=== PATIENT | female | born 1975 | race Two or more races ===

== ENCOUNTER 2020-08-16 17:32 | Emergency (ER) | payer OTHER, SELFPAY ==
[2020-08-16 17:45] VITALS: BP 141/84; PULSE 84; RESP 18; TEMP 38.3; O2SAT 98; BMI 38.7
[2020-08-16 18:00] VITALS: BP 139/80; PULSE 80; RESP 20; TEMP 36.9; O2SAT 99
--- NOTE | 2020-08-16 18:27 | PC.NURSE ---
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
[2020-08-16 18:45] LABS: Appearance Urine CLEAR; Color Urine DARK YELLOW; Glucose Urine UA NEG (NEG); Leukocyte Esterase Urine NEG (NEG); Nitrite Urine NEG (NEG); PH 5.5 (5.0-8.0); Specific Gravity - Urine 1.025 (1.005-1.025); Urine Blood 2+ (NEG); Urine Ketones 5 MG/DL (NEG); Urine Protein 1+ MG/DL (NEG-TRACE)
[2020-08-16 18:47] LABS: UPreg QC Valid YES; Urine Pregnancy NEGATIVE (NEGATIVE)
[2020-08-16 18:51] LABS: Basophils Absolute Auto 0.1 X10*3/uL (0.0-0.2); Basophils Percent Auto 0.3 % (0-2); Eosinophils Percent Auto 0.2 % (0-4); Hematocrit 41.5 % (37-47); Hemoglobin 14.2 g/dl (12.0-16.0); Imm Gran Abs Auto 0.09 X10*3/uL (0.00-0.03); Imm Gran Pct Auto 0.5 % (0.0-0.4); Lymphocytes Absolute Auto 2.1 X10*3/uL (1.2-4.9); Lymphocytes Percent Auto 12.3 % (20-40); MANUAL DIFF FLAG SCAN; Mean Corpuscular HGB Conc 34.2 g/dl (31.0-35.0); Mean Corpuscular Hemoglobin 30.6 pg (27.0-33.0); Mean Corpuscular Volume 89.4 fL (80-98); Mean Platelet Volume 11.5 fL (9.4-12.3); Monocytes Absolute Auto 1.7 X10*3/uL (0.1-1.2); Monocytes Percent Auto 9.8 % (2-11); Neutrophils Absolute Auto 13.2 X10*3/uL (2.0-8.3); Neutrophils Percent Auto 76.9 % (45-73); Platelet Count 216 X10*3/uL (160-400); Red Blood Count 4.64 X10*6/uL (4.20-5.50); Red Cell Distribution Width 12.3 % (11.0-16.0); SCAN SMEAR FLAG 1; White Blood Count 17.2 X10*3/uL (4.8-10.8)
[2020-08-16 18:51] LABS: Bacteria Urine 1+ /LPF; RBC Urine 0-2 /HPF (0); Squamous Epithelial Cell Urine 2+ /LPF; WBC Urine 0 /HPF (0-4)
[2020-08-16 19:05] LABS: SLIDE REVIEW VERIFIED
[2020-08-16] MEDS: Acetaminophen 325 MG TABLET 975 MG PO (19:06)
[2020-08-16 19:16] LABS: Alanine Aminotransferase 21 U/L (0-31); Alkaline Phosphatase 79 U/L (39-117); Anion Gap 13 (12-20); Aspartate Amino Transferase 18 U/L (5-31); Bilirubin Total 0.5 mg/dL (0.0-1.0); Blood Urea Nitrogen 8 mg/dL (9-16); Calcium 8.2 mg/dL (8.4-10.2); Carbon Dioxide 22 mmol/L (22-29); Chloride 105 mmol/L (96-108); Creatinine Clr Calc Pharmacy 113.7; Estimated Glomerular Filt Rate > 60; Glucose Random 104 mg/dL (60-115); Potassium 3.2 mmol/l (3.3-5.1); Sodium 137 mmol/L (135-145); Total Protein 7.2 g/dL (6.5-8.0)
[2020-08-16 19:44] LABS: Influenza A PCR NEGATIVE (Negative); Influenza B PCR NEGATIVE (Negative); Resp Syncy Virus RNA Qual PCR NEGATIVE (Negative); SARS COV2 PCR INHOUSE NEGATIVE (Negative)
[2020-08-16] MEDS: Lidocaine HCl 1 % MPF 5 ML VIAL SUBCUT (20:28)
--- NOTE | 2020-08-16 20:57 | ED.GENADULT ---
HPI - General Adult General Chief complaint: Fever Stated complaint: COVID SYMPTOMS Time Seen by Provider: 08/16/20 18:10 Source: patient Mode of arrival: ambulatory Limitations: no limitations History of Present Illness HPI narrative: 44-year-old presenting with complaints 1. She reports that for the past 3 days she has had some runny nose/congestion with body aches with flu-like symptoms with low-grade temp she also reports 2. That she feels like she has a bump on the right labia and hurts when she moves. States the site has been there for 2 days and seems to be getting bigger. Onset (ago): day(s) Severity: moderate Treatments prior to arrival: none Related Data Previous Rx's Medication Instructions Recorded amlodipine 5 mg tablet 5 mg PO DAILY #30 tab 07/27/20 paroxetine HCl 10 mg tablet 10 mg PO DAILY 90 Days #90 tab 08/10/20 cephalexin [Keflex] 500 mg PO Q8H 7 Days #21 cap 08/16/20 doxycycline monohydrate 100 mg PO BID 10 Days #20 cap 08/16/20 ibuprofen 800 mg PO Q8H PRN #30 tab 08/16/20 Allergies Allergy/AdvReac Type Severity Reaction Status Date / Time shellfish derived Allergy Severe SWELLING Unverified 05/26/20 17:09 [SHELLFISH DERIVED] morphine [MORPHINE] Allergy Mild NERVOUS, Verified 07/22/20 09:52 palpitations shrimp Allergy Unknown UNKNOWN Unverified 05/26/20 17:09 Review of Systems Review of Systems: Constitutional: No Weight loss, No Fever, + Chills, No Night Sweats, No Fatigue, No Malaise ENT/Mouth: No Hearing loss, No Ear Pain, + Nasal Congestion, No Sinus Pain, No Hoarseness, No sore throat, + Rhinorrhea, No Swallowing Difficulty Eyes: No Eye Pain, No Swelling, No Redness, No Foreign Body, No Discharge, No Vision Changes Cardiovascular: No Chest Pain, No SOB, No Dyspnea on Exertion, No Orthopnea, No Edema, No Palpitations Respiratory: No Cough, No Sputum, No Wheezing, No Smoke Exposure, No Dyspnea Gastrointestinal: No Nausea, No Vomiting, No Diarrhea, No Constipation, No abdominal Pain, No Hematochezia, No Melena Genitourinary: no irregular bleeding, No Dysuria, No Urinary Frequency, No Hematuria, No Urinary Incontinence, No Urgency, No Flank Pain, No Urinary Flow Changes, No Hesitancy Musculoskeletal: No joint pain, No Myalgias, No Joint Swelling Skin: No Skin Lesions, No rash Neuro: No Weakness, No Numbness, No Paresthesias, No Loss of Consciousness, No Dizziness, No Headache Psych:No Social Issues Heme/Lymph: No Bruising, No Bleeding,No Lymphadenopathy Endocrine: No Polyuria, No Polydipsia, No Temperature Intolerance Yes all other systems are reviewed and are negative [facility] Past Medical History Medical History (Updated 08/16/20 @ 20:59 by Jaswinder Jessica NP) Asthma Surgical History (Updated 07/22/20 @ 09:53 by AUDELIA Lopez) S/P NIKOS (total abdominal hysterectomy) Family History Family History (Updated 07/22/20 @ 09:54 by AUDELIA Lopez) Father No problems noted. Mother Diabetes Hypertension Social History Social History Alcohol intake: never Smoked in Last 30 Days: No Use of substances other than those prescribed or required for medical reasons: No Advance Directives: No Advance Directives Information Provided: No Physical Exam Vital Signs: Vital Signs: Last Vital Signs Temp 98.5 F 08/16/20 18:00 Pulse 80 08/16/20 18:00 Resp 20 08/16/20 18:00 BP 139/80 08/16/20 18:00 Pulse Ox 99 08/16/20 18:00 Body Mass Index 38.7 Reviewed Const: General: cooperative and healthy appearing; No acute distress or intoxicated appearing Nutritional Appearance: average body habitus Orientation/consciousness: patient oriented x3 HENMT: Head: Yes normal to inspection Ears: hearing grossly normal bilaterally General nose exam: Nasal discharge present clear Eyes: General: appearance normal, both eyes and all related structures Visual Elkins: normal visual elkins by confrontation Neck: Neck: Yes normal visual inspection, No positive Brudzinski's sign, No positive Kernig's sign and No tender Thyroid: Thyroid normal Chest: Chest palpation & inspection: normal inspection of the chest Resp: Effort & Inspection: normal respiratory effort Auscultation: clear to auscultation bilaterally Cardio: Jugular venous distension: no JVD Rhythm: regular rhythm Heart sounds: S1 normal heart sound present and S2 normal heart sound present GI: Inspection: Yes normal to inspection Percussion: Yes normal to percussion Auscultation: normal bowel sounds : Other: 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 General: Yes no CVA tenderness Back/Spine/Pelvis: Back: no CVA tenderness Skin: General skin exam: no rashes or lesions noted Neuro: General: patient oriented x3 Extrem: General: Yes normal to inspection Course Course Course Narrative: abscess drained with needle aspiration removing 15 mL of purulent discharge. Also having upper respiratory symptoms with respiratory panel negative could be false negative this was reviewed with her will go ahead and discharge her for with antibiotics for the labial abscess agreeable no need for x-ray given that were treating her with antibiotics any ways. Patient will be advised to follow-up with her director law enforcement here, clear return follow-up instructions provided. Stable for discharge. Procedures Abscess I/D Site: other ( Right labia majora) Local Anesthetic: lidocaine 1% Amount of anesthesia used (mL): 5 Technique: needle aspiration Amount of fluid expressed (mL): 15 Irrigation: Yes Packing used?: none Complications: other ( tolerated precision very well) Medical Decision Making Lab Data Result diagrams: 08/16/20 18:44 08/16/20 18:44 Labs: Lab Results 08/16/20 08/16/20 08/16/20 Range/Units 18:33 18:33 18:44 WBC 17.2 H (4.8-10.8) X10*3/uL RBC 4.64 (4.20-5.50) X10*6/uL Hgb 14.2 (12.0-16.0) g/dl Hct 41.5 (37-47) % MCV 89.4 (80-98) fL MCH 30.6 (27.0-33.0) pg MCHC 34.2 (31.0-35.0) g/dl RDW 12.3 (11.0-16.0) % Plt Count 216 (160-400) X10*3/uL MPV 11.5 (9.4-12.3) fL Immature Gran % (Auto) 0.5 H (0.0-0.4) % Neut % (Auto) 76.9 H (45-73) % Lymph % (Auto) 12.3 L (20-40) % [place] % (Auto) 9.8 (2-11) % Eos % (Auto) 0.2 (0-4) % Baso % (Auto) 0.3 (0-2) % Lymph # (Auto) 2.1 (1.2-4.9) X10*3/uL [place] # (Auto) 1.7 H (0.1-1.2) X10*3/uL Eos # (Auto) 0.0 (0.0-0.4) X10*3/uL Baso # (Auto) 0.1 (0.0-0.2) X10*3/uL Abs Immat Gran (auto) 0.09 H (0.00-0.03) X10*3/uL Absolute Neuts (auto) 13.2 H (2.0-8.3) X10*3/uL Absolute Nucleated RBC 0.000 (0.0-0.012) X10*3/uL Nucleated RBC % (auto) 0.0 (0.0-0.2) /100WBC Smear Tech's Comments VERIFIED Sodium (135-145) mmol/L Potassium (3.3-5.1) mmol/l Chloride (96-108) mmol/L Carbon Dioxide (22-29) mmol/L Anion Gap (12-20) BUN (9-16) mg/dL Creatinine (0.5-1.4) mg/dL Estim Creat Clear Calc Estimated GFR Random Glucose (60-115) mg/dL Calcium (8.4-10.2) mg/dL Total Bilirubin (0.0-1.0) mg/dL AST (5-31) U/L ALT (0-31) U/L Alkaline Phosphatase (39-117) U/L Total Protein (6.5-8.0) g/dL Albumin (3.5-5.0) g/dL Urine Color DARK YELLOW Urine Appearance CLEAR Urine pH 5.5 (5.0-8.0) Ur Specific [place] 1.025 (1.005-1.025) Urine Protein 1+ H (NEG-TRACE) MG/DL Urine Glucose (UA) NEG (NEG) MG/DL Urine Ketones 5 (NEG) MG/DL Urine Blood 2+ H (NEG) Urine Nitrite NEG (NEG) Ur Leukocyte Esterase NEG (NEG) Urine RBC 0-2 (0) /HPF Urine WBC 0 (0-4) /HPF Ur Squamous Epith Cells 2+ /LPF Urine Bacteria 1+ /LPF Urine Test NEGATIVE (NEGATIVE) Coronavirus (PCR) NEGATIVE (Negative) Influenza Type A (PCR) NEGATIVE (Negative) Influenza Type B (PCR) NEGATIVE (Negative) RSV RNA Qual (PCR) NEGATIVE (Negative) 08/16/20 Range/Units 18:44 WBC (4.8-10.8) X10*3/uL RBC (4.20-5.50) X10*6/uL Hgb (12.0-16.0) g/dl Hct (37-47) % MCV (80-98) fL MCH (27.0-33.0) pg MCHC (31.0-35.0) g/dl RDW (11.0-16.0) % Plt Count (160-400) X10*3/uL MPV (9.4-12.3) fL Immature Gran % (Auto) (0.0-0.4) % Neut % (Auto) (45-73) % Lymph % (Auto) (20-40) % [place] % (Auto) (2-11) % Eos % (Auto) (0-4) % Baso % (Auto) (0-2) % Lymph # (Auto) (1.2-4.9) X10*3/uL [place] # (Auto) (0.1-1.2) X10*3/uL Eos # (Auto) (0.0-0.4) X10*3/uL Baso # (Auto) (0.0-0.2) X10*3/uL Abs Immat Gran (auto) (0.00-0.03) X10*3/uL Absolute Neuts (auto) (2.0-8.3) X10*3/uL Absolute Nucleated RBC (0.0-0.012) X10*3/uL Nucleated RBC % (auto) (0.0-0.2) /100WBC Smear Tech's Comments Sodium 137 (135-145) mmol/L Potassium 3.2 L (3.3-5.1) mmol/l Chloride 105 (96-108) mmol/L Carbon Dioxide 22 (22-29) mmol/L Anion Gap 13 (12-20) BUN 8 L (9-16) mg/dL Creatinine 0.72 (0.5-1.4) mg/dL Estim Creat Clear Calc 113.7 Estimated GFR > 60 Random Glucose 104 (60-115) mg/dL Calcium 8.2 L (8.4-10.2) mg/dL Total Bilirubin 0.5 (0.0-1.0) mg/dL AST 18 (5-31) U/L ALT 21 (0-31) U/L Alkaline Phosphatase 79 (39-117) U/L Total Protein 7.2 (6.5-8.0) g/dL Albumin 4.0 (3.5-5.0) g/dL Urine Color Urine Appearance Urine pH (5.0-8.0) Ur Specific [place] (1.005-1.025) Urine Protein (NEG-TRACE) MG/DL Urine Glucose (UA) (NEG) MG/DL Urine Ketones (NEG) MG/DL Urine Blood (NEG) Urine Nitrite (NEG) Ur Leukocyte Esterase (NEG) Urine RBC (0) /HPF Urine WBC (0-4) /HPF Ur Squamous Epith Cells /LPF Urine Bacteria /LPF Urine Test (NEGATIVE) Coronavirus (PCR) (Negative) Influenza Type A (PCR) (Negative) Influenza Type B (PCR) (Negative) RSV RNA Qual (PCR) (Negative) Discharge Plan Discharge Clinical Impression: Upper respiratory infection, viral, Abscess of labia Patient Disposition: Home, Self-Care Additional Instructions: your COVID test was negative you had right-sided labial abscess that was drained Please follow-up with director law enforcement as discussed Take medication prescribed Return if any concerns or worsening symptoms Thank you Prescriptions: New cephalexin [Keflex] 500 mg capsule 500 mg PO Q8H 7 Days Qty: 21 RF: 0 doxycycline monohydrate 100 mg capsule 100 mg PO BID 10 Days Qty: 20 RF: 0 ibuprofen 800 mg tablet 800 mg PO Q8H PRN (Reason: pain) Qty: 30 RF: 0 No Action amlodipine 5 mg tablet 5 mg PO DAILY Qty: 30 RF: 11 paroxetine HCl 10 mg tablet 10 mg PO DAILY 90 Days Qty: 90 RF: 3 Referrals: Camilo Taylor MD [Physician] - 1 week
[2020-08-16 21:19] VITALS: BP 136/67; PULSE 88; RESP 15; TEMP 37.7; O2SAT 98
== END 2020-08-16 21:20 | disposition home or self-care (01) ==
PROVIDERS: Nurse Practitioner Primary Care; Emergency Provider Internal Medicine
DX: J06.9 Acute upper respiratory infection, unspecified (principal); N76.4 Abscess of vulva; M79.10 Myalgia, unspecified site; R50.9 Fever, unspecified; Z20.828 Contact with and (suspected) exposure to other viral communicable diseases; Z79.899 Other long term (current) drug therapy
CPT/HCPCS: 0241U; 36415; 56405; 80053; 81001; 81025; 85025; 99284

== ENCOUNTER → 2020-08-29 08:55 | Outpatient (BNVA) | payer MEDICAID, SELFPAY | PROVIDERS: Visit Provider Obstetrics & Gynecology | DX: N76.4 Abscess of vulva (principal) | CPT/HCPCS: 99212 ==

== ENCOUNTER → 2020-09-27 16:15 | Outpatient (BNVA) | payer MEDICAID, SELFPAY | PROVIDERS: Visit Provider Obstetrics & Gynecology ==

== ENCOUNTER 2020-11-29 09:49 | Outpatient (REF) | payer MEDICAID, SELFPAY ==
--- NOTE | ~2020-11-29 | XR_ITS ---
EXAMINATION: XR LUMBAR SPINE: 5 VIEWS XR KNEE, LEFT: 4 VIEWS CLINICAL INFORMATION: Low back pain COMPARISON: 02/07/2020 FINDINGS: Lumbar spine: No acute fracture or traumatic malalignment. There is mild loss of disc space height and associated endplate osteophytes at L4-L5 and L5-S1. Small endplate ossified present throughout the remainder of the lumbar spine. Moderate facet arthropathy at L4-L5 and L5-S1. Moderate left sacroiliac arthrosis characterized by subchondral sclerosis. Right sacroiliac joint unremarkable. Left knee: No acute fracture or dislocation. Joint spaces and articular surfaces are maintained. Soft tissues unremarkable. XR/XR lumbar spine 4V min IMPRESSION: Lumbar spine: Similar-appearing spondylosis, worst at L4-L5 and L5-S1. Asymmetric degenerative change of the left sacroiliac joint. Left knee: Unremarkable.
--- NOTE | ~2020-11-29 | XR_ITS ---
EXAMINATION: XR LUMBAR SPINE: 5 VIEWS XR KNEE, LEFT: 4 VIEWS CLINICAL INFORMATION: Low back pain COMPARISON: 02/07/2020 FINDINGS: Lumbar spine: No acute fracture or traumatic malalignment. There is mild loss of disc space height and associated endplate osteophytes at L4-L5 and L5-S1. Small endplate ossified present throughout the remainder of the lumbar spine. Moderate facet arthropathy at L4-L5 and L5-S1. Moderate left sacroiliac arthrosis characterized by subchondral sclerosis. Right sacroiliac joint unremarkable. Left knee: No acute fracture or dislocation. Joint spaces and articular surfaces are maintained. Soft tissues unremarkable. XR/XR knee LT 4V IMPRESSION: Lumbar spine: Similar-appearing spondylosis, worst at L4-L5 and L5-S1. Asymmetric degenerative change of the left sacroiliac joint. Left knee: Unremarkable.
--- NOTE | ~2020-11-29 | XR_ITS ---
EXAMINATION: XR RIBS, RIGHT CLINICAL INFORMATION: Pleural dyspnea COMPARISON: Chest 08/13/2019 and priors TECHNIQUE: Frontal chest and 3 oblique views of the right ribs. FINDINGS: Lungs are clear and symmetrically inflated. No mass or consolidation. No effusion or pneumothorax. Stable heart and mediastinum within normal limits for technique. Increased concave right scoliosis possibly due to splinting. The right shoulder is intact. There is a right seventh cervical rib, an anatomic variant. No right rib fracture. XR/XR ribs RT min 3V w CXR1V IMPRESSION: 1. No right rib fracture. 2. Incidental right seventh cervical rib. 3. Right lung is clear without consolidation effusion or pneumothorax.
== END 2020-11-29 09:50 | disposition home or self-care (01) ==
LOC: HO.XRAY 09:49
PROVIDERS: PCP Registered Nurse; Visit Provider Registered Nurse
DX: M25.562 Pain in left knee (principal); M54.5 Low back pain; R07.81 Pleurodynia; R20.0 Anesthesia of skin
CPT/HCPCS: 71101; 72110; 73564

== ENCOUNTER 2021-04-24 12:38 | Emergency (ER) | payer MEDICAID, SELFPAY ==
[2021-04-24 13:32] VITALS: BP 141/84; PULSE 75; RESP 18; TEMP 36.8; O2SAT 98; BMI 42.2
--- NOTE | 2021-04-24 13:38 | ECG_ITS ---
Test Reason : CHEST PAIN Blood Pressure : / mmHG Vent. Rate : 070 BPM Atrial Rate : 070 BPM P-R Int : 156 ms QRS Dur : 082 ms QT Int : 406 ms P-R-T Axes : 041 027 039 degrees QTc Int : 438 ms Normal sinus rhythm Normal ECG When compared with ECG of 09-MAY-2020 18:33, No significant change was found Referred By: Generic ED Physician Electronically Signed By:JOSIE MOSER
[2021-04-24 14:00] VITALS: PULSE 71; RESP 20; O2SAT 100
[2021-04-24 14:21] VITALS: BP 138/71
--- NOTE | 2021-04-24 14:45 | ED.GENADULT ---
HPI - General Adult General Chief complaint: Chest Pain Stated complaint: chest pain Time Seen by Provider: 04/24/21 14:45 Source: patient Mode of arrival: ambulatory Limitations: no limitations History of Present Illness HPI narrative: History of chronic constipation complaining of pain in the right lower back started yesterday while doing the household work patient also complaining of upper abdominal pain going to the mid chest no nausea vomiting or diarrhea no fever or chills Related Data Previous Rx's Medication Instructions Recorded amlodipine 5 mg tablet 5 mg PO DAILY #30 tab 07/27/20 paroxetine HCl 10 mg tablet 10 mg PO DAILY 90 Days #90 tab 08/10/20 cephalexin 500 mg capsule (Keflex) 500 mg PO Q8H 7 Days #21 cap 08/16/20 doxycycline monohydrate 100 mg 100 mg PO BID 10 Days #20 cap 08/16/20 capsule ibuprofen 800 mg tablet 800 mg PO Q8H PRN #30 tab 08/16/20 sulfamethoxazole 800 1 tab PO BID #14 tab 08/29/20 mg-trimethoprim 160 mg tablet clotrimazole 1 % topical ointment 1 appl TOPICAL BID PRN #56.7 g 09/27/20 fluconazole 150 mg tablet 150 mg PO DAILY #1 tab 09/27/20 polyethylene glycol 3350 17 17 g PO DAILY #510 g 04/24/21 gram/dose oral powder (Miralax) Allergies Allergy/AdvReac Type Severity Reaction Status Date / Time shellfish derived Allergy Severe SWELLING Verified 09/27/20 16:16 [SHELLFISH DERIVED] morphine [MORPHINE] Allergy Mild NERVOUS, Verified 09/27/20 16:16 palpitations shrimp Allergy Unknown UNKNOWN Verified 09/27/20 16:16 Review of Systems Review of Systems: Yes all other systems are reviewed and are negative [facility] Past Medical History Medical History Asthma Surgical History S/P NIKOS (total abdominal hysterectomy) Family History Family History Father No problems noted. Mother Diabetes Hypertension Social History Social History Alcohol intake: never Cigarettes Per Day: 12 Advance Directives: No Advance Directives Information Provided: Yes Sexual orientation: Straight/Heterosexual Gender identity: female Physical Exam Vital Signs: Vital Signs: Last Vital Signs Temp 98.3 F 04/24/21 13:32 Pulse 71 04/24/21 14:00 Resp 20 04/24/21 14:00 BP 138/71 04/24/21 14:21 Pulse Ox 100 04/24/21 14:00 Body Mass Index 42.2 Appearance: Alert. Oriented X3. No acute distress. And anxious Eyes: No pallor or icterus ENT: Pharynx normal. Oral Mucosa moist Neck: Normal inspection. Neck supple. CVS: Normal heart rate and rhythm. Pulses normal. Respiratory: No respiratory distress. Equal air entry bilateral, no wheezing/rales/rhonchi Abdomen: Soft , mild diffuse tenderness Bowel sounds are present, no mass palpable, no CVA tenderness Skin: Skin warm and dry. Normal skin color. Normal skin turgor. Extremities: No lower extremity edema. No calf tenderness SLR negative diffuse back pain Neuro: Oriented X 3. Medical Decision Making MDM Narrative Medical decision making narrative: Patient with multiple complaints more anxious clinical examination was negative for any acute pathology no significant tenderness in the back noticed a patient. Patient advised to continue her medication for anxiety will give MiraLax for constipation Discharge Plan Discharge Clinical Impression: Anxiety Constipation Qualifiers: Constipation type: chronic idiopathic constipation Qualified Code(s): K59.04 - Chronic idiopathic constipation Patient Disposition: Home, Self-Care Instructions: Constipation (ED), Anxiety (ED) Additional Instructions: Taking medication for anxiety. Take medication for constipation as prescribed. Follow with PCP Tomando medicamentos para la ansiedad. Cement los medicamentos para el estre?imiento seg?n lo prescrito. Siga con kendrick PCP Prescriptions: New polyethylene glycol 3350 [Miralax] 17 gram/dose powder 17 g PO DAILY Qty: 510 RF: 0 No Action amlodipine 5 mg tablet 5 mg PO DAILY Qty: 30 RF: 11 paroxetine HCl 10 mg tablet 10 mg PO DAILY 90 Days Qty: 90 RF: 3 cephalexin [Keflex] 500 mg capsule 500 mg PO Q8H 7 Days Qty: 21 RF: 0 doxycycline monohydrate 100 mg capsule 100 mg PO BID 10 Days Qty: 20 RF: 0 ibuprofen 800 mg tablet 800 mg PO Q8H PRN (Reason: pain) Qty: 30 RF: 0 sulfamethoxazole-trimethoprim 800-160 mg tablet 1 tab PO BID Qty: 14 RF: 0 fluconazole 150 mg tablet 150 mg PO DAILY Qty: 1 RF: 0 clotrimazole 1 % ointment 1 appl topical BID PRN (Reason: vaginal itching) Qty: 56.7 RF: 0 Interventions: ED Discharge Assessment Last Done: 04/24/21 15:39 Discharge Date/Time: 04/24/21 15:39 Print Language: Romanian
[2021-04-24] MEDS: Milk of Magnesia 30 ML ORAL.SUSP PO (14:56)
== END 2021-04-24 15:39 | disposition home or self-care (01) ==
PROVIDERS: Emergency Provider Internal Medicine; PCP Registered Nurse
DX: F41.9 Anxiety disorder, unspecified (principal); K59.04 Chronic idiopathic constipation; I10 Essential (primary) hypertension; Z79.899 Other long term (current) drug therapy
CPT/HCPCS: 93005; 99283; 99284

== ENCOUNTER 2021-05-30 13:41 | Outpatient (REF) | payer MEDICAID, SELFPAY ==
--- NOTE | ~2021-05-30 | XR_ITS ---
EXAMINATION: XR CHEST CLINICAL INFORMATION: Screening for TB COMPARISON: Previous chest x-ray most recent August 2019 chest and right rib x-rays November 2020 TECHNIQUE: 2 views of the chest were obtained. FINDINGS: The cardiac and mediastinal contours are normal. The lungs are clear. There is no pleural effusion or pneumothorax. No acute bone abnormality is seen. There may be a right cervical rib. XR/XR chest 2V IMPRESSION: No evidence for acute disease in the chest.
== END 2021-05-30 13:42 | disposition home or self-care (01) ==
LOC: HO.XRAY 13:41
PROVIDERS: PCP Registered Nurse Community Health; Visit Provider Registered Nurse Community Health
DX: Z11.1 Encounter for screening for respiratory tuberculosis (principal)
CPT/HCPCS: 71046

== ENCOUNTER 2021-11-30 13:57 | Outpatient (REF) | payer MEDICAID, SELFPAY ==
--- NOTE | ~2021-11-30 | MM_ITS ---
EXAMINATION: MM SCREENING DIGITAL BREAST TOMOSYNTHESIS, BILATERAL CLINICAL INFORMATION: Screening. Asymptomatic. The lifetime risk of breast cancer based on the Tyrer-Cuzick Model is 9%. COMPARISON: Mammography: December 24, 2018 and studies dating back to October 29, 2013 TECHNIQUE: Digital breast tomosynthesis is performed in both the craniocaudal and mediolateral oblique views along with computer-aided detection (CAD). Synthesized 2D images are generated from the tomosynthesis. FINDINGS: There are scattered areas of fibroglandular density (ACR BI-RADS breast composition Category b). There are no significant masses, abnormal calcifications, or other abnormalities. MM/MM tomosynthesis screening BI IMPRESSION: There are no significant changes from prior study. ASSESSMENT: BI-RADS 1: Negative RECOMMENDATION: Routine annual mammography screening. This patient's information was entered into a reminder system with a target due date for their next mammogram.
== END 2021-11-30 13:58 | disposition home or self-care (01) ==
LOC: HO.MAMMO 13:57
PROVIDERS: Visit Provider Registered Nurse Community Health
DX: Z12.31 Encounter for screening mammogram for malignant neoplasm of breast (principal)
CPT/HCPCS: 77063; 77067

== ENCOUNTER 2022-07-20 09:39 | Outpatient (REF) | payer MEDICAID, SELFPAY ==
--- NOTE | ~2022-07-20 | MR_ITS ---
EXAMINATION: MR LUMBAR SPINE WITHOUT CONTRAST CLINICAL INFORMATION: Lumbago with left-sided sciatica. COMPARISON: Lumbar spine MRI from 10/11/2017. TECHNIQUE: MRI of the lumbar spine was obtained using routine sequences without contrast. FINDINGS: Transitional vertebral anatomy. There is sacralization of L5 with rudimentary L5-S1 intervertebral disc. Mild degenerative retrolisthesis of L4 on L5. Otherwise, normal anatomic alignment. Advanced degenerative disc disease at L4-L5. Moderate degenerative disc disease at T10-T11 and L3-L4. Mild degenerative disc disease at L1-L2 and L2-L3. Associated mixed Modic type discogenic endplate changes including Modic type I discogenic edema at T10-T11, L1-L2, L3-L4, and L4-L5. Moderate marrow edema within the posterior elements of L3-L5 consistent with degenerative stress reaction. No additional suspicious marrow edema. The vertebral body heights are well-maintained. The conus medullaris terminates at the level of T12-L1. The distal spinal cord is normal in appearance. Moderate subcutaneous edema within the soft tissues of the back from L1-L5. No additional significant abnormalities of the paraspinal musculature. Limited evaluation of the intra-abdominal structures without significant abnormalities. The abdominal aorta is of normal contour and caliber. AXIAL SPINAL LEVELS: T11-T12: Normal annular contour. There is mild bilateral facet joint arthropathy. There is no neural foraminal stenosis. There is no spinal canal stenosis. T12-L1: Normal annular contour. There is mild bilateral facet joint arthropathy. There is no neural foraminal stenosis. There is no spinal canal stenosis. L1-L2: Normal annular contour. There is mild bilateral facet joint arthropathy. There is no neural foraminal stenosis. There is no spinal canal stenosis. L2-L3: Normal annular contour. There is moderate bilateral facet joint arthropathy. There is mild left and no right neural foraminal stenosis. There is no spinal canal stenosis. L3-L4: Mild diffuse disc bulge. There is moderate bilateral facet joint arthropathy. There is moderate left and mild right neural foraminal stenosis. There is narrowing of the subarticular zones with no overt spinal canal stenosis centrally. L4-L5: Moderate diffuse disc bulge with posterior osseous ridging. Moderate right lateral osteophyte complex. There is moderate right and mild left facet joint arthropathy. There is moderate right and mild left neural foraminal stenosis. There is no spinal canal stenosis. L5-S1: Normal annular contour. There is mild bilateral facet joint arthropathy. There is no neural foraminal stenosis. There is no spinal canal stenosis. MR/MR lumbar spine wo con IMPRESSION: Transitional vertebral anatomy. There is sacralization of L5. Moderate multilevel degenerative spondyloarthropathy of the lumbar spine as described in detail above. Most notably, there are moderate neural foraminal stenoses at L3-L4 and L4-L5. Narrowings of the subarticular zones at L3-L4. No overt spinal canal stenosis centrally. Overall, degenerative changes appear similar to exam from 2018.
== END 2022-07-20 09:40 | disposition home or self-care (01) ==
LOC: HO.MRI 09:39
PROVIDERS: Visit Provider Internal Medicine
DX: M54.42 Lumbago with sciatica, left side (principal)
CPT/HCPCS: 72148

== ENCOUNTER 2023-02-22 07:31 | Outpatient (REF) | payer MEDICAID, SELFPAY ==
--- NOTE | ~2023-02-22 | XR_ITS ---
EXAMINATION: Knee x-ray bilateral CLINICAL INFORMATION: Pain COMPARISON: None. TECHNIQUE: 3 views of each knee FINDINGS: Left: Bone alignment is normal. There may be old healed fracture of the proximal shaft of the fibula. No acute fracture or dislocation. Mild medial femoral tibial joint space narrowing. Joint spaces are otherwise normal. Small joint effusion. Right: Bone alignment is normal. No fracture or dislocation. Mild medial femoral tibial joint space narrowing. Joint spaces are otherwise normal. No joint effusion. XR/XR knee LT 2V IMPRESSION: Mild bilateral medial femoral tibial joint space narrowing. Question old healed left proximal fibular shaft fracture.
--- NOTE | ~2023-02-22 | XR_ITS ---
EXAMINATION: Knee x-ray bilateral CLINICAL INFORMATION: Pain COMPARISON: None. TECHNIQUE: 3 views of each knee FINDINGS: Left: Bone alignment is normal. There may be old healed fracture of the proximal shaft of the fibula. No acute fracture or dislocation. Mild medial femoral tibial joint space narrowing. Joint spaces are otherwise normal. Small joint effusion. Right: Bone alignment is normal. No fracture or dislocation. Mild medial femoral tibial joint space narrowing. Joint spaces are otherwise normal. No joint effusion. XR/XR knee standing BI IMPRESSION: Mild bilateral medial femoral tibial joint space narrowing. Question old healed left proximal fibular shaft fracture.
--- NOTE | ~2023-02-22 | XR_ITS ---
EXAMINATION: Knee x-ray bilateral CLINICAL INFORMATION: Pain COMPARISON: None. TECHNIQUE: 3 views of each knee FINDINGS: Left: Bone alignment is normal. There may be old healed fracture of the proximal shaft of the fibula. No acute fracture or dislocation. Mild medial femoral tibial joint space narrowing. Joint spaces are otherwise normal. Small joint effusion. Right: Bone alignment is normal. No fracture or dislocation. Mild medial femoral tibial joint space narrowing. Joint spaces are otherwise normal. No joint effusion. XR/XR knee RT 2V IMPRESSION: Mild bilateral medial femoral tibial joint space narrowing. Question old healed left proximal fibular shaft fracture.
== END 2023-02-22 07:32 | disposition home or self-care (01) ==
LOC: HO.HOSX 07:31
PROVIDERS: Visit Provider Physician Assistant
DX: M17.0 Bilateral primary osteoarthritis of knee (principal)
CPT/HCPCS: 73560; 73565; 99202

== ENCOUNTER 2023-06-06 11:19 | Outpatient (AMB) | payer MEDICAID, SELFPAY ==
--- NOTE | 2023-06-06 11:30 | A.OFFVIS_ITS ---
Intake Vital Signs 06/06/23 11:31 Height 5 ft 4 in Weight 283 lb 1.176 oz BMI 48.6 BP 130/76 Blood Pressure Location Lt brachial Position Sitting Pulse 96 Pulse Source Pulse Oximeter Temp 97.1 F Temp Source Skin Pulse Oximetry (%) 96 Oxygen Delivery Method Room Air Intake Visit Reasons: Polyarthralgia Intake Note: New patient presents today for polyarthralgia. 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 Operator Name: Rajendra [id number] Information Interpreted: clinical only Accompanied by: Self / Same As Patient Allergies shellfish derived [SHELLFISH DERIVED] Allergy (Severe, Verified 06/06/23 11:36) SWELLING morphine [MORPHINE] Allergy (Mild, Verified 06/06/23 11:36) NERVOUS, palpitations shrimp Allergy (Unknown, Verified 06/06/23 11:36) UNKNOWN Medication List - Last Reconciled 06/06/23 by Abdulaziz Santana MD albuterol sulfate 90 mcg/actuation (Ventolin HFA) 2 puffs inhalation Q4-6H PRN amlodipine 5 mg PO DAILY buprenorphine-naloxone 4-1 mg (Suboxone) 5 mg sublingual BID PRN cholecalciferol (vitamin D3) 50 mcg PO QAM clonazepam 0.5 mg PO BID PRN clotrimazole 1% 1 appl topical BID PRN furosemide 20 mg PO QAM gabapentin 300 mg PO TID ibuprofen 800 mg PO Q8H PRN loratadine 10 mg PO DAILY PRN losartan 25 mg PO DAILY paroxetine HCl 10 mg PO DAILY 90 days polyethylene glycol 3350 (Miralax) 17 grams PO DAILY zolpidem 5 mg PO BEDTIME PRN HPI HPI Comments History of Present Illness Details The patient presents for evaluation of multiple areas of pain. We used [employer] translating service to facilitate the visit. She gives a history of about 5-10 years of low back pain. This is worse with physical activity and tends to radiate to the buttock areas, currently more on right than the left. She does not recall any specific injury bringing on the back pain. The patient has had treatment with oxycodone, NSAIDs, and corticosteroid injections. These were not all that helpful for her. She does use twice a day Suboxone and the ibuprofen occasionally at present. A trial with Celebrex was not helpful. Other areas of pain include the hands, shoulders, knees, and feet. She thinks the hands may be puffy at times. She was told she has fibromyalgia and also takes gabapentin 300 mg capsules. She takes 1 in the afternoon and 1 at night. 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 [facility] Medical History (Updated 06/06/23 @ 13:24 by Abdulaziz Santana MD) History of prediabetes History of high blood pressure Asthma Surgical History S/P NIKOS (total abdominal hysterectomy) Family History (Updated 06/06/23 @ 11:41 by AUDELIA Cruz) Father No problems noted. 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 Significant weight gain in the last 3 years. Negative for appetite change, fever, chills, malaise Eyes Details: Some itchy eyes at times. Occasional headaches. Negative for vision change and dizziness ENT Details: Negative for hearing change, tinnitus, oral ulcer, nose bleeds and oral dryness. Card Details: Negative chest pain, edema and syncope Resp Details: Some exertional dyspnea. Negative for SOB and wheezing GI Details: Some constipation. Negative indigestion/heartburn, nausea, abdominal pain, bowel changes, diarrhea and bloody stool. Details: Negative for dysuria, hematuria, nocturia, decreased force/flow and genital discharge Skin/Breast Details: Occasional itchy rash in her hands, often related to her hands being in water. Presently negative for itching, rash, hives, Raynaud's symptoms, sun sensitivity, and skin cancer Neuro Details: Negative for epilepsy, palsy, stroke, changes in speech, tingling and weakness Psych Details: Negative for anxiety, depression and stress Endo Details: Negative for polyuria and polydypsia Salvador/Lymph Details: Negative for excessive bruising or bleeding. Physical Exam Vital Signs: Last Vital Signs Temp 97.1 F 06/06/23 11:31 Pulse 96 06/06/23 11:31 BP 130/76 06/06/23 11:31 Pulse Ox 96 06/06/23 11:31 Oxygen Delivery Method Room Air 06/06/23 11:31 BMI result Body Mass Index 48.6 APPEARANCE: Patient in no acute distress EYES no redness, pupils equal and reactive to light, eyelids normal EARS: External ear normal, canal clear and tympanic membrane normal. NOSE/SINUS: Airflow through both nares, no nasal discharge, no bleeding THROAT: Oral mucosa moist, no ulcerations NECK: No thyromegaly or masses, no adenopathy, trachea midline. HEART: Regulrar rhythm, S1-S2 heard, no murmurs, rubs or gallops. LUNG: Clear to percussion and auscultation ABD: Normal bowel sounds, no organomegaly, masses or tenderness. EXTREMITIES: No edema, no calf tenderness, normal peripheral pulses. NEURO: Oriented and alert x3. No focal weakness. Reflexes symmetric. Gait normal. SKIN: No inflammatory or neoplastic lesions. Some dryness over the palms of the hands but no skin lesions evident. Normal color and turgor of the fingertips. JOINT EXAM:.?? Cervical Spine:.? Full range of motion with mild discomfort at the extremes. There is some slight cervical muscle tenderness. Thoracic Spine:.? No scoliosis.? No tenderness on palpation. Lumbar Spine:.? Alignment normal.? Full range of motion with mild pain at 60 degrees of flexion with some paraspinal muscle tenderness. Chest Wall:.? No tenderness, swelling, increased warmth or erythema. Hands:.? Right: Normal pain-free range of motion with slight bony enlargement at the thumb IP and PIP joints but there is no tenderness. There is no flexor tendon triggering, soft tissue swelling, thenar atrophy or sensory loss. Left: Pain-free range of motion. There is some mild tenderness and triggering along the 3rd flexor tendon. There is no MCP swelling or tenderness. There is slight bony enlargement without tenderness at the PIP joints. No thenar atrophy or sensory loss. Wrists:.? Normal pain-free range of motion with mild dorsal tenderness. No swelling, increased warmth or erythema. Elbows:. Left: Normal pain-free range of motion without tenderness. There is a subcutaneous and mobile nodule over the ulnar region. This is not attached to bone. Could be a sebaceous cyst, lipoma, in more distantly possible a tophus or rheumatoid nodule. Right: Normal pain-free range of motion without tenderness, swelling, increased warmth or erythema. Shoulders: ?? Full range of motion with mild discomfort at the extremes of range of motion. There is some slight anterior tenderness without adenopathy, weakness, swelling, increased warmth or erythema. Hips:? Full range of motion with some lumbar pain with extremes of normal internal or external rotation. No groin pain with motion. Hip bursa:.? Trochanteric tenderness. Knees:.??Right: Slight pain with extremes of flexion or extension with some mild medial tenderness. No redness or effusion. Left: Mild to moderate pain with flexion extension at the extremes. There is mild to moderate medial tenderness without redness or effusion. Slight patellofemoral crepitus. Ankles:.? Normal pain-free range of motion without tenderness, swelling, increased warmth or erythema. Feet:.? Normal pain-free range of motion with mild 1st MTP bony enlargement and some slight hallux valgus deformity. There is some slight tenderness across the MTP joints but no soft tissue swelling, increased warmth or erythema. Tender points: Mild tenderness to digital palpation at the occiput, trapezius, second rib, lateral epicondyle, knees, greater trochanter and gluteal area bilaterally. Results Reviewed Results Reviewed: Laboratory Tests 05/09/20 08/16/20 18:39 18:44 Hct 41.5 Creatinine 0.72 TSH 3rd Generation 1.19 [place] [id number] Magnetic Resonance Report Signed Patient: Marge Harrington MR#: [id number] : 1975 Acct:[id number] Age/Sex: 46 / F ADM Date: 07/20/[address]: Nicci Hoff MD Ordering Physician: NICCI HOFF MD Date of Service: 07/20/22 Procedure(s): MR lumbar spine wo con Accession Number(s): [id number] cc: NICCI HFOF MD~ EXAMINATION: MR LUMBAR SPINE WITHOUT CONTRAST CLINICAL INFORMATION: Lumbago with left-sided sciatica. COMPARISON: Lumbar spine MRI from 10/11/2017. TECHNIQUE: MRI of the lumbar spine was obtained using routine sequences without contrast. FINDINGS: Transitional vertebral anatomy. There is sacralization of L5 with rudimentary L5-S1 intervertebral disc. Mild degenerative retrolisthesis of L4 on L5. Otherwise, normal anatomic alignment. Advanced degenerative disc disease at L4-L5. Moderate degenerative disc disease at T10-T11 and L3-L4. Mild degenerative disc disease at L1-L2 and L2-L3. Associated mixed Modic type discogenic endplate changes including Modic type I discogenic edema at T10-T11, L1-L2, L3-L4, and L4-L5. Moderate marrow edema within the posterior elements of L3-L5 consistent with degenerative stress reaction. No additional suspicious marrow edema. The vertebral body heights are well-maintained. The conus medullaris terminates at the level of T12-L1. The distal spinal cord is normal in appearance. Moderate subcutaneous edema within the soft tissues of the back from L1-L5. No additional significant abnormalities of the paraspinal musculature. Limited evaluation of the intra-abdominal structures without significant abnormalities. The abdominal aorta is of normal contour and caliber. AXIAL SPINAL LEVELS: T11-T12: Normal annular contour. There is mild bilateral facet joint arthropathy. There is no neural foraminal stenosis. There is no spinal canal stenosis. T12-L1: Normal annular contour. There is mild bilateral facet joint arthropathy. There is no neural foraminal stenosis. There is no spinal canal stenosis. L1-L2: Normal annular contour. There is mild bilateral facet joint arthropathy. There is no neural foraminal stenosis. There is no spinal canal stenosis. L2-L3: Normal annular contour. There is moderate bilateral facet joint arthropathy. There is mild left and no right neural foraminal stenosis. There is no spinal canal stenosis. L3-L4: Mild diffuse disc bulge. There is moderate bilateral facet joint arthropathy. There is moderate left and mild right neural foraminal stenosis. There is narrowing of the subarticular zones with no overt spinal canal stenosis centrally. L4-L5: Moderate diffuse disc bulge with posterior osseous ridging. Moderate right lateral osteophyte complex. There is moderate right and mild left facet joint arthropathy. There is moderate right and mild left neural foraminal stenosis. There is no spinal canal stenosis. L5-S1: Normal annular contour. There is mild bilateral facet joint arthropathy. There is no neural foraminal stenosis. There is no spinal canal stenosis. MR/MR lumbar spine wo con IMPRESSION: Transitional vertebral anatomy. There is sacralization of L5. Moderate multilevel degenerative spondyloarthropathy of the lumbar spine as described in detail above. Most notably, there are moderate neural foraminal stenoses at L3-L4 and L4-L5. Narrowings of the subarticular zones at L3-L4. No overt spinal canal stenosis centrally. Overall, degenerative changes appear similar to exam from 2018. Dictated By: Vitaly White DO Signed By: <Electronically signed by Vitaly White DO in OV> 07/25/22 0717 [facility] [address] [place] [address] [address] [place] [address] XRay Report Signed Patient: Marge Harrington mR#: [id number] : 1975 Acct:[id number] Age/Sex: 47 / F Date: 02/22/[address]: Telma Mcadams PA-C Ordering Physician: Telma Mcadams PA-C Date of Service: 02/22/23 Procedure(s): XR knee LT 2V Accession Number(s): [id number] cc: Telma Mcadams PA-C~ EXAMINATION: Knee x-ray bilateral CLINICAL INFORMATION: Pain COMPARISON: None. TECHNIQUE: 3 views of each knee FINDINGS: Left: Bone alignment is normal. There may be old healed fracture of the proximal shaft of the fibula. No acute fracture or dislocation. Mild medial femoral tibial joint space narrowing. Joint spaces are otherwise normal. Small joint effusion. Right: Bone alignment is normal. No fracture or dislocation. Mild medial femoral tibial joint space narrowing. Joint spaces are otherwise normal. No joint effusion. XR/XR knee LT 2V IMPRESSION: Mild bilateral medial femoral tibial joint space narrowing. Question old healed left proximal fibular shaft fracture. Dictated By: Nicky Hazel MD Signed By: <Electronically signed by Nicky Hazel MD in OV> Assessment & Plan Assessment & Plan (1) Osteoarthritis of lumbar spine: Code(s): M47.816 - Spondylosis without myelopathy or radiculopathy, lumbar region (2) Osteoarthritis of left knee: Code(s): M17.12 - Unilateral primary osteoarthritis, left knee (3) Osteoarthritis of right knee: Code(s): M17.11 - Unilateral primary osteoarthritis, right knee (4) Obesities, morbid: Code(s): E66.01 - Morbid (severe) obesity due to excess calories (5) Fibromyalgia: Code(s): M79.7 - Fibromyalgia Plan On exam I do not see signs of an active inflammatory arthritis. She has osteoarthritis and degenerative disc disease on lumbar spine imaging. She has some mild OA radiographically in the knees but symptoms seem a bit more severe than that. She also has many tender points consistent with fibromyalgia. She has significant obesity with increasing weight over the last year or 2. I think she needs to have further efforts undertaken to control her weight. This weight gain makes her knee and back problems worse. She is already on antidepressants and gabapentin for the fibromyalgia. I suggested she could take more of the gabapentin at night to improve her sleep. So the dose would be 300 mg in the afternoon and 600 mg at night. She is referred to physical therapy to have some exercises to try to improve core strength to help with back pain and quadriceps strength to help with her knee pain. I will recheck some inflammatory markers and TSH. At this point I do not think she needs to be scheduled for follow-up in Rheumatology but we should be available to see her in the future if need be. Orders: Orders Erythrocyte Sedimentation Rate Today M79.7 - Fibromyalgia C Reactive Protein Today M79.7 - Fibromyalgia Thyroid Stimulating Hormone Today M79.7 - Fibromyalgia PT Evaluation and Treatment Today M17.11 - Unilateral primary osteoarthritis, right knee, M17.12 - Unilateral primary osteoarthritis, left knee, M47.816 - Spondylosis without myelopathy or radiculopathy, lumbar region Coding Level of Care Code New Pt Level 3 (13115) Diagnoses Osteoarthritis of lumbar spine M47.816 Osteoarthritis of left knee M17.12 Osteoarthritis of right knee M17.11 Obesities, morbid E66.01 Fibromyalgia M79.7
[2023-06-06 11:31] VITALS: BP 130/76; PULSE 96; TEMP 36.2; O2SAT 96; BMI 48.6
== END 2023-06-06 12:19 | disposition home or self-care (01) ==
PROVIDERS: PCP Registered Nurse; Visit Provider Internal Medicine Rheumatology
DX: M47.816 Spondylosis without myelopathy or radiculopathy, lumbar region (principal); M17.0 Bilateral primary osteoarthritis of knee; M79.7 Fibromyalgia
CPT/HCPCS: 99203

== ENCOUNTER → 2023-06-06 11:19 | Outpatient (BNVA) | payer MEDICAID, SELFPAY | PROVIDERS: PCP Registered Nurse; Visit Provider Internal Medicine Rheumatology ==

== ENCOUNTER 2023-06-19 08:26 | Outpatient (REF) | payer MEDICAID, SELFPAY | END 2023-06-19 08:27 | disposition home or self-care (01) | LOC: HO.LAB 08:26 | PROVIDERS: Visit Provider Internal Medicine Rheumatology | DX: M79.7 Fibromyalgia (principal) | CPT/HCPCS: 36415; 84443; 85652; 86140 ==

== ENCOUNTER 2023-09-11 | Outpatient (REF) | payer MEDICAID, SELFPAY ==
[2023-09-11 13:23] LABS: Anion Gap 12 (12-20); Blood Urea Nitrogen 7 mg/dL (9-16); Calcium 9.1 mg/dL (8.4-10.2); Carbon Dioxide 25 mmol/L (22-29); Chloride 105 mmol/L (96-108); Estimated Glomerular Filt Rate > 60; Glucose Random 89 mg/dL (60-115); Potassium 3.8 mmol/L (3.3-5.1); Sodium 138 mmol/L (135-145); TSH reflex Free T4 2.82 uIU/mL (0.32-4.0); Vitamin D 25-OH Total 18.4 ng/mL (>30)
[2023-09-12 04:16] LABS: Syphilis Screen Nonreactive (Nonreactive)
[2023-09-12 04:32] LABS: HBS Num1 7.28 mIU/mL (0-7.99); HBc Num1 0.37 S/CO (0.00-0.79); HBsAGNum1 0.29 S/CO (0.00-0.99); HIV AB/AG Nonreactive (Nonreactive); HIV Num 1 0.06 S/CO (0.00-0.99); Hepatitis A Antibody IgM 0.16 Index (0-0.79); Hepatitis B Core Antibody Nonreactive (Nonreactive); Hepatitis B Surface Antigen Negative (Negative); ~HepC Num1 0.15 S/CO (0.00-0.79); ~Hepatitis A Antibody IgM Nonreactive (Nonreactive); ~Hepatitis B Surface Antibody NONREACTIVE (Nonreactive); ~Hepatitis C Antibody Nonreactive (Nonreactive)
== END 2023-09-11 00:01 ==
LOC: HO.HHCL
PROVIDERS: PCP Internal Medicine; Visit Provider Registered Nurse
DX: Z00.00 Encounter for general adult medical examination without abnormal findings (principal); Z11.4 Encounter for screening for human immunodeficiency virus [HIV]; Z11.1 Encounter for screening for respiratory tuberculosis; I10 Essential (primary) hypertension; E03.9 Hypothyroidism, unspecified
CPT/HCPCS: 36415; 80048; 80061; 82306; 83036; 84443; 86481; 86704; 86706; 86709; 86735; 86762; 86765; 86780; 86803; 87340; 87389

== ENCOUNTER 2024-01-28 08:58 | Outpatient (AMB) | payer MEDICAID, SELFPAY ==
--- NOTE | 2024-01-28 09:19 | MHC.OFFVIS ---
Vital Signs 01/28/24 09:20 Height 5 ft 4 in Weight 283 lb BMI 48.6 Intake Visit Reasons: Chronic pain of right knee Intake Note: Marge is a 48 year old female who presents for a follow up of Left knee pain and giving way. The patient states that her symptoms have gotten worse over the last 6 months in spite of continued non operative treatments. She has failed the last 6 weeks of conservative treatment. She states that her left knee will give out several times per day. She has done physical therapy exercises which aggravated her pain. She has also tried Tylenol and ibuprofen which gave her minimal relief. 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 Name: [id number] Allergies shellfish derived [SHELLFISH DERIVED] Allergy (Severe, Verified 01/28/24 09:32) SWELLING morphine [MORPHINE] Allergy (Mild, Verified 01/28/24 09:32) NERVOUS, palpitations shrimp Allergy (Unknown, Verified 01/28/24 09:32) UNKNOWN Medication List - Last Reconciled 01/28/24 by Tom Burger MD albuterol sulfate 90 mcg/actuation (Ventolin HFA) 2 puffs inhalation Q4-6H PRN amlodipine 5 mg PO DAILY buprenorphine-naloxone 4-1 mg (Suboxone) 5 mg sublingual BID PRN cholecalciferol (vitamin D3) 50 mcg PO QAM clonazepam 0.5 mg PO BID PRN clotrimazole 1% 1 appl topical BID PRN furosemide 20 mg PO QAM gabapentin 300 mg PO TID ibuprofen 800 mg PO Q8H PRN loratadine 10 mg PO DAILY PRN losartan 25 mg PO DAILY paroxetine HCl 10 mg PO DAILY 90 days polyethylene glycol 3350 (Miralax) 17 grams PO DAILY zolpidem 5 mg PO BEDTIME PRN PFSH Medical History (Updated 01/27/24 @ 15:27 by Tom Burger MD) History of prediabetes History of high blood pressure Asthma Surgical History S/P NIKOS (total abdominal hysterectomy) Family History (Updated 06/06/23 @ 11:41 by AUDELIA Herrera) Father No problems noted. Mother Diabetes Hypertension Brother Bone disease Other Arthritis Fibromyalgia Social History (Updated 06/06/23 @ 11:39 by Dalymar Linder, RMA) Household Members: Family Alcohol intake: former Patient Tobacco Use Status: Current everyday Tobacco user Cigarettes Per Day: 9 Current occupational status: employed Current occupation: [employer]/ right hand dominant Sexual orientation: Straight/Heterosexual Gender identity: Female Physical Exam Vital Signs: BMI result Body Mass Index 48.6 Const Other: Well-nourished well-developed very friendly female awake alert and oriented x3 in no acute distress Extrem Other: Bilateral lower extremity examination shows good capillary refill, no skin lesions noted, normal sensation light touch Right knee examination shows a mild effusion, minimal crepitus with range of motion, tenderness along her medial joint line, positive Radha's test, no instability Results Reviewed Results Reviewed: Standing full weight-bearing x-rays of the patient's right knee show mild joint space narrowing, no acute bony abnormalities Assessment & Plan Assessment & Plan (1) Right knee pain: Code(s): M25.561 - Pain in right knee Category: Medical Plan Ms. Harrington presents with progressively worsening right knee pain and mechanical symptoms most likely due to a tear of her medial meniscus. Thus, I will send her for an MRI of her right knee for further evaluation. I will see her back once the MRI is completed to discuss the findings and treatment options. Feel free to call me at any time should questions regarding her orthopedic management arise. Thank you very much for asking me to see this very friendly patient. I spent 21 minutes in reviewing the patient's records and imaging studies, seeing the patient and documenting in the medical record. Orders: Orders XR knee RT 3V 01/28/24 M25.561 - Pain in right knee MR knee RT wo con 01/28/24 M25.561 - Pain in right knee Coding Level of Care Code New Pt Level 3 (75682) Diagnoses Right knee pain M25.561
[2024-01-28 09:20] VITALS: BMI 48.6
== END 2024-01-28 09:48 | disposition home or self-care (01) ==
PROVIDERS: PCP Internal Medicine; Visit Provider Orthopaedic Surgery
DX: M25.561 Pain in right knee (principal)
CPT/HCPCS: 99203

== ENCOUNTER 2024-01-28 15:42 | Outpatient (REF) | payer MEDICAID, SELFPAY ==
--- NOTE | ~2024-01-28 | XR_ITS ---
EXAMINATION: XR KNEE, RIGHT CLINICAL INFORMATION: Pain in right knee. COMPARISON: 02/22/2023 TECHNIQUE: 3 views of the right knee. FINDINGS: Small joint effusion. Mild narrowing of the medial compartment. Small medial marginal osteophytes. XR/XR knee RT 3V IMPRESSION: Mild degenerative changes.
== END 2024-01-28 15:43 | disposition home or self-care (01) ==
LOC: HO.HOSX 15:42
PROVIDERS: Visit Provider Orthopaedic Surgery
DX: M25.561 Pain in right knee (principal)
CPT/HCPCS: 73562; 99202

== ENCOUNTER 2024-02-25 10:31 | Outpatient (AMB) | payer MEDICAID, SELFPAY ==
--- NOTE | 2024-02-25 10:34 | A.OFFVIS_ITS ---
Intake Visit Reasons: [employer]/ C Zahra Dotson/ leg edema Intake Note: New patient presents for leg swelling. Patient states she is having bilateral leg swelling and pain. Patient has arthritis in her left knee so she has been shifting her weight to her right leg. She was started on a new blood pressure medication and felt her legs only began to swell afterwards. She uses compression socks. Patient is a smoker , smokes about 8-10 cigarettes a day. She states she is pre diabetic. Accompanied by: Self / Same As Patient Allergies shellfish derived [SHELLFISH DERIVED] Allergy (Severe, Verified 02/25/24 10:41) SWELLING morphine [MORPHINE] Allergy (Mild, Verified 02/25/24 10:41) NERVOUS, palpitations shrimp Allergy (Unknown, Verified 02/25/24 10:41) UNKNOWN HPI HPI [employer]/ C Zahra Dotson/ leg edema: Details: Morbidly obese 48-year-old female patient presents for painful varicose veins. Complaints include pain over varicosities, swelling of lower extremities, cramping, fatigue, and heaviness of the lower extremities. It has been affecting there daily activities including walking. It is noted more so in right leg. Patient denies any previous venous surgery or injections. Patient denies any history of DVT/ PE. Patient denies any history of phlebitis. Trial of compression includes - [id number] They now present for vascular evaluation regarding their varicose veins. [facility] Medical History History of prediabetes History of high blood pressure Asthma Surgical History S/P NIKOS (total abdominal hysterectomy) Family History Father No problems noted. 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 Sexual orientation: Straight/Heterosexual Gender identity: Female Review of Systems Const Reports as per HPI ENT Reports no additional complaints Card Denies chest pain, Denies chest pain at rest and Denies chest pain with activity Resp Denies chest congestion and Denies cough GI Reports no additional complaints Musc Details: pain over varicosities, aching of lower extremities, swelling, cramping, heaviness and tiredness, itching Denies abnormal gait Skin/Breast Reports pruritus and Denies wounds Neuro Reports no additional complaints and Denies abnormal gait Psych Denies no additional complaints Physical Exam Const General: cooperative, healthy appearing and comfortable Orientation/consciousness: oriented to person, oriented to place and oriented to time Neck Carotids: no bruits Chest Chest palpation & inspection: normal inspection of the chest and normal palpation of entire chest wall Resp Effort & Inspection: normal respiratory effort and able to speak in complete sentences Cardio Rate: regular rate Heart sounds: S1 normal heart sound present and S2 normal heart sound present Peripheral pulses: Peripheral pulses 2+ throughout GI Inspection: Yes normal to inspection Skin Other: +2 edema, spider telangiectasias in particular right lateral thigh CEAP Classification C4 - skin color changes Ep - Etiology Primary As - superficial veins P - reflux General skin exam: dry skin Neuro General: oriented to person, oriented to place and oriented to time Extrem Right lower extremity: full ROM, normal capillary refill and edema Left lower extremity: full ROM, normal capillary refill and edema Psych Mental Status: mental status grossly normal Assessment & Plan Assessment & Plan (1) Varicose veins of right lower extremity with inflammation: Code(s): I83.11 - Varicose veins of right lower extremity with inflammation Category: Medical Plan: In short, the patient has evidence of venous insufficiency. I have discussed the pathophysiology with the patient. In addition I have provided informational material regarding venous disease to the patient. We have discussed conservative measures including compression, elevation, and exercise. I have also provided a handout regarding appropriate use of compression stockings and where to purchase good compression stockings as well. I have taken the liberty of ordering venous insufficiency testing with the patient. They will follow up with me after testing. The patient had an opportunity to ask questions regarding the treatment plan. All questions were answered. Imaging studies, laboratory studies and physical exam results were discussed and reviewed in detail. No major barriers to understanding were identified. The patient expressed understanding and agreement with the above treatment plan. The patient is aware they should contact our office by phone for worsening of the current condition or the ronadlo earance of new symptoms. Thank you for allowing me to participate in the vascular care of this patient. If you have any questions or concerns regarding the treatment for the above condition please do not hesitate to contact me. The office telephone contact is [phone]. This note is constructed using voice recognition software. While every effort has been made to ensure accuracy, campus coordinator errors may have been included. Thank you for allowing me to participate in the care of your patient. Yours sincerely, Allan Prince MD, FACS, R.P.V.I. Orders: Orders US venous duplex LE BI 1 Week I83.11 - Varicose veins of right lower extremity with inflammation Coding Level of Care Code Est Pt Level 4 (58573) Diagnoses Varicose veins of right lower extremity with inflammation I83.11
== END 2024-02-25 11:12 | disposition home or self-care (01) ==
PROVIDERS: PCP Internal Medicine; Visit Provider Surgery Vascular Surgery
DX: I83.11 Varicose veins of right lower extremity with inflammation (principal)
CPT/HCPCS: 99213

== ENCOUNTER → 2024-02-25 10:31 | Outpatient (BNVA) | payer MEDICAID, SELFPAY | PROVIDERS: PCP Internal Medicine; Visit Provider Surgery Vascular Surgery | DX: I83.11 Varicose veins of right lower extremity with inflammation (principal) | CPT/HCPCS: 99212 ==

== ENCOUNTER 2024-03-04 08:27 | Outpatient (REF) | payer MEDICAID, SELFPAY ==
--- NOTE | ~2024-03-04 | US_ITS ---
EXAMINATION: US LOWER EXTREMITY VENOUS (REFLUX EXAM), BILATERAL CLINICAL INDICATION: Chronic venous insufficiency with lower extremity of varicose veins with inflammation COMPARISON: None. TECHNIQUE: Color flow triplex imaging and compression Doppler was performed to evaluate both the deep and the superficial systems bilaterally. To evaluate the superficial system, the examination was performed in the upright position. Color-flow Doppler ultrasound and compression ultrasound were utilized. In addition, maneuvers were utilized to demonstrate reflux. FINDINGS: 1. DEEP VENOUS ULTRASOUND OF THE RIGHT LOWER EXTREMITY: Common Femoral Vein: Compressible, normal respiratory variation and augmented flow. Femoral Vein: Compressible, normal color flow and augmentation. Popliteal Vein: Compressible, normal augmentation. Deep Reflux: There is no evidence of reflux in the deep system in either the common femoral vein, superficial femoral or the popliteal vein. There is no evidence of a Cat's cyst. 2. SUPERFICIAL ULTRASOUND WITH DOPPLER OF RIGHT LOWER EXTREMITY: GREAT SAPHENOUS VEIN: Saphenofemoral Junction: 1.0 cm; Reflux: 0 ms Proximal Thigh: 0.6 cm; Reflux: 0 ms Mid Thigh: 0.6 cm; Reflux: 0 ms Above Knee: 0.4 cm; Reflux: 0 ms At Knee: 0.4 cm; Reflux: 0 ms Below Knee: 0.2 cm; Reflux: 0 ms Mid Calf: 0.2 cm; Reflux: 0 ms Ankle: 0.3 cm; Reflux: 0 ms DUPLICATED MEDIAL GREAT SAPHENOUS VEIN: Diameter: None imaged Reflux: NA DUPLICATED LATERAL GREAT SAPHENOUS VEIN: Diameter: None imaged Reflux: NA SMALL SAPHENOUS VEIN: Saphenopopliteal Junction: 0.3 cm; Reflux: 0 ms Mid: 0.3 cm; Reflux: 2352 ms Distal: 0.5 cm; Reflux: 2424 ms VEIN OF GIACOMINI: Size: NA Reflux: NA PERFORATORS: Location: None imaged Size: NA Reflux: NA VARICOSITIES: Location: Proximal thigh off the great saphenous vein Size: 0.4 cm Reflux: None VARICOSITIES: Location: Mid calf off the small saphenous vein Size: 0.3 cm Reflux: 2108 3. DEEP VENOUS ULTRASOUND OF THE LEFT LOWER EXTREMITY: Common Femoral Vein: Compressible, normal respiratory variation and augmented flow. Femoral Vein: Compressible, normal color flow and augmentation. Popliteal Vein: Compressible, normal augmentation. Deep Reflux: There is no evidence of reflux in the deep system in either the common femoral vein, superficial femoral or the popliteal vein. There is no evidence of a Cat's cyst. 4. SUPERFICIAL ULTRASOUND WITH DOPPLER OF LEFT LOWER EXTREMITY: GREAT SAPHENOUS VEIN: Saphenofemoral Junction: 1.0 cm; Reflux: 0 ms Proximal Thigh: 0.6 cm; Reflux: 0 ms Mid Thigh: 0.5 cm; Reflux: 0 ms Above Knee: 0.3 cm; Reflux: 0 ms At Knee: 0.3 cm; Reflux: 0 ms Below Knee: 0.3 cm; Reflux: 0 ms Mid Calf: 0.4 cm; Reflux: 0 ms Ankle: 0.3 cm; Reflux: 0 ms DUPLICATED MEDIAL GREAT SAPHENOUS VEIN: Diameter: None imaged Reflux: NA DUPLICATED LATERAL GREAT SAPHENOUS VEIN: Diameter: None imaged Reflux: NA SMALL SAPHENOUS VEIN: Saphenopopliteal Junction: 0.3 cm; Reflux: 0 ms Proximal: 0.3 cm; Reflux: 0 ms Distal: 0.2 cm; Reflux: 0 ms VEIN OF GIACOMINI: Size: NA Reflux: NA PERFORATORS: Location: None imaged Size: NA Reflux: NA VARICOSITIES: Location: Proximal and mid thigh off the great saphenous vein Size: 0.3 to 0.5 cm Reflux: None US/US venous duplex LE BI IMPRESSION: Right: Segmental areas of severe reflux in the mid to distal small saphenous vein. Branching varicosities off the small saphenous vein with reflux as described above. No significant reflux in the great saphenous vein. Branching varicosities in the thigh off the great saphenous vein without significant reflux Left: No significant reflux in the great saphenous vein or small saphenous vein. Branching varicosities off the great saphenous vein without significant reflux
== END 2024-03-04 08:28 | disposition home or self-care (01) ==
LOC: HO.US 08:27
PROVIDERS: PCP Internal Medicine; Visit Provider Surgery Vascular Surgery
DX: I83.11 Varicose veins of right lower extremity with inflammation (principal)
CPT/HCPCS: 93970

== ENCOUNTER 2024-04-14 10:52 | Outpatient (AMB) | payer MEDICAID, SELFPAY ==
--- NOTE | 2024-04-14 10:56 | A.OFFVIS_ITS ---
Intake Visit Reasons: follow up s/p 03/16/24 Intake Note: Patient presents for follow up 03/16/24 . Patient states she has bilateral leg pain. Her right leg hurts more than her right. She gets cramps occasionally. Has pain when stepping out of cars or bed. 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 Accompanied by: Self / Same As Patient Allergies shellfish derived [SHELLFISH DERIVED] Allergy (Severe, Verified 04/14/24 11:00) SWELLING morphine [MORPHINE] Allergy (Mild, Verified 04/14/24 11:00) NERVOUS, palpitations shrimp Allergy (Unknown, Verified 04/14/24 11:00) UNKNOWN HPI HPI follow up s/p [facility] 03/16/24: Details: Very pleasant 48-year-old female presents for follow-up regarding lower extremity swelling. She is a morbidly obese patient with a BMI nearly 48.6. She has swollen calfs. She has been using compression with minimal relief. She now presents for routine follow-up. She appears to have no other interval issues. She is concerned about her leg status and testing results. [facility] Medical History History of prediabetes History of high blood pressure Asthma Surgical History S/P NIKOS (total abdominal hysterectomy) Family History Father No problems noted. 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 Sexual orientation: Straight/Heterosexual Gender identity: Female Review of Systems Const Reports as per HPI ENT Reports no additional complaints Card Denies chest pain, Denies chest pain at rest and Denies chest pain with activity Resp Denies chest congestion and Denies cough GI Reports no additional complaints Musc Details: pain over varicosities, aching of lower extremities, swelling, cramping, heaviness and tiredness, itching Denies abnormal gait Skin/Breast Reports pruritus and Denies wounds Neuro Reports no additional complaints and Denies abnormal gait Psych Denies no additional complaints Physical Exam Const General: cooperative, healthy appearing and comfortable Orientation/consciousness: oriented to person, oriented to place and oriented to time Neck Carotids: no bruits Chest Chest palpation & inspection: normal inspection of the chest and normal palpation of entire chest wall Resp Effort & Inspection: normal respiratory effort and able to speak in complete sentences Cardio Rate: regular rate Heart sounds: S1 normal heart sound present and S2 normal heart sound present Peripheral pulses: Peripheral pulses 2+ throughout GI Inspection: Yes normal to inspection Skin Other: +2 edema, CEAP Classification C4 - skin color changes Ep - Etiology Primary As - superficial veins P - reflux General skin exam: dry skin Neuro General: oriented to person, oriented to place and oriented to time Extrem Right lower extremity: full ROM, normal capillary refill and edema Left lower extremity: full ROM, normal capillary refill and edema Psych Mental Status: mental status grossly normal Results Reviewed Results Reviewed: Brief summary of venous insufficiency testing is as follows: right great saphenous vein: negative right small saphenous vein: Positive right accessory vein: none present left great saphenous vein: negative left small saphenous vein: negative left accessory vein: none present Please note there is no evidence of any venous aneurysms or significant tortuosity Assessment & Plan Assessment & Plan (1) Varicose veins of right lower extremity with inflammation: Code(s): I83.11 - Varicose veins of right lower extremity with inflammation Category: Medical Plan: This patient has varicose veins with inflammation. They continue to be a source of discomfort for the patient. The patient has tried conservative treatment with compression, leg elevation and exercise program for over 3 months time. They have been compliant with all treatment. This has provided minimal relief for the patient. I do not anticipate this course of treatment will alter the underlying etiology. The patient has been scheduled for lower extremity venous treatment inclusive of --- right small saphenous vein radiofrequency ablation. Risks, benefits, and complications of this procedure has been discussed in detail with the patient including but not limited to bleeding, infection, and the development of a DVT. The patient has demonstrated a clear understanding and has consented. We will schedule the patient as soon as possible. Thank you for allowing us to participate in this patient's care. If there are any questions or concerns please do not hesitate to contact us. Coding Level of Care Code Est Pt Level 4 (80292) Diagnoses Varicose veins of right lower extremity with inflammation I83.11
== END 2024-04-14 11:23 | disposition home or self-care (01) ==
PROVIDERS: PCP Internal Medicine; Referring Provider Internal Medicine; Visit Provider Surgery Vascular Surgery
DX: I83.11 Varicose veins of right lower extremity with inflammation (principal)
CPT/HCPCS: 99214

== ENCOUNTER → 2024-04-14 10:52 | Outpatient (BNVA) | payer MEDICAID, SELFPAY | PROVIDERS: PCP Internal Medicine; Visit Provider Surgery Vascular Surgery | DX: I83.11 Varicose veins of right lower extremity with inflammation (principal) | CPT/HCPCS: 99212 ==

== ENCOUNTER 2024-04-17 10:01 | Outpatient (AMB) | payer MEDICAID, SELFPAY ==
[2024-04-17 11:28] VITALS: BMI 48.6
--- NOTE | 2024-04-17 11:28 | A.OFFVIS_ITS ---
Vital Signs 04/17/24 11:28 Height 5 ft 4 in Weight 283 lb BMI 48.6 Intake Visit Reasons: Right SSV RFA Allergies shellfish derived [SHELLFISH DERIVED] Allergy (Severe, Verified 04/17/24 11:29) SWELLING morphine [MORPHINE] Allergy (Mild, Verified 04/17/24 11:29) NERVOUS, palpitations shrimp Allergy (Unknown, Verified 04/17/24 11:29) UNKNOWN PFSH Medical History History of prediabetes History of high blood pressure Asthma Surgical History (Reviewed 04/17/24 @ 11: by AUDELIA Russo) S/P NIKOS (total abdominal hysterectomy) Family History Father No problems noted. 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 Estimated Blood Loss: Minimal The patient was transferred to the procedure suite and the insufficient small saphenous vein was mapped by ultrasound and diagrammed on the overlying skin. The depth and diameter of the vein(s) to be treated was documented. The varicose tributary veins and suitable access sites were identified and mapped as well. The patient was then positioned prone on the procedure table. The affected limb was prepped and draped in the usual sterile fashion. The RF catheter was placed on the sterile field, flushed and wiped down, prepared, and connected by a sterile cable. The patient was placed in a prone position and local anesthesia was instilled in the skin overlying the access site. A skin incision was made overlying the identified and mapped small saphenous vein entry site. The vein was accessed using ultrasound guidance and the Seldinger technique, a guide wire was introduced through the needle unfortunately we were not able to pass the wire. Multiple attempts were made to access the small saphenous vein. We were unsuccessful in advancing the wire. The vessel appeared to go into spasm and at that point the procedure was terminated. Discharge instructions were given to the patient inclusive of follow-up ultrasound and recommended follow-up with us All charges added?: Additional procedure code (CPT) needed Assessment & Plan Assessment & Plan (1) Varicose veins of right lower extremity with inflammation: Code(s): I83.11 - Varicose veins of right lower extremity with inflammation Category: Medical Plan: See op note Coding Level of Care Code Procedure Only Diagnoses Varicose veins of right lower extremity with inflammation I83.11
== END 2024-04-17 11:06 | disposition home or self-care (01) ==
PROVIDERS: PCP Internal Medicine; Referring Provider Internal Medicine; Visit Provider Surgery Vascular Surgery
DX: I83.11 Varicose veins of right lower extremity with inflammation (principal)
CPT/HCPCS: 36475

== ENCOUNTER → 2024-04-17 10:01 | Outpatient (BNVA) | payer MEDICAID, SELFPAY | PROVIDERS: PCP Internal Medicine; Visit Provider Surgery Vascular Surgery | DX: I83.11 Varicose veins of right lower extremity with inflammation (principal); Z53.8 Procedure and treatment not carried out for other reasons | CPT/HCPCS: 36475 ==

== ENCOUNTER 2024-05-05 10:32 | Outpatient (AMB) | payer MEDICAID, SELFPAY ==
--- NOTE | 2024-05-05 10:42 | MHC.OFFVIS ---
Intake Visit Reasons: follow up Right SSV RFA 04/17/24 Intake Note: Patient presents for follow up. Patient came in for 04/17 SSV RFA but was unsuccessful. She is here to see what other options she has. Accompanied by: Self / Same As Patient Allergies shellfish derived [SHELLFISH DERIVED] Allergy (Severe, Verified 05/05/24 10:46) SWELLING morphine [MORPHINE] Allergy (Mild, Verified 05/05/24 10:46) NERVOUS, palpitations shrimp Allergy (Unknown, Verified 05/05/24 10:46) UNKNOWN HPI HPI follow up Right SSV RFA 04/17/24: Details: Obese 48-year-old female presents for venous insufficiency follow-up. We had actually attempted a right small saphenous vein ablation which was unsuccessful. The current time she returns she does have some swollen lower extremities but complains more so of pain in the hip and knees right greater than left. She now presents for routine follow-up. [facility] Medical History History of prediabetes History of high blood pressure Asthma Surgical History S/P NIKOS (total abdominal hysterectomy) Family History Father No problems noted. 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 Sexual orientation: Straight/Heterosexual Gender identity: Female Review of Systems Const All systems reviewed & are unremarkable except as noted in HPI and below Reports no additional complaints ENT Reports Normal hearing present Card Denies chest pain, Denies chest pain at rest, Denies chest pain with activity and Denies pedal edema Resp Denies cough GI Denies abdominal pain Musc Denies abnormal gait, Denies muscle cramps and Denies radiating pain into limb Skin/Breast Denies skin ulcer and Denies wounds Neuro Reports Normal hearing present and Denies abnormal gait Psych Reports no additional complaints Physical Exam Const General: cooperative, healthy appearing and comfortable Orientation/consciousness: oriented to person, oriented to place and oriented to time HEENT Head: Yes normal to inspection Neck Neck: Yes normal visual inspection Carotids: no bruits Chest Chest palpation & inspection: normal inspection of the chest Resp Effort & Inspection: normal respiratory effort and able to speak in complete sentences Auscultation: clear to auscultation bilaterally, no crackles, no rales, no rhonchi and no wheezes Cardio Rate: regular rate Rhythm: regular rhythm Heart sounds: S1 normal heart sound present and S2 normal heart sound present Bruits: no carotid bruits Peripheral pulses: Peripheral pulses 2+ throughout GI Inspection: Yes normal to inspection Skin Wounds: no wounds Hair: normal Neuro General: oriented to person, oriented to place and oriented to time Cranial nerves: Yes CN's II-XII intact bilaterally and Yes Normal hearing present Cognition (Neuro): normal cognition Motor exam (neuro): 5/5 motor strength present throughout Extrem Other: venous exam: No significant superficial varicosities or spider telangiectasias, minimal edema General: No clubbing, No cyanosis and No edema Psych Appearance: grossly normal Mental Status: mental status grossly normal Speech and movement: Normal speech and movement present Assessment & Plan Assessment & Plan (1) Varicose veins of right lower extremity with inflammation: Code(s): I83.11 - Varicose veins of right lower extremity with inflammation Category: Medical Plan: In short patient has had an attempted small saphenous vein ablation which was unsuccessful due to the small caliber. That being said I do not believe that her venous disease is the majority of her issues. I do think orthopedic evaluation may be beneficial to her. We did discuss routine conservative measures including compression, elevation, exercise. She will follow up with us on an as-needed basis. Thank you for allowing us to assist in her care. Coding Level of Care Code Est Pt Level 4 (71454) Diagnoses Varicose veins of right lower extremity with inflammation I83.11
== END 2024-05-05 11:24 | disposition home or self-care (01) ==
PROVIDERS: PCP Internal Medicine; Visit Provider Surgery Vascular Surgery
DX: I83.11 Varicose veins of right lower extremity with inflammation (principal)
CPT/HCPCS: 99214

== ENCOUNTER → 2024-05-05 10:32 | Outpatient (BNVA) | payer MEDICAID, SELFPAY | PROVIDERS: PCP Internal Medicine; Visit Provider Surgery Vascular Surgery | DX: I83.11 Varicose veins of right lower extremity with inflammation (principal) | CPT/HCPCS: 99212 ==

== ENCOUNTER 2024-05-07 12:31 | Outpatient (REF) | payer MEDICAID, SELFPAY ==
--- NOTE | ~2024-05-07 | XR_ITS ---
EXAMINATION: XR CHEST CLINICAL INFORMATION: Chronic cough for one month. COMPARISON: 05/30/2021. TECHNIQUE: 2 views of the chest were obtained. FINDINGS: Dextroscoliosis of the thoracolumbar spine with multilevel degenerative changes. Heart size is normal. There is no gross pneumothorax. Mild diffuse prominence of the interstitial lung markings redemonstrated. No pleural effusion. Mild degenerative changes in the thoracic spine. XR/XR chest 2V IMPRESSION: Mild diffuse prominence of the interstitial lung markings redemonstrated. Electronically signed by: Anamika Alexandra MD 05/27/2024 10:45 AM EDT
== END 2024-05-07 12:32 | disposition home or self-care (01) ==
LOC: HO.HHCX 12:31
PROVIDERS: Visit Provider Registered Nurse
DX: R05.3 Chronic cough (principal)
CPT/HCPCS: 71046

== ENCOUNTER 2024-08-26 11:12 | Outpatient (REF) | payer MEDICAID, SELFPAY ==
[2024-08-26 13:57] LABS: MANUAL DIFF FLAG NO
[2024-08-26 14:00] LABS: Basophils Percent Auto 0.5 % (0-2); Eosinophils Absolute Auto 0.3 X10*3/uL (0.0-0.4); Hematocrit 41.3 % (37.0-47.0); Hemoglobin 14.3 g/dl (12.0-16.0); Imm Gran Abs Auto 0.03 X10*3/uL (0.00-0.03); Imm Gran Pct Auto 0.4 % (0.0-0.4); Lymphocytes Absolute Auto 3.1 X10*3/uL (1.2-4.9); Lymphocytes Percent Auto 40.8 % (20-40); Mean Corpuscular HGB Conc 34.6 g/dl (31.0-35.0); Mean Corpuscular Hemoglobin 31.1 pg (27.0-33.0); Mean Corpuscular Volume 89.8 fL (80.0-98.0); Mean Platelet Volume 12.4 fL (9.4-12.3); Monocytes Absolute Auto 0.6 X10*3/uL (0.1-1.2); Monocytes Percent Auto 8.6 % (2-11); Neutrophils Absolute Auto 3.4 x10*3/uL (2.0-8.3); Neutrophils Percent Auto 45.7 % (45-73); Platelet Count 199 X10*3/uL (160-400); Red Cell Distribution Width 12.7 % (11.0-16.0); White Blood Count 7.5 X10*3/uL (4.8-10.8)
[2024-08-26 14:24] LABS: Alanine Aminotransferase 51 U/L (0-31); Albumin Level 3.6 g/dL (3.5-5.0); Alkaline Phosphatase 84 U/L (39-117); Anion Gap 8 (12-20); Aspartate Amino Transferase 57 U/L (5-31); Bilirubin Direct 0.2 mg/dL (0.0-0.5); Bilirubin Total 0.3 mg/dL (0.0-1.0); Blood Urea Nitrogen 11 mg/dL (9-16); Calcium 8.5 mg/dL (8.4-10.2); Carbon Dioxide 31 mmol/L (22-29); Chloride 101 mmol/L (96-108); Estimated Glomerular Filt Rate > 60; Glucose Random 132 mg/dL (60-115); Potassium 2.8 mmol/L (3.3-5.1); Sodium 137 mmol/L (135-145); Total Protein 7.6 g/dL (6.5-8.0)
[2024-08-26 14:39] LABS: Vitamin D 25-OH Total 7.6 ng/mL (>30)
== END 2024-08-26 11:13 | disposition home or self-care (01) ==
LOC: HO.HHCL 11:12
PROVIDERS: Visit Provider Registered Nurse
DX: E55.9 Vitamin D deficiency, unspecified (principal); I10 Essential (primary) hypertension
CPT/HCPCS: 36415; 80048; 80076; 82306; 85025

== ENCOUNTER 2024-08-31 08:09 | Outpatient (REF) | payer OTHER, SELFPAY ==
[2024-08-31 11:57] LABS: Anion Gap 11 (12-20); Blood Urea Nitrogen 10 mg/dL (9-16); Calcium 8.9 mg/dL (8.4-10.2); Carbon Dioxide 32 mmol/L (22-29); Chloride 98 mmol/L (96-108); Estimated Glomerular Filt Rate > 60; Glucose Random 136 mg/dL (60-115); Potassium 3.4 mmol/L (3.3-5.1); Sodium 138 mmol/L (135-145)
== END 2024-08-31 08:10 | disposition home or self-care (01) ==
LOC: HO.HHCL 08:09
PROVIDERS: Visit Provider Registered Nurse
DX: I10 Essential (primary) hypertension (principal)
CPT/HCPCS: 36415; 80048

== ENCOUNTER 2024-09-25 08:06 | Outpatient (REF) | payer OTHER, SELFPAY ==
[2024-09-25 11:44] LABS: Alanine Aminotransferase 43 U/L (0-31); Albumin Level 3.6 g/dL (3.5-5.0); Alkaline Phosphatase 86 U/L (39-117); Anion Gap 8 (12-20); Aspartate Amino Transferase 50 U/L (5-31); Bilirubin Direct 0.2 mg/dL (0.0-0.5); Bilirubin Total 0.4 mg/dL (0.0-1.0); Blood Urea Nitrogen 9 mg/dL (9-16); Calcium 8.7 mg/dL (8.4-10.2); Carbon Dioxide 31 mmol/L (22-29); Chloride 103 mmol/L (96-108); Estimated Glomerular Filt Rate > 60; Glucose Random 139 mg/dL (60-115); Potassium 3.1 mmol/L (3.3-5.1); Sodium 139 mmol/L (135-145); Total Protein 7.8 g/dL (6.5-8.0)
[2024-09-25 12:07] LABS: HBS Num1 10.64 mIU/mL (0-7.99); HBc Num1 0.46 S/CO (0.00-0.79); HBsAGNum1 0.39 S/CO (0.00-0.99); Hepatitis A Antibody IgG REACTIVE (Nonreactive); Hepatitis B Core Antibody Nonreactive (Nonreactive); Hepatitis B Surface Antigen Negative (Negative); ~HepC Num1 0.14 S/CO (0.00-0.79); ~Hepatitis A Antibody IgG 8.85 S/CO (0.00-0.99); ~Hepatitis C Antibody Nonreactive (Nonreactive)
[2024-09-25 12:59] LABS: HBS Num2 9.18 mIU/mL (0-7.99); HBS Num3 10.35 mIU/mL (0-7.99)
[2024-09-25 13:00] LABS: ~Hepatitis B Surface Antibody GRAYZONE (Nonreactive)
== END 2024-09-25 08:07 | disposition home or self-care (01) ==
LOC: HO.HHCL 08:06
PROVIDERS: Visit Provider Registered Nurse
DX: E87.6 Hypokalemia (principal); R79.89 Other specified abnormal findings of blood chemistry
CPT/HCPCS: 36415; 80048; 80076; 86704; 86706; 86708; 86803; 87340

== ENCOUNTER 2024-10-07 08:44 | Outpatient (REF) | payer OTHER, SELFPAY ==
[2024-10-07 11:55] LABS: Anion Gap 10 (12-20); Blood Urea Nitrogen 11 mg/dL (9-16); Carbon Dioxide 30 mmol/L (22-29); Chloride 98 mmol/L (96-108); Estimated Glomerular Filt Rate > 60; Glucose Random 185 mg/dL (60-115); Potassium 3.1 mmol/L (3.3-5.1); Sodium 135 mmol/L (135-145)
== END 2024-10-07 08:45 | disposition home or self-care (01) ==
LOC: HO.HHCL 08:44
PROVIDERS: Visit Provider Registered Nurse
DX: E87.6 Hypokalemia (principal)
CPT/HCPCS: 36415; 80048

== ENCOUNTER 2024-10-16 08:07 | Outpatient (REF) | payer OTHER, SELFPAY ==
--- OUTSIDE RECORDS SUMMARY | 2024-10-16 08:13 | XMS_ITS | Encounter Summary ---
Author Organization [facility] Address [address], [place] [address] Care Team Providers Care Foster Winder Name Role Phone Zahra Dotson Primary Care Provider [phone] Encounter Details Date Type Department Care Team (Late st Contact Info) Description 09/11/2022 Orders Only [facility] [address] [place] [address] Mary Ann Cruz LPN Social History Tobacco Use Types Packs/Day Years Used Date Smoking Tobacco: Never Assessed Comments Unknown Sex and Gender Information Value Date Recorded Sex Assigned at Female 07/09/2022 10:17 AM EDT Legal Sex Female 10:17 AM EDT Gender Identity Female 07/09/2022 10:17 AM EDT Sexual Orientation Straight 07/09/2022 10 :17 AM EDT documented as of this encounter Plan of Treatment Upcoming Encounters Date Type Department Care Team (Late st Contact Info) Description 10/20/2024 9:45 AM EST Office Visit [facility] [address] [place] [id number] 10/21/2024 9:45 AM EST Office Visit [facility] [address] [place] [address] Zahra Dotson FNP [address] [place] [address] documented as of this encounter Visit Diagnoses Not on filedocumented in this encounter Care Teams Foster Winder Relationship Specialty Start Date End Date Zahra Dotson FNP [address] [place] [address] PCP - General Family Medicine 05/09/22 documented as of this encounter
--- OUTSIDE RECORDS SUMMARY | 2024-10-16 08:13 | XMS_ITS | Encounter Summary ---
Author Organization [employer] Address [address] [facility] 7t [place] [address] Care Team Providers Care Magician Helper Name Role Phone Zahra Dotson Primary Care Provider [phone] Reason for Visit * Reason Comments Med Refill Encounter Details Date Type Department Care Team (Late st Contact Info) Description 09/16/2024 Refill [facility] [address] [place] [address] Zahra Dotson FNP [address] [place] [address] Mild intermittent asthma without complication Social History Tobacco Use Types Packs/Day Years Used Date Smoking Tobacco: Every Day Cigarettes Passive Smoke Exposure: Current Smokeless Tobacco: Never Alcohol Use Standard Drinks/Week Comments Never 0 (1 standard drink = 0.6 oz pur e alcohol) Depression Answer Date Recorded Patient Health Questionnaire-9 Score 14 08/26/2024 Patient Health Questionnaire-9 Score 14 08/26/2024 Last PHQ-9: Questionnaire Data Not on file 1 10/27/2023 Housing Stability Answer Date Recorded What is your housing situation today? I have housing today, but I am worried about losing housing in the future 01/08/[address] you li ve. Do you have problems with any of the following? None of the above 01/08/2024 Food Insecurity Answer Date Recorded Within the past 12 months, y ou worried that your food would run out before you got money to buy more: Sometimes True 2023 Within the past 12 months,th e food you bought just didn't last and you didn't have enough money to get more: Sometimes True 01/08/2024 Transportation Answer Date Recorded In the past 12 months, has l ack of transportation kept you from medical appts, meetings, work or from getting things needed for daily living? No 01/08/2024 Utilities Answer Date Recorded In the past 12 months, has t he electric, gas, oil or water company threatened to shut off services in your home? Yes 01/08/2024 Depression Answer Date Recorded Patient Health Questionnaire-2 Score 5 08/26/2024 Comments No Sex and Gender Information Value Date Recorded Sex Assigned at Female 07/09/2022 10:17 AM EDT Legal Sex Female 10:17 AM EDT Gender Identity Female 07/09/2022 10:17 AM EDT Sexual Orientation Straight 07/09/2022 10 :17 AM EDT documented as of this encounter Plan of Treatment Upcoming Encounters Date Type Department Care Team (Late st Contact Info) Description 10/20/2024 9:45 AM EST Office Visit [facility] [address] [place] [address] 10/21/2024 9:45 AM EST Office Visit [facility] [address] [place] [address] Zahra Dotson FNP [address] [place] [address] documented as of this encounter Goals Goal Patient Goal Type Associated Problems Recent Progress Patient-Stated? Author Record your blood pressure once per day Blood Pressure No Chandler Leong PharmD Reduce the number of cigarettes by 1 in the next two weeks with a goal of 6-8 cigarettes smoked per day General No Chandler Leong, PharmD Take your medication every day Lifestyle No Chandler Leong PharmD documented as of this encounter Visit Diagnoses Diagnosis Mild intermittent asthma without complication documented in this encounter Additional Health Concerns Assessment Noted Time PHQ-9 Depression Total Score: 14 024 11:59 AM EST documented as of this encounter Care Teams Magician Helper Relationship Specialty Start Date End Date Zahra Dotson FNP [address] [place] [phone] PCP - General Family Medicine 05/09/22 documented as of this encounter
--- OUTSIDE RECORDS SUMMARY | 2024-10-16 08:13 | XMS_ITS | Encounter Summary ---
Author Organization [employer] Address [address] [facility] 7t [place] [address] Care Team Providers Care Commissioning Agent Name Role Phone Zahra Dotson Primary Care Provider [phone] Encounter Details Date Type Department Care Team ([facility] Contact Info) Description 10/11/[address] [address] Zahra Dotson FNP [address] [place] [address] Social History Tobacco Use Types Packs/Day Years Used Date Smoking Tobacco: Every Day Cigarettes Smokeless Tobacco: Never Alcohol Use Standard Drinks/Week Comments Never 0 (1 standard drink = 0.6 oz pur e alcohol) Comments No Sex and Gender Information Value Date Recorded Sex Assigned at Female 07/09/2022 10:17 AM EDT Legal Sex Female 10:17 AM EDT Gender Identity Female 07/09/2022 10:17 AM EDT Sexual Orientation Straight 07/09/2022 10 :17 AM EDT COVID-19 Exposure Response Date Recorded In the last 10 days, have yo u been in contact with someone who was confirmed or suspected to have Coronavirus/COVID-19? No / Unsure 10/02/2022 2:32 PM EST documented as of this encounter Plan of Treatment Upcoming Encounters Date Type Department Care Team ([facility] Contact Info) Description 10/20/2024 9:45 AM EST Office Visit [address] [id number] 10/21/2024 9:45 AM EST Office Visit [address] [place] [address] Zahra Dotson FNP [address] [place] [address] documented as of this encounter Visit Diagnoses Not on filedocumented in this encounter Care Teams Commissioning Agent Relationship Specialty Start Date End Date Zahra Dotson FNP [address] [place] [address] PCP - General Family Medicine 05/09/22 documented as of this encounter
--- OUTSIDE RECORDS SUMMARY | 2024-10-16 08:14 | XMS_ITS | Encounter Summary ---
Author Organization [employer] Address [address] [facility] 7t [place] [address] Care Team Providers Care Manager E Learning Name Role Phone Zahra Dotson Primary Care Provider [phone] Reason for Visit * Reason Comments Med Refill Encounter Details Date Type Department Care Team ([facility] st Contact Info) Description 12/19/2023 Refill [facility] [address] [place], [place] [phone] Zahra Dotson FNP [address] [place] [address] Spondyloarthropathy of lumbar spine Social History Tobacco Use Types Packs/Day Years Used Date Smoking Tobacco: Every Day Cigarettes Passive Smoke Exposure: Current Smokeless Tobacco: Never Alcohol Use Standard Drinks/Week Comments Never 0 (1 standard drink = 0.6 oz pur e alcohol) Depression Answer Date Recorded Patient Health Questionnaire-9 Score 3 12/11/2022 Housing Stability Answer Date Recorded What is your housing situation today? I have magdaleno bender 07/03/[address] you li ve. Do you have problems with any of the following? None of the above 07/03/2023 Food Insecurity Answer Date Recorded Within the past 12 months, y ou worried that your food would run out before you got money to buy more: Never True 07/03/2023 Within the past 12 months,th e food you bought just didn't last and you didn't have enough money to get more: Never True Transportation Answer Date Recorded In the past 12 months, has l ack of transportation kept you from medical appts, meetings, work or from getting things needed for daily living? No 07/03/2023 Utilities Answer Date Recorded In the past 12 months, has t he electric, gas, oil or water company threatened to shut off services in your home? No 07/03/2023 Depression Answer Date Recorded Patient Health Questionnaire-2 Score 0 12/11/2022 Comments No Sex and Gender Information Value [...] Description 10/20/2024 9:45 AM EST Office Visit [address] [address] 10/21/2024 9:45 AM EST Office Visit [address] [address] Zahra Dotson FNP [address] [place] [address] documented as of this encounter Goals Goal Patient Goal Type Associated Problems Recent Progress Patient-Stated? Author Record your blood pressure once per day Blood Pressure No Chandler Leong PharmD Reduce the number of cigarettes by 1 in the next two weeks with a goal of 6-8 cigarettes smoked per day General No Chandler Leong PharmD Take your medication every day Lifestyle No Chandler Leong PharmD documented as of this encounter Visit Diagnoses Diagnosis Spondyloarthropathy of lumbar spine documented in this encounter Additional Health Concerns Assessment Noted Time PHQ-9 Depression Total Score: 3 12/12/19 23 4:02 PM EDT documented as of this encounter Care Teams Manager E Learning Relationship Specialty Start Date End Date Zahra Dotson FNP [address] [place] [phone] PCP - General Family Medicine 05/09/22 documented as of this encounter
--- OUTSIDE RECORDS SUMMARY | 2024-10-16 08:14 | XMS_ITS | Encounter Summary ---
Author Organization [employer] Address [address] [facility] 7t [place] [address] Care Team Providers Care Busboy Name Role Phone AlfonsoZahra webb TIANNA Primary Care Provider [phone] Encounter Details Date Type Department Care Team ([facility] Contact Info) Description 09/24/2024 Telephone [facility] [address] [place] [address] Cristela Finch, MARTIN [address] [place] [address] Social History Tobacco Use Types Packs/Day Years [...] AM EDT documented as of this encounter Miscellaneous Notes * Telephone Encounter - Cristela Finch RN - 09/24/2024 10:45 AM EST TC back to pt. 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 Pt verbalized understanding. documented in this encounter Plan of Treatment Upcoming Encounters Date Type Department Care Team (Late st Contact Info) Description 10/20/2024 9:45 AM EST Office Visit [facility] [address] [place] [phone] 10/21/2024 9:45 AM EST Office Visit [facility] [address] [place] [address] Zahra Dotson FNP [address] [place] [address] documented as of this encounter Goals Goal [...] Diagnoses Not on filedocumented in this encounter Additional Health Concerns Assessment Noted Time PHQ-9 Depression Total Score: 14 024 11:59 AM EST documented as of this encounter Care Teams Busboy Relationship Specialty Start Date End Date Zahra Dotson FNP [address] [place] [address] PCP - General Family Medicine 05/09/22 documented as of this encounter
--- OUTSIDE RECORDS SUMMARY | 2024-10-16 08:14 | XMS_ITS | Encounter Summary ---
Author Organization [employer] Address [address] [facility] 7 [place] [address] Care Team Providers Care Virology Teacher Name Role Phone Zahra Dotson Primary Care Provider [phone] Reason for Visit * Reason Onset Date Comments Results 10/15/2024 Encounter Details Date Type Department Care Team ([facility] st Contact Info) Description 10/15/2024 Telephone [facility] [address] [place], [place] [phone] Zahra Dotson FNP [address] [place] [address] Results Social History Tobacco Use Types Packs/Day Years [...] encounter Miscellaneous Notes * Telephone Encounter - Jazz Fierro RN - 10/15/2024 9:48 AM EST Please see encounter from today labeled nurse triage in which the pt has potassium levels discussedand plan of care addressed. * Telephone Encounter - Gricel Grimaldo - 10/15/2024 8:37 AM EST TC from pt requesting call back regarding Results. Type of results: Lab Date when done: 10/07/24 Facility: [facility] Contact pt at [phone] (romanian) documented in this encounter Plan of Treatment Upcoming Encounters Date Type Department Care Team (Late st Contact Info) Description 10/20/2024 9:45 AM EST Office Visit [facility] [address] [place] [address] 10/21/2024 9:45 AM EST Office Visit [facility] [address] [place] [address] Zahra Dotson FNP [address] [place] [address] documented as of this encounter Goals Goal [...] documented as of this encounter Care Teams Virology Teacher Relationship Specialty Start Date End Date Zahra Dotson FNP [address] [place] [address] PCP - General Family Medicine 05/09/22 documented as of this encounter
--- OUTSIDE RECORDS SUMMARY | 2024-10-16 08:14 | XMS_ITS | Encounter Summary ---
Author Organization [employer] Address [address] [facility] 7t [place] [address] Care Team Providers Care Newspaper Illustrator Name Role Phone Zahra Dotson Primary Care Provider [phone] Reason for Visit * Reason Comments Med Refill Encounter Details Date Type Department Care Team ([facility] st Contact Info) Description 09/23/2024 Refill [facility] [address] [place] [address] Zahra Dotson FNP [address] [place] [address] Tobacco dependence syndrome Social History Tobacco Use Types Packs/Day Years [...] Description 10/20/2024 9:45 AM EST Office Visit [address] [address] 10/21/2024 9:45 AM EST Office Visit [address] [address] Zahra Dotson FNP [address] [place] [address] documented as of this encounter Goals Goal [...] as of this encounter Visit Diagnoses Diagnosis Tobacco dependence syndrome Tobacco use disorder documented in this encounter Additional Health Concerns Assessment Noted Time PHQ-9 Depression Total Score: 14 024 11:59 AM EST documented as of this encounter Care Teams Newspaper Illustrator Relationship Specialty Start Date End Date Zahra Dotson FNP [address] [place] [address] PCP - General Family Medicine 05/09/22 documented as of this encounter
--- OUTSIDE RECORDS SUMMARY | 2024-10-16 08:14 | XMS_ITS | Encounter Summary ---
Author Organization [employer] Address [address] [facility] 7 [place] [address] Care Team Providers Care Browning Processor Name Role Phone Zahra Dotson Primary Care Provider Reason for Visit * Reason Onset Date Comments Appointment Request 09/24/2024 Encounter Details Date Type Department Care Team ([facility] st Contact Info) Description 09/24/2024 Telephone [facility] [address] [place] [address] Zahra Dotson FNP [address] [place] [address] Appointment Request Social History Tobacco Use Types Packs/Day Years [...] encounter Miscellaneous Notes * Telephone Encounter - Sedrick Hatch - 09/24/2024 8:46 AM EST Tc from pt requesting new appointment as she canceled today's visit. [phone] documented in this encounter Plan of Treatment Upcoming Encounters Date Type Department Care Team (Late st Contact Info) Description 10/20/2024 9:45 AM EST Office Visit [facility] [address] [place] [address] 10/21/2024 9:45 AM EST Office Visit [facility] [address] [place] [address] Zahra Dotson, TIANNA [address] [place] [address] documented as of this encounter Goals Goal Patient Goal Type Associated Problems Recent Progress Patient-Stated? Author Record your blood pressure once per day Blood Pressure No Chandler Leong PharmD Reduce the number of cigarettes by 1 in the next two weeks with a goal of 6-8 cigarettes smoked per day General No hCandler Leong PharmD Take your medication every day Lifestyle No Chandler Leong PharmD documented as of this encounter Visit Diagnoses Not on filedocumented in this encounter Additional Health Concerns Assessment Noted Time PHQ-9 Depression Total Score: 14 12/18/2 024 11:59 AM EST documented as of this encounter Care Teams Browning Processor Relationship Specialty Start Date End Date Zahra Dotson FNP [address] [place] [address] PCP - General Family Medicine 05/09/22 documented as of this encounter
--- OUTSIDE RECORDS SUMMARY | 2024-10-16 08:14 | XMS_ITS | Clinical Summary ---
Author Organization [employer] Address [address] [facility] [address] [place] [address] Care Team Providers Care Systems Designer Name Role Phone AlfonsoZahra webb TIANNA Primary Care Provider [phone] Allergies Active Allergy Reactions Criticality Noted Date Comments Losartan Headache 09/19/2022 Blurry vision Morphine 08/13/2017 Shellfish Allergy 06/04/2023 Medications clonazePAM (KlonoPIN) 0.5 MG tablet Take 0.5 mg by mouth if needed in the morning and at bedtime. 022 Active PARoxetine (Paxil) 10 MG tablet Take 10 mg by mouth in the morning. 022 Active zolpidem (Ambien) 5 MG tablet Take 5 mg by mouth if needed at bedtime. 022 Active Blood Pressure Monitoring (Omron 3 Series BP Monitor) device USE TO CHECK BLOOD PRESSURE DIRECTED 023 Active Diclofenac Sodium 1 % gelIndications: Pain APPLY 2 GRAMS TO AFFECTED AREA(S) UP TO FOUR TIMES DAILY NEEDED FOR PAIN 100 g 1 023 Active Acetaminophen Extra Strength 500 MG tabletIndicatio ns:Pain TAKE 1 TO 2 TABLETS BY MOUTH EVERY 8 HOURS NEEDED FOR PAIN 60 tablet 2 023 Active hydrocortisone 1 % creamIndication s:Rash and nonspecific skin eruption Apply topically if needed in the morning and at bedtime for rash or irritation. 15 g 1 023 Active lidocaine (Lidoderm) 5 % patch APPLY 1 PATCH TOPICALLY TO SKIN, LEAVE ON FOR 12 HOURS AND OFF FOR 12 HOURS DIRECTED 30 patch 5 024 Active ibuprofen 600 MG tabletIndicatio ns:Pain TAKE 1 TABLET BY MOUTH THREE TIMES DAILY WITH FOOD NEEDED FOR PAIN OR FEVER 100 tablet 3 024 Active chlorthalidone (Hygroton) 25 MG tabletIndicatio ns:Primary hypertension TAKE 1 TABLET BY MOUTH EVERY DAY IN THE MORNING 90 tablet 1 024 Active gabapentin (Neurontin) 300 MG capsuleIndicati ons:Chronic bilateral low back pain, unspecified whether sciatica present TAKE 1 CAPSULE BY MOUTH THREE TIMES DAILY 90 capsule 3 024 Active senna-docusate sodium (Senokot-S) 8.6-50 MG tablet Take 1 tablet by mouth if needed each day for constipation. 90 tablet 1 024 2024 Active Ventolin HFA 108 (90 Base) MCG/ACT inhalerIndicati ons:Mild intermittent asthma without complication INHALE 2 PUFFS BY MOUTH EVERY 6 HOURS NEEDED FOR WHEEZING OR SHORTNESS OF BREATH 18 g 3 024 Active ergocalciferol (Vitamin D2) 1.25 MG (25440 UT) capsuleIndicati ons:Vitamin D Deficiency Take 1 capsule (1.25 mg) by mouth 1 (one) time per week. Take for 8 weeks. 8 capsule 024 2024 Active loratadine (Claritin) 10 MG tablet TAKE 1 TABLET BY MOUTH EVERY DAY NEEDED FOR ALLERGIES 90 tablet 3 025 Active albuterol (2.5 MG/3ML) 0.083% nebulizer solutionIndicat ions:Mild intermittent asthma without complication INHALE 1 AMPULE USING A NEBULIZER EVERY 4 TO 6 HOURS NEEDED FOR WHEEZING OR SHORTNESS OF BREATH 90 mL 3 025 Active nicotine polacrilex (Nicorette) 2 MG gumIndications: Tobacco dependence syndrome CHEW 1 PIECE OF GUM EVERY 1-2 HOURS NEEDED DURING WEEKS 1-6, THEN CHEW 1 PIECE OF GUM EVERY 2-4 HOURS DURING WEEKS 7-9, THEN CHEW 1 PIECE OF GUM EVERY 4-8 HOURS DURING WEEKS 10-12 DIRECTED. DO NOT EXCEED 24 PER DAY 220 each 3 025 Active buprenorphine-n aloxone (Suboxone) 4-1 MG per sublingual filmIndications :Spondyloarthro ale of lumbar spine,Long-term current use of opiate analgesic Place 1 Film under the tongue 3 times daily. 84 Film 1 025 Active cholecalciferol (Vitamin D-3) 25 MCG (1000 UT) capsuleIndicati ons:Vitamin D deficiency Take 1 capsule (25 mcg) by mouth Once daily. 90 capsule 3 024 2024 albuterol (2.5 MG/3ML) 0.083% nebulizer solutionIndicat ions:Mild intermittent asthma without complication Take 3 mL (2.5 mg) by nebulization Every 4-6 hours as needed for wheezing or shortness of breath. 3 mL 3 024 2024 Discontinued nicotine polacrilex (Nicorette) 2 MG gumIndications: Tobacco dependence syndrome Chew 1 each (2 mg) if needed for smoking cessation. Recommended guidelines: Weeks 1-6: Chew 1 piece of gum every 1-2 hrs (max 24 pieces/day) Weeks 7-9: Chew 1 piece of gum every 2-4 hrs Weeks 10-12: Chew 1 piece of gum every 4-8 hrs 2 each 3 024 2024 Discontinued buprenorphine-n aloxone (Suboxone) 4-1 MG per sublingual filmIndications :Spondyloarthro ale of lumbar spine,Long-term current use of opiate analgesic Place 1 Film under the tongue 3 times daily. 84 Film 1 024 2024 Discontinued(R eorder (will not trigger notification to Pharmacy)) potassium chloride CR (Klor-Con M20) 20 MEQ ER tabletIndicatio ns:Hypokalemia Take 1 tablet (20 mEq) by mouth Once per day for 5 days. Do not crush or chew. 5 tablet 025 2024 Active Problems Problem Noted Date Diagnosed Date LFT elevation 09/07/2024 Loud snoring 08/27/2024 Assessment & Plan (08/27/2024 10:27 AM EST): Referral for sleep study placed 08/27/24 Polyarthralgia 05/07/2024 Overview (05/07/2024): Lab Results Component Value Date RHEUMATOIDFA 14 (H) 12/10/2022 ANASCRIFA NEGATIVE 12/10/2022 CREACPROTEIN 8.9 (H) 12/10/2022 SEDRATE 14 12/10/2022 TSH 2.82 09/11/2023: Eval at [facility] Rheum - Dr. Santana. Encouraged physical therapy and weight loss. Cont gabapentin. Follow up PRN with Rheum. Assessment & Plan (05/07/2024 7:12 PM EDT): -Following with Ortho for chronic right knee pain - MRI of knee ordered by Ortho for further eval. Pt encouraged to call to reschedule appt. Varicose veins of both lower extremities 024 Overview (08/27/2024): Evaluated by [facility] - Dr. Prince in February 2024 Venous insufficiency testing demonstrated varicose veins with inflammation. Attempted right small saphenous vein radiofrequency ablation on 04/17/24, unsuccessful. Encouraged to cont compression socks, elevation, symptomatic management. Referral to re-establish d/t worsening of symptoms 08/26/24 Long-term current use of opiate analgesic 2023 Overview (06/19/2024): Medication: Suboxone 4-1mg TID Indication: spondyloarthropathy of lumbar spine Last PET SITTER Agreement: 11/01/23 Tier II (PET SITTER visits every 3 months) Assessment & Plan (06/19/2024 1:23 PM EDT): Timeline: -03/19/24: PET SITTER visit [facility] Healthcare maintenance 04/30/2023 Overview (10/06/2023): Routine Health Maintenance -C-scope: no prior, referred to GI 11/09/22 as well as 06/04/23. Pending. -Mammo: 12/01/2021 BIRADS-1. Pending. -PAP: 10/13/2013 NIL/-HPV on record. She is s/p THH 8 years ago d/t malignancy. Following with COAGULATION OPERATOR. -Last PE: 9/26/23 -Lab titers: Sep 2023: Immune to MMR. Not immune to Hep B. -TB screening: borderline Sep 2023. Asymptomatic. CXR pending. Hypothyroidism 09/16/2022 Assessment & Plan (06/04/2023 10:43 AM EDT): Off levothyroxine Order TSH and FU with PCP Hypertension 09/16/2022 Overview (05/07/2024): -Chlorthalidone 25mg daily -Previous med trials: Losartan (DC SE - RAMOS & blurry vision) Amlodipine (DC SE - BLE edema) -Encouraged lifestyle interventions including smoking cessation, low salt diet and 150mins of physical activity weekly -ED precautions Assessment & Plan (08/27/2024 10:26 AM EST): -Well controlled -Check BMP today Assessment & Plan (05/07/2024 7:19 PM EDT): -Increase to chlorthalidone 25mg daily -Check BMP in 2 weeks Assessment & Plan (09/12/2023 9:42 AM EST): -DC amlodipine and start chlorthalidone. Reviewed med safety and SE. Plan to complete labs in 2 weeks. Assessment & Plan (06/04/2023 10:39 AM EDT): Repeated BP is 140/90, borderline controlled Continue amlodipine 5 mg FU PCP with labs Counseled re low salt diet/increase moderate physical activity. Check home BP BIW and prn CP/RAMOS/PANTOJA Non smoking patient. Assessment & Plan (09/19/2022 10:16 PM EST): -Intolerance to losartan, medication discontinued -Re-start amlodipine 5mg daily. Reviewed med safety and SE. -Encouraged lifestyle interventions including smoking cessation, low salt diet and 150mins of physical activity weekly -Referral to [facility] for routine vision eval Follow up in 3 weeks via televisit to review BP readings at home (& further discuss family history). Sooner as needed. 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 Most notably, there are moderate neural foraminal stenoses at L3-L4 and L4-L5. Narrowings of the subarticular zones at L3-L4. No overt spinal canal stenosis centrally. 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 [facility] Rheum eval May 2023. Follow up PRN Previous discussion of lack of indication of opioids for chronic pain. However, safer profile with buprenorphine. Previous tx options for pain have included: Pharm: APAP, NSAIDs, gabapentin, percocet and tramadol Non-pharm: PT, physiatry, acupuncture -Continues gabapentin 300mg TID -Cont Suboxone to 4-1mg TID. Reviewed med safety and SE -Established in PET SITTER program w/ RN -Referral to PS&S Apr 2024 - no longer following -Referral to [facility] Pain Management 08/27/24 Assessment & Plan (05/07/2024 7:20 PM EDT): -Referral to PS&S sent 05/06/24 Assessment & Plan (09/12/2023 9:44 AM EST): Previous discussion of lack of indication of opioids for chronic pain. However, safer profile with buprenorphine. Previous tx options for pain have included: ?? Pharm: APAP, NSAIDs, gabapentin, percocet and tramadol ?? Non-pharm: PT, physiatry, acupuncture -Continues gabapentin 300mg TID -Cont Suboxone to 4-1mg TID. Reviewed med safety and SE -Need to establish in PET SITTER program w/ director music & Plan (07/14/2023 11:51 AM EST): Previous discussion of lack of indication of opioids for chronic pain. However, safer profile with buprenorphine. Previous tx options for pain have included: ?? Pharm: APAP, NSAIDs, gabapentin, percocet and tramadol ?? Non-pharm: PT, physiatry, acupuncture -Continues gabapentin 300mg TID -Pt has had good effect w/ Suboxone, but wearing off in the evening -Increase Suboxone to 4-1mg TID. Reviewed med safety and SE -Message sent to PET SITTER RN to establish in PET SITTER program -Follow up in 4 weeks to review tolerating med dose increase, sooner as needed. Assessment & Plan (12/11/2022 6:34 PM EDT): Previous discussion of lack of indication of opioids for chronic pain. However, safer profile with buprenorphine. Previous tx options for pain have included: ?? Pharm: APAP, NSAIDs, gabapentin, percocet and tramadol ?? Non-pharm: PT, physiatry, acupuncture -Continues gabapentin 300mg TID -Pt has had good effect w/ Suboxone, but wearing off during the afternoon -Increase Suboxone to 4-1mg BID. Reviewed med safety and SE -Follow up in 4 weeks to review tolerating med dose increase, sooner as needed. Assessment & Plan (11/22/2022 9:01 AM EDT): -Previous discussion of lack of indication of opioids for chronic pain. However, safer profile with buprenorphine. Previous tx options for pain have included: ?? Pharm: APAP, NSAIDs, gabapentin, percocet and tramadol ?? Non-pharm: PT, physiatry, acupuncture -Continues gabapentin 300mg TID -Increase Suboxone to 2-0.5mg BID. Reviewed med safety and SE -Follow up in 2 weeks to review tolerating med dose increase Assessment & Plan (11/09/2022 2:44 PM EST): -Discussed concerns of lack of indication of opioids for chronic pain. However, safer profile with buprenorphine. Pt in agreement to proceed with Suboxone 2mg SL for chronic pain. ([place] requires PA per pharmacy, switch if suboxone not effective). Reviewed safety and SE. Follow up in 2 weeks via televisit for pain control, sooner as needed. Pt in agreement with plan. Assessment & Plan (11/04/2022 10:29 PM EST): Follow up in 1 week, sooner as needed. Pt in agreement with plan. Vitamin D insufficiency 12/13/2021 Assessment & Plan (10/06/2023 8:06 PM EST): -Last Vit D 18.4 in Sep 2023 -Cont Vit D 1000 units daily Prediabetes 12/13/2021 Overview (10/02/2022): Lab Results Component Value Date HGBA1C 5.7 10/02/2022 -Encouraged to continue with lifestyle interventions Constipation 03/25/2017 Tobacco dependence syndrome 03/08/2014 Assessment & Plan (05/07/2024 7:24 PM EDT): -Smoking approx 8-10 cigg/day -Encouraged smoking cessation resources such as pharmacomtherapy, [facility] smoking cessation group, and [facility] pharmacy smoking cessation clinic -Agrees to try NRT gum as monotherapy Assessment & Plan (07/14/2023 11:56 AM EST): -Smoking approx 8-10 cigg/day -Encouraged smoking cessation resources such as pharmacomtherapy, [facility] smoking cessation group, and [facility] pharmacy smoking cessation clinic Assessment & Plan (09/19/2022 10:15 PM EST): -Smoking approx 8-10 cigg/day -Interested in referral to smoking cessation clinic, flyer provided and will place referral as well Mild asthma 03/08/2014 Overview (05/07/2024): Cont albuterol PRN DME request for nebulizer: 05/07/24 Panic disorder 02/13/2013 Anxiety 02/13/2013 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 Counseled re moderate exercise as tolerated, up to 20min/d Patient feels safe at home. PAP smear No need for additional tests due to hysterectomy/malignancy Mammogram To be ordered Eye exam Refer, to be ordered. Up to date, next one due 01/2025 CRC screen Overdue, will refer. Lipids/FBS To be ordered Vaccinations Received PNA IZ today. Counseled to receive Covid IZ at earliest convenience at local pharmacy or FU with PCP next month. Will order IZ antonio, FU with PCP. Dental visit Overdue, counseled to make ronaldo in our dental clinic. Screening mammogram for breast cancer 06/04/2023 09/11/2023 Dietary counseling 06/04/2023 Exercise counseling 06/04/2023 09/12/19 24 Squamous cell carcinoma, microinvasive 09/16/2022 06/04/2023 Overview (09/16/2022): NIKOS 07/29/09 Chronic low back pain 09/30/20172023 Rectal hemorrhage 11/22/2016 04/30/2023 Encounters Date Type Department Care Team Description 10/15/2024 Telephone [facility] [address] [place], [place] [phone] Zahra Dotson FNP Nurse Triage 10/15/2024 Telephone [facility] [address] [place], [place] [phone] Zahra Dotson FNP Results 10/14/2024 Refill [facility] [address] [place] [address] Zahra Dotson FNP Spondyloarthropathy of lumbar spine; Long-term current use of opiate analgesic 10/08/2024 Refill [facility] [address] [place], [place] [phone] Mauri, Zahra, CRYPTOGRAPHIC VULNERABILITY ANALYST Vitamin D deficiency; Spondyloarthropathy of lumbar spine; Long-term current use of opiate analgesic 09/29/2024 Telephone [facility] [address] [place] [address] Maida Robles, MARTIN 09/25/2024 Orders Only [facility] [address] [place] [address] Phaljon Zahra, CRYPTOGRAPHIC VULNERABILITY ANALYST Hypokalemia (Primary Dx) 09/24/2024 Travel 09/24/2024 Telephone [facility] [address] [place] [address] Cristela Finch, MARTIN 09/24/2024 Telephone [facility] [address] [place] [address] Phaljon Zahra, CRYPTOGRAPHIC VULNERABILITY ANALYST Appointment Request 09/23/2024 Refill [facility] [address] [place] [address] Mauri Zahra, CRYPTOGRAPHIC VULNERABILITY ANALYST Tobacco dependence syndrome 09/16/2024 Refill [facility] [address] [place] [address] Phalen Zahra, CRYPTOGRAPHIC VULNERABILITY ANALYST Mild intermittent asthma without complication 09/09/2024 Refill [facility] [address] [place] [address] Phalen Zahra, CRYPTOGRAPHIC VULNERABILITY ANALYST 09/03/[address] [address] Phaljon Zahra, CRYPTOGRAPHIC VULNERABILITY ANALYST Results 09/01/2024 Refill [facility] [address] [place] [phone] Phalen Zahra, CRYPTOGRAPHIC VULNERABILITY ANALYST Mild intermittent asthma without complication 08/28/2024 Telephone [facility] [address] [place] [phone] Phaljon Zahra, CRYPTOGRAPHIC VULNERABILITY ANALYST 08/26/2024 9:45 AM EST Office Visit [facility] [address] [place] [phone] Phalen Zahra, CRYPTOGRAPHIC VULNERABILITY ANALYST Primary hypertension (Primary Dx); Encounter for immunization; Vitamin D insufficiency; Varicose veins of both lower extremities, unspecified whether complicated; Has daytime drowsiness; Loud snoring; Spondyloarthropathy of lumbar spine; Polyarthralgia 08/26/2024 Telephone [facility] [address] [place] [address] Zahra Dotson FNP 08/26/2024 Travel 08/20/2024 Telephone [facility] [address] [place] [address] Maral Ravi MA Chart Prep 08/11/2024 Refill [facility] [address] [place] [address] Zahra Dotson FNP Spondyloarthropathy of lumbar spine 08/09/2024 Refill [facility] [address] [place] [address] Zahra Dotson FNP Long-term current use of opiate analgesic (Primary Dx); Chronic bilateral low back pain, unspecified whether sciatica present; Spondyloarthropathy of lumbar spine from Last 3 Months Immunizations Name Administration Dates Next Due Hep A, Adult 09/11/2012,04/24/2011 Hep B, Adolescent or Pediatric 06/27/2011,2010 Hep B, adult 09/11/2012 Influenza injectable quadriv alent preservative free 06/04/2023,07/31/2022,07/16/2018,06/18,11/22/2016 Influenza, IIV3, injectable 07/29/2014 Influenza, Split (incl. mansi fied surface antigen) 09/11/2012 Influenza, seasonal, injecta ble, preservative free 08/26/2024 Moderna Covid-19 Vaccine 12+ 01/04/2021 Pneumococcal Conjugate PCV 20 02/26/2023 Pneumococcal Polysaccharide PPSV23 09/11/2012 TD (adult), 2 Lf tetanus tox oid, preservative free, adsorbed 10/12/2008 Tdap 08/26/2024,09/21/2013 Family History Medical History Relation Name Comments Heart disease Father Heart disease Mother Relation Name Status Comments Father Mother Social History Tobacco Use Types Packs/Day Years Used Date Smoking Tobacco: Every Day Cigarettes Passive Smoke Exposure: Current Smokeless Tobacco: Never Tobacco Cessation:Ready to Q uit: Not Asked; Counseling Given: Not Answered Alcohol Use Standard Drinks/Week Comments Never 0 [...] Orientation Straight 07/09/2022 10 :17 AM EDT Last Filed Vital Signs Vital Sign Reading Time Taken Comments Blood Pressure 124/75 08/26/2024 10:07 AM EST Pulse 79 08/26/2024 10:07 AM EST Temperature 36.4 ??C (97.6 ??F) 08/26/2024 10:[address] Respiratory Rate 20 08/26/2024 10:07 AM EST Oxygen Saturation 98% 08/26/2024 10:07 AM EST Inhaled Oxygen Concentration - - Weight 126 kg (278 lb) 08/26/2024 10:07 AM EST Height 162.6 cm (5' 4 ) 08/26/2024 10:07 AM EST Body Mass Index 47.72 08/26/2024 10:07 AM EST Plan of Treatment Upcoming Encounters Date Type Department Care Team (Late st Contact Info) Description 10/20/2024 9:45 AM EST Office Visit [facility] [address] [place] [address] 10/21/2024 9:45 AM EST Office Visit [facility] [address] [place] [address] Zahra Dotson, CRYPTOGRAPHIC VULNERABILITY ANALYST [address] [place] [address] Health Maintenance Due Date Last Done Comments CT Colonography 1973 Colonoscopy 1973 Colorectal Cancer Screening 1973 FIT DNA/Cologuard 1973 FIT 1973 FOBT 1973 Sigmoidoscopy 1973 Alcohol/Substance Use Screening 1985 Family Planning (PISQ) 1988 Hepatitis B Vaccines (2 of 3 - 19+ 3-dose series) 10/09/2012 09/11/2012, 06/27/2011, 04/24/2011 Zoster Vaccines (1 of 2) 2023 Mammogram 12/01/2023 11/30/2021 Diabetes: Hemoglobin A1C 09/11/2024 024, 10/02/2022, 12/12/2021, Additional history exists SDOH Screening 01/07/2025 01/08/2024 Depression Monitoring (PHQ-9) 02/24/2025 08/26/2024, 08/26/2024 Depression Screening 08/26/2025 08/26/2024, 08/26/20 24 Tobacco Screening 08/26/2025 08/26/2024 COVID-19 Vaccine ( season) 2025 09/20/2021, 02/01/2021, 01/04/2021 Postponed from 05/10/2024 (Patient Refused) Lipid Panel 09/11/2028 09/11/2023, 04/0 01/2022, 11/24/2020 DTaP/Tdap/Td Vaccines (3 - Td or Tdap) 08/26/2034 08/26/2024, 09/21/2013, 10/12/2008 RSV Patients and Patients Aged 60 years or older (1 - 1-dose 75+ series) 2048 Hepatitis A Vaccines Completed 09/11/2012, 04/24/20 11 Pneumococcal Vaccine: 50+ Years Completed 02/26/2023, 09/11/2012 HIV Screening Completed 09/11/2023 Influenza Vaccine Completed 08/26/2024, , 07/31/2022, Additional history exists Hepatitis C Screening Completed 09/25/2024, 024 HIB Vaccines Aged Out No longer eligi ble based on patient's age to complete this topic HPV Vaccines Aged Out No longer eligi ble based on patient's age to complete this topic IPV Vaccines Aged Out No longer eligi ble based on patient's age to complete this topic Meningococcal Vaccine Aged Out No dipak demond eligible based on patient's age to complete this topic RSV under 20 months Aged Out No longe r eligible based on patient's age to complete this topic Rotavirus Vaccines Aged Out No longer eligible based on patient's age to complete this topic Goals Goal Patient Goal Type Associated Problems Recent Progress Patient-Stated? Author Record your blood pressure once per day Blood Pressure No Chandler Leong PharmD Reduce the number of cigarettes by 1 in the next two weeks with a goal of 6-8 cigarettes smoked per day General No Chandler Leong PharmD Take your medication every day Lifestyle No Chandler Leong PharmD Procedures Procedure Name Priority Date/Time Associated Diagnosis Comments BASIC METABOLIC PANEL Routine 10/07/2024 8:48 AM EST Hypokalemia HEPATITIS A ANTIBODY, TOTAL Routine 09/25/2024 8:08 AM EST Elevated LFTs HEPATITIS C AB W/REFL TO HCV RNA, QN, PCR Routine 09/25/2024 8:08 AM EST Elevated LFTs HEPATITIS B SURFACE ANTIGEN, EIA Routine 09/25/2024 8:08 AM EST Elevated LFTs HEPATITIS B SURFACE ANTIBODY, QUALITATIVE Routine 09/25/2024 8:08 AM EST Elevated LFTs HEPATITIS B CORE AB TOTAL Routine 09/25/2024 8:08 AM EST Elevated LFTs HEPATIC FUNCTION PANEL Routine 09/25/2024 8:08 AM EST Elevated LFTs BASIC METABOLIC PANEL Routine 09/25/2024 8:08 AM EST Hypokalemia BASIC METABOLIC PANEL Routine 08/31/2024 8:12 AM EST Primary hypertension CBC WITH AUTO DIFFERENTIAL Routine 08/26/2024 11:14 AM EST Vitamin D insufficiency VITAMIN D,25-OH,TOTAL,IA Routine 08/26/2024 11:14 AM EST Vitamin D insufficiency BASIC METABOLIC PANEL Routine 08/26/2024 11:14 AM EST Primary hypertension HEPATIC FUNCTION PANEL Routine 08/26/2024 11:14 AM EST Primary hypertension HIV 1/2 ANTIGEN/ANTIBODY, FOURTH GENERATION W/RFL Routine 09/11/2023 10:27 AM EST Encounter for preventive health examination HEMOGLOBIN A1C Routine 09/11/2023 10:27 AM EST Primary hypertension LIPID PANEL WITH REFLEX TO DIRECT LDL Routine 09/11/2023 10:27 AM EST Primary hypertension Acquired hypothyroidism MAMMOGRAM GENERIC Routine 11/30/2021 2:1 5 PM EDT from Last 3 Months or Most Recently Relevant to Health Maintenance Results * (ABNORMAL) Basic Metabolic Panel (10/07/2024 8:48 AM EST) Only the most recent of4 resultswithin the time period is included. Sodium 135 135 - 145 mmol/L [facility] Potassium 3.1(L) 3.3 - 5.1 mmol/L [facility] Chloride 98 96 - 108 mmol/L [facility] Carbon Dioxide 30(H) 22 - 29 mmol/L [facility] Anion Gap 10(L) 12 - 20 [facility] [facility] Urea Nitrogen (BUN) 11 9 - 16 mg/dL [facility] Creatinine, Serum 0.70 0.5 - 1.4 mg/dL [facility] Estimated Glomerular Filt Rate >60 [facility] Comment:Chronic Kidney Disea se: Estimated GFR < 60 mL/min/1.32c4Pebdps Kidney Disease: Estimated GFR < 15 mL/min/1.73m2 Glucose 185(H) 60 - 115 mg/dL [facility] Calcium 9.0 8.4 - 10.2 mg/dL [facility] Blood Venous blood specimen / Unknown 10/07/2024 8:48 AM EST 10/07/2024 11:25 AM EST [facility] ORDERABLES Final Res ult Performing Organization Address City/[facility] Co de Phone Number [facility] [address] [place] [phone] * Hepatitis C Antibody with Reflex to HCV, RNA, Quantitative, Real-Time PCR (09/25/2024 8:08 AM EST) Hepatitis C Antibody Nonreactive Nonreactive [facility] Comment:Antibodies to HCV no t detected; does not exclude early acuteHCV infection. Blood Venous blood specimen / Unknown 09/25/2024 8:08 AM EST 09/25/2024 11:[address] [facility] LAB BLOOD ORDERABLES Final Res ult Performing Organization Address [facility] de Phone Number [facility] [address] [place] [phone] * Hepatitis A Antibody, Total (09/25/2024 8:08 AM EST) Hepatitis A Antibody IgG REACTIVE Nonreactive [facility] Comment:The presence of IgG anti-HAV implies past HAV infection(recent or distant) or vaccination against HAV. Blood Venous blood specimen / Unknown 09/25/2024 8:08 AM EST 09/25/2024 11:20 AM EST Z[address]ra Dotson [facility] LAB BLOOD ORDERABLES Final Res ult Performing Organization Address [facility]/ZIP Co de Phone Number [facility] [address] [place] [phone] * Hepatitis B surface antigen, EIA (09/25/2024 8:08 AM EST) Pathologist [facility] Hepatitis B Surface Ag Negative Negative [facility] Blood Venous blood specimen / Unknown 09/25/2024 8:08 AM EST 09/25/2024 11:20 AM EST Zahra Dotson [facility] LAB BLOOD ORDERABLES Final Res ult Performing Organization Address [facility] Co de Phone Number [facility] [address] [place] [address] [phone] * Hepatitis B Core Antibody, Total (09/25/2024 8:08 AM EST) Pathologist [facility] Hepatitis B Core Antibody Nonreactive Nonreactive [facility] Blood Venous blood specimen / Unknown 09/25/2024 8:08 AM EST 09/25/2024 11:20 AM EST Zahra Dotson [facility] LAB BLOOD ORDERABLES Final Res ult Performing Organization Address [facility] Co de Phone Number [facility] [address] [place] [address] [phone] * Hepatitis B Surface Antibody, Qualitative (09/25/2024 8:08 AM EST) ~Hepatitis B Surface Antibody GRAYZONE Nonreactive [facility] Comment:GRAYZONE: 8.00 mIU/m L TO 11.99 mIU/mLTHE IMMUNE STATUS OF THE INDIVIDUAL SHOULD BE FURTHERASSESSED BY CONSIDERING OTHER FACTORS, SUCH CLINICALSTATUS, FOLLOW-UP TESTING, ASSOCIATED RISK FACTORS, AND THEUSE OF ADDITIONAL DIAGNOSTIC INFORMATION. Blood Venous blood specimen / Unknown 09/25/2024 8:08 AM EST 09/25/2024 11:20 AM EST Zahra Dotson CRYPTOGRAPHIC VULNERABILITY ANALYST LAB BLOOD ORDERABLES Final Res ult Performing Organization Address City/[facility]/ZIP Co de Phone Number [facility] [address] [place] [address] [phone] * (ABNORMAL) Hepatic Function Panel (09/25/2024 8:08 AM EST) Only the most recent of2 resultswithin the time period is included. Bilirubin, Total 0.4 0.0 - 1.0 mg/dL [facility] Bilirubin, Direct 0.2 0.0 - 0.5 mg/dL [facility] Aspartate Amino Transferase 50(H) 5 - 31 U/L [facility] Alanine Aminotransferase 43(H) 0 - 31 U/L [facility] Total Protein 7.8 6.5 - 8.0 g/dL [facility] Albumin Level 3.6 3.5 - 5.0 g/dL [facility] Alkaline Phosphatase 86 39 - 117 U/L [facility] Blood Venous blood specimen / Unknown 09/25/2024 8:08 AM EST 09/25/2024 11:20 AM EST Zahra Dotson [facility] LAB BLOOD ORDERABLES Final Res ult Performing Organization Address [facility]/ZIP Co de Phone Number [facility] [address] [place] [address] [phone] * (ABNORMAL) Vitamin D, 25-Hydroxy, Total, Immunoassay (08/26/2024 11:14 AM EST) Vitamin D 25-OH Total 7.6(L) >30 ng/mL [facility] Comment:Health Based Referen ce Values*< 20 ng/mL Cqarqeuwq71-24 ng/mL Insufficient> 30 ng/mL Sufficient*Kayy ROSALES. N Engl J Med. 2007;357:266-280Care must be taken in interpreting Vitamin D results fromdifferent laboratories and methodologies. Published datademonstrated that results from patients undergoinghemodialysis may show a negative bias when tested withvarious automated 25-OH vitamin D assays when compared toLC-MS/MS.When testing samples from patients whose predominant form ofVitamin D is Vitamin D2, such as patients receiving VitaminD2 supplementation, results that are subtherapeutic shouldbe confirmed with another method such as LC-MS/MS. Blood Venous blood specimen / Unknown 08/26/2024 11:14 AM EST 08/26/2024 1:52 PM EST us Zahra Dotson CRYPTOGRAPHIC VULNERABILITY ANALYST LAB BLOOD ORDERABLES Final Res ult [facility] [address] [place] [address] [phone] * (ABNORMAL) CBC auto differential (08/26/2024 11:14 AM EST) White Blood Count 7.5 4.8 - 10.8 X10*3/uL [facility] Red Blood Count 4.60 4.20 - 5.50 X10*6/uL [facility] Hemoglobin 14.3 12.0 - 16.0 g/dl [facility] Hematocrit 41.3 37.0 - 47.0 % [facility] Mean Corpuscular Volume 89.8 80.0 - 98.0 fL [facility] Mean Corpuscular Hemoglobin 31.1 27.0 - 33.0 pg [facility] Mean Corpuscular HGB Conc 34.6 31.0 - 35.0 g/dl [facility] Red Cell Distribution Width 12.7 11.0 - 16.0 % [facility] Platelet Count 199 160 - 400 X10*3/uL [facility] Mean Platelet Volume 12.4(H) 9.4 - 12.3 fL [facility] Neutrophils Percent Auto 45.7 45 - 73 % [facility] Imm Gran Pct Auto 0.4 0.0 - 0.4 % [facility] Lymphocytes Percent Auto 40.8(H) 20 - 40 % [facility] Monocytes Percent Auto 8.6 2 - 11 % [facility] Eosinophils Percent Auto 4.0 0 - 4 % [facility] Basophils Percent Auto 0.5 0 - 2 % [facility] NRBC Pct Auto 0.0 0.0 - 0.2 /100WBC [facility] Neutrophils Absolute Auto 3.4 2.0 - 8.3 x10*3/uL [facility] Imm Gran Abs Auto 0.03 0.00 - 0.03 X10*3/uL [facility] Lymphocytes Absolute Auto 3.1 1.2 - 4.9 X10*3/uL [facility] Monocytes Absolute Auto 0.6 0.1 - 1.2 X10*3/uL [facility] Eosinophils Absolute Auto 0.3 0.0 - 0.4 X10*3/uL [facility] Basophils Absolute Auto 0.0 0.0 - 0.2 X10*3/uL [facility] NRBC Abs Auto 0.000 0.0 - 0.012 X10*3/uL [facility] Blood Venous blood specimen / Unknown 08/26/2024 11:14 AM EST 08/26/2024 1:52 PM EST us Zahra Dotson CRYPTOGRAPHIC VULNERABILITY ANALYST LAB BLOOD ORDERABLES Final Res ult [facility] [address] [place] [phone] * (ABNORMAL) Lipid Panel with Reflex to Direct LDL (09/11/2023 10:27 AM EST) Triglycerides 68 <150 mg/dL [facility] Comment:Desirable Triglyceri de: less than 150 mg/dLBorderline High Triglyceride 150-199 mg/dLHigh Triglyceride: 200-499 mg/dLVery High Triglyceride: greater than or equal to 5OO mg/dL Cholesterol 133 <200 mg/dL [facility] Comment:Desirable Cholestero l: less than 200 mg/dLBorderline High Cholesterol: 200-239 mg/dLHigh Cholesterol: greater than 239 mg/dL LDL Cholesterol Calculated 86 <100 mg/dL [facility] Comment:Desirable LDL: less than 100 mg/dLNear Optimal/Above Optimal LDL: 110- 129 mg/dLBorderline High LDL: 130-159 mg/dLHigh LDL: 160-189 mg/dLVery High LDL: greater than or equal to 190 mg/dL HDL Cholesterol 34(L) >40 mg/dL [facility] Comment:Desirable HDL: great er than 40 mg/dL Note: This HDL assay may give artificially low results in patients with liver disease. Blood 09/11/2023 10:2 7 AM EST 09/11/2023 11:50 AM EST us Linda Martinez MD LAB BLOOD ORDERABLES Fin al Result [facility] [address] [place] [address] [phone] * HIV-1/2 Antigen and Antibodies, Fourth Generation, with Reflexes (09/11/2023 10:27 AM EST) Pathologist [facility] HIV AB/AG Nonreactive Nonreactive [facility] Comment:HIV-1 p24 Ag and/or HIV-1/HIV-2 Ab not detected.A test result that is nonreactive does not exclude thepossibility of exposure to or infection with HIV-1 and/orHIV-2. Nonreactive results in this assay for individualswith prior exposure to HIV-1 and/or HIV-2 may be due toantigen and antibody levels that are below the limit ofdetection of this assay.The [employer] HIV Ag/Ab Combo assay result andsupplemental assay results should be interpreted inconjunction with the patient's clinical presentation,history and other laboratory results. If the results areinconsistent with clinical evidence, additional testing issuggested to confirm the result. Blood Venous blood specimen / Unknown 09/11/2023 10:27 AM EST 09/11/2023 11:50 AM EST Linda Martinez MD LAB BLOOD ORDERABLES Fin al Result Performing Organization Address [facility] Co de Phone Number [facility] [address] [place] [address] [phone] * Hemoglobin A1c (09/11/2023 10:27 AM EST) Hemoglobin A1c 6.0 <6.0 % [facility] Comment:Hemoglobin A1C Refer ence Range Adults: 4.8 - 6.0 % Non diabetic: < 6.0 % Goal: < 7.0 %Additional Action Suggested: > 8.0 %Note: Hemoglobin A1c results are invalid for patients with abnormal amounts of HbF. Blood transfusions may impact the HbA1c concentration in the patient sample. Estimated Average Glucose 126 mg/dL [facility] Comment:eAG = Estimated ave rage glucose which is %A1C expressed asaverage glucose, using the formula of the G3P-SbsdmbvEaycahh Glucose study (ADAG), Diabetes Care, Vol.31,#8,Apr. 2007 Blood Venous blood specimen / Unknown 09/11/2023 10:27 AM EST 09/11/2023 11:50 AM EST Linda Martinez MD LAB BLOOD ORDERABLES Fin al Result Performing Organization Address [facility] Co de Phone Number [facility] [address] [place] [address] [phone] * Mammography Report 1 (11/30/2021 2:15 PM EDT) Anatomical Region Laterality Modality Breast Bilateral Mammography 11/30/2021 2:15 PM EDT Narrative 12/01/2021 5:57 PM EDT Refer to the Notes tab for result details [facility] Procedure: Mammography Report 1 Procedure Note ProviderGaudencio MD - 12/02/2022 Refer to the Notes tab for result details [facility] Procedure: Mammography Report 1 Shellie Ahmadi SIGNALS INTELLIGENCE ANALYST IMG BI PROCEDURES Final Result from Last 3 Months or Most Recently Relevant to Health Maintenance Insurance [facility] Care Teams Systems Designer Relationship Specialty Start Date End Date Zahra Dotson FNP [address] [place] [address] PCP - General Family Medicine 05/09/22
--- OUTSIDE RECORDS SUMMARY | 2024-10-16 08:14 | XMS_ITS | Encounter Summary ---
Author Organization [employer] Address [address] [place] [address] Care Team Providers Care Liability Claims Examiner Name Role Phone Zahra Dotson Primary Care Provider [phone] Encounter Details Date Type Department Care Team ([facility] st Contact Info) Description 08/26/2024 Telephone [facility] [address] [place] [address] Zahra Dotson FNP [address] [place] [address] Social History Tobacco Use Types Packs/Day Years [...] encounter Miscellaneous Notes * Telephone Encounter - Majo Beckman RN - 10/14/2024 10:34 AM EST TC to inform patient of results and recommendations. All questions and concerns were addressed. Patient verbally agreed with the plan. Pt to FU PRN. * Telephone Encounter - Jazz Fierro RN - 08/26/2024 2:54 PM EST TC placed to pt with [facility] director workers compensation Frida #[id number] in regards to instructions below from Zahra Dotson about pt recent low potassium results. Pt instructed to picking tech K supplement at the [facility] pharmacytoday and to take twice a day for the next four days. Pt also instructed to have repeat labs drawn to check on K levels. Pt agreeable to this information and will call back as needed. PCP Message Please call to let her know that potassium level was low, and is likely contributing to her generalized fatigue. I sent a potassium supplement to the [facility] pharmacy that I recommend she picking tech and start today. Dosing BID x 4 days, then repeat labs to check potassium. She can go to [facility] over the weekend to repeat. Please review ED precautions. Thank you! * Telephone Encounter - TIANNA Mello - 08/26/2024 2:37 PM EST Please call to let her know that potassium level was low, and is likely contributing to her generalized fatigue. I sent a potassium supplement to the [facility] pharmacy that I recommend she picking tech and start today. Dosing BID x 4 days, then repeat labs to check potassium. She can go to [facility] over the weekend to repeat. Please review ED precautions. Thank you! * Telephone Encounter - Avani Joel LPN - 08/26/2024 2:26 PM EST Incoming call to the Critical Result line 08/26/24 at 2:27 PM Name of Caller/Facility:[facility] Jane Callback number: [phone] Reason for Call: K+ resulted at 2.8 as drawn today at [facility] PCP listed on schedule today on [facility] Green Team Message to be forwarded to TIANNA Mello and team nurses for follow up. documented in this encounter Plan of Treatment Upcoming Encounters Date Type Department Care Team (Late st Contact Info) Description 10/20/2024 9:45 AM EST Office Visit [facility] [address] [place] [phone] 10/21/2024 9:45 AM EST Office Visit [facility] [address] [place] [phone] Zahra Dotson FNP [address] [place] [address] documented as of this encounter Goals Goal [...] Leong PharmD documented as of this encounter Procedures Procedure Name Priority Date/Time Associated Diagnosis Comments BASIC METABOLIC PANEL Routine 10/07/2024 8:48 AM EST Hypokalemia documented in this encounter Results * (ABNORMAL) Basic Metabolic Panel (10/07/2024 8:48 AM EST) Sodium 135 135 - 145 mmol/L [facility] Potassium 3.1(L) 3.3 - 5.1 mmol/L [facility] Chloride 98 96 - 108 mmol/L [facility] Carbon Dioxide 30(H) 22 - 29 mmol/L [facility] Anion Gap 10(L) 12 - 20 [facility] Urea Nitrogen (BUN) 11 9 - 16 mg/dL [facility] Creatinine, Serum 0.70 0.5 - 1.4 mg/dL [facility] Estimated Glomerular Filt Rate >60 [facility] Comment:Chronic Kidney Disea se: Estimated GFR < 60 mL/min/1.43s7Iscdfb Kidney Disease: Estimated GFR < 15 mL/min/1.73m2 Glucose 185(H) 60 - 115 mg/dL [facility] Calcium 9.0 8.4 - 10.2 mg/dL [facility] Blood Venous blood specimen / Unknown 10/07/2024 8:48 AM EST 10/07/2024 11:25 AM EST us Zahra WYNN LAB BLOOD ORDERABLES Final Res ult [facility] [address] [place] [phone] documented in this encounter Visit Diagnoses Diagnosis Hypokalemia- Primary Hypopotassemia documented in this encounter Additional Health Concerns Assessment Noted Time PHQ-9 Depression Total Score: 14 08/26/ 024 11:59 AM EST documented as of this encounter Care Teams Liability Claims Examiner Relationship Specialty Start Date End Date Zahra Dotson FNP [address] [place] [address] PCP - General Family Medicine 05/09/22 documented as of this encounter
--- OUTSIDE RECORDS SUMMARY | 2024-10-16 08:14 | XMS_ITS | Encounter Summary ---
Author Organization [employer] Address [address] [facility] [address] [place] [address] Care Team Providers Care Quill Machine Tender Name Role Phone Zahra Dotson Primary Care Provider [phone] Reason for Visit * Reason Onset Date Comments Med Refill 09/05/2023 Encounter Details Date Type Department Care Team ([facility] st Contact Info) Description 09/05/2023 Telephone [facility] [address] [place] [address] Zahra Dotson FNP [address] [place] [address] Med Refill Social History Tobacco Use Types Packs/Day Years [...] encounter Miscellaneous Notes * Telephone Encounter - Marci Mccollum - 09/05/2023 11:54 AM EST TC from pt requesting medication refill. Medications needing refill : buprenorphine-naloxone (Suboxone) 4-1 MG per sublingual film To be sent to: [facility] - [place], [place] - [address] [place] [address] documented in this encounter Plan of Treatment Upcoming Encounters Date Type Department Care Team ([facility] st Contact Info) Description 10/20/2024 9:45 AM EST Office Visit [facility] [address] [place] [phone] 10/21/2024 9:45 AM EST Office Visit [address] [address] Zahra Dotson FNP [address] [place] [address] documented as of this encounter Goals Goal [...] documented as of this encounter Care Teams Quill Machine Tender Relationship Specialty Start Date End Date Zahra Dotson FNP [address] [place] [address] PCP - General Family Medicine 05/09/22 documented as of this encounter
--- OUTSIDE RECORDS SUMMARY | 2024-10-16 08:14 | XMS_ITS | Encounter Summary ---
Author Organization [employer] Address [address] [facility] [address] [place] [address] Care Team Providers Care Global Compensation Manager Name Role Phone Zahra Dotson Primary Care Provider [phone] Reason for Visit * Reason Comments Med Refill Encounter Details Date Type Department Care Team (Late st Contact Info) Description 02/14/2024 Refill [facility] [address] [place] [address] Zahra Dotson FNP [address] [place] [address] Spondyloarthropathy of lumbar spine Social History Tobacco Use Types Packs/Day Years Used Date Smoking Tobacco: Every Day Cigarettes Passive Smoke Exposure: Current Smokeless Tobacco: Never Alcohol Use Standard Drinks/Week Comments Never 0 (1 standard drink = 0.6 oz pur e alcohol) Depression Answer Date Recorded Patient Health Questionnaire-9 Score 9 01/08/2024 Patient Health Questionnaire-9 Score 9 01/08/2024 Last PHQ-9: Questionnaire Data Not on file 0 01/08/2024 Housing Stability Answer Date Recorded What is [...] Answer Date Recorded Patient Health Questionnaire-2 Score 3 01/08/2024 Comments No Sex and Gender Information Value [...] Description 10/20/2024 9:45 AM EST Office Visit [facility] [address] [place] [phone] 10/21/2024 9:45 AM EST Office Visit [facility] [address] [place] [phone] Zahra Dotson FNP [address] [place] [phone] documented as of this encounter Goals Goal [...] Assessment Noted Time PHQ-9 Depression Total Score: 9 01/08/20 24 11:32 AM EDT documented as of this encounter Care Teams Global Compensation Manager Relationship Specialty Start Date End Date Zahra Dotson FNP [address] [place] [phone] PCP - General Family Medicine 05/09/22 documented as of this encounter
--- OUTSIDE RECORDS SUMMARY | 2024-10-16 08:14 | XMS_ITS | Encounter Summary ---
Author Organization [employer] Address [address] [facility] 7t [place] [address] Care Team Providers Care Technical Translator Name Role Phone Zahra Dotson Primary Care Provider [phone] Reason for Visit * Reason Onset Date Comments Appointment Request 12/12/2023 Encounter Details Date Type Department Care Team ([facility] st Contact Info) Description 12/12/[address] [facility] [address] [place] [address] Zahra Dotson FNP [address] [place] [address] Appointment Request Social History Tobacco Use Types [...] encounter Miscellaneous Notes * Telephone Encounter - Erick Boyd - 12/12/2023 3:18 PM EDT Tc from patient calling to reschedule appt for 12/18 documented in this encounter Plan of Treatment Upcoming Encounters Date Type Department Care Team (Late st Contact Info) Description 10/20/2024 9:45 AM EST Office [address] [facility] [address] [place] [phone] 10/21/2024 9:45 AM EST Office [address] [facility] [address] [place] [address] Zahra Dotson FNP [address] [place] [address] documented as of this encounter Goals Goal [...] documented as of this encounter Care Teams Technical Translator Relationship Specialty Start Date End Date Zahra Dotson FNP [address] [place] [address] PCP - General Family Medicine 05/09/22 documented as of this encounter
--- OUTSIDE RECORDS SUMMARY | 2024-10-16 08:14 | XMS_ITS | Encounter Summary ---
Author Organization [employer] Address [address] [facility] [address] [place] [address] Care Team Providers Care Electronics Technician Name Role Phone Zahra Dotson TIANNA Primary Care Provider [phone] Encounter Details Date Type Department Care Team (Latest Contact Info) Description 09/24/2024 Travel Social History Tobacco Use Types Packs/Day Years [...] the past 12 months, has t he [employer], gas, oil or water [employer] threatened to shut off services in your [...] Description 10/20/2024 9:45 AM EST Office Visit [address] [address] 10/21/2024 9:45 AM EST Office Visit [address] [address] Zahra Dotson FNP [address] [place] [address] documented as of this encounter Goals Goal [...] documented as of this encounter Care Teams Electronics Technician Relationship Specialty Start Date End Date Zahra Dotson FNP [address] [place] [phone] PCP - General Family Medicine 05/09/22 documented as of this encounter
--- OUTSIDE RECORDS SUMMARY | 2024-10-16 08:14 | XMS_ITS | Encounter Summary ---
Author Organization [employer] Address [address] [facility] 7t [place] [address] Care Team Providers Care Digital Data Analyst Name Role Phone Zahra Dotson Primary Care Provider [phone] Reason for Visit * Reason Onset Date Comments Referral 04/04/2023 Rheumatology fro m 12/29/22 Encounter Details Date Type Department Care Team ([facility] st Contact Info) Description 04/04/[address] [facility] [address] [place] [address] Zahra Dotson FNP [address] [place], [place] [phone] Referral (Rheumatology from 12/29/22) Social History Tobacco Use Types Packs/Day Years Used Date Smoking Tobacco: Every Day Cigarettes Passive Smoke Exposure: Current Smokeless Tobacco: Never Alcohol Use Standard Drinks/Week Comments Never 0 (1 standard drink = 0.6 oz pur e alcohol) Depression Answer Date Recorded Patient Health Questionnaire-9 Score 3 12/11/2022 Depression Answer Date Recorded Patient Health Questionnaire-2 Score 0 12/11/2022 Comments No Sex and Gender Information Value Date Recorded Sex Assigned at Female 07/09/2022 10:17 AM EDT Legal Sex Female 10:17 AM EDT Gender Identity Female 07/09/2022 10:17 AM EDT Sexual Orientation Straight 07/09/2022 10 :17 AM EDT documented as of this encounter Miscellaneous Notes * Telephone Encounter - Jeane Parker - 04/04/2023 2:17 PM EDT Asha spoke with Sharyn regarding this pt. Pt is in the system but for some reason not booked. Referral is being re-faxed to office for [facility] review. Sharyn stated she is going to try to get pt in sooner and will call her directly after reviewing notes. Technician'S Helper called and spoke with pt. She was made aware. She was advised to call tomorrow if she has yet to receive a call from [place]. If she has any problems she will give us a call back. * Telephone Encounter - Rosalba Galan - 04/04/2023 10:06 AM EDT Tc from patient calling in regards to Rheumatology referral. Patient states the office told her sheis not in the system. Patient is confused because she received our letter with the following appt details. Date of Service: 12/11/2022 Referrals: Rheumatology.Evaluate and treat Dr Meehan Patient Appointment Information Date: 04/05/2023 Time: 1:00 PM Location: [address] [place] [address] FAX [phone] Patient states she confirmed appt twice with that office and also received a letter with appt details from the office. Patient is now told she is not in the system and that she also needs a referral to be sent again to be able to get another appt. Patient is upset due to waiting 2 months for this much needed appt and now appt is not in the system. Technician'S Helper let patient now message will be sent to bilingual customer service specialist and they will follow up with her in regards to next appt detail or next steps. Please call [phone]. documented in this encounter Plan of Treatment Upcoming Encounters Date Type Department Care Team (Late st Contact Info) Description 10/20/2024 9:45 AM EST Office Visit [address] [address] 10/21/2024 9:45 AM EST Office Visit [address] [address] Zahra Dotson FNP [address] [place] [address] documented as of this encounter Goals Goal [...] documented as of this encounter Care Teams Digital Data Analyst Relationship Specialty Start Date End Date Zahra Dotson FNP [address] [place] [address] PCP - General Family Medicine 05/09/22 documented as of this encounter
--- OUTSIDE RECORDS SUMMARY | 2024-10-16 08:14 | XMS_ITS | Encounter Summary ---
Author Organization [employer] Address [address] [facility] 7t [place] [address] Care Team Providers Care Pinion Polisher Name Role Phone Zahra Dotson Primary Care Provider Reason for Visit * Reason Onset Date Comments Med Refill 10/14/2024 Encounter Details Date Type Department Care Team (Late st Contact Info) Description 10/14/2024 Refill [facility] [address] [place] [address] Zahra Dotson FNP [address] [place] [address] Spondyloarthropathy of lumbar spine; Long-term current use of opiate analgesic Social History Tobacco Use Types Packs/Day Years [...] encounter Miscellaneous Notes * Telephone Encounter - Bacilio Neely - 10/14/2024 9:14 AM EST TC from pt requesting medication refill. Medications needing refill : buprenorphine-naloxone (Suboxone) 4-1 MG per sublingual film To be sent to: [facility] - [place], [place] - [address] [place] [address] documented in this encounter Plan of Treatment Upcoming Encounters Date Type Department Care Team ([facility] st Contact Info) Description 10/20/2024 9:45 AM EST Office Visit [facility] [address] [place] [address] 10/21/2024 9:45 AM EST Office Visit [address] [address] Zahra Dotson FNP 505 [place] [address] documented as of this encounter Goals Goal Patient Goal Type Associated Problems Recent Progress Patient-Stated? Author Record your blood pressure once per day Blood Pressure No Chandler Leong, PharmD Reduce the number of cigarettes by 1 in the next two weeks with a goal of 6-8 cigarettes smoked per day General No Salo, Chandler, PharmD Take your medication every day Lifestyle No Chandler Leong PharmD documented as of this encounter Visit Diagnoses Diagnosis Spondyloarthropathy of lumbar spine Long-term current use of opiate analgesic Encounter for long-term (current) use of other medications documented in this encounter Additional Health Concerns Assessment Noted Time PHQ-9 Depression Total Score: 14 024 11:59 AM EST documented as of this encounter Care Teams Pinion Polisher Relationship Specialty Start Date End Date Zahra Dotson FNP [address] [place] [address] PCP - General Family Medicine 05/09/22 documented as of this encounter
--- OUTSIDE RECORDS SUMMARY | 2024-10-16 08:14 | XMS_ITS | Encounter Summary ---
Author Organization [employer] Address 75 [facility] 7t [place] [address] Care Team Providers Care Lead Android Developer Name Role Phone Zahra Dotson Primary Care Provider [phone] Reason for Visit * Reason Comments Med Refill Encounter Details Date Type Department Care Team (Late st Contact Info) Description 10/08/2024 Refill [facility] [address] [place] [address] Zahra Dotson FNP [address] [place] [address] Vitamin D deficiency; Spondyloarthropathy of lumbar spine; [...] Description 10/20/2024 9:45 AM EST Office Visit [address] [address] 10/21/2024 9:45 AM EST Office Visit [address] [address] Zahra Dotson FNP 505 [place] [address] documented as of this encounter Goals Goal [...] as of this encounter Visit Diagnoses Diagnosis Vitamin D deficiency Spondyloarthropathy of lumbar spine Long-term current use of opiate analgesic Encounter for long-term (current) use of other medications documented in this encounter Additional Health Concerns Assessment Noted Time PHQ-9 Depression Total Score: 14 024 11:59 AM EST documented as of this encounter Care Teams Lead Android Developer Relationship Specialty Start Date End Date Zahra Dotson FNP [address] [place] [address] PCP - General Family Medicine 05/09/22 documented as of this encounter
--- OUTSIDE RECORDS SUMMARY | 2024-10-16 08:15 | XMS_ITS | Encounter Summary ---
Author Organization [employer] [facility] Address [address] [facility] 7 [place] [address] Care Team Providers Care Licensed Sales Assistant Name Role Phone Zahra Dotson Primary Care Provider [phone] Reason for Visit * Reason Comments Med Refill Encounter Details Date Type Department Care Team ([facility] Contact Info) Description 10/11/2022 Refill [facility] [address] [place] [address] Zahra Dotson FNP [address] [place] [address] Social History Tobacco Use Types Packs/Day Years [...] Upcoming Encounters Date Type Department Care Team ([facility] Contact Info) Description 10/20/2024 9:45 AM EST Office Visit [facility] [address] [place] [address] 10/21/2024 9:45 AM EST Office Visit [facility] [address] [place] [address] Zahra Dotson FNP 505 [place] [address] documented as of this encounter Visit Diagnoses Not on filedocumented in this encounter Care Teams Licensed Sales Assistant Relationship Specialty Start Date End Date Zahra Dotson FNP [address] [place] [address] PCP - General Family Medicine 05/09/22 documented as of this encounter
--- OUTSIDE RECORDS SUMMARY | 2024-10-16 08:15 | XMS_ITS | Encounter Summary ---
Author Organization [employer] Address [address] [facility] 7 [place] [address] Care Team Providers Care Pattern Wheel Maker Name Role Phone Zahra Dotson Primary Care Provider [phone] Reason for Visit * Reason Onset Date Comments Nurse Triage 10/15/2024 Encounter Details Date Type Department Care Team ([facility] st Contact Info) Description 10/15/2024 Telephone [facility] [address] [place] [address] Zahra Dotson FNP [address] [place] [address] Nurse Triage Social History Tobacco Use Types Packs/Day Years [...] Encounter - Jazz Fierro RN - 10/15/2024 9:44 AM EST TC placed to pt with [employer] tiltrotor crew chief [employer] #[id number] to advise of Zahra Dotson's message below. Ptinformed of current potassium level remaining at 3.1 but to continue on a potassium rich diet and have labs rechecked tomorrow. Pt states that the palpitations and dizziness she experienced last weekhave much improved but was given caution on when to return to the ED. Pt agreeable to these instructions. PCP Message Please call to let her know that potassium level was steady at 3.1 when checked last week, with normal range 3.5-5. Please recommend potassium in diet through foods like banana and spinach. I placed repeat labs for her to check today or tomorrow. Agree with ED precautions. Thank you. * Telephone Encounter - TIANNA Mello - 10/15/2024 9:23 AM EST Please call to let her know that potassium level was steady at 3.1 when checked last week, with normal range 3.5-5. Please recommend potassium in diet through foods like banana and spinach. I placed repeat labs for her to check today or tomorrow. Agree with ED precautions. Thank you. * Telephone Encounter - Erma Dunaway RN - 10/15/2024 8:52 AM EST Call returned to isac Maurergo to triage below. No tiltrotor crew chief needed as this production underwriter speaks [place] [employer]. Pt reports having headache x 3 days. Per pt having intermittent dizziness. Pt also endorses some fatigue. Pt reports having palpitations last week. Pt did not take BP meds today per instructions of team nurse yesterday from PCP. Per pt just wants to know if it is safe to wait until scheduled appt next week to know results of lab work and discuss plan of care. Pt advised that per sx symptoms reports advised ER.PCP not in office today only team providers. Pt states not actively having any of the symptoms but agrees to seek ER if sx recur. Pt advised will [facility] this updated [facility] to review and follow up with pt regarding if need for sooner follow up. Advised pt again that if sx of RAMOS, dizziness and palpitations recur to seek ER immediately. Pt agrees. Protocol Used: Information Only Call - No Triage (Adult) Protocol-Based Disposition: Discuss with PCP and Callback by Nurse Today Video visit offer not recorded Positive Triage Question: * Requesting lab results and adult stable (no new symptoms, not getting worse) * All higher-acuity triage questions were negative Care Advice Discussed: * Reasons To Call Back - New symptoms develop - You have more questions - You become worse * Telephone Encounter - Gricel Grimaldo - 10/15/2024 8:39 AM EST Symptom: Headache Outcome: Schedule an urgent appointment (within 4 hours) or talk to a nurse or provider soon Reason: Started within the past 3 days The caller accepted this outcome. Tc from pt requesting lab results. Pt expressed concerns due to having a headache for the past 3 days. Manager Surgical sent a request for results and advise pt will send a message to triage nurse. Contact pt at [phone] (beninese) documented in this encounter Plan of Treatment Upcoming Encounters Date Type Department Care Team (Late st Contact Info) Description 10/20/2024 9:45 AM EST Office Visit [facility] [address] [place] [address] 10/21/2024 9:45 AM EST Office Visit [facility] [address] [place] [address] Zahra Dotson FNP [address] [place] [address] Scheduled Orders Name Type Priority Associated Diagnoses Orde r Schedule Basic Metabolic Panel Lab Routine Hypokalemia Expected: 10/15/2024 (Approximate), Expires: 10/15/2025 documented as of this encounter Goals Goal [...] as of this encounter Visit Diagnoses Diagnosis Hypokalemia- Primary Hypopotassemia documented in this encounter Additional Health Concerns Assessment Noted Time PHQ-9 Depression Total Score: 14 024 11:59 AM EST documented as of this encounter Care Teams Pattern Wheel Maker Relationship Specialty Start Date End Date Zahra Dotson FNP [address] [place] [address] PCP - General Family Medicine 05/09/22 documented as of this encounter
--- OUTSIDE RECORDS SUMMARY | 2024-10-16 08:16 | XMS_ITS | Encounter Summary ---
Author Organization [employer] Address 75 [facility] 7t [place] [address] Care Team Providers Care Intermediate Accountant Name Role Phone Zahra Dotson Primary Care Provider [phone] Reason for Visit * Reason Onset Date Comments Med Refill 06/18/2024 Encounter Details Date Type Department Care Team ([facility] st Contact Info) Description 06/18/2024 Telephone [facility] [address] [place] [address] Zahra Dotson FNP [address] [place] [address] Med Refill Social History Tobacco Use Types [...] encounter Miscellaneous Notes * Telephone Encounter - Sid Reza - 06/18/2024 12:47 PM EDT TC from pt requesting medication refill. Medications needing refill : Suboxone 4-1 MG per sublingual film To be sent to: [facility] documented in this encounter Plan of Treatment Upcoming Encounters Date Type Department Care Team (Late st Contact Info) Description 10/20/2024 9:45 AM EST Office Visit [facility] [address] [place] [address] 10/21/2024 9:45 AM EST Office Visit [facility] [address] [place] [address] Zahra Dotson FNP [address] [place] [address] documented as of this encounter Goals Goal [...] documented as of this encounter Care Teams Intermediate Accountant Relationship Specialty Start Date End Date Zahra Dotson FNP [address] [place] [address] PCP - General Family Medicine 05/09/22 documented as of this encounter
--- OUTSIDE RECORDS SUMMARY | 2024-10-16 08:16 | XMS_ITS | Encounter Summary ---
Author Organization [employer] Address [address] [facility] 7t [place] [address] Care Team Providers Care Emergency Planner Name Role Phone Zahra Dotson Primary Care Provider [phone] Reason for Visit * Reason Comments Med Refill Encounter Details Date Type Department Care Team (Late st Contact Info) Description 06/15/2024 Refill [facility] [address] [place] [address] Zahra Dotson FNP [address] [place] [address] Spondyloarthropathy of lumbar spine Social History Tobacco [...] Description 10/20/2024 9:45 AM EST Office Visit [facility] [address] [place] [address] 10/21/2024 9:45 AM EST Office Visit [facility] [address] [place] [address] Zahra Dotson FNP [address] [place] [address] documented as of this encounter Goals Goal [...] documented as of this encounter Care Teams Emergency Planner Relationship Specialty Start Date End Date Zahra Dotson FNP [address] [place] [address] PCP - General Family Medicine 05/09/22 documented as of this encounter
--- OUTSIDE RECORDS SUMMARY | 2024-10-16 08:16 | XMS_ITS | Encounter Summary ---
Author Organization [employer] Address 75 [facility] 7t [place] [address] Care Team Providers Care Banbury Machine Operator Name Role Phone Zahra Dotson Primary Care Provider [phone] Encounter Details Date Type Department Care Team ([facility] st Contact Info) Description 09/25/2024 Orders Only [facility] [address] [place], [place] [phone] Zahra Dotson FNP [address] [place] [address] Hypokalemia (Primary Dx) Social History Tobacco Use Types Packs/Day Years [...] Description 10/20/2024 9:45 AM EST Office Visit [address] [address] 10/21/2024 9:45 AM EST Office Visit [address] [address] Zahra Dotson FNP [address] [place] [address] documented as of this encounter Goals Goal [...] documented as of this encounter Care Teams Banbury Machine Operator Relationship Specialty Start Date End Date Zahra Dotson FNP [address] [place] [address] PCP - General Family Medicine 05/09/22 documented as of this encounter
--- OUTSIDE RECORDS SUMMARY | 2024-10-16 08:16 | XMS_ITS | Encounter Summary ---
Author Organization [employer] Address [address] [facility] [address] [place] [address] Care Team Providers Care Fuel Cell Systems Engineer Name Role Phone AlfonsoZahra webb TIANNA Primary Care Provider [phone] Encounter Details Date Type Department Care Team ([facility] st Contact Info) Description 09/29/2024 Telephone [facility] [address] [place], [place] [phone] Maida Robles RN Social History Tobacco Use Types Packs/Day Years [...] encounter Miscellaneous Notes * Telephone Encounter - Maida Robles RN - 09/29/2024 9:13 AM EST Tc to pt via [employer] american sign language interpreter id: [id number] to let them know per PCP Please call to let her knowthat I recommend potassium supplement daily x 5 days and recheck labs next week. Please schedule appt with me so that we can discuss changing her BP med that I think is causing the hypokalemia. Thanks! Pt verbalized understanding, reports they will peanut picker their supplement today and start taking. Pt advised to go to lab on Saturday to recheck their labs and scheduled for follow up with PCP on 10/21/24. Pt denies any further questions or concerns at this time. * Telephone Encounter - Maida Robles RN - 09/29/2024 9:13 AM EST ----- Message from Zahra Dotson sent at 09/25/2024 4:44 PM EST ----- Please call to let her know that I recommend potassium supplement daily x 5 days and recheck labs next week. Please schedule appt with me so that we can discuss changing her BP med that I think is causing the hypokalemia. Thanks ! documented in this encounter Plan of Treatment Upcoming Encounters Date Type Department Care Team (Late st Contact Info) Description 10/20/2024 9:45 AM EST Office Visit [facility] [address] [place] [address] 10/21/2024 9:45 AM EST Office Visit [facility] [address] [place] [address] Zahra Dotson FNP [address] [place] [address] documented as of this encounter Goals Goal [...] documented as of this encounter Care Teams Fuel Cell Systems Engineer Relationship Specialty Start Date End Date Zahra Dotson FNP [address] [place] [address] PCP - General Family Medicine 05/09/22 documented as of this encounter
[2024-10-16 12:04] LABS: Anion Gap 10 (12-20); Blood Urea Nitrogen 11 mg/dL (9-16); Calcium 8.7 mg/dL (8.4-10.2); Carbon Dioxide 30 mmol/L (22-29); Chloride 101 mmol/L (96-108); Estimated Glomerular Filt Rate > 60; Glucose Random 158 mg/dL (60-115); Potassium 3.2 mmol/L (3.3-5.1); Sodium 138 mmol/L (135-145)
== END 2024-10-16 08:08 | disposition home or self-care (01) ==
LOC: HO.HHCL 08:07
PROVIDERS: Visit Provider Registered Nurse
DX: E87.6 Hypokalemia (principal)
CPT/HCPCS: 36415; 80048

== ENCOUNTER 2024-10-22 08:44 | Outpatient (AMB) | payer OTHER, SELFPAY ==
--- OUTSIDE RECORDS SUMMARY | 2024-10-22 08:52 | XMS_ITS | Encounter Summary ---
Author Organization [facility] Address [address] [facility] [address] [place] [address] Care Team Providers Care Mushroom Cultivator Name Role Phone Zahra Dotson Primary Care Provider [phone] Reason for Referral * Consultation (Routine) - Authorized Specialty Diagnoses / Procedures Referred By Sujit banerjee Referred To Contact Nutrition Diagnoses Class 3 severe obesity with body mass index (BMI) of 45.0 to 49.9 in adult, unspecified obesity type, unspecified whether serious comorbidity present (CMS/HCC) Zahra Dotson FNP [address] [place] [address] Phone: tel: fax: Referral ID Status Reason Start Date Expiration Date Visits Requested Visits Authorized [id number] Authorized Consult and Treat 10/21/2024 10/21/2025 1 1 Encounter Details Date Type Department Care Team (Late st Contact Info) Description 10/21/2024 9:45 AM EST Office Visit [facility] [address] [place] [address] Zahra Dotson FNP [address] [place] [address] Primary hypertension (Primary Dx); Class 3 severe obesity with body mass index (BMI) of 45.0 to 49.9 in adult, unspecified obesity type, unspecified whether serious comorbidity present (CMS/HCC); Vitamin D deficiency; Spondyloarthropathy of lumbar spine; Polyarthralgia; Long-term current use of opiate analgesic; Prediabetes; Hypokalemia Social History Tobacco Use Types Packs/Day Years [...] AM EDT documented as of this encounter Last Filed Vital Signs Vital Sign Reading Time Taken Comments Blood Pressure 132/78 10/21/2024 9:52 AM EST Pulse 83 10/21/2024 9:52 AM EST Temperature 36.1 ??C (96.9 ??F) 10/21/2024 9:52 AM ES T Respiratory Rate 18 10/21/2024 9:52 AM EST Oxygen Saturation 98% 10/21/2024 9:52 AM EST Inhaled Oxygen Concentration - - Weight 126 kg (278 lb 8 oz) 10/21/2024 9:[address] Height 162.6 cm (5' 4 ) 10/21/2024 9:52 AM EST Body Mass Index 47.8 10/21/2024 9:52 AM EST documented in this encounter Progress Notes * Zahra Dotson, PLANT UTILITIES ENGINEER - 10/21/2024 9:45 AM EST Subjective: Marge Harrington is a 49 y.o. 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 HPI: - Last PCP Visit: 08/26/24 Hypokalemia: S/p treatment with potassium supplement. Plan to recheck BMP on Saturday. Reports that she is feeling much better. Suspect due to chlorthalidone. Plan to switch antihypertensive medication. Reports that home BP readings off chlorthalidone tend to be in the 140s to 150s systolic. Vitamin D deficiency: Tolerating once weekly dose well. Will recheck on Saturday as well. Consider continuation of daily supplement pending results. Chronic pain w/ hx of polyarthralgia s/p Rheum eval and low back pain w/ hx of lumbar spondyloarthropathy. Continues on Suboxone for chronic pain. Reports Suboxone previously provided moderate pain relief, but no longer experiencing much of a benefit. Has also noticed worsening dentition after starting the Suboxone. Would like to discuss other options for pain control. 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 Negative for chills and fever. HENT: Negative for congestion. Respiratory: Negative for wheezing. Cardiovascular: Negative for chest pain and palpitations. Gastrointestinal: Negative for constipation, diarrhea, nausea and vomiting. Musculoskeletal: Positive for arthralgias and back pain. Visit Vitals BP 132/78 (BP Location: Right arm, Patient Position: Sitting, BP Cuff Size: Large adult) Pulse 83 Temp 96.9 ??F (36.1 ??C) (Temporal) Resp 18 Ht 5' 4 (1.626 m) Wt 278 lb 8 oz (126 kg) SpO2 98% BMI 47.80 kg/m?? OB Status Hysterectomy Smoking Status Every Day BSA 2.39 m?? Physical Exam Constitutional: Appearance: Normal appearance. She is obese. HENT: Head: Atraumatic. Right Ear: External ear normal. Left Ear: External ear normal. Cardiovascular: Rate and Rhythm: Normal rate and regular rhythm. Pulmonary: Effort: Pulmonary effort is normal. Musculoskeletal: Comments: TTP over bilat lumbar paraspinal muscles Neurological: Mental Status: She is alert and oriented to person, place, and time. Psychiatric: Mood and Affect: Mood normal. Behavior: Behavior normal. Problem List Items Addressed This Visit Circulatory Hypertension - Primary Overview BP goal < 140/90 mmHg Start olmesartan 5mg daily -Previous med trials: Losartan (DC SE - RAMOS & blurry vision) Amlodipine (DC SE - BLE edema) Chlorthalidone (DC hypokalemia) -Encouraged lifestyle interventions including smoking cessation, low salt diet and 150mins of physical activity weekly -ED precautions Current Assessment & Plan Plan: - STOP chlorthalidone - START olmesartan. Reviewed med safety and SE - 2 weeks RN BP visit. Plan to increase to olmesartan 20mg daily if above goal more than 25% of thetime. 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 [facility] Rheum eval May 2023. Follow up PRN Previous tx options for pain have included: Pharm: APAP, NSAIDs, gabapentin, percocet and tramadol. Suboxone (November 2022 - Oct 2024, dc d/t concerns with dentition) Non-pharm: PT, physiatry, acupuncture -Continues gabapentin 300mg TID -Oxycodone 5mg BID PRN. Reviewed med safety and SE -Established in [employer] program w/ RN -Referral to PS&S Apr 2024 - no longer following -Referral to [facility] Pain Management 08/27/24 Current Assessment & Plan - Discontinue Suboxone -Start oxycodone 5 mg twice daily as needed. Reviewed the significant limitations and potential side effects of chronic opioid therapy. Given that she has exhausted the combination of pharmacologic and nonpharmacologic treatment options listed above, shared decision making to proceed with oxycodone. Message sent to [employer] RN. KashmirMarge will plan to follow-up in 1 month with the chronic pain group Relevant Medications oxyCODONE (Roxicodone) 5 MG immediate release tablet Polyarthralgia Overview Lab Results Component Value Date RHEUMATOIDFA 14 (H) 12/10/2022 ANASCRIFA NEGATIVE 12/10/2022 CREACPROTEIN 8.9 (H) 12/10/2022 SEDRATE 14 12/10/2022 TSH 2.82 09/11/2023: Eval at [facility] Rheum - Dr. Santana. Encouraged physical therapy and weight loss. Cont gabapentin. Follow up PRN with Rheum. Relevant Medications oxyCODONE (Roxicodone) 5 MG immediate release tablet Endocrine/Metabolic Prediabetes Overview Lab Results Component Value Date HGBA1C 5.7 10/02/2022 -Encouraged to continue with lifestyle interventions Relevant Orders Hemoglobin A1c Other Long-term current use of opiate analgesic Overview Medication: Oxycodone 5mg BID PRN. (Switched from Suboxone 4-1mg TID Oct 2024) Indication: spondyloarthropathy of lumbar spine Last [employer] Agreement: 10/20/24 Tier II ([employer] visits every 3 months) Current Assessment & Plan Timeline: -03/19/24: [employer] visit WNL -10/20/24: Group, utox/count wnl. Renewal signed. -10/21/24: OV - changed from Suboxone to Oxycodone Relevant Medications oxyCODONE (Roxicodone) 5 MG immediate release tablet Other Visit Diagnoses Class 3 severe obesity with body mass index (BMI) of 45.0 to 49.9 in adult, unspecified obesity type, unspecified whether serious comorbidity present (CMS/[facility]) Relevant Orders Referral to Nutrition Therapy Vitamin D deficiency Relevant Orders Vitamin D, 25-Hydroxy, Total, Immunoassay Hypokalemia s/p potassium supplementation, symptoms have resolved Plan to recheck BMP on 10/23/24 Follow up: 3 months for chronic conditions (extended), sooner as needed Immunization History Administered Date(s) Administered Hep A, Adult 04/24/2011, 09/11/2012 Hep B, Adolescent or Pediatric 04/24/2011, 06/27/2011 Hep B, adult 09/11/2012 Influenza injectable quadrivalent preservative free 11/22/2016, 06/18/2017, 07/16/2018, 07/31/2022,06/04/2023 Influenza, IIV3, injectable 07/29/2014 Influenza, Split (incl. purified surface antigen) 09/11/2012 Influenza, seasonal, injectable, preservative free 08/26/2024 Moderna Covid-19 Vaccine 12+ 01/04/2021, 02/01/2021, 09/20/2021 Pneumococcal Conjugate PCV 20 02/26/2023 Pneumococcal Polysaccharide PPSV23 09/11/2012 TD (adult), 2 Lf tetanus toxoid, preservative free, adsorbed 10/12/2008 Tdap 09/21/2013, 08/26/2024 documented in this encounter Miscellaneous Notes * Assessment & Plan Note - TIANNA Mello - 10/21/2024 4:50 PM ESTAssociated Problem(s): Spondyloarthropathy of lumbar spine - Discontinue Suboxone -Start oxycodone 5 mg twice daily as needed. Reviewed the significant limitations and potential side effects of chronic opioid therapy. Given that she has exhausted the combination of pharmacologic and nonpharmacologic treatment options listed above, shared decision making to proceed with oxycodone. Message sent to [employer]NS[employer] RN. Giles will plan to follow-up in 1 month with the chronic pain group * Assessment & Plan Note - TIANNA Mello - 10/21/2024 4:45 PM ESTAssociated Problem(s): Hypertension Plan: - STOP chlorthalidone - START olmesartan. Reviewed med safety and SE - 2 weeks RN BP visit. Plan to increase to olmesartan 20mg daily if above goal more than 25% of thetime. * Assessment & Plan Note - TIANNA Mello - 10/21/2024 4:42 PM ESTAssociated Problem(s): Long-term current use of opiate analgesic Timeline: -03/19/24: [employer] visit WNL -10/20/24: Group, utox/count wnl. Renewal signed. -10/21/24: OV - changed from Suboxone to Oxycodone documented in this encounter Plan of Treatment Upcoming Encounters Date Type Department Care Team (Late st Contact Info) Description 11/03/2024 10:30 AM EST Clinical Support [address] [address] 11/17/2024 9:45 AM EDT Office Visit [address] [address] Scheduled Orders Name Type Priority Associated Diagnoses Orde r Schedule Basic Metabolic Panel Lab Routine Primary hypertension Expected: 10/21/2024 (Approximate), Expires: 10/21/2025 Hemoglobin A1c Lab Routine Prediabetes Expected: 10/21/2024 (Approximate), Expires: 10/21/2025 Vitamin D, 25-Hydroxy, Total, Immunoassay Lab Routine Vitamin D deficiency Expected: 10/21/2024 (Approximate), Expires: 10/21/2025 Scheduled Referrals Name Type Priority Associated Diagnoses Orde r Schedule Referral to Nutrition Therapy Outpatient Referral Routine Class 3 severe obesity with body mass index (BMI) of 45.0 to 49.9 in adult, unspecified obesity type, unspecified whether serious comorbidity present (CMS/[facility]) Expected: 10/21/2024 (Approximate), Expires: 10/21/2025 documented as of this encounter Goals Goal [...] as of this encounter Visit Diagnoses Diagnosis Primary hypertension- Primary Unspecified essential hypertension Class 3 severe obesity with body mass index (BMI) of 45.0 to 49.9 in adult, unspecified obesity type, unspecified whether serious comorbidity present (CMS/[facility]) Vitamin D deficiency Spondyloarthropathy of lumbar spine Polyarthralgia Pain in joint, multiple sites Long-term current use of opiate analgesic Encounter for long-term (current) use of other medications Prediabetes Other abnormal glucose Hypokalemia Hypopotassemia documented in this encounter Additional Health Concerns Assessment Noted Time PHQ-9 Depression Total Score: 14 024 11:59 AM EST documented as of this encounter Care Teams Mushroom Cultivator Relationship Specialty Start Date End Date Zahra Dotson FNP [address] [place] [address] PCP - General Family Medicine 05/09/22 documented as of this encounter
--- OUTSIDE RECORDS SUMMARY | 2024-10-22 08:52 | XMS_ITS | Encounter Summary ---
Author Organization [employer] Address [address] [facility] 7t [place] [address] Care Team Providers Care Remote Sensing Specialist Name Role Phone Zahra Dotson TIANNA Primary Care Provider [phone] Encounter Details Date Type Department Care Team (Latest Contact Info) Description 10/20/2024 Travel Social History Tobacco Use Types Packs/Day [...] the past 12 months, has t he [employer], gas, oil or water company threatened to [...] Description 11/03/2024 10:30 AM EST Clinical Support [address] [address] 11/17/2024 9:45 AM EDT Office Visit [address] [address] documented as of this encounter Goals Goal [...] documented as of this encounter Care Teams Remote Sensing Specialist Relationship Specialty Start Date End Date Zahra Dotson FNP [address] [place] [address] PCP - General Family Medicine 05/09/22 documented as of this encounter
--- OUTSIDE RECORDS SUMMARY | 2024-10-22 08:52 | XMS_ITS | Encounter Summary ---
Author Organization [employer] Address [address] [facility] 7t [place] [address] Care Team Providers Care Saxophone Teacher Name Role Phone Zahra Dotson Primary Care Provider [phone] Encounter Details Date Type Department Care Team (Latest Contact Info) Description 10/20/2024 9:45 AM EST Office Visit [facility] [address] [place] [address] Zahra Dotson FNP [address] [place] [address] Spondyloarthropathy of lumbar spine (Primary Dx); Polyarthralgia; Long-term current use of opiate analgesic Social [...] AM EDT documented as of this encounter Progress Notes * Zahra Dotson, BENCHROOM SHOP OPTICIAN - 10/20/2024 9:45 AM EST Subjective: Marge Harrington is a 49 y.o. female w/ PMH HTN, prediabetes, degenerative spondyloarthropathy of the lumbar spine with neural foraminal stenoses, who presents to the office for - [facility]. Initial Group visit: 10/19/24 Group Visit Number: 1 Last PCP visit: 08/26/24 Group Confidentiality last signed: 10/19/24 Group Topic: Salvaris Chronic Pain History: Associated Diagnosis: spondyloarthropathy of lumbar spine Relevant Imaging: MRI Jul 2022: Moderate multilevel degenerative spondyloarthropathy of the lumbar spine as described in detail above. Most notably, there are moderate neural foraminal stenoses at L3-L4 and L4-L5. Narrowings of thesubarticular zones at L3-L4. No overt spinal canal stenosis centrally Current pharm tx: Suboxone 4-1mg TID. Also rx gabapentin 300mg TID. Medication: States taking medication as prescribed. Past ineffective med trials: APAP, NSAIDs, gabapentin monotherapy. 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 Respiratory: Negative for wheezing. Cardiovascular: Negative for chest pain and palpitations. Gastrointestinal: Negative for diarrhea and vomiting. Musculoskeletal: Positive for arthralgias. Physical Exam Constitutional: Appearance: Normal appearance. Pulmonary: Effort: Pulmonary effort is normal. Neurological: Mental Status: She is alert and oriented to person, place, and time. Psychiatric: Mood and Affect: Mood normal. Behavior: Behavior normal. Problem List Items Addressed This Visit Musculoskeletal Spondyloarthropathy of lumbar spine - Primary Current Assessment & Plan -Good engagement and participation with Group Medical Visit model, today was first visit. -Encouraged multifactorial approach to pain control including pharm and non- pharm modalities -UTOX and film count as expected Polyarthralgia Overview Lab Results Component Value Date RHEUMATOIDFA 14 (H) 12/10/2022 ANASCRIFA NEGATIVE 12/10/2022 CREACPROTEIN 8.9 (H) 12/10/2022 SEDRATE 14 12/10/2022 TSH 2.82 09/11/2023: Eval at [facility] Rheum - Dr. Santana. Encouraged physical therapy and weight loss. Cont gabapentin. Follow up PRN with Rheum. Other Long-term current use of opiate analgesic Overview Medication: Suboxone 4-1mg TID Indication: spondyloarthropathy of lumbar spine Last SPORTS MARKETING SPECIALIST Agreement: 11/01/23 Tier II (SPORTS MARKETING SPECIALIST visits every 3 months) Current Assessment & Plan Timeline: -03/19/24: SPORTS MARKETING SPECIALIST visit WNL -10/20/24: Group, utox/count wnl. Renewal signed. Relevant Orders POCT IGOR-14 Urine Drug Screen (Completed) Follow up: 1-3 months for Group Chronic Pain Clinic. Follow up as scheduled with PCP, sooner as needed. * Cristela Finch RN - 10/20/2024 9:45 AM EST .SPORTS MARKETING SPECIALIST business strategy manager: PDMP reviewed today. Last fill date: 10/16/24 (Suboxone 4-1mg tid) count was (71), anticipated (71) to be remaining. .UTOX completed. Positive for (BUP), Negative for AMP, BAR, BZO, JUAN, FTY, MDMA, MET, MOP, MTD, OXY, PCP, TCA, THC. UTOX as expected. SPORTS MARKETING SPECIALIST Agreement renewed today. .BPI updated today. Pain severity score of (9), activity interference score of (6). Previous BPI completed (11/01/23) with pain severity score of (8), activity interference score of (5.5). Will update PCP with BPI scoring. documented in this encounter Miscellaneous Notes * Assessment & Plan Note - TIANNA Mello - 10/20/2024 4:54 PM ESTAssociated Problem(s): Long-term current use of opiate analgesic Timeline: -03/19/24: SPORTS MARKETING SPECIALIST visit WNL -10/20/24: Group, utox/count wnl. Renewal signed. * Assessment & Plan Note - TIANNA Mello - 10/20/2024 4:54 PM ESTAssociated Problem(s): Spondyloarthropathy of lumbar spine -Good engagement and participation with Group Medical Visit model, today was first visit. -Encouraged multifactorial approach to pain control including pharm and non- pharm modalities -UTOX and film count as expected documented in this encounter Plan of Treatment Upcoming Encounters Date Type Department Care Team (Late st Contact Info) Description 11/03/2024 10:30 AM EST Clinical Support [facility] [address] [place] [address] 11/17/2024 9:45 AM EDT Office Visit [address] [address] documented as of this encounter Goals Goal Patient Goal Type Associated Problems Recent Progress Patient-Stated? Author Record your blood pressure once per day Blood Pressure No Chandler Leong PharmD Reduce the number of cigarettes by 1 in the next two weeks with a goal of 6-8 cigarettes smoked per day General No Chandler Leong PharmD Take your medication every day Lifestyle No Salo, Chandler, PharmD documented as of this encounter Procedures Procedure Name Priority Date/Time Associated Diagnosis Comments POCT IGOR-14 URINE DRUG SCREEN Routine 10/20/2024 1:37 PM EST Long-term current use of opiate analgesic documented in this encounter Results * POCT IGOR-14 Urine Drug Screen (10/20/2024 1:37 PM EST) Buprenophine Screen, Urine Positive Urine Urine specimen obtained by clean catch procedure / Unknown 10/20/2024 1:37 PM EST Zahra WYNN POINT OF CARE TEST ENTER/EDIT ORDERABLES Final Result documented in this encounter Visit Diagnoses Diagnosis Spondyloarthropathy of lumbar spine- Primary Polyarthralgia Pain in joint, multiple sites Long-term current use of opiate analgesic Encounter for long-term (current) use of other medications documented in this encounter Additional Health Concerns Assessment Noted Time PHQ-9 Depression Total Score: 14 024 11:59 AM EST documented as of this encounter Care Teams Saxophone Teacher Relationship Specialty Start Date End Date Zahra Dotson FNP [address] [place] [id number] PCP - General Family Medicine 05/09/22 documented as of this encounter
--- OUTSIDE RECORDS SUMMARY | 2024-10-22 08:52 | XMS_ITS | Encounter Summary ---
Author Organization [employer] Address [address] [facility] 7t [place] [address] Care Team Providers Care Agricultural Produce Commission Agent Name Role Phone Zahra Dotson Primary Care Provider [phone] Reason for Visit * Reason Comments Med Refill Encounter Details Date Type Department Care Team ([facility] st Contact Info) Description 09/23/[address] [facility] MEDICINE [address] [place] [address] Zahra Dotson FNP [address] [place] [address] Tobacco dependence syndrome Social History Tobacco Use [...] Description 11/03/2024 10:30 AM EST Clinical Support [address] [address] 11/17/2024 9:45 AM EDT Office Visit [address] [address] documented as of this encounter Goals Goal [...] documented as of this encounter Care Teams Agricultural Produce Commission Agent Relationship Specialty Start Date End Date Zahra Dotson FNP [address] [place] [phone] PCP - General Family Medicine 05/09/22 documented as of this encounter
--- OUTSIDE RECORDS SUMMARY | 2024-10-22 08:52 | XMS_ITS | Encounter Summary ---
Author Organization [employer] Address [address] [facility] 7t [place] [address] Care Team Providers Care Transmission Maintenance Supervisor Name Role Phone Zahra Dotson Primary Care Provider [phone] Reason for Visit * Reason Onset Date Comments Referral 04/04/2023 Rheumatology fro m 12/29/22 Encounter Details Date Type Department Care Team ([facility] st Contact Info) Description 04/04/2023 Telephone [facility] MEDICINE [address] [place] [address] Zahra Dotson FNP [address] [place], [place] [phone] Referral (Rheumatology from 12/29/22) Social History Tobacco [...] Referral is being re-faxed to office for [facility] review. Sharyn stated she is going to try to get pt in sooner and will call her directly after reviewing notes. Nuclear Logging Engineer called and spoke with pt. She was made aware. She was advised to call tomorrow if she has yet to receive a call from [place]. If she has any problems she will give us a call back. * Telephone Encounter - Rosalba aGlan - 04/04/2023 10:06 AM EDT Tc from patient calling in regards to Rheumatology referral. Patient states the office told her sheis not in the system. Patient is confused because she received our letter with the following appt details. Date of Service: 12/11/2022 Referrals: Rheumatology.Evaluate and treat Dr Meehan Patient Appointment Information Date: 04/05/2023 Time: 1:00 PM Location: [address] [place] [phone] FAX [phone] Patient states she confirmed appt twice with [...] now appt is not in the system. Nuclear Logging Engineer let patient now message will be sent to electronic health records specialist and they will follow up with her in regards to next appt detail or next steps. Please call [phone]. documented in this encounter Plan of Treatment Upcoming Encounters Date Type Department Care Team (Late st Contact Info) Description 11/03/2024 10:30 AM EST Clinical Support [address] [address] 11/17/2024 9:45 AM EDT Office Visit [address] [address] documented as of this encounter Goals Goal [...] documented as of this encounter Care Teams Transmission Maintenance Supervisor Relationship Specialty Start Date End Date Zahra Dotson FNP [address] [place] [address] PCP - General Family Medicine 05/09/22 documented as of this encounter
--- OUTSIDE RECORDS SUMMARY | 2024-10-22 08:52 | XMS_ITS | Encounter Summary ---
Author Organization [employer] [facility] Address [address] [facility] [address] [place] [address] Care Team Providers Care Network Development Coordinator Name Role Phone Zahra Dotson Primary Care Provider [phone] Encounter Details Date Type Department Care Team (Late st Contact Info) Description 09/11/2022 Orders Only [facility] MED & PEDS [address] [place] [address] Mary Ann Cruz LPN Social History Tobacco [...] Description 11/03/2024 10:30 AM EST Clinical Support [facility] [address] [place], [place] [phone] 11/17/2024 9:45 AM EDT Office Visit [address] [phone] documented as of this encounter Visit Diagnoses Not on filedocumented in this encounter Care Teams Network Development Coordinator Relationship Specialty Start Date End Date Zahra Dotson FNP [address] [place] [address] PCP - General Family Medicine 05/09/22 documented as of this encounter
--- OUTSIDE RECORDS SUMMARY | 2024-10-22 08:52 | XMS_ITS | Encounter Summary ---
Author Organization [employer] Address [address] [facility] 7t [place] [address] Care Team Providers Care Mask Former Name Role Phone Zahra Dotson TIANNA Primary Care Provider [phone] Reason for Visit * Reason Onset Date Comments Results 10/19/2024 Encounter Details Date Type Department Care Team ([facility] st Contact Info) Description 10/19/2024 Telephone [facility] [address] [place] [address] Demetrice Posadas, MARTIN Results Social History Tobacco Use Types Packs/Day [...] encounter Miscellaneous Notes * Telephone Encounter - Demetrice Posadas RN - 10/19/2024 10:51 AM EST Telephone call returned to patient in regards to below message. Patient verbalized understanding and denied having any further questions or concerns at this time. Patient to follow up as needed. * Telephone Encounter - Demetrice Posadas RN - 10/19/2024 10:51 AM EST ----- Message from Zahra Dotson sent at 10/16/2024 1:22 PM EST ----- Please call to let her know that potassium level has improved slightly to 3.2. I will send her in potassium supplement as well x 5 days. Thank you. documented in this encounter Plan of Treatment Upcoming Encounters Date Type Department Care Team (Late st Contact Info) Description 11/03/2024 10:30 AM EST Clinical Support [facility] [address] [place] [address] 11/17/2024 9:45 AM EDT Office Visit [facility] [address] [place] [address] documented as of this encounter Goals Goal Patient Goal Type Associated Problems Recent Progress Patient-Stated? Author Record your blood pressure once per day Blood Pressure No Salo, Chandler, PharmD Reduce the number of cigarettes by [...] documented as of this encounter Care Teams Mask Former Relationship Specialty Start Date End Date Zahra Dotson FNP [address] [place] [address] PCP - General Family Medicine 05/09/22 documented as of this encounter
--- OUTSIDE RECORDS SUMMARY | 2024-10-22 08:52 | XMS_ITS | Encounter Summary ---
Author Organization [employer] Address [address] [facility] 7t [place] [address] Care Team Providers Care Wrap Yarn Sorter Name Role Phone Zahar Dotson Primary Care Provider [phone] Encounter Details Date Type Department Care Team ([facility] Contact Info) Description 10/11/2022 Telephone [facility] [address] [place] [address] Zahra Dotson FNP [address] [place] [address] Social History Tobacco Use Types Packs/Day Years [...] Upcoming Encounters Date Type Department Care Team ([facility] Contact Info) Description 11/03/2024 10:30 AM EST Clinical Support [address] [phone] 11/17/2024 9:45 AM EDT Office Visit [facility] [address] [place] [address] documented as of this encounter Visit Diagnoses Not on filedocumented in this encounter Care Teams Wrap Yarn Sorter Relationship Specialty Start Date End Date Zahra Dotson FNP [address] [place] [address] PCP - General Family Medicine 05/09/22 documented as of this encounter
--- OUTSIDE RECORDS SUMMARY | 2024-10-22 08:52 | XMS_ITS | Encounter Summary ---
Author Organization [employer] Address [address] [facility] 7t [place] [address] Care Team Providers Care Forestry Aid Technician Name Role Phone Zahra Dotson Primary Care Provider [phone] Encounter Details Date Type Department Care Team ([facility] Contact Info) Description 10/16/2024 Orders Only [facility] CHC MED & PEDS [address] [place], [place] [phone] Zahra Dotson FNP [address] [place] [address] Social History Tobacco Use Types Packs/Day Years [...] 11/03/2024 10:30 AM EST Clinical Support [address] [address] 11/17/2024 9:45 AM EDT Office Visit [address] [address] documented as of this encounter Goals Goal [...] documented as of this encounter Care Teams Forestry Aid Technician Relationship Specialty Start Date End Date Zahra Dotson FNP [address] [place] [address] PCP - General Family Medicine 05/09/22 documented as of this encounter
--- OUTSIDE RECORDS SUMMARY | 2024-10-22 08:52 | XMS_ITS | Encounter Summary ---
Author Organization [employer] Address [address] [facility] 7t [place] [address] Care Team Providers Care Puttier Name Role Phone Zahra Dotson TIANNA Primary Care Provider [phone] Encounter Details Date Type Department Care Team (Latest Contact Info) Description 10/21/2024 Travel Social History Tobacco Use Types Packs/Day [...] the past 12 months, has t he [employer] gas, oil or water company threatened to [...] Description 11/03/2024 10:30 AM EST Clinical Support [address] [address] 11/17/2024 9:45 AM EDT Office Visit [address] [address] documented as of this encounter Goals Goal [...] documented as of this encounter Care Teams Puttier Relationship Specialty Start Date End Date Zahra Dotson FNP [address] [place] [address] PCP - General Family Medicine 05/09/22 documented as of this encounter
--- OUTSIDE RECORDS SUMMARY | 2024-10-22 08:52 | XMS_ITS | Encounter Summary ---
Author Organization [employer] Address [address] [facility] [address] 7[address] [place] [address] Care Team Providers Care Customer Experience Leader Name Role Phone AlfonsoZahra webb TIANNA Primary Care Provider [phone] Encounter Details Date Type Department Care Team ([facility] Contact Info) Description 09/24/2024 Telephone [facility] CHC MED & PEDS 505 [place] [address] Cristela Finch, MARTIN [address] [place], [place] Social History Tobacco Use Types Packs/Day Years [...] back to pt. Chronic pain group visit/ information systems security specialist scheduled for 10/20/24 @ 9:30am. Pt verbalized understanding. documented in this encounter Plan of Treatment Upcoming Encounters Date Type Department Care Team (Late st Contact Info) Description 11/03/2024 10:30 AM EST Clinical Support [address] [address] 11/17/2024 9:45 AM EDT Office Visit [address] [address] documented as of this encounter Goals Goal [...] documented as of this encounter Care Teams Customer Experience Leader Relationship Specialty Start Date End Date Zahra Dotson FNP [address] [place] [address] [place] [address] PCP - General Family Medicine 05/09/22 documented as of this encounter
--- OUTSIDE RECORDS SUMMARY | 2024-10-22 08:52 | XMS_ITS | Encounter Summary ---
Author Organization [employer] Address [address] [facility] 7t [place] [address] Care Team Providers Care Project Internship Name Role Phone Zahra Dotson TIANNA Primary Care Provider [phone] Encounter Details Date Type Department Care Team [...] the past 12 months, has t he [employer], gas, oil or water company threatened to [...] Description 11/03/2024 10:30 AM EST Clinical Support [address] [address] 11/17/2024 9:45 AM EDT Office Visit [address] [address] documented as of this encounter Goals Goal [...] documented as of this encounter Care Teams Project Internship Relationship Specialty Start Date End Date Zahra Dotson FNP [address] [place] [address] PCP - General Family Medicine 05/09/22 documented as of this encounter
--- OUTSIDE RECORDS SUMMARY | 2024-10-22 08:53 | XMS_ITS | Encounter Summary ---
Author Organization [employer] Address [address] [facility] 7t [place] [address] Care Team Providers Care Quality Assurance Qa Lab Analyst Name Role Phone Zahra Dotson Primary Care Provider [phone] Reason for Visit * Reason Onset Date Comments Appointment Request 12/12/2023 Encounter Details Date Type Department Care Team ([facility] st Contact Info) Description 12/12/2023 Telephone [facility] [address] [place] [address] Zahra Dotson FNP [address] [place] [address] Appointment Request Social History Tobacco Use Types [...] 11/03/2024 10:30 AM EST Clinical Support [address] [address] 11/17/2024 9:45 AM EDT Office Visit [address] [address] documented as of this encounter Goals Goal Patient Goal Type Associated Problems Recent Progress Patient-Stated? Author Record your blood pressure once per day Blood Pressure No Chandler Leong PharmD Reduce the number of cigarettes by 1 in the next two weeks with a goal of 6-8 cigarettes smoked per day General No Chandler Leong, PharmD Take your medication every day Lifestyle No Chandler Leong, PharmD documented as of this encounter Visit Diagnoses Not on filedocumented in this encounter Additional Health Concerns Assessment Noted Time PHQ-9 Depression Total Score: 3 12/12/19 23 4:02 PM EDT documented as of this encounter Care Teams Quality Assurance Qa Lab Analyst Relationship Specialty Start Date End Date Zahra Dotson FNP [address] [place] [address] PCP - General Family Medicine 05/09/22 documented as of this encounter
--- OUTSIDE RECORDS SUMMARY | 2024-10-22 08:53 | XMS_ITS | Encounter Summary ---
Author Organization [employer] Address [address] [facility] 7 [place] [address] Care Team Providers Care Bush Hog Operator Name Role Phone Zahra Dotson Primary Care Provider [phone] Reason for Visit * Reason Onset Date Comments Results 10/15/2024 Encounter Details Date Type Department Care Team ([facility] st Contact Info) Description 10/15/2024 Telephone [facility] CH[facility] MED & PEDS 505 [place], [place] [phone] Zahra Dotson FNP 505 [place] [address] Results Social History Tobacco Use Types Packs/Day [...] results: Lab Date when done: 10/07/24 Facility: [facility] Contact pt at [phone] (english) documented in this encounter Plan of Treatment Upcoming Encounters Date Type Department Care Team (Late st Contact Info) Description 11/03/2024 10:30 AM EST Clinical Support [facility] [address] [place] [address] 11/17/2024 9:45 AM EDT Office Visit [facility] [address] [place] [address] documented as of this encounter Goals Goal [...] documented as of this encounter Care Teams Bush Hog Operator Relationship Specialty Start Date End Date Zahra Dotson FNP [address] [place] [address] PCP - General Family Medicine 05/09/22 documented as of this encounter
--- OUTSIDE RECORDS SUMMARY | 2024-10-22 08:53 | XMS_ITS | Encounter Summary ---
Author Organization [employer] Address [address] [facility] 7t [place] [address] Care Team Providers Care Java Technical Architect Name Role Phone Zahra Dotson Primary Care Provider [phone] Reason for Visit * Reason Comments Med Refill Encounter Details Date Type Department Care Team (Late st Contact Info) Description 02/14/2024 Refill [facility] [address] [place] [address] Zahra Dotson FNP [address] [place] [address] Spondyloarthropathy of lumbar spine Social History Tobacco [...] AM EST Clinical Support [address] [address] 11/17/2024 9:45 AM EDT Office Visit [address] [address] documented as of this encounter Goals Goal [...] documented as of this encounter Care Teams Java Technical Architect Relationship Specialty Start Date End Date Zahra Dotson FNP [address] [place] [address] PCP - General Family Medicine 05/09/22 documented as of this encounter
--- OUTSIDE RECORDS SUMMARY | 2024-10-22 08:53 | XMS_ITS | Encounter Summary ---
Author Organization [employer] Address [address] [facility] 7t [place] [address] Care Team Providers Care Dampener Name Role Phone Zahra Dotson Primary Care Provider Reason for Visit * Reason Comments Med Refill Encounter Details Date Type Department Care Team ([facility] st Contact Info) Description 12/19/2023 Refill [facility] CH[facility] MED & PEDS [address] [place], [place] [phone] Zahra Dotson FNP [address] [place] [address] Spondyloarthropathy of lumbar spine Social History Tobacco [...] Description 11/03/2024 10:30 AM EST Clinical Support [address] [address] 11/17/2024 9:45 AM EDT Office Visit [address] [address] documented as of this encounter Goals Goal [...] documented as of this encounter Care Teams Dampener Relationship Specialty Start Date End Date Zahra Dotson FNP [address] [place] [address] PCP - General Family Medicine 05/09/22 documented as of this encounter
--- OUTSIDE RECORDS SUMMARY | 2024-10-22 08:53 | XMS_ITS | Encounter Summary ---
Author Organization [employer] Address [address] [facility] [address] 7[address] [place] [address] Care Team Providers Care Film Archivist Name Role Phone Zahra Dotson Primary Care Provider [phone] Encounter Details Date Type Department Care Team ([facility] st Contact Info) Description 08/26/2024 Telephone [facility] [address] [place] [address] Zahra Dotson FNP [address] [place] [address] Social History Tobacco Use Types Packs/Day Years [...] PM EST TC placed to pt with [facility] sales representative metals Frida #[id number] in regards to instructions below from Zahra Dotson about pt recent low potassium results. Pt instructed to picker and sorter load and unload K supplement at the [facility] pharmacytoday and to take twice a day [...] I sent a potassium supplement to the [facility] pharmacy that I recommend she picker and sorter load and unload and start today. Dosing BID x 4 days, then repeat labs to check potassium. She can go to [facility] labs over the weekend to repeat. Please review ED precautions. Thank you! * Telephone Encounter - TIANNA Mello - 08/26/2024 2:37 PM EST Please call to let her know that potassium level was low, and is likely contributing to her generalized fatigue. I sent a potassium supplement to the [facility] pharmacy that I recommend she picker and sorter load and unload and start today. Dosing BID x 4 days, then repeat labs to check potassium. She can go to [facility] labs over the weekend to repeat. Please review ED precautions. Thank you! * Telephone Encounter - Avani Joel LPN - 08/26/2024 2:26 PM EST Incoming call to the Critical Result line 08/26/24 at 2:27 PM Name of Caller/Facility:[facility] Jane Callback number: [phone] Reason for Call: K+ resulted at 2.8 as drawn today at [facility] PCP listed on schedule today on [facility] Green Team Message to be forwarded to TIANNA Mello and team nurses for follow up. documented in this encounter Plan of Treatment Upcoming Encounters Date Type Department Care Team (Late st Contact Info) Description 11/03/2024 10:30 AM EST Clinical Support [address] [address] 11/17/2024 9:45 AM EDT Office Visit [address] [address] documented as of this encounter Goals Goal [...] EST) Sodium 135 135 - 145 mmol/L [facility] Potassium 3.1(L) 3.3 - 5.1 mmol/L [facility] Chloride 98 96 - 108 mmol/L [facility] Carbon Dioxide 30(H) 22 - 29 mmol/L [facility] Anion Gap 10(L) 12 - 20 [facility] Urea Nitrogen (BUN) 11 9 - 16 mg/dL [facility] Creatinine, Serum 0.70 0.5 - 1.4 mg/dL [facility] Estimated Glomerular Filt Rate >60 [facility] Comment:Chronic Kidney Disea se: Estimated GFR < 60 mL/min/1.01o3Pcusrt Kidney Disease: Estimated GFR < 15 mL/min/1.73m2 Glucose 185(H) 60 - 115 mg/dL [facility] Calcium 9.0 8.4 - 10.2 mg/dL [facility] Blood Venous blood specimen / Unknown 10/07/2024 8:48 AM EST 10/07/2024 11:25 AM EST us Zahra [facility] LAB BLOOD ORDERABLES Final Res ult [facility] [address] [place] [phone] documented in this encounter Visit Diagnoses Diagnosis Hypokalemia- Primary Hypopotassemia documented in this encounter Additional Health Concerns Assessment Noted Time PHQ-9 Depression Total Score: 14 024 11:59 AM EST documented as of this encounter Care Teams Film Archivist Relationship Specialty Start Date End Date Zahra Dotson FNP [address] [place] [address] PCP - General Family Medicine 05/09/22 documented as of this encounter
--- OUTSIDE RECORDS SUMMARY | 2024-10-22 08:53 | XMS_ITS | Encounter Summary ---
Author Organization [employer] Address [address] [facility] 7t [place] [address] Care Team Providers Care Tripe Washer Name Role Phone Zahra Dotson Primary Care Provider [phone] Reason for Visit * Reason Onset Date Comments Appointment Request 09/24/2024 Encounter Details Date Type Department Care Team ([facility] st Contact Info) Description 09/24/2024 Telephone [facility] [address] [place] [address] Zahra Dotson FNP [address] [place] [address] Appointment Request Social History Tobacco Use Types [...] new appointment as she canceled today's visit. [phone] documented in this encounter Plan of Treatment Upcoming Encounters Date Type Department Care Team (Late st Contact Info) Description 11/03/2024 10:30 AM EST Clinical Support [facility] [address] [place] [address] 11/17/2024 9:45 AM EDT Office Visit [address] [address] documented as of this encounter Goals Goal Patient Goal Type Associated Problems Recent Progress Patient-Stated? Author Record your blood pressure once per day Blood Pressure No Chandler Leong PharmMadyson Reduce the number of cigarettes by 1 in the next two weeks with a goal of 6-8 cigarettes smoked per day General No Chandler Leong PharmMadyson Take your medication every day Lifestyle No Chandler Leong PharmD documented as of this encounter Visit Diagnoses Not on filedocumented in this encounter Additional Health Concerns Assessment Noted Time PHQ-9 Depression Total Score: 14 024 11:59 AM EST documented as of this encounter Care Teams Tripe Washer Relationship Specialty Start Date End Date Zahra Dotson FNP [address] [place] [address] PCP - General Family Medicine 05/09/22 documented as of this encounter
--- OUTSIDE RECORDS SUMMARY | 2024-10-22 08:53 | XMS_ITS | Encounter Summary ---
Author Organization [employer] Address [address] [facility] 7t [place] [address] Care Team Providers Care Goat Driver Name Role Phone Zahra Dotson TIANNA Primary Care Provider [phone] Reason for Visit * Reason Onset Date Comments Chart Prep 10/20/2024 Encounter Details Date Type Department Care Team ([facility] st Contact Info) Description 10/20/2024 Telephone [facility] MED & PEDS [address] [place], [place] [phone] Maral Ravi MA Chart Prep Social History Tobacco Use Types Packs/Day Years [...] encounter Miscellaneous Notes * Telephone Encounter - Maral Marie MA - 10/20/2024 4:21 PM EST Chart Prep Labs: done Images: not done Vaccines due: yes Referrals: complete Screenings: colonoscopy Overdue care gaps: A1C, Sbirt, SDOH, PHQ-9, PISQ documented in this encounter Plan of Treatment Upcoming Encounters Date Type Department Care Team (Late st Contact Info) Description 11/03/2024 10:30 AM EST Clinical Support [facility] MEDICINE [address] [place] [address] 11/17/2024 9:45 AM EDT Office Visit [address] [address] documented as of this encounter Goals Goal [...] documented as of this encounter Care Teams Goat Driver Relationship Specialty Start Date End Date Zahra Dotson FNP [address] [place] [address] PCP - General Family Medicine 05/09/22 documented as of this encounter
--- OUTSIDE RECORDS SUMMARY | 2024-10-22 08:53 | XMS_ITS | Encounter Summary ---
Author Organization [employer] Address [address] [facility] 7t [place] [address] Care Team Providers Care Candle Maker Name Role Phone Zahra Dotson Primary Care Provider Reason for Visit * Reason Onset Date Comments Med Refill 09/05/2023 Encounter Details Date Type Department Care Team ([facility] st Contact Info) Description 09/05/2023 Telephone [facility] [address] [place] [address] Zahra Dotson FNP [address] [place] [address] Med Refill Social History Tobacco Use Types [...] per sublingual film To be sent to: [facility] - [place], [place] - [address] [place] [address] documented in this encounter Plan of Treatment Upcoming Encounters Date Type Department Care Team ([facility] st Contact Info) Description 11/03/2024 10:30 AM EST Clinical Support [address] [address] 11/17/2024 9:45 AM EDT Office Visit [address] [address] documented as of this encounter Goals Goal [...] documented as of this encounter Care Teams Candle Maker Relationship Specialty Start Date End Date Zahra Dotson FNP [address] [place] [address], [place] [address] PCP - General Family Medicine 05/09/22 documented as of this encounter
--- OUTSIDE RECORDS SUMMARY | 2024-10-22 08:54 | XMS_ITS | Encounter Summary ---
Author Organization [employer] Address [address] [facility] 7t [place] [address] Care Team Providers Care Fisher Trap Name Role Phone Zahra Dotson Primary Care Provider [phone] Reason for Visit * Reason Onset Date Comments Med Refill 10/14/2024 Encounter Details Date Type Department Care Team (Late st Contact Info) Description 10/14/2024 Refill [facility] [address] [place] [address] Zahra Dotson FNP [address] [place] [address] Spondyloarthropathy of lumbar spine; Long-term current use [...] per sublingual film To be sent to: [facility] - [place], [place] - [address] [place] [address] documented in this encounter Plan of Treatment Upcoming Encounters Date Type Department Care Team ([facility] st Contact Info) Description 11/03/2024 10:30 AM EST Clinical Support [address] [address] 11/17/2024 9:45 AM EDT Office Visit [address] [address] documented as of this encounter Goals Goal [...] documented as of this encounter Care Teams Fisher Trap Relationship Specialty Start Date End Date Zahra Dotson FNP [address] [place] [address] PCP - General Family Medicine 05/09/22 documented as of this encounter
--- OUTSIDE RECORDS SUMMARY | 2024-10-22 08:54 | XMS_ITS | Encounter Summary ---
Author Organization [facility] Address [address] [facility] [address] [place] [address] Care Team Providers Care Blasting Machine Operator Name Role Phone Zahra Dotson Primary Care Provider [phone] Reason for Visit * Reason Comments Med Refill Encounter Details Date Type Department Care Team ([facility] Contact Info) Description 10/11/2022 Refill [facility] [address] [place] [id number] Zahra Dotson FNP [address] [place] [address] Social History Tobacco Use Types Packs/Day Years [...] Upcoming Encounters Date Type Department Care Team ([facility] Contact Info) Description 11/03/2024 10:30 AM EST Clinical Support [facility] [address] [place] [address] 11/17/2024 9:45 AM EDT Office Visit [facility] [address] [place] [address] documented as of this encounter Visit Diagnoses Not on filedocumented in this encounter Care Teams Blasting Machine Operator Relationship Specialty Start Date End Date Zahra Dotson FNP [address] [place] [address] PCP - General Family Medicine 05/09/22 documented as of this encounter
--- OUTSIDE RECORDS SUMMARY | 2024-10-22 08:54 | XMS_ITS | Encounter Summary ---
Author Organization [facility] Address [address] [facility] [address] [place] [address] Care Team Providers Care Life Scientists Name Role Phone Zahra Dotson Primary Care Provider [phone] Reason for Visit * Reason Onset Date Comments Nurse Triage 10/15/2024 Encounter Details Date Type Department Care Team ([facility] st Contact Info) Description 10/15/2024 Telephone [facility] [address] [place] [address] Zahra Dotson FNP [address] [place] [address] Nurse Triage Social History Tobacco Use Types [...] AM EST TC placed to pt with [employer] starchmaker [employer] #[id number] to advise of Zahra Dotson's message below. [...] to isac Maurergo to triage below. No starchmaker needed as this development writer speaks [place]. Pt reports having headache x 3 days. [...] [facility] and follow [...] a headache for the past 3 days. Chenille Machine Operator sent a request for results and advise pt will send a message to triage nurse. Contact pt at [phone] (citizen of [place]) documented in this encounter Plan of Treatment Upcoming Encounters Date Type Department Care Team (Late st Contact Info) Description 11/03/2024 10:30 AM EST Clinical Support [facility] [address] [place] [address] 11/17/2024 9:45 AM EDT Office Visit [address] [address] documented as of this encounter Goals Goal Patient Goal Type Associated Problems Recent Progress Patient-Stated? Author Record your blood pressure once per day Blood Pressure No Chandler Leong PharmD Reduce the number of cigarettes by 1 in the next two weeks with a goal of 6-8 cigarettes smoked per day General No Chandler Leong PharmD Take your medication every day Lifestyle No Chanlder Leong PharmD documented as of this encounter Procedures Procedure Name Priority Date/Time Associated Diagnosis Comments BASIC METABOLIC PANEL Routine 10/16/2024 8:09 AM EST Hypokalemia documented in this encounter Results * (ABNORMAL) Basic Metabolic Panel (10/16/2024 8:09 AM EST) Sodium 138 135 - 145 mmol/L [facility] Potassium 3.2(L) 3.3 - 5.1 mmol/L [facility] Chloride 101 96 - 108 mmol/L [facility] Carbon Dioxide 30(H) 22 - 29 mmol/L [facility] Anion Gap 10(L) 12 - 20 [facility] Urea Nitrogen (BUN) 11 9 - 16 mg/dL [facility] Creatinine, Serum 0.69 0.5 - 1.4 mg/dL [facility] Estimated Glomerular Filt Rate >60 [facility] Comment:Chronic Kidney Disea se: Estimated GFR < 60 mL/min/1.53t6Redgiw Kidney Disease: Estimated GFR < 15 mL/min/1.73m2 Glucose 158(H) 60 - 115 mg/dL [facility] Calcium 8.7 8.4 - 10.2 mg/dL [facility] Blood Venous blood specimen / Unknown 10/16/2024 8:09 AM EST 10/16/2024 11:30 AM EST us Zahra [facility] BLOOD ORDERABLES Final Res ult [facility] [address] [place] [address] [phone] documented in this encounter Visit Diagnoses Diagnosis Hypokalemia- Primary Hypopotassemia documented in this encounter Additional Health Concerns Assessment Noted Time PHQ-9 Depression Total Score: 14 024 11:59 AM EST documented as of this encounter Care Teams Life Scientists Relationship Specialty Start Date End Date Zahra Dotson FNP [address] [place] [address] PCP - General Family Medicine 05/09/22 documented as of this encounter
--- OUTSIDE RECORDS SUMMARY | 2024-10-22 08:54 | XMS_ITS | Encounter Summary ---
Author Organization [employer] Address [address] [facility] [address] [place] [address] Care Team Providers Care Farmworker Cranberry Name Role Phone Zahra Dotson Primary Care Provider [phone] Reason for Visit * Reason Comments Med Refill Encounter Details Date Type Department Care Team (Late st Contact Info) Description 10/08/2024 Refill [facility] [address] [place] [address] Zahra Dotson FNP [address] [place] [address] Vitamin D deficiency; Spondyloarthropathy of lumbar spine; [...] Description 11/03/2024 10:30 AM EST Clinical Support [address] [address] 11/17/2024 9:45 AM EDT Office Visit [address] [address] documented as of this encounter Goals Goal [...] documented as of this encounter Care Teams Farmworker Cranberry Relationship Specialty Start Date End Date Zahra Doston FNP [address] [place] [id number] PCP - General Family Medicine 05/09/22 documented as of this encounter
--- OUTSIDE RECORDS SUMMARY | 2024-10-22 08:54 | XMS_ITS | Clinical Summary ---
Author Organization [employer] Address [address] [place] [address] Care Team Providers Care Education Specialist Name Role Phone AlfonsoZahra webb TIANNA Primary Care Provider [phone] Allergies Active Allergy Reactions Criticality Noted Date Comments Losartan Headache 09/19/2022 Blurry vision Morphine 08/13/2017 Shellfish Allergy 06/04/2023 Medications clonazePAM (KlonoPIN) 0.5 MG tablet Take 0.5 mg by mouth if needed in the morning and at bedtime. 08/13/20 22 Active PARoxetine (Paxil) 10 MG tablet Take 10 mg by mouth in the morning. 08/13/20 22 Active zolpidem (Ambien) 5 MG tablet Take 5 mg by mouth if needed at bedtime. 08/13/20 22 Active Blood Pressure Monitoring (Omron 3 Series BP Monitor) device USE TO CHECK BLOOD PRESSURE DIRECTED 09/19/19 23 Active Diclofenac Sodium 1 % gelIndications: Pain APPLY 2 GRAMS TO AFFECTED AREA(S) UP TO FOUR TIMES DAILY NEEDED FOR PAIN 100 g 1 12/14/19 23 Active Acetaminophen Extra Strength 500 MG tabletIndicatio ns:Pain TAKE 1 TO 2 TABLETS BY MOUTH EVERY 8 HOURS NEEDED FOR PAIN 60 tablet 2 05/02/20 23 Active hydrocortisone 1 % creamIndication s:Rash and nonspecific skin eruption Apply topically if needed in the morning and at bedtime for rash or irritation. 15 g 1 07/12/20 23 Active lidocaine (Lidoderm) 5 % patch APPLY 1 PATCH TOPICALLY TO SKIN, LEAVE ON FOR 12 HOURS AND OFF FOR 12 HOURS DIRECTED 30 patch 5 05/12/20 24 Active ibuprofen 600 MG tabletIndicatio ns:Pain TAKE 1 TABLET BY MOUTH THREE TIMES DAILY WITH FOOD NEEDED FOR PAIN OR FEVER 100 tablet 3 06/19/20 24 Active chlorthalidone (Hygroton) 25 MG tabletIndicatio ns:Primary hypertension TAKE 1 TABLET BY MOUTH EVERY DAY IN THE MORNING 90 tablet 1 07/08/20 24 Active gabapentin (Neurontin) 300 MG capsuleIndicati ons:Chronic bilateral low back pain, unspecified whether sciatica present TAKE 1 CAPSULE BY MOUTH THREE TIMES DAILY 90 capsule 3 08/11/20 24 Active senna-docusate sodium (Senokot-S) 8.6-50 MG tablet Take 1 tablet by mouth if needed each day for constipation. 90 tablet 1 08/26/20 24 2024 Active Ventolin HFA 108 (90 Base) MCG/ACT inhalerIndicati ons:Mild intermittent asthma without complication INHALE 2 PUFFS BY MOUTH EVERY 6 HOURS NEEDED FOR WHEEZING OR SHORTNESS OF BREATH 18 g 3 09/01/20 24 Active ergocalciferol (Vitamin D2) 1.25 MG (66616 UT) capsuleIndicati ons:Vitamin D Deficiency Take 1 capsule (1.25 mg) by mouth 1 (one) time per week. Take for 8 weeks. 8 capsule 09/07/20 24 2024 Active loratadine (Claritin) 10 MG tablet TAKE 1 TABLET BY MOUTH EVERY DAY NEEDED FOR ALLERGIES 90 tablet 3 09/10/19 25 Active albuterol (2.5 MG/3ML) 0.083% nebulizer solutionIndicat ions:Mild intermittent asthma without complication INHALE 1 AMPULE USING A NEBULIZER EVERY 4 TO 6 HOURS NEEDED FOR WHEEZING OR SHORTNESS OF BREATH 90 mL 3 09/17/19 25 Active nicotine polacrilex (Nicorette) 2 MG gumIndications: Tobacco dependence syndrome CHEW 1 PIECE OF GUM EVERY 1-2 HOURS NEEDED DURING WEEKS 1-6, THEN CHEW 1 PIECE OF GUM EVERY 2-4 HOURS DURING WEEKS 7-9, THEN CHEW 1 PIECE OF GUM EVERY 4-8 HOURS DURING WEEKS 10-12 DIRECTED. DO NOT EXCEED 24 PER DAY 220 each 3 09/23/19 25 Active D3-1000 25 MCG (1000 UT) capsuleIndicati ons:Vitamin D deficiency TAKE 1 CAPSULE BY MOUTH EVERY DAY 90 capsule 3 10/16/19 Active potassium chloride CR (Klor-Con M20) 20 MEQ ER tablet Take 1 tablet (20 mEq) by mouth Once per day. Do not crush or chew. 5 tablet 10/16/19 25 2025 Active olmesartan (Benicar) 5 MG tabletIndicatio ns:Primary hypertension Take 1 tablet (5 mg) by mouth Once per day. 90 tablet 10/21/19 25 2025 Active oxyCODONE (Roxicodone) 5 MG immediate release tabletIndicatio ns:Spondyloarth ropathy of lumbar spine,Polyarthr algia,Long-term current use of opiate analgesic Take 1 tablet (5 mg) by mouth if needed in the morning and at bedtime for severe pain for up to 28 days. 56 tablet 10/21/19 25 2024 Active cholecalciferol (Vitamin D-3) 25 MCG (1000 UT) capsuleIndicati ons:Vitamin D deficiency Take 1 capsule (25 mcg) by mouth Once daily. 90 capsule 3 10/06/19 24 2024 Discontinued nicotine polacrilex (Nicorette) 2 MG gumIndications: Tobacco dependence syndrome Chew 1 each (2 mg) if needed for smoking cessation. Recommended guidelines: Weeks 1-6: Chew 1 piece of gum every 1-2 hrs (max 24 pieces/day) Weeks 7-9: Chew 1 piece of gum every 2-4 hrs Weeks 10-12: Chew 1 piece of gum every 4-8 hrs 2 each 3 05/06/20 24 2024 Discontinued buprenorphine-n aloxone (Suboxone) 4-1 MG per sublingual filmIndications :Spondyloarthro ale of lumbar spine,Long-term current use of opiate analgesic Place 1 Film under the tongue 3 times daily. 84 Film 1 08/11/20 24 2024 Discontinued(R eorder (will not trigger notification to Pharmacy)) potassium chloride CR (Klor-Con M20) 20 MEQ ER tabletIndicatio ns:Hypokalemia Take 1 tablet (20 mEq) by mouth Once per day for 5 days. Do not crush or chew. 5 tablet 09/25/19 25 2024 buprenorphine-n aloxone (Suboxone) 4-1 MG per sublingual filmIndications :Spondyloarthro ale of lumbar spine,Long-term current use of opiate analgesic Place 1 Film under the tongue 3 times daily. 84 Film 1 10/14/19 25 2024 Discontinued(T herapy completed) Active Problems Problem Noted Date Diagnosed Date LFT elevation 09/07/2024 Loud snoring 08/27/2024 Assessment & Plan (08/27/2024 10:27 AM EST): Referral for sleep study placed 08/27/24 Polyarthralgia 05/07/2024 Overview (05/07/2024): Lab Results Component Value Date RHEUMATOIDFA 14 (H) 12/10/2022 ANASCRIFA NEGATIVE 12/10/2022 CREACPROTEIN 8.9 (H) 12/10/2022 SEDRATE 14 12/10/2022 TSH 2.82 09/11/2023 Sept 2022: Eval at [facility] Rheum - Dr. Santana. Encouraged physical therapy and weight loss. Cont gabapentin. Follow up PRN with Rheum. Assessment & Plan (05/07/2024 7:12 PM EDT): -Following with Ortho for chronic right knee pain - MRI of knee ordered by Ortho for further eval. Pt encouraged to call to reschedule appt. Varicose veins of both lower extremities 024 Overview (08/27/2024): Evaluated by [facility] Vascular - Dr. Prince in February 2024 Venous insufficiency testing demonstrated varicose veins with inflammation. Attempted right small saphenous vein radiofrequency ablation on 04/17/24, unsuccessful. Encouraged to cont compression socks, elevation, symptomatic management. Referral to re-establish d/t worsening of symptoms 08/26/24 Long-term current use of opiate analgesic 2023 Overview (10/21/2024): Medication: Oxycodone 5mg BID PRN. (Switched from Suboxone 4-1mg TID Oct 2024) Indication: spondyloarthropathy of lumbar spine Last GAS ENGINE OPERATOR Agreement: 2/11/25 Tier II (GAS ENGINE OPERATOR visits every 3 months) Assessment & Plan (10/21/2024 4:43 PM EST): Timeline: -03/19/24: GAS ENGINE OPERATOR visit [facility] -10/20/24: Group, utox/count wnl. Renewal signed. -10/21/24: OV - changed from Suboxone to Oxycodone Assessment & Plan (10/20/2024 4:54 PM EST): Timeline: -03/19/24: GAS ENGINE OPERATOR visit [facility] -10/20/24: Group, utox/count wnl. Renewal signed. Assessment & Plan (06/19/2024 1:23 PM EDT): Timeline: -03/19/24: GAS ENGINE OPERATOR visit [facility] Healthcare maintenance 04/30/2023 Overview (10/06/2023): Routine Health Maintenance -C-scope: no prior, referred to GI 11/09/22 as well as 06/04/23. Pending. -Mammo: 12/01/2021 BIRADS-1. Pending. -PAP: 10/13/2013 NIL/-HPV on record. She is s/p THH 8 years ago d/t malignancy. Following with PROCESS ENGINEERING TECHNICIAN. -Last PE: 06/04/23 -Lab titers: Sep 2023: Immune to MMR. Not immune to Hep B. -TB screening: borderline Sep 2023. Asymptomatic. CXR pending. Hypothyroidism 09/16/2022 Assessment & Plan (06/04/2023 10:43 AM EDT): Off levothyroxine Order TSH and FU with PCP Hypertension 09/16/2022 Overview (10/21/2024): BP goal < 140/90 mmHg Start olmesartan 5mg daily -Previous med trials: Losartan (DC SE - RAMOS & blurry vision) Amlodipine (DC SE - BLE edema) Chlorthalidone (DC hypokalemia) -Encouraged lifestyle interventions including smoking cessation, low salt diet and 150mins of physical activity weekly -ED precautions Assessment & Plan (10/21/2024 4:45 PM EST): Plan: - STOP chlorthalidone - START olmesartan. Reviewed med safety and SE - 2 weeks RN BP visit. Plan to increase to olmesartan 20mg daily if above goal more than 25% of the time. Assessment & Plan (08/27/2024 10:26 AM EST): [...] 150mins of physical activity weekly -Referral to [facility] for routine vision eval Follow up in 3 weeks via televisit to review BP readings at home (& further discuss family history). Sooner as needed. 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 [facility] Rheum eval May 2023. Follow up PRN Previous tx options for pain have included: Pharm: APAP, NSAIDs, gabapentin, percocet and tramadol. Suboxone (November 2022 - Oct 2024, dc d/t concerns with dentition) Non-pharm: PT, physiatry, acupuncture -Continues gabapentin 300mg TID -Oxycodone 5mg BID PRN. Reviewed med safety and SE -Established in GAS ENGINE OPERATOR program w/ RN -Referral to PS&S Apr 2024 - no longer following -Referral to [facility] Pain Management 08/27/24 Assessment & Plan (10/21/2024 4:50 PM EST): - Discontinue Suboxone -Start oxycodone 5 mg twice daily as needed. Reviewed the significant limitations and potential side effects of chronic opioid therapy. Given that she has exhausted the combination of pharmacologic and nonpharmacologic treatment options listed above, shared decision making to proceed with oxycodone. Message sent to GAS ENGINE OPERATOR RN. -Marge will plan to follow-up in 1 month with the chronic pain group Assessment & Plan (10/20/2024 4:54 PM EST): -Good engagement and participation with Group Medical Visit model, today was first visit. -Encouraged multifactorial approach to pain control including pharm and non- pharm modalities -UTOX and film count as expected Assessment & Plan (05/07/2024 7:20 PM EDT): [...] safety and SE -Need to establish in GAS ENGINE OPERATOR program w/ service cleaner & Plan (07/14/2023 11:51 AM EST): Previous [...] med safety and SE -Message sent to GAS ENGINE OPERATOR RN to establish in GAS ENGINE OPERATOR program -Follow up in 4 weeks to [...] as pharmacomtherapy, [facility] smoking cessation group, and [facility] pharmacy smoking cessation clinic -Agrees to try NRT gum as monotherapy Assessment & Plan (07/14/2023 11:56 AM EST): -Smoking approx 8-10 cigg/day -Encouraged smoking cessation resources such as pharmacomtherapy, [facility] smoking cessation group, and [facility] pharmacy smoking cessation clinic Assessment & Plan [...] smear due to hysterectomy/ malignancy FU with PROCESS ENGINEERING TECHNICIAN Encounter for preventive health examination 06/04/2023 09/12/2023 [...] FU with PCP next month. Will order BRENDA alvarez, FU with PCP. Dental visit Overdue, counseled to make ronaldo in our dental clinic. Screening mammogram for breast cancer 06/04/2023 09/11/2023 Dietary counseling 06/04/2023 Exercise counseling 06/04/2023 09/12/19 24 Squamous cell carcinoma, microinvasive 09/16/2022 06/04/2023 Overview (09/16/2022): NIKOS 07/29/09 Chronic low back pain 09/30/20172023 Rectal hemorrhage 11/22/2016 04/30/2023 Encounters Date Type Department Care Team Description 10/21/2024 9:45 AM EST Office Visit [facility] [address] [place] [phone] Zahra Dotson FNP Primary hypertension (Primary Dx); Class 3 severe obesity with body mass index (BMI) of 45.0 to 49.9 in adult, unspecified obesity type, unspecified whether serious comorbidity present ([facility]); Vitamin D deficiency; Spondyloarthropathy of lumbar spine; Polyarthralgia; Long-term current use of opiate analgesic; Prediabetes; Hypokalemia 10/21/2024 Travel 10/20/2024 9:45 AM EST Office Visit [address] [address] PhalZahra webb, RUBBER TESTER Spondyloarthropathy of lumbar spine (Primary Dx); Polyarthralgia; Long-term current use of opiate analgesic 10/20/2024 Telephone [facility] [address] [place] [address] Maral Ravi MA Chart Prep 10/20/2024 Travel 10/19/[address] [address] Demetrice Posadas, MARTIN Results 10/16/2024 Orders Only [facility] [address] [place] [address] Zahra Dotson, RUBBER TESTER 10/15/[address] [address] Mauri Zahra, RUBBER TESTER Nurse Triage 10/15/2024 Telephone [facility] [address] [place] [address] Phaljon Zahar, RUBBER TESTER Results 10/14/[address] [address] Mauri Zahra, RUBBER TESTER Spondyloarthropathy of lumbar spine; Long-term current use of opiate analgesic 10/08/2024 Refill [facility] [address] [place] [address] Phalen Zahra, RUBBER TESTER Vitamin D deficiency; Spondyloarthropathy of lumbar spine; Long-term current use of opiate analgesic 09/29/2024 Telephone [facility] [address] [place] [address] Maida Robles, MARTIN 09/25/2024 Orders Only [facility] [address] [place] [address] Phaljon Zahra, RUBBER TESTER Hypokalemia (Primary Dx) 09/24/2024 Travel 09/24/2024 Telephone [facility] [address] [place] [address] Cristela Finch RN 09/24/2024 Telephone [facility] [address] [place] [phone] Phaljon Zahra, RUBBER TESTER Appointment Request 09/23/2024 Refill [facility] [address] [place] [address] Phaljon Zahra, RUBBER TESTER Tobacco dependence syndrome 09/16/2024 Refill [facility] [address] [place] [phone] Phaljon Zahra, RUBBER TESTER Mild intermittent asthma without complication 09/09/2024 Refill [facility] [address] [place] [address] Phaljon Zahra, RUBBER TESTER 09/03/[address] [address] Phaljon Zahra, RUBBER TESTER Results 09/01/2024 Refill [facility] [address] [place] [address] Phalen Zahra, RUBBER TESTER Mild intermittent asthma without complication 08/28/2024 Telephone [facility] [address] [place] [phone] Phaljon Zahra, RUBBER TESTER 08/26/2024 9:45 AM EST Office Visit [facility] [address] [place] [phone] Phalen Zahra, RUBBER TESTER Primary hypertension (Primary Dx); Encounter for immunization; Vitamin D insufficiency; Varicose veins of both lower extremities, unspecified whether complicated; Has daytime drowsiness; Loud snoring; Spondyloarthropathy of lumbar spine; Polyarthralgia 08/26/2024 Telephone [facility] [address] [place] [phone] PhalZahra webb, RUBBER TESTER 08/26/2024 Travel 08/20/2024 Telephone [facility] [address], [place] [phone] Maral Ravi MA Chart Prep 08/11/2024 Refill [facility] [address] [place] [address] Zahra Dotson FNP Spondyloarthropathy of lumbar spine 08/09/2024 Refill [facility] [address] [place] [address] Zahra Dotson FNP Long-term current use of [...] Mass Index 47.8 10/21/2024 9:52 AM EST Plan of Treatment Upcoming Encounters Date Type Department Care Team (Late st Contact Info) Description 11/03/2024 10:30 AM EST Clinical Support [address] [address] 11/17/2024 9:45 AM EDT Office Visit [facility] [address] [place] [address] Health Maintenance Due Date Last Done Comments [...] 08/26/2024, 08/26/2024 Depression Screening 08/26/2025 08/26/2024, 08/26/20 Tobacco Screening 08/26/2025 08/26/2024 COVID-19 Vaccine ( [...] EST Long-term current use of opiate analgesic BASIC METABOLIC PANEL Routine 10/16/2024 8:09 AM EST Hypokalemia BASIC METABOLIC PANEL Routine 10/07/2024 8:48 AM [...] Recently Relevant to Health Maintenance Results * POCT IGOR-14 Urine Drug Screen (10/20/2024 1:37 PM EST) Buprenophine Screen, Urine Positive Urine Urine specimen obtained by clean catch procedure / Unknown 10/20/2024 1:37 PM EST Zahra Dotson RUBBER TESTER POINT OF CARE TEST ENTER/EDIT ORDERABLES Final Result * (ABNORMAL) Basic Metabolic Panel (10/16/2024 8:09 AM EST) Only the most recent of5 resultswithin the time period is included. Sodium 138 135 - 145 mmol/L [facility] Potassium 3.2(L) 3.3 - 5.1 mmol/L [facility] Chloride 101 96 - 108 mmol/L [facility] Carbon Dioxide 30(H) 22 - 29 mmol/L [facility] Anion Gap 10(L) 12 - 20 [facility] Urea Nitrogen (BUN) 11 9 - 16 mg/dL [facility] Creatinine, Serum 0.69 0.5 - 1.4 mg/dL [facility] Estimated Glomerular Filt Rate >60 [facility] Comment:Chronic Kidney Disea se: Estimated GFR < 60 mL/min/[id number] Kidney Disease: Estimated GFR < 15 mL/min/1.73m2 Glucose 158(H) 60 - 115 mg/dL [facility] Calcium 8.7 8.4 - 10.2 mg/dL [facility] Blood Venous blood specimen / Unknown 10/16/2024 8:09 AM EST 10/16/2024 11:30 AM EST Zahra Dotson [facility] BLOOD ORDERABLES Final Res ult Performing Organization Address [facility] Co de Phone Number [facility] [address] [place] [phone] * Hepatitis C Antibody with Reflex to HCV, RNA, Quantitative, Real-Time PCR (09/25/2024 8:08 AM EST) Hepatitis C Antibody Nonreactive Nonreactive [facility] Comment:Antibodies to HCV no t detected; does not exclude early acuteHCV infection. Blood Venous blood specimen / Unknown 09/25/2024 8:08 AM EST 09/25/2024 11:20 AM EST Zahra Dotson RUBBER TESTER LAB BLOOD ORDERABLES Final Res ult Performing Organization Address [facility] Co de Phone Number [facility] [address] [place] [phone] * Hepatitis A Antibody, Total (09/25/2024 8:08 AM EST) Hepatitis A Antibody IgG REACTIVE Nonreactive [facility] Comment:The presence of IgG anti-HAV implies past HAV infection(recent or distant) or vaccination against HAV. Blood Venous blood specimen / Unknown 09/25/2024 8:08 AM EST 09/25/2024 11:20 AM EST Zahra Dotson RUBBER TESTER LAB BLOOD ORDERABLES Final Res ult Performing Organization Address [facility]/ZIP Co de Phone Number [facility] [address] [place] [phone] * Hepatitis B surface antigen, EIA (09/25/2024 8:08 AM EST) Hepatitis B Surface Ag Negative Negative [facility] Blood Venous blood specimen / Unknown 09/25/2024 8:08 AM EST 09/25/2024 11:20 AM EST Zahra Dotson RUBBER TESTER LAB BLOOD ORDERABLES Final Res ult Performing Organization Address [facility] Co de Phone Number [facility] [address] [place] [phone] * Hepatitis B Core Antibody, Total (09/25/2024 8:08 AM EST) Hepatitis B Core Antibody Nonreactive Nonreactive [facility] Blood Venous blood specimen / Unknown 09/25/2024 8:08 AM EST 09/25/2024 11:20 AM EST Zahra Dotson RUBBER TESTER LAB BLOOD ORDERABLES Final Res ult Performing Organization Address [facility] Co de Phone Number [facility] [address] [place] [phone] * Hepatitis B Surface Antibody, Qualitative (09/25/2024 8:08 AM EST) ~Hepatitis B Surface Antibody GRAYZONE Nonreactive [facility] Comment:GRAYZONE: 8.00 mIU/m L TO 11.99 mIU/mLTHE IMMUNE STATUS OF THE INDIVIDUAL SHOULD BE FURTHERASSESSED BY CONSIDERING OTHER FACTORS, SUCH CLINICALSTATUS, FOLLOW-UP TESTING, ASSOCIATED RISK FACTORS, AND THEUSE OF ADDITIONAL DIAGNOSTIC INFORMATION. Blood Venous blood specimen / Unknown 09/25/2024 8:08 AM EST 09/25/2024 11:20 AM EST Zahra Dotson [facility] BLOOD ORDERABLES Final Res ult Performing Organization Address [facility] de Phone Number [facility] [address] [place] [phone] * (ABNORMAL) Hepatic Function Panel (09/25/2024 8:08 AM EST) Only the most recent of2 resultswithin the time period is included. Pathologist [facility] Bilirubin, Total 0.4 0.0 - 1.0 mg/dL [facility] Bilirubin, Direct 0.2 0.0 - 0.5 mg/dL [facility] Aspartate Amino Transferase 50(H) 5 - 31 U/L [facility] Alanine Aminotransferase 43(H) 0 - 31 U/L [facility] Total Protein 7.8 6.5 - 8.0 g/dL [facility] Albumin Level 3.6 3.5 - 5.0 g/dL [facility] Alkaline Phosphatase 86 39 - 117 U/L [facility] Blood Venous blood specimen / Unknown 09/25/2024 8:08 AM EST 09/25/2024 11:20 AM EST Zahra Dotson [facility] BLOOD ORDERABLES Final Res ult Performing Organization Address [facility] Co de Phone Number [facility] [address] [place] [phone] * (ABNORMAL) Vitamin D, 25-Hydroxy, Total, Immunoassay (08/26/2024 11:14 AM EST) Vitamin D 25-OH Total 7.6(L) >30 ng/mL [facility] Comment:Health Based Referen ce Values*< 20 ng/mL [id number] ng/mL Insufficient> 30 ng/mL Sufficient*Kayy ROSALES. N [...] 08/26/2024 1:52 PM EST us Zahra Dotson RUBBER TESTER LAB BLOOD ORDERABLES Final Res ult [facility] [address] [place] [phone] * (ABNORMAL) CBC auto differential (08/26/2024 11:14 AM EST) White Blood Count 7.5 4.8 - 10.8 X10*3/uL [facility] Red Blood Count 4.60 4.20 - 5.50 X10*6/uL [facility] Hemoglobin 14.3 12.0 - 16.0 g/dl [facility] Hematocrit 41.3 37.0 - 47.0 % [facility] Mean Corpuscular Volume 89.8 80.0 - 98.0 fL [facility] Mean Corpuscular Hemoglobin 31.1 27.0 - 33.0 pg [facility] Mean Corpuscular HGB Conc 34.6 31.0 - 35.0 g/dl [facility] Red Cell Distribution Width 12.7 11.0 - 16.0 % [facility] Platelet Count 199 160 - 400 X10*3/uL [facility] Mean Platelet Volume 12.4(H) 9.4 - 12.3 fL [facility] Neutrophils Percent Auto 45.7 45 - 73 % [facility] Imm Gran Pct Auto 0.4 0.0 - 0.4 % [facility] Lymphocytes Percent Auto 40.8(H) 20 - 40 % [facility] Monocytes Percent Auto 8.6 2 - 11 % [facility] Eosinophils Percent Auto 4.0 0 - 4 % [facility] Basophils Percent Auto 0.5 0 - 2 % [facility] NRBC Pct Auto 0.0 0.0 - 0.2 /100WBC [facility] Neutrophils Absolute Auto 3.4 2.0 - 8.3 x10*3/uL [facility] Imm Gran Abs Auto 0.03 0.00 - 0.03 X10*3/uL [facility] Lymphocytes Absolute Auto 3.1 1.2 - 4.9 X10*3/uL [facility] Monocytes Absolute Auto 0.6 0.1 - 1.2 X10*3/uL [facility] Eosinophils Absolute Auto 0.3 0.0 - 0.4 X10*3/uL [facility] Basophils Absolute Auto 0.0 0.0 - 0.2 X10*3/uL [facility] NRBC Abs Auto 0.000 0.0 - 0.012 X10*3/uL [facility] Blood Venous blood specimen / Unknown 08/26/2024 11:14 AM EST 08/26/2024 1:52 PM EST us Zahra Dotson RUBBER TESTER LAB BLOOD ORDERABLES Final Res ult [facility] [address] [place] [address] [phone] * (ABNORMAL) Lipid Panel with Reflex to Direct LDL (09/11/2023 10:27 AM EST) Triglycerides 68 <150 mg/dL [facility] Comment:Desirable Triglyceri de: less than 150 mg/dLBorderline High Triglyceride 150-199 mg/dLHigh Triglyceride: 200-499 mg/dLVery High Triglyceride: greater than or equal to 5OO mg/dL Cholesterol 133 <200 mg/dL [facility] Comment:Desirable Cholestero l: less than 200 mg/dLBorderline High Cholesterol: 200-239 mg/dLHigh Cholesterol: greater than 239 mg/dL LDL Cholesterol Calculated 86 <100 mg/dL [facility] Comment:Desirable LDL: less than 100 mg/dLNear Optimal/Above Optimal LDL: 110- 129 mg/dLBorderline High LDL: 130-159 mg/dLHigh LDL: 160-189 mg/dLVery High LDL: greater than or equal to 190 mg/dL HDL Cholesterol 34(L) >40 mg/dL [facility] Comment:Desirable HDL: great er than 40 mg/dL Note: This HDL assay may give artificially low results in patients with liver disease. Blood 09/11/2023 10:2 7 AM EST 09/11/2023 11:50 AM EST us Linda Martinez MD LAB BLOOD ORDERABLES Fin al Result [facility] [address] [place] [phone] * HIV-1/2 Antigen and Antibodies, Fourth Generation, with Reflexes (09/11/2023 10:27 AM EST) HIV AB/AG Nonreactive Nonreactive [facility] Comment:HIV-1 p24 Ag and/or HIV-1/HIV-2 Ab not detected.A test result that is nonreactive does not exclude thepossibility of exposure to or infection with HIV-1 and/orHIV-2. Nonreactive results in this assay for individualswith prior exposure to HIV-1 and/or HIV-2 may be due toantigen and antibody levels that are below the limit ofdetection of this assay.The [email or web address] HIV Ag/Ab Combo assay result andsupplemental assay results should be interpreted inconjunction with the patient's clinical presentation,history and other laboratory results. If the results areinconsistent with clinical evidence, additional testing issuggested to confirm the result. Blood Venous blood specimen / Unknown 09/11/2023 10:27 AM EST 09/11/2023 11:50 AM EST Linda Martinez MD LAB BLOOD ORDERABLES Fin al Result Performing Organization Address City/[facility] Co de Phone Number [facility] [address] [place] [phone] * Hemoglobin A1c (09/11/2023 10:27 AM EST) Hemoglobin A1c 6.0 <6.0 % [facility] Comment:Hemoglobin A1C Refer ence Range Adults: 4.8 - 6.0 % Non diabetic: < 6.0 % Goal: < 7.0 %Additional Action Suggested: > 8.0 %Note: Hemoglobin A1c results are invalid for patients with abnormal amounts of HbF. Blood transfusions may impact the HbA1c concentration in the patient sample. Estimated Average Glucose 126 mg/dL [facility] Comment:eAG = Estimated ave rage glucose which is %A1C expressed asaverage glucose, using the formula of the P1K-NgulpdfEyodgya Glucose study (ADAG), Diabetes Care, Vol.31,#8,Apr. 2007 Blood Venous blood specimen / Unknown 09/11/2023 10:27 AM EST 09/11/2023 11:50 AM EST us Linda Martinez MD LAB BLOOD ORDERABLES Fin al Result Performing Organization Address [facility] Co de Phone Number [facility] [address] [place] [phone] * Mammography Report 1 (11/30/2021 2:15 PM EDT) Anatomical Region Laterality Modality Breast Bilateral Mammography 11/30/2021 2:15 PM EDT Narrative 12/01/2021 5:57 PM EDT Refer to the Notes tab for result details [facility] Procedure: Mammography Report 1 Procedure Note Provider, MD Gaudencio - 12/02/2022 Refer to the Notes tab for result details [facility] Procedure: Mammography Report 1 Shellie Ahmadi BAKERY SUPERVISOR IMG BI PROCEDURES Final Result from Last 3 Months or Most Recently Relevant to Health Maintenance Insurance [facility] Care Teams Education Specialist Relationship Specialty Start Date End Date Zahra Dotson FNP [address] [place] [address] PCP - General Family Medicine 05/09/22
--- OUTSIDE RECORDS SUMMARY | 2024-10-22 08:55 | XMS_ITS | Encounter Summary ---
Author Organization [employer] Address [address] [place] [address] Care Team Providers Care Production Statistical Clerk Name Role Phone AlfonsoZahra webb TIANNA Primary Care Provider [phone] Encounter Details Date Type Department Care Team ([facility] st Contact Info) Description 09/29/2024 Telephone [facility] [address] [place], [place] [phone] Maida Robles RN Social History Tobacco Use [...] 9:13 AM EST Tc to pt via eBuddys diplomatic interpreter/translator id: [id number] to let them know per PCP Please call to let her knowthat I recommend potassium supplement daily x 5 days and recheck labs next week. Please schedule appt with me so that we can discuss changing her BP med that I think is causing the hypokalemia. Thanks! Pt verbalized understanding, reports they will hand picker their supplement today and start taking. [...] 11/03/2024 10:30 AM EST Clinical Support [address] [address] 11/17/2024 9:45 AM EDT Office Visit [address] [address] documented as of this encounter Goals Goal [...] documented as of this encounter Care Teams Production Statistical Clerk Relationship Specialty Start Date End Date Zahra Dotson FNP [address] [place] [address] PCP - General Family Medicine 05/09/22 documented as of this encounter
--- OUTSIDE RECORDS SUMMARY | 2024-10-22 08:55 | XMS_ITS | Encounter Summary ---
Author Organization [employer] Address [address] [facility] 7t [place] [address] Care Team Providers Care Blind Hooker Name Role Phone Zahra Dotson Primary Care Provider [phone] Reason for Visit * Reason Comments Med Refill Encounter Details Date Type Department Care Team (Late st Contact Info) Description 06/15/2024 Refill [facility] [address] [place] [address] Zahra Dotson FNP [address] [place] [address] Spondyloarthropathy of lumbar spine Social History Tobacco [...] Description 11/03/2024 10:30 AM EST Clinical Support [address] [address] 11/17/2024 9:45 AM EDT Office Visit [address] [address] documented as of this encounter Goals Goal [...] documented as of this encounter Care Teams Blind Hooker Relationship Specialty Start Date End Date Zahra Dotson FNP [address] [place] [address] PCP - General Family Medicine 05/09/22 documented as of this encounter
--- OUTSIDE RECORDS SUMMARY | 2024-10-22 08:55 | XMS_ITS | Encounter Summary ---
Author Organization [employer] Address [address] [facility] 7[address] [place] [address] Care Team Providers Care Pattern Stamper Name Role Phone Zahra Dotson Primary Care Provider [phone] Reason for Visit * Reason Onset Date Comments Med Refill 06/18/2024 Encounter Details Date Type Department Care Team ([facility] st Contact Info) Description 06/18/2024 Telephone [facility] [address] [place] [address] Zahra Dotson FNP [address] [place] [address] Med Refill Social History Tobacco Use Types [...] per sublingual film To be sent to: [facility] documented in this encounter Plan of Treatment Upcoming Encounters Date Type Department Care Team (Late st Contact Info) Description 11/03/2024 10:30 AM EST Clinical Support [facility] [address] [place] [phone] 11/17/2024 9:45 AM EDT Office Visit [facility] [address] [place] [address] documented as of this encounter Goals Goal [...] as of this encounter Care Teams Pattern Stamper Relationship Specialty Start Date End Date Zahra Dotson FNP [address] [place] [address] PCP - General Family Medicine 05/09/22 documented as of this encounter
--- OUTSIDE RECORDS SUMMARY | 2024-10-22 08:55 | XMS_ITS | Encounter Summary ---
Author Organization [employer] Address [address] [facility] 7t [place] [address] Care Team Providers Care Dialysis Social Worker Name Role Phone Zahra Dotson Primary Care Provider [phone] Encounter Details Date Type Department Care Team ([facility] st Contact Info) Description 09/25/2024 Orders Only [facility] [address] [place], [place] [phone] Zahra Dotson FNP [address] [place] [address] Hypokalemia (Primary Dx) Social History Tobacco Use [...] 11/03/2024 10:30 AM EST Clinical Support [address] [address] 11/17/2024 9:45 AM EDT Office Visit [address] [address] documented as of this encounter Goals Goal [...] documented as of this encounter Care Teams Dialysis Social Worker Relationship Specialty Start Date End Date Zahra Dotson FNP [address] [place] [address] PCP - General Family Medicine 05/09/22 documented as of this encounter
--- NOTE | 2024-10-22 09:03 | A.OFFVIS_ITS ---
Vital Signs 10/22/24 09:04 Height 5 ft 4 in Weight 279 lb 4 oz BMI 47.9 BP 169/79 H Blood Pressure Location Lt brachial Position Sitting Pulse 79 Pulse Source Pulse Oximeter Pulse Oximetry (%) 97 Oxygen Delivery Method Room Air Intake Visit Reasons: Spondyloarthropathy lumbar spine Allergies shellfish derived [SHELLFISH DERIVED] Allergy (Severe, Verified 10/22/24 09:06) SWELLING morphine [MORPHINE] Allergy (Mild, Verified 10/22/24 09:06) NERVOUS, palpitations shrimp Allergy (Unknown, Verified 10/22/24 09:06) UNKNOWN HPI Comments Details: 49-year-old female presented to the office today for evaluation and management of her chronic lower back pain Visit completed with instrument assembly supervisor Amy, #[id number] Past medical history significant for hypertension, constipation, anxiety, osteoarthritis, fibromyalgia, obesity, varicose veins, chronic pain She has been suffering with this pain for approximately 11 years. Denies inciting injury, fall, trauma Endorses midline lower back pain with radiation across the lower back and down into the legs bilaterally Pain today is rated as a 10/10, constant Pain is worse with sitting, standing, moving, twisting, bending Pain most improves with lying flat She is taking gabapentin, ibuprofen and Suboxone without improvement. Reports today her doctor is discontinuing her Suboxone restarting her on Percocet that she had been taking for many years in the past Denies numbness, tingling, burning of either lower extremity. Denies electrical shooting pains down either leg. Denies recent attempts at physical therapy, chiropractor, acupuncture, massage or injections. Denies any recent imaging. Most recent MRI was in 2021, results as per below Denies red flag symptoms including new loss of bowel, bladder or saddle anesthesia In terms of muscle damage condition is described as dull, aching, cramping, squeezing, spasming, throbbing, sharp, stabbing Pain is negatively impacting patient's enjoyment of life, general activity, mood, ability to care for self, recreational activities, relationships with people, sleep, walking Denies implantable devices, pacemaker or defibrillator Denies current use of anticoagulants [facility] Medical History History of prediabetes History of high blood pressure Asthma Surgical History S/P NIKOS (total abdominal hysterectomy) Family History Father No problems noted. 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 Answers questions appropriately. Fully engaged in examination. Skin: warm, dry, intact HEENT: Normocephalic. Hearing intact. Cardiac: External chest normal in appearance. Respiratory: No cough, audible wheezing or stridor. Abdomen: without gross distension. MS: No obvious swelling or deformities. Able to stand on bilateral tiptoes and bilateral heels.? Able to transition from sit to stand unassisted. Ambulates with bilaterally normal heel strike and toe off Tender to palpation midline lumbar vertebrae and lumbar paraspinal muscles Facet loading positive bilaterally Nontender over bilateral PSIS SLR negative bilaterally Decreased lumbar range of motion Valsalva negative Neurological: Oriented to person, place, time and situation. Thought process intact. No gait abnormalities appreciated. Psychiatric: Appropriate mood and affect. Good judgment and insight. Results Reviewed Results Reviewed: 07/2022 MR/MR lumbar spine wo con FINDINGS: Transitional vertebral anatomy. There is sacralization of L5 with rudimentary L5-S1 intervertebral disc. Mild degenerative retrolisthesis of L4 on L5. Otherwise, normal anatomic alignment. Advanced degenerative disc disease at L4-L5. Moderate degenerative disc disease at T10-T11 and L3-L4. Mild degenerative disc disease at L1-L2 and L2-L3. Associated mixed Modic type discogenic endplate changes including Modic type I discogenic edema at T10-T11, L1-L2, L3-L4, and L4-L5. Moderate marrow edema within the posterior elements of L3-L5 consistent with degenerative stress reaction. No additional suspicious marrow edema. The vertebral body heights are well-maintained. The conus medullaris terminates at the level of T12-L1. The distal spinal cord is normal in appearance. Moderate subcutaneous edema within the soft tissues of the back from L1-L5. No additional significant abnormalities of the paraspinal musculature. Limited evaluation of the intra-abdominal structures without significant abnormalities. The abdominal aorta is of normal contour and caliber. AXIAL SPINAL LEVELS: T11-T12: Normal annular contour. There is mild bilateral facet joint arthropathy. There is no neural foraminal stenosis. There is no spinal canal stenosis. T12-L1: Normal annular contour. There is mild bilateral facet joint arthropathy. There is no neural foraminal stenosis. There is no spinal canal stenosis. L1-L2: Normal annular contour. There is mild bilateral facet joint arthropathy. There is no neural foraminal stenosis. There is no spinal canal stenosis. L2-L3: Normal annular contour. There is moderate bilateral facet joint arthropathy. There is mild left and no right neural foraminal stenosis. There is no spinal canal stenosis. L3-L4: Mild diffuse disc bulge. There is moderate bilateral facet joint arthropathy. There is moderate left and mild right neural foraminal stenosis. There is narrowing of the subarticular zones with no overt spinal canal stenosis centrally. L4-L5: Moderate diffuse disc bulge with posterior osseous ridging. Moderate right lateral osteophyte complex. There is moderate right and mild left facet joint arthropathy. There is moderate right and mild left neural foraminal stenosis. There is no spinal canal stenosis. L5-S1: Normal annular contour. There is mild bilateral facet joint arthropathy. There is no neural foraminal stenosis. There is no spinal canal stenosis. IMPRESSION: Transitional vertebral anatomy. There is sacralization of L5. Moderate multilevel degenerative spondyloarthropathy of the lumbar spine as described in detail above. Most notably, there are moderate neural foraminal stenoses at L3-L4 and L4-L5. Narrowings of the subarticular zones at L3-L4. No overt spinal canal stenosis centrally. Overall, degenerative changes appear similar to exam from 2018. Assessment & Plan Assessment & Plan (1) Lumbar spondylosis: Code(s): M47.816 - Spondylosis without myelopathy or radiculopathy, lumbar region Category: Medical (2) Fibromyalgia: Code(s): M79.7 - Fibromyalgia Category: Medical Plan Patient presented to the office today for evaluation and management of her chronic lower back pain History, physical exam and provocative testing consistent with lumbar spondylosis Order placed for PT eval and treat X-ray lumbar spine Continue with ibuprofen, gabapentin, topical patches and Percocet as prescribed by PCP If no improvement with physical therapy consider diagnostic bilateral MBBs, patient would also like to consider repeat MRI. All questions and concerns were answered, patient agrees with the plan. Follow up after PT, sooner if needed Orders: Orders PT Evaluation and Treatment Today M54.50 - Low back pain, unspecified XR lumbar spine 4V min Today M47.816 - Spondylosis without myelopathy or radiculopathy, lumbar region Coding Level of Care Code New Pt Level 4 (26287) Complex EM visit Add On G2211 Diagnoses Lumbar spondylosis M47.816 Fibromyalgia M79.7
[2024-10-22 09:04] VITALS: BP 169/79; PULSE 79; O2SAT 97; BMI 47.9
== END 2024-10-22 09:46 | disposition home or self-care (01) ==
PROVIDERS: PCP Registered Nurse; Referring Provider Registered Nurse; Visit Provider Registered Nurse Emergency
DX: M47.816 Spondylosis without myelopathy or radiculopathy, lumbar region (principal); M79.7 Fibromyalgia
CPT/HCPCS: 99204; G2211

== ENCOUNTER → 2024-10-22 08:44 | Outpatient (BNVA) | payer OTHER, SELFPAY | PROVIDERS: PCP Registered Nurse; Referring Provider Registered Nurse; Visit Provider Registered Nurse Emergency | DX: M47.816 Spondylosis without myelopathy or radiculopathy, lumbar region (principal); M79.7 Fibromyalgia | CPT/HCPCS: 99202 ==

== ENCOUNTER 2024-10-27 08:00 | Outpatient (REF) | payer OTHER, SELFPAY ==
[2024-10-27 11:50] LABS: Estimated Average Glucose 143 mg/dL; Hemoglobin A1C 175.3615 umol/L; Hemoglobin A1c % 6.6 % (<6.0); Total Hemoglobin (HGBA1C) 3583.4557 umol/L
[2024-10-27 12:02] LABS: Anion Gap 13 (12-20); Blood Urea Nitrogen 10 mg/dL (9-16); Calcium 8.8 mg/dL (8.4-10.2); Carbon Dioxide 23 mmol/L (22-29); Chloride 106 mmol/L (96-108); Estimated Glomerular Filt Rate > 60; Glucose Random 136 mg/dL (60-115); Potassium 3.8 mmol/L (3.3-5.1); Sodium 138 mmol/L (135-145)
[2024-10-27 12:18] LABS: Vitamin D 25-OH Total 22.1 ng/mL (>30)
== END 2024-10-27 08:01 | disposition home or self-care (01) ==
LOC: HO.HHCL 08:00
PROVIDERS: Visit Provider Registered Nurse
DX: I10 Essential (primary) hypertension (principal); E55.9 Vitamin D deficiency, unspecified
CPT/HCPCS: 36415; 80048; 82306; 83036

== ENCOUNTER 2024-11-17 10:47 | Outpatient (REF) | payer OTHER, SELFPAY ==
[2024-11-17 11:55] LABS: Estimated Average Glucose 137 mg/dL; Hemoglobin A1c % 6.4 % (<6.0)
[2024-11-17 12:22] LABS: Anion Gap 9 (12-20); Blood Urea Nitrogen 6 mg/dL (9-16); Calcium 8.9 mg/dL (8.4-10.2); Carbon Dioxide 26 mmol/L (22-29); Chloride 107 mmol/L (96-108); Estimated Glomerular Filt Rate > 60; Glucose Random 114 mg/dL (60-115); Potassium 3.8 mmol/L (3.3-5.1); Sodium 138 mmol/L (135-145)
--- OUTSIDE RECORDS SUMMARY | 2024-11-17 13:02 | XMS_ITS | Encounter Summary ---
Author Organization [employer] Address [address] [facility] 7t [place] [address] Care Team Providers Care Permaculture Contractor Name Role Phone Zahra Dotson Primary Care Provider [phone] Reason for Visit * Reason Onset Date Comments Appointment Request 09/24/2024 Encounter Details Date Type Department Care Team ([facility] st Contact Info) Description 09/24/[address] [facility] [address] [place] [address] Zahra Dotson FNP [address] [place] [address] Appointment Request Social History Tobacco Use Types [...] new appointment as she canceled today's visit. [phone] documented in this encounter Plan of Treatment Upcoming Encounters Date Type Department Care Team (Late st Contact Info) Description 11/25/2024 10:15 AM EDT Office Visit [facility] [address] [place] [address] Zahra Dotson FNP [address] [place] [address] 01/20/2025 10:00 AM EDT Office Visit [facility] [address] [place] [address] Zahra Dotson FNP [address] [place] [address] documented as of this encounter Goals Goal [...] documented as of this encounter Care Teams Permaculture Contractor Relationship Specialty Start Date End Date Zahra Dotson FNP [address] [place] [address] PCP - General Family Medicine 05/09/22 documented as of this encounter
--- OUTSIDE RECORDS SUMMARY | 2024-11-17 13:02 | XMS_ITS | Encounter Summary ---
Author Organization [employer] Address [address] [facility] 7t [place] [address] Care Team Providers Care Locomotive Firer/Fireman Name Role Phone Zahra Dotson Primary Care Provider [phone] Reason for Visit * Reason Onset Date Comments Referral 04/04/2023 Rheumatology fro m 12/29/22 Encounter Details Date Type Department Care Team ([facility] st Contact Info) Description 04/04/2023 Telephone [facility] [address] [place] [address] Zahra Dotson FNP [address] [place], [place] [phone] Referral (Rheumatology from 12/29/22) Social History Tobacco [...] Miscellaneous Notes * Telephone Encounter - Jeane Praker - 04/04/2023 2:17 PM EDT Asha spoke with Sharyn regarding this pt. Pt is in the system but for some reason not booked. Referral is being re-faxed to office for [facility] review. Sharyn stated she is going to try to get pt in sooner and will call her directly after reviewing notes. Department Editor called and spoke with pt. She was made aware. She was advised to call tomorrow if she has yet to receive a call from Sharyn. If she has any problems she will [...] Information Date: 04/05/2023 Time: 1:00 PM Location: [address] [place] [phone] FAX [phone] Patient states she confirmed appt twice with [...] now appt is not in the system. Department Editor let patient now message will be sent to mechanical specialist and they will follow up with her in regards to next appt detail or next steps. Please call [phone]. documented in this encounter Plan of Treatment Upcoming Encounters Date Type Department Care Team (Late st Contact Info) Description 11/25/2024 10:15 AM EDT Office Visit [facility] [address] [place] [address] Zahra Dotson, TIANNA [address] [place] [address] 01/20/2025 10:00 AM EDT Office Visit [facility] [address] [place] [address] Zahra Dotson FNP [address] [place] [address] documented as of this encounter Goals Goal [...] documented as of this encounter Care Teams Locomotive Firer/Fireman Relationship Specialty Start Date End Date Zahra Dotson FNP [address] [place] [address] PCP - General Family Medicine 05/09/22 documented as of this encounter
--- OUTSIDE RECORDS SUMMARY | 2024-11-17 13:02 | XMS_ITS | Encounter Summary ---
Author Organization [employer] [facility] Address [address] [facility] [place] [address] Care Team Providers Care Freight Clerk Name Role Phone Zahra Dotson Primary Care Provider [phone] Reason for Referral * Consultation (Routine) - Closed Specialty Diagnoses / Procedures Referred By Sujit banerjee Referred To Contact Nutrition Diagnoses Class 3 severe obesity with body mass index (BMI) of 45.0 to 49.9 in adult, unspecified obesity type, unspecified whether serious comorbidity present (CMS/HCC) Zahra Dotson FNP [address] [place] [address] Phone: tel: fax: Referral ID Status Reason Start Date Expiration Date V isits Requested Visits Authorized [id number] Closed Consult and Treat 10/21/2024 10/21/2025 1 1 Encounter Details Date Type Department Care Team (Late st Contact Info) Description 10/21/2024 9:45 AM EST Office Visit [facility] [address] [place] [address] Zahra Dotson FNP [address] [place] [address] Primary hypertension (Primary Dx); Class 3 severe [...] this encounter Progress Notes * Zahra Dotson, WORK MANAGER - 10/21/2024 9:45 AM EST Subjective: Marge [...] History Narrative Social history - 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 Reviewed the significant limitations and potential side effects of chronic opioid therapy. Given that she has exhausted the combination of pharmacologic and nonpharmacologic treatment options listed above, shared decision making to proceed with oxycodone. Message sent to H[employer] RESOURCES ASSOCIATE RN. KashmirMarge will plan to follow-up in 1 month with the chronic pain group Relevant Medications oxyCODONE (Roxicodone) 5 MG immediate release tablet Polyarthralgia Overview Lab Results Component Value Date RHEUMATOIDFA 14 (H) 12/10/2022 ANASCRIFA NEGATIVE 12/10/2022 CREACPROTEIN 8.9 (H) 12/10/2022 SEDRATE 14 12/10/2022 TSH 2.82 09/11/2023: Eval at [facility] Rheum - Dr. Santana. Encouraged physical therapy [...] 2024) Indication: spondyloarthropathy of lumbar spine Last [employer] ASSOCIATE Agreement: 10/20/24 Tier II (HUMAN RESOURCES ASSOCIATE visits every 3 months) Current Assessment & Plan Timeline: -03/19/24: HUMAN RESOURCES ASSOCIATE visit [facility] -10/20/24: Group, utox/count wnl. Renewal signed. -10/21/24: OV - changed from Suboxone to Oxycodone Relevant Medications oxyCODONE (Roxicodone) 5 MG immediate release tablet Other Visit Diagnoses Class 3 severe obesity with body mass index (BMI) of 45.0 to 49.9 in adult, unspecified obesity type, unspecified whether serious comorbidity present ([facility]) Relevant Orders Referral to Nutrition Therapy [...] to proceed with oxycodone. Message sent to HUMAN RESOURCES ASSOCIATE RN. Giles will plan to follow-up in [...] current use of opiate analgesic Timeline: -03/19/24: HUMAN RESOURCES ASSOCIATE visit [facility] -10/20/24: Group, utox/count wnl. Renewal signed. -10/21/24: OV - changed from Suboxone to Oxycodone documented in this encounter Plan of Treatment Upcoming Encounters Date Type Department Care Team (Late st Contact Info) Description 11/25/2024 10:15 AM EDT Office Visit [facility] [address] [place] [address] Zahra Dotson FNP [address] [place] [address] 01/20/2025 10:00 AM EDT Office Visit [facility] [address] [place] [address] Zahra Dotson FNP [address] [place] [address] Scheduled Referrals Name Type Priority Associated Diagnoses Orde r Schedule Referral to Nutrition Therapy Outpatient Referral Routine Class 3 severe obesity with body mass index (BMI) of 45.0 to 49.9 in adult, unspecified obesity type, unspecified whether serious comorbidity present (CMS/HCC) Expected: 10/21/2024 (Approximate), Expires: 10/21/2025 documented as [...] Procedure Name Priority Date/Time Associated Diagnosis Comments VITAMIN D,25-OH,TOTAL,IA Routine 10/27/2024 8:02 AM EST Vitamin D deficiency HEMOGLOBIN A1C Routine 10/27/2024 8:02 AM EST Prediabetes BASIC METABOLIC PANEL Routine 10/27/2024 8:02 AM EST Primary hypertension documented in this encounter Results * (ABNORMAL) Vitamin D, 25-Hydroxy, Total, Immunoassay (10/27/2024 8:02 AM EST) Vitamin D 25-OH Total 22.1(L) >30 ng/mL [facility] Comment:Health Based Referen ce Values*< 20 ng/mL Xcyadvbvd50-72 ng/mL Insufficient> 30 ng/mL Sufficient*Kayy ROSALES. N [...] LC-MS/MS. Blood Venous blood specimen / Unknown 10/27/2024 8:02 AM EST 10/27/2024 11:01 AM EST us Zahra Dotson [facility] BLOOD ORDERABLES Final Res ult [facility] [address] [place] [address] [phone] * (ABNORMAL) Hemoglobin A1c (10/27/2024 8:02 AM EST) Hemoglobin A1c 6.6(H) <6.0 % [facility] Comment:Hemoglobin A1C Refer ence Range Adults: 4.8 - 6.0 % Non diabetic: < 6.0 % Goal: < 7.0 %Additional Action Suggested: > 8.0 %Note: Hemoglobin A1c results are invalid for patients with abnormal amounts of HbF. Blood transfusions may impact the HbA1c concentration in the patient sample. Estimated Average Glucose 143 mg/dL [facility] Comment:eAG = Estimated ave rage glucose which is %A1C expressed asaverage glucose, using the formula of the K1P-TvmxuheFxomvim Glucose study (ADAG), Diabetes Care, Vol.31,#8,Apr. 2007 Blood Venous blood specimen / Unknown 10/27/2024 8:02 AM EST 10/27/2024 11:01 AM EST us Zahra Dotson WORK MANAGER LAB BLOOD ORDERABLES Final Res ult Performing Organization Address [facility] de Phone Number [facility] [address] [place] [phone] * (ABNORMAL) Basic Metabolic Panel (10/27/2024 8:02 AM EST) Sodium 138 135 - 145 mmol/L [facility] Potassium 3.8 3.3 - 5.1 mmol/L [facility] Chloride 106 96 - 108 mmol/L [facility] Carbon Dioxide 23 22 - 29 mmol/L [facility] Anion Gap 13 12 - 20 [facility] Urea Nitrogen (BUN) 10 9 - 16 mg/dL [facility] Creatinine, Serum 0.67 0.5 - 1.4 mg/dL [facility] Estimated Glomerular Filt Rate >60 [facility] Comment:Chronic Kidney Disea se: Estimated GFR < 60 mL/min/[id number] Kidney Disease: Estimated GFR < 15 mL/min/1.73m2 Glucose 136(H) 60 - 115 mg/dL [facility] Calcium 8.8 8.4 - 10.2 mg/dL [facility] Blood Venous blood specimen / Unknown 10/27/2024 8:02 AM EST 10/27/2024 11:01 AM EST us Zahra WYNN LAB BLOOD ORDERABLES Final Res ult [facility] [address] [place] [phone] documented in this encounter Visit Diagnoses Diagnosis Primary hypertension- Primary Unspecified essential hypertension Class 3 severe obesity with body mass index (BMI) of 45.0 to 49.9 in adult, unspecified obesity type, unspecified whether serious comorbidity present ([facility]) Vitamin D deficiency Spondyloarthropathy of lumbar spine Polyarthralgia Pain in joint, multiple sites Long-term current use of opiate analgesic Encounter for long-term (current) use of other medications Prediabetes Other abnormal glucose Hypokalemia Hypopotassemia documented in this encounter Additional Health Concerns Assessment Noted Time PHQ-9 Depression Total Score: 14 024 11:59 AM EST documented as of this encounter Care Teams Freight Clerk Relationship Specialty Start Date End Date Zahra Dotson FNP [address] [place] [address] PCP - General Family Medicine 05/09/22 documented as of this encounter
--- OUTSIDE RECORDS SUMMARY | 2024-11-17 13:02 | XMS_ITS | Encounter Summary ---
Author Organization [employer] Address [address] [facility] [address] [place] [address] Care Team Providers Care Field Service Analyst Name Role Phone Zahra Dotson TIANNA Primary Care Provider [phone] Encounter Details Date Type Department Care Team [...] the past 12 months, has t he [employer], gas, oil or water [employer] threatened to shut off services in your [...] Description 11/25/2024 10:15 AM EDT Office Visit [address] [address] Zahra Dotson FNP [address] [place] [address] 01/20/2025 10:00 AM EDT Office Visit [address] [address] Zahra Dotson FNP [address] [place] [address] documented as of this encounter Goals Goal [...] documented as of this encounter Care Teams Field Service Analyst Relationship Specialty Start Date End Date Zahra Dotson FNP [address] [place] [phone] PCP - General Family Medicine 05/09/22 documented as of this encounter
--- OUTSIDE RECORDS SUMMARY | 2024-11-17 13:02 | XMS_ITS | Encounter Summary ---
Author Organization [employer] [facility] Address [address] [facility] [place], [place] [address] Care Team Providers Care Floor Worker Well Service Name Role Phone Zahra Dotson Primary Care Provider [phone] Encounter Details Date Type Department Care Team (Late st Contact Info) Description 09/11/[address] [facility] [address] [place] [address] Mary Ann Cruz LPN Social History Tobacco [...] EDT Office Visit [facility] [address] [place] [phone] Zahra Dotson FNP [address] [place] [address] 01/20/2025 10:00 AM EDT Office Visit [facility] [address] [place] [address] Zahra Dotson FNP [address] [place] [address] documented as of this encounter Visit Diagnoses Not on filedocumented in this encounter Care Teams Floor Worker Well Service Relationship Specialty Start Date End Date Zahra Dotson FNP [address] [place] [address] PCP - General Family Medicine 05/09/22 documented as of this encounter
--- OUTSIDE RECORDS SUMMARY | 2024-11-17 13:02 | XMS_ITS | Encounter Summary ---
Author Organization [employer] Address [address] [facility] 7t [place] [address] Care Team Providers Care Master Fire Control Technician Name Role Phone Zahra Dotson TIANNA Primary Care Provider [phone] Encounter Details Date Type Department Care Team [...] the past 12 months, has t he [employer], gas, oil or water [employer] threatened to shut off services in your [...] Description 11/25/2024 10:15 AM EDT Office Visit [address] [address] Zahra Dotson FNP [address] [place] [address] 01/20/2025 10:00 AM EDT Office Visit [address] [address] Zahra Dotson FNP [address] [place] [address] documented as of this encounter Goals Goal [...] documented as of this encounter Care Teams Master Fire Control Technician Relationship Specialty Start Date End Date Zahra Dotson FNP [address] [place] [phone] PCP - General Family Medicine 05/09/22 documented as of this encounter
--- OUTSIDE RECORDS SUMMARY | 2024-11-17 13:02 | XMS_ITS | Clinical Summary ---
Author Organization [employer] Address [address] [facility] [address] [place] [address] Care Team Providers Care Vp Design Name Role Phone AlfonsoZahra webb TIANNA Primary Care Provider [phone] Allergies Active Allergy Reactions Criticality Noted Date [...] 09/19/19 23 Active Diclofenac Sodium 1 % gelIndications:P ain APPLY 2 GRAMS TO AFFECTED AREA(S) UP TO FOUR TIMES DAILY NEEDED FOR PAIN 100 g 1 12/14/19 23 Active Acetaminophen Extra Strength 500 MG tabletIndication s:Pain TAKE 1 TO 2 TABLETS BY MOUTH EVERY 8 HOURS NEEDED FOR PAIN 60 tablet 2 05/02/20 23 Active hydrocortisone 1 % creamIndications :Rash and nonspecific skin eruption Apply topically if needed in the morning and at bedtime for rash or irritation. 15 g 1 07/12/20 23 Active ibuprofen 600 MG tabletIndication s:Pain TAKE 1 TABLET BY MOUTH THREE TIMES DAILY WITH FOOD NEEDED FOR PAIN OR FEVER 100 tablet 3 06/19/20 24 Active chlorthalidone (Hygroton) 25 MG tabletIndication s:Primary hypertension TAKE 1 TABLET BY MOUTH EVERY DAY IN THE MORNING 90 tablet 1 07/08/20 24 Active gabapentin (Neurontin) 300 MG capsuleIndicatio ns:Chronic bilateral low back pain, unspecified whether sciatica present TAKE 1 CAPSULE BY MOUTH THREE TIMES DAILY 90 capsule 3 08/11/20 24 Active senna-docusate sodium (Senokot-S) 8.6-50 MG tablet Take 1 tablet by mouth if needed each day for constipation . 90 tablet 1 08/26/20 24 025 Active Ventolin HFA 108 (90 Base) MCG/ACT inhalerIndicatio ns:Mild intermittent asthma without complication INHALE 2 PUFFS BY MOUTH EVERY 6 HOURS NEEDED FOR WHEEZING OR SHORTNESS OF BREATH 18 g 3 09/01/20 24 Active loratadine (Claritin) 10 MG tablet TAKE 1 TABLET BY MOUTH EVERY DAY NEEDED FOR ALLERGIES 90 tablet 3 09/10/19 25 Active albuterol (2.5 MG/3ML) 0.083% nebulizer solutionIndicati ons:Mild intermittent asthma without complication INHALE 1 AMPULE USING A NEBULIZER EVERY 4 TO 6 HOURS NEEDED FOR WHEEZING OR SHORTNESS OF BREATH 90 mL 3 09/17/19 25 Active nicotine polacrilex (Nicorette) 2 MG gumIndications:T obacco dependence syndrome CHEW 1 PIECE OF GUM EVERY 1-2 HOURS NEEDED DURING WEEKS 1-6, THEN CHEW 1 PIECE OF GUM EVERY 2-4 HOURS DURING WEEKS 7-9, THEN CHEW 1 PIECE OF GUM EVERY 4-8 HOURS DURING WEEKS 10-12 DIRECTED. DO NOT EXCEED 24 PER DAY 220 each 3 09/23/19 25 Active D3-1000 25 MCG (1000 UT) capsuleIndicatio ns:Vitamin D deficiency TAKE 1 CAPSULE BY MOUTH EVERY DAY 90 capsule 3 10/16/19 25 Active potassium chloride CR (Klor-Con M20) 20 MEQ ER tablet Take 1 tablet (20 mEq) by mouth Once per day. Do not crush or chew. 5 tablet 10/16/19 25 026 Active olmesartan (Benicar) 5 MG tabletIndication s:Primary hypertension Take 1 tablet (5 mg) by mouth Once per day. 90 tablet 10/21/19 25 026 Active Cholecalciferol (Vitamin D3) 25 MCG (1000 UT) chewable tabletIndication s:Vitamin D insufficiency Chew 1 tablet Once per day. 90 tablet 3 10/27/19 25 Active Blood Pressure kit Use to check blood pressure as directed by provider, and if symptomatic. 1 kit 11/05/19 25 Active lidocaine (Lidoderm) 5 % patch APPLY 1 PATCH TOPICALLY TO SKIN, LEAVE ON FOR 12 HOURS AND OFF FOR 12 HOURS DIRECTED 30 patch 5 11/10/19 25 Active oxyCODONE (Roxicodone) 5 MG immediate release tabletIndication s:Spondyloarthro ale of lumbar spine,Polyarthra lgia,Long-term current use of opiate analgesic Take 1 tablet (5 mg) by mouth if needed in the morning and at bedtime for severe pain for up to 28 days. Do not start before November 18, 2024. 56 tablet 11/19/19 25 025 Active lidocaine (Lidoderm) 5 % patch APPLY 1 PATCH TOPICALLY TO SKIN, LEAVE ON FOR 12 HOURS AND OFF FOR 12 HOURS DIRECTED 30 patch 5 05/12/20 24 025 Discontinued ergocalciferol (Vitamin D2) 1.25 MG (98776 UT) capsuleIndicatio ns:Vitamin D Deficiency Take 1 capsule (1.25 mg) by mouth 1 (one) time per week. Take for 8 weeks. 8 capsule 09/07/20 24 025 Discontinued(T herapy completed) buprenorphine-na loxone (Suboxone) 4-1 MG per sublingual filmIndications: Spondyloarthropa thy of lumbar spine,Long-term current use of opiate analgesic Place 1 Film under the tongue 3 times daily. 84 Film 1 10/14/19 25 025 Discontinued(T herapy completed) oxyCODONE (Roxicodone) 5 MG immediate release tabletIndication s:Spondyloarthro ale of lumbar spine,Polyarthra lgia,Long-term current use of opiate analgesic Take 1 tablet (5 mg) by mouth if needed in the morning and at bedtime for severe pain for up to 28 days. 56 tablet 10/21/19 25 025 Discontinued(R eorder (will not trigger notification to Pharmacy)) Active Problems Problem Noted Date Diagnosed Date LFT elevation 09/07/2024 Loud snoring 08/27/2024 Assessment & Plan (08/27/2024 10:27 AM EST): Referral for sleep study placed 08/27/24 Polyarthralgia 05/07/2024 Overview (05/07/2024): Lab Results Component Value Date RHEUMATOIDFA 14 (H) 12/10/2022 ANASCRIFA NEGATIVE 12/10/2022 CREACPROTEIN 8.9 (H) 12/10/2022 SEDRATE 14 12/10/2022 TSH 2.82 09/11/2023: Eval at [facility] Rheum - Dr. Santana. Encouraged physical therapy and weight loss. Cont gabapentin. Follow up PRN with Rheum. Assessment & Plan (05/07/2024 7:12 PM EDT): -Following with Ortho for chronic right knee pain - MRI of knee ordered by Ortho for further eval. Pt encouraged to call to reschedule appt. Varicose veins of both lower extremities 024 Overview (08/27/2024): Evaluated by [facility] Vascular - Dr. Prince in February 2024 [...] 2024) Indication: spondyloarthropathy of lumbar spine Last INTERNATIONAL FLIGHT ATTENDANT Agreement: 10/20/24 Tier II (INTERNATIONAL FLIGHT ATTENDANT visits every 3 months) Assessment & Plan (10/21/2024 4:43 PM EST): Timeline: -03/19/24: INTERNATIONAL FLIGHT ATTENDANT visit [facility] -10/20/24: Group, utox/count wnl. Renewal signed. -2/12/25: OV - changed from Suboxone to Oxycodone Assessment & Plan (10/20/2024 4:54 PM EST): Timeline: -03/19/24: INTERNATIONAL FLIGHT ATTENDANT visit [facility] -10/20/24: Group, utox/count wnl. Renewal signed. Assessment & Plan (06/19/2024 1:23 PM EDT): Timeline: -03/19/24: INTERNATIONAL FLIGHT ATTENDANT visit [facility] Healthcare maintenance 04/30/2023 Overview (10/06/2023): Routine Health Maintenance -C-scope: no prior, referred to GI 11/09/22 as well as 06/04/23. Pending. -Mammo: 12/01/2021 BIRADS-1. Pending. -PAP: 10/13/2013 NIL/-HPV on record. She is s/p THH 8 years ago d/t malignancy. Following with [employer]. -Last PE: 06/04/23 -Lab titers: Sep 2023: [...] 150mins of physical activity weekly -Referral to [facility] for routine vision eval Follow up in 3 weeks via televisit to review BP readings at home (& further discuss family history). Sooner as needed. 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 [facility] Rheum eval May 2023. Follow up PRN Previous tx options for pain have included: Pharm: APAP, NSAIDs, gabapentin, percocet and tramadol. Suboxone (November 2022 - Oct 2024, dc d/t concerns with dentition) Non-pharm: PT, physiatry, acupuncture -Continues gabapentin 300mg TID -Oxycodone 5mg BID PRN. Reviewed med safety and SE -Established in INTERNATIONAL FLIGHT ATTENDANT program w/ RN -Referral to PS&S Apr 2024 - no longer following -Referral to [facility] Pain Management 08/27/24 Assessment & Plan (10/21/2024 4:50 PM EST): - Discontinue Suboxone -Start oxycodone 5 mg twice daily as needed. Reviewed the significant limitations and potential side effects of chronic opioid therapy. Given that she has exhausted the combination of pharmacologic and nonpharmacologic treatment options listed above, shared decision making to proceed with oxycodone. Message sent to INTERNATIONAL FLIGHT ATTENDANT RN. -Marge will plan to follow-up in [...] safety and SE -Need to establish in [employer]NATIONAL FLIGHT ATTENDANT program w/ grocery shopper & Plan (07/14/2023 11:51 AM EST): Previous [...] med safety and SE -Message sent to INTERNATIONAL FLIGHT ATTENDANT RN to establish in INTERNATIONAL FLIGHT ATTENDANT program -Follow up in 4 weeks to [...] as pharmacomtherapy, [facility] smoking cessation group, and [facility] pharmacy smoking cessation clinic -Agrees to try NRT gum as monotherapy Assessment & Plan (07/14/2023 11:56 AM EST): -Smoking approx 8-10 cigg/day -Encouraged smoking cessation resources such as pharmacomtherapy, [facility] smoking cessation group, and [facility] pharmacy smoking cessation clinic Assessment & Plan [...] smear due to hysterectomy/ malignancy FU with [employer] Encounter for preventive health examination 06/04/2023 09/12/2023 [...] Dietary counseling 06/04/2023 Exercise counseling 06/04/2023 09/12/19 Squamous cell carcinoma, microinvasive 09/16/2022 06/04/2023 Overview (09/16/2022): NIKOS 07/29/09 Chronic low back pain 09/30/20172023 Rectal hemorrhage 11/22/2016 04/30/2023 Encounters Date Type Department Care Team Description 11/17/2024 9:45 AM EDT Office Visit [facility] [address] [place] [address] Zahra Dotson FNP Spondyloarthropathy of lumbar spine (Primary Dx); Long-term current use of opiate analgesic 11/17/2024 Telephone [facility] [address] [place] [address] NUTRITION APPT REQUEST 11/17/2024 Orders Only [facility] [address] [place], [place] [phone] Phalen, Zahra, GAMER Primary hypertension (Primary Dx) 11/17/2024 Travel 11/16/2024 Refill [facility] [address] [place] [address] Cristela Finch RN Spondyloarthropathy of lumbar spine; Polyarthralgia; Long-term current use of opiate analgesic 11/16/2024 Telephone [facility] [address] [place] [phone] Zahra Dotson FNP Med Refill 11/08/[address] [address] Zahra Dotson FNP 11/06/[address] [address] Zahra Dotson FNP Durable Medical Equipment 11/03/2024 10:30 AM EST Clinical Support [address] [address] Valarie Rhoades RN Primary hypertension 11/03/2024 Travel 10/27/2024 Telephone [facility] [address] [place] [phone] Zahra Dotson FNP Results 10/27/2024 Orders Only [facility] [address] [place] [address] Zahra Dotson, GAMER Prediabetes (Primary Dx); Vitamin D insufficiency 10/21/2024 9:45 AM EST Office Visit [address] [address] Zahra Dotson FNP Primary hypertension (Primary Dx); Class 3 severe obesity with body mass index (BMI) of 45.0 to 49.9 in adult, unspecified obesity type, unspecified whether serious comorbidity present ([facility]); Vitamin D deficiency; Spondyloarthropathy of lumbar spine; Polyarthralgia; Long-term current use of opiate analgesic; Prediabetes; Hypokalemia 10/21/2024 Travel 10/20/2024 9:45 AM EST Office Visit [address] [address] Zahra Dotson FNP Spondyloarthropathy of lumbar spine (Primary Dx); Polyarthralgia; Long-term current use of opiate analgesic 10/20/2024 Telephone [facility] [address] [place] [address] Maral Ravi, [place] Chart Prep 10/20/2024 Travel 10/19/[address] [address] Demetrice Posadas, RN Results 10/16/2024 Orders Only [facility] [address] [place] [address] Zahra Dotson, GAMER 10/15/2024 Telephone [facility] [address] [place] [phone] Zahra Dotson, GAMER Nurse Triage 10/15/2024 Telephone [facility] [address] [place] [address] Zahra Dotson, GAMER Results 10/14/2024 Refill [facility] [address] [place] [address] Zahra Dotson, GAMER Spondyloarthropathy of lumbar spine; Long-term current use of opiate analgesic 10/08/2024 Refill [facility] [address] [place] [address] Zahra Dotson, GAMER Vitamin D deficiency; Spondyloarthropathy of lumbar spine; Long-term current use of opiate analgesic 09/29/2024 Telephone [facility] [address] [place] [address] Maida Robles, RN 09/25/2024 Orders Only [facility] [address] [place] [address] Zahra Dotson, GAMER Hypokalemia (Primary Dx) 09/24/2024 Travel 09/24/2024 Telephone [facility] [address] [place] [address] Cristela Finch, MARTIN 09/24/[address] [address] Zahra Dotson, GAMER Appointment Request 09/23/2024 Refill [facility] [address] [place] [address] PhalSammy webble, GAMER Tobacco dependence syndrome 09/16/2024 Refill [facility] [address] [place] [address] Phaljon Zahra, GAMER Mild intermittent asthma without complication 09/09/2024 Refill [facility] [address] [place] [address] Phaljon Zahra, GAMER 09/03/2024 Telephone [facility] [address] [place] [phone] Phaljon Zahra, GAMER Results 09/01/2024 Refill [facility] [address] [place] [phone] Phalen Zahra, GAMER Mild intermittent asthma without complication 08/28/2024 Telephone [facility] [address] [place] [address] Mauri Zahra, GAMER 08/26/2024 9:45 AM EST Office Visit [facility] [address] [place] [phone] Phaljon Zahra, GAMER Primary hypertension (Primary Dx); Encounter for immunization; Vitamin D insufficiency; Varicose veins of both lower extremities, unspecified whether complicated; Has daytime drowsiness; Loud snoring; Spondyloarthropathy of lumbar spine; Polyarthralgia 08/26/2024 Telephone [facility] [address] [place] [phone] Zahra Dotson, GAMER 08/26/2024 Travel 08/20/2024 Telephone [facility] [address] [place], [place] [phone] Maral Ravi [place] Chart Prep from Last 3 Months Immunizations Name Administration [...] Sign Reading Time Taken Comments Blood Pressure 132/74 11/03/2024 10:40 AM EST Pulse 90 11/03/2024 10:40 AM EST Temperature 36.1 ??C (96.9 ??F) 10/21/2024 9:52 AM ES T Respiratory Rate 18 10/21/2024 9:52 AM EST Oxygen Saturation 99% 11/03/2024 10:40 AM EST Inhaled Oxygen Concentration - - Weight 126 kg (278 lb 8 oz) 10/21/2024 9:[address] Height 162.6 cm (5' 4 ) 10/21/2024 9:52 AM EST Body Mass Index 47.8 10/21/2024 9:52 AM EST Plan of Treatment Upcoming Encounters Date Type Department Care Team (Late st Contact Info) Description 11/25/2024 10:15 AM EDT Office Visit [facility] [address] [place] [phone] Zahra Dotson FNP [address] [place] [address] 01/20/2025 10:00 AM EDT Office Visit [facility] [address] [place] [address] Zahra Dotson FNP [address] [place] [address] Health Maintenance Due Date Last Done Comments CT Colonography 1973 Colonoscopy 1973 Colorectal Cancer Screening 1973 FIT DNA/Cologuard 1973 FIT 1973 FOBT 1973 Sigmoidoscopy 1973 Alcohol/Substance Use Screening 1985 Family Planning (PISQ) 1988 Hepatitis B Vaccines (2 of 3 - 19+ 3-dose series) 10/09/2012 09/11/2012, 06/27/2011, 04/24/2011 Zoster Vaccines (1 of 2) 2023 Mammogram 12/01/2023 11/30/2021 SDOH Screening 01/07/2025 01/08/2024 Depression Monitoring (PHQ-9) 02/24/2025 08/26/2024, 08/26/2024 Depression Screening 08/26/2025 08/26/2024, 08/26/20 24 Tobacco Screening 08/26/2025 08/26/2024 COVID-19 Vaccine ( season) 2025 09/20/2021, 02/01/2021, 01/04/2021 Postponed from 05/10/2024 (Patient Refused) Diabetes: Hemoglobin A1C 11/17/2025 025, 10/27/2024, 09/11/2023, Additional history exists Lipid Panel 09/11/2028 09/11/2023, 04/0 01/2022, 11/24/2020 DTaP/Tdap/Td Vaccines (3 - Td or Tdap) 08/26/2034 08/26/2024, 09/21/2013, 10/12/2008 RSV Patients and Patients Aged 60 years or older (1 - 1-dose 75+ series) 2048 Hepatitis A Vaccines Aged Out 09/11/2012, 04/24/20 11 No longer eligible based on patient's age to complete this topic Pneumococcal Vaccine: 50+ Years Completed 02/26/2023, 09/11/2012 [...] Comments POCT IGOR-14 URINE DRUG SCREEN Routine 11/17/2024 11:52 AM EDT Long-term current use of opiate analgesic BASIC METABOLIC PANEL Routine 11/17/2024 10:50 AM EDT Primary hypertension HEMOGLOBIN A1C Routine 11/17/2024 10:50 AM EDT Prediabetes VITAMIN D,25-OH,TOTAL,IA Routine 10/27/2024 8:02 AM EST Vitamin D deficiency HEMOGLOBIN A1C Routine 10/27/2024 8:02 AM EST Prediabetes BASIC METABOLIC PANEL Routine 10/27/2024 8:02 AM EST Primary hypertension POCT IGOR-14 URINE DRUG SCREEN Routine 10/20/2024 [...] AM EST Encounter for preventive health examination LIPID PANEL WITH REFLEX TO DIRECT LDL Routine 09/11/2023 10:27 AM EST Primary hypertension Acquired hypothyroidism MAMMOGRAM GENERIC Routine 11/30/2021 2:1 5 PM EDT from Last 3 Months or Most Recently Relevant to Health Maintenance Results * POCT IGOR-14 Urine Drug Screen (11/17/2024 11:52 AM EDT) Only the most recent of2 resultswithin the time period is included. Benzodiazepines Screen, Urine Positive Buprenophine Screen, Urine Positive Oxycodone Screen, Urine Positive Urine Urine specimen obtained by clean catch procedure / Unknown 11/17/2024 11:52 AM EDT Zahra Hamiltonjon [facility] POINT OF CARE TEST ENTER/EDIT ORDERABLES Final Result * (ABNORMAL) Hemoglobin A1c (11/17/2024 10:50 AM EDT) Only the most recent of2 resultswithin the time period is included. Hemoglobin A1c 6.4(H) <6.0 % [facility] Comment:Hemoglobin A1C Refer ence Range Adults: 4.8 - 6.0 % Non diabetic: < 6.0 % Goal: < 7.0 %Additional Action Suggested: > 8.0 %Note: Hemoglobin A1c results are invalid for patients with abnormal amounts of HbF. Blood transfusions may impact the HbA1c concentration in the patient sample. Estimated Average Glucose 137 mg/dL [facility] Comment:eAG = Estimated ave rage glucose which is %A1C expressed asaverage glucose, using the formula of the L3B-XmntblnZcraeyl Glucose study (ADAG), Diabetes Care, Vol.31,#8,Apr. 2007 Blood Venous blood specimen / Unknown 11/17/2024 10:50 AM EDT 11/17/2024 11:29 AM EDT Zahra Dotson [facility] BLOOD ORDERABLES Final Res ult [facility] [address] [place] [phone] * (ABNORMAL) Basic Metabolic Panel (11/17/2024 10:50 AM EDT) Only the most recent of7 resultswithin the time period is included. Sodium 138 135 - 145 mmol/L [facility] Potassium 3.8 3.3 - 5.1 mmol/L [facility] Chloride 107 96 - 108 mmol/L [facility] Carbon Dioxide 26 22 - 29 mmol/L [facility] Anion Gap 9(L) 12 - 20 [facility] Urea Nitrogen (BUN) 6(L) 9 - 16 mg/dL [facility] Creatinine, Serum 0.73 0.5 - 1.4 mg/dL [facility] Estimated Glomerular Filt Rate >60 [facility] Comment:Chronic Kidney Disea se: Estimated GFR < 60 mL/min/1.89w3Juunue Kidney Disease: Estimated GFR < 15 mL/min/1.73m2 Glucose 114 60 - 115 mg/dL [facility] Calcium 8.9 8.4 - 10.2 mg/dL [facility] Blood Venous blood specimen / Unknown 11/17/2024 10:50 AM EDT 11/17/2024 11:29 AM EDT Zahra Dotson [facility] BLOOD ORDERABLES Final Res ult Performing Organization Address [facility] Co de Phone Number [facility] [address] [place] [phone] * (ABNORMAL) Vitamin D, 25-Hydroxy, Total, Immunoassay (10/27/2024 8:02 AM EST) Only the most recent of2 resultswithin the time period is included. Vitamin D 25-OH Total 22.1(L) >30 ng/mL [facility] Comment:Health Based Referen ce Values*< 20 ng/mL [id number] ng/mL Insufficient> 30 ng/mL Sufficient*Kayy ROSALES. N [...] 10/27/2024 11:01 AM EST us Zahra Dotson [facility] BLOOD ORDERABLES Final Res ult Performing Organization Address City/[facility]/ZIP Co de Phone Number [facility] [address] [place] [phone] * Hepatitis C Antibody with Reflex to HCV, RNA, Quantitative, Real-Time PCR (09/25/2024 8:08 AM EST) Hepatitis C Antibody Nonreactive Nonreactive [facility] Comment:Antibodies to HCV no t detected; does not exclude early acuteHCV infection. Blood Venous blood specimen / Unknown 09/25/2024 8:08 AM EST 09/25/2024 11:20 AM EST Zahra Dotson [facility] BLOOD ORDERABLES Final Res ult Performing Organization Address [facility] Co de Phone Number [facility] [address] [place] [place] [phone] * Hepatitis A Antibody, Total (09/25/2024 8:08 AM EST) Hepatitis A Antibody IgG REACTIVE Nonreactive [facility] Comment:The presence of IgG anti-HAV implies past HAV infection(recent or distant) or vaccination against HAV. Blood Venous blood specimen / Unknown 09/25/2024 8:08 AM EST 09/25/2024 11:20 AM EST Zahra Dotson [facility] BLOOD ORDERABLES Final Res ult Performing Organization Address [facility] Co de Phone Number [facility] [address] [place] [phone] * Hepatitis B surface antigen, EIA (09/25/2024 8:08 AM EST) Hepatitis B Surface Ag Negative Negative [facility] Blood Venous blood specimen / Unknown 09/25/2024 8:08 AM EST 09/25/2024 11:20 AM EST Zahra Dotson [facility] BLOOD ORDERABLES Final Res ult Performing Organization Address [facility] Co de Phone Number [facility] [address] [place] [phone] * Hepatitis B Core Antibody, Total (09/25/2024 8:08 AM EST) Pathologist [facility] Hepatitis B Core Antibody Nonreactive Nonreactive [facility] Blood Venous blood specimen / Unknown 09/25/2024 8:08 AM EST 09/25/2024 11:20 AM EST Zahra Dotson [facility] BLOOD ORDERABLES Final Res ult Performing Organization Address [facility] Co de Phone Number [facility] [address] [place] [phone] * Hepatitis B Surface Antibody, Qualitative (09/25/2024 8:08 AM EST) Pathologist [facility] ~Hepatitis B Surface Antibody GRAYZONE Nonreactive [facility] Comment:GRAYZONE: 8.00 mIU/m L TO 11.99 mIU/mLTHE IMMUNE STATUS OF THE INDIVIDUAL SHOULD BE FURTHERASSESSED BY CONSIDERING OTHER FACTORS, SUCH CLINICALSTATUS, FOLLOW-UP TESTING, ASSOCIATED RISK FACTORS, AND THEUSE OF ADDITIONAL DIAGNOSTIC INFORMATION. Blood Venous blood specimen / Unknown 09/25/2024 8:08 AM EST 09/25/2024 11:20 AM EST Zahra Dotson [facility] BLOOD ORDERABLES Final Res ult Performing Organization Address City/[facility]/ZIP Co de Phone Number [facility] [address] [place] [phone] * (ABNORMAL) Hepatic Function Panel (09/25/2024 8:08 AM EST) Only the most recent of2 resultswithin the time period is included. [facility] Bilirubin, Total 0.4 0.0 - 1.0 mg/dL [facility] Bilirubin, Direct 0.2 0.0 - 0.5 mg/dL [facility] Aspartate Amino Transferase 50(H) 5 - 31 U/L [facility] Alanine Aminotransferase 43(H) 0 - 31 U/L [facility] Total Protein 7.8 6.5 - 8.0 g/dL [facility] Albumin Level 3.6 3.5 - 5.0 g/dL [facility] Alkaline Phosphatase 86 39 - 117 U/L [facility] Blood Venous blood specimen / Unknown 09/25/2024 8:08 AM EST 09/25/2024 11:20 AM EST us Zahra Alfonsojon GAMER LAB BLOOD ORDERABLES Final Res ult [facility] [address] [place] [address] [phone] * (ABNORMAL) CBC auto differential (08/26/2024 11:14 AM EST) White Blood Count 7.5 4.8 - 10.8 X10*3/uL [facility] Red Blood Count 4.60 4.20 - 5.50 X10*6/uL [facility] Hemoglobin 14.3 12.0 - 16.0 g/dl [facility] Hematocrit 41.3 37.0 - 47.0 % [facility] Mean Corpuscular Volume 89.8 80.0 - 98.0 fL [facility] Mean Corpuscular Hemoglobin 31.1 27.0 - 33.0 pg [facility] Mean Corpuscular HGB Conc 34.6 31.0 - 35.0 g/dl [facility] Red Cell Distribution Width 12.7 11.0 - 16.0 % [facility] Platelet Count 199 160 - 400 X10*3/uL [facility] Mean Platelet Volume 12.4(H) 9.4 - 12.3 fL [facility] Neutrophils Percent Auto 45.7 45 - 73 % [facility] Imm Gran Pct Auto 0.4 0.0 - 0.4 % [facility] Lymphocytes Percent Auto 40.8(H) 20 - 40 % [facility] Monocytes Percent Auto 8.6 2 - 11 % [facility] Eosinophils Percent Auto 4.0 0 - 4 % [facility] Basophils Percent Auto 0.5 0 - 2 % [facility] NRBC Pct Auto 0.0 0.0 - 0.2 /100WBC [facility] Neutrophils Absolute Auto 3.4 2.0 - 8.3 x10*3/uL [facility] Imm Gran Abs Auto 0.03 0.00 - 0.03 X10*3/uL [facility] Lymphocytes Absolute Auto 3.1 1.2 - 4.9 X10*3/uL [facility] Monocytes Absolute Auto 0.6 0.1 - 1.2 X10*3/uL [facility] Eosinophils Absolute Auto 0.3 0.0 - 0.4 X10*3/uL [facility] Basophils Absolute Auto 0.0 0.0 - 0.2 X10*3/uL [facility] NRBC Abs Auto 0.000 0.0 - 0.012 X10*3/uL [facility] Blood Venous blood specimen / Unknown 08/26/2024 11:14 AM EST 08/26/2024 1:52 PM EST us Zahra Dotson GAMER LAB BLOOD ORDERABLES Final Res ult [facility] [address] [place] [address] [phone] * (ABNORMAL) Lipid Panel with Reflex to Direct LDL (09/11/2023 10:27 AM EST) Triglycerides 68 <150 mg/dL [facility] Comment:Desirable Triglyceri de: less than 150 mg/dLBorderline High Triglyceride 150-199 mg/dLHigh Triglyceride: 200-499 mg/dLVery High Triglyceride: greater than or equal to 5OO mg/dL Cholesterol 133 <200 mg/dL [facility] Comment:Desirable Cholestero l: less than 200 mg/dLBorderline High Cholesterol: 200-239 mg/dLHigh Cholesterol: greater than 239 mg/dL LDL Cholesterol Calculated 86 <100 mg/dL [facility] Comment:Desirable LDL: less than 100 mg/dLNear Optimal/Above Optimal LDL: 110- 129 mg/dLBorderline High LDL: 130-159 mg/dLHigh LDL: 160-189 mg/dLVery High LDL: greater than or equal to 190 mg/dL HDL Cholesterol 34(L) >40 mg/dL [facility] Comment:Desirable HDL: great er than 40 mg/dL Note: This HDL assay may give artificially low results in patients with liver disease. Blood 09/11/2023 10:2 7 AM EST 09/11/2023 11:50 AM EST us Linda Martinez MD LAB BLOOD ORDERABLES Fin al Result Performing Organization Address [facility] Co de Phone Number [facility] [address] [place] [place] [phone] * HIV-1/2 Antigen and Antibodies, Fourth Generation, with Reflexes (09/11/2023 10:27 AM EST) [facility] HIV AB/AG Nonreactive Nonreactive [facility] Comment:HIV-1 p24 Ag and/or HIV-1/HIV-2 Ab not detected.A test result that is nonreactive does not exclude thepossibility of exposure to or infection with HIV-1 and/orHIV-2. Nonreactive results in this assay for individualswith prior exposure to HIV-1 and/or HIV-2 may be due toantigen and antibody levels that are below the limit ofdetection of this assay.The [employer]-ZONE HIV Ag/Ab Combo assay result andsupplemental assay results should be interpreted inconjunction with the patient's clinical presentation,history and other laboratory results. If the results areinconsistent with clinical evidence, additional testing issuggested to confirm the result. Blood Venous blood specimen / Unknown 09/11/2023 10:27 AM EST 09/11/2023 11:50 AM EST us Linda Martinez MD LAB BLOOD ORDERABLES Fin al Result [facility] [address] [place] [address] [phone] * Mammography Report 1 (11/30/2021 2:15 PM EDT) Anatomical Region Laterality Modality Breast Bilateral Mammography 11/30/2021 2:15 PM EDT Narrative 12/01/2021 5:57 PM EDT Refer to the Notes tab for result details [facility] Procedure: Mammography Report 1 Procedure Note Provider, MD Gaudencio - 12/02/2022 Refer to the Notes tab for result details [facility] Procedure: Mammography Report 1 Shellie Ahmadi NP IMG BI PROCEDURES Final Result from Last 3 Months or Most Recently Relevant to Health Maintenance Insurance [facility] Care Teams Vp Design Relationship Specialty Start Date End Date Zahra Dotson FNP [address] [place] [phone] PCP - General Family Medicine 05/09/22
--- OUTSIDE RECORDS SUMMARY | 2024-11-17 13:02 | XMS_ITS | Encounter Summary ---
Author Organization [facility] Address [address] [facility] 7t [place] [address] Care Team Providers Care White Shoe Ragger Name Role Phone Zahra Dotson Primary Care Provider [phone] Reason for Visit * Reason Comments Med Refill Encounter Details Date Type Department Care Team ([facility] Contact Info) Description 10/11/2022 Refill [facility] [address] [place] [address] Zahra Dotson FNP [address] [place] [address] Social History Tobacco Use Types Packs/Day Years [...] Upcoming Encounters Date Type Department Care Team ([facility] Contact Info) Description 11/25/2024 10:15 AM EDT Office Visit [facility] [address] [place] [address] Zahra Dotson FNP [address] [place] [address] 01/20/2025 10:00 AM EDT Office Visit [facility] [address] [place] [address] Zahra Dotson FNP [address] [place] [address] documented as of this encounter Visit Diagnoses Not on filedocumented in this encounter Care Teams White Shoe Ragger Relationship Specialty Start Date End Date Zahra Dotson FNP [address] [place] [address] PCP - General Family Medicine 05/09/22 documented as of this encounter
--- OUTSIDE RECORDS SUMMARY | 2024-11-17 13:02 | XMS_ITS | Encounter Summary ---
Author Organization [employer] Address [address] [facility] 7t [place] [address] Care Team Providers Care Buckle Wire Inserter Name Role Phone Zahra Dotson TIANNA Primary Care Provider [phone] Reason for Visit * Reason Onset Date Comments Results 10/19/2024 Encounter Details Date Type Department Care Team ([facility] st Contact Info) Description 10/19/[address] [facility] [address] [place] [address] Demetrice Posadas, MARTIN Results Social History Tobacco [...] 11/25/2024 10:15 AM EDT Office Visit [facility] [address] [place] [address] Zahra Dotson FNP [address] [place] [address] 01/20/2025 10:00 AM EDT Office Visit [facility] [address] [place] [address] Zahra Dotson FNP [address] [place] [address] documented as of this encounter Goals Goal [...] documented as of this encounter Care Teams Buckle Wire Inserter Relationship Specialty Start Date End Date Zahra Dotson FNP [address] [place] [address] PCP - General Family Medicine 05/09/22 documented as of this encounter
--- OUTSIDE RECORDS SUMMARY | 2024-11-17 13:02 | XMS_ITS | Encounter Summary ---
Author Organization [employer] Address [address] [facility] [address] [place] [address] Care Team Providers Care Fashion Buyer Name Role Phone Zahra Dotson Primary Care Provider [phone] Encounter Details Date Type Department Care Team ([facility] Contact Info) Description 10/11/2022 Telephone [facility] [address] [place], [place] [phone] Zahra Dotson FNP [address] [place] [address] Social History Tobacco Use Types Packs/Day Years [...] Upcoming Encounters Date Type Department Care Team ([facility] Contact Info) Description 11/25/2024 10:15 AM EDT Office Visit [facility] [address] [place] [phone] Zahra Dotson FNP [address] [place] [address] 01/20/2025 10:00 AM EDT Office Visit [facility] [address] [place] [address] Zahra Dotson FNP [address] [place] [address] documented as of this encounter Visit Diagnoses Not on filedocumented in this encounter Care Teams Fashion Buyer Relationship Specialty Start Date End Date Zahra Dotson FNP [address] [place] [address] PCP - General Family Medicine 05/09/22 documented as of this encounter
--- OUTSIDE RECORDS SUMMARY | 2024-11-17 13:02 | XMS_ITS | Encounter Summary ---
Author Organization [employer] Address [address] [facility] 7t [place] [address] Care Team Providers Care Welder Fitter Gas Name Role Phone Zahra Dotson Primary Care Provider [phone] Encounter Details Date Type Department Care Team (Latest Contact Info) Description 10/20/2024 9:45 AM EST Office Visit [facility] [address] [place] [address] Zahra Dotson FNP [address] [place] [address] Spondyloarthropathy of lumbar spine (Primary Dx); Polyarthralgia; [...] this encounter Progress Notes * Zahra Dotson, PERSONAL CARE ATTENDANT - 10/20/2024 9:45 AM EST Subjective: Marge [...] Management sent 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 Santana. Encouraged physical therapy and weight loss. Cont gabapentin. Follow up PRN with Rheum. Other Long-term current use of opiate analgesic Overview Medication: Suboxone 4-1mg TID Indication: spondyloarthropathy of lumbar spine Last SENIOR SOUS CHEF Agreement: 11/01/23 Tier II (SENIOR SOUS CHEF visits every 3 months) Current Assessment & Plan Timeline: -03/19/24: SENIOR SOUS CHEF visit WNL -10/20/24: Group, utox/count wnl. Renewal signed. Relevant Orders POCT IGOR-14 Urine Drug Screen (Completed) Follow up: 1-3 months for [facility]. Follow up as scheduled with PCP, sooner as needed. * Cristela Finch RN - 10/20/2024 9:45 AM EST .SENIOR SOUS CHEF construction producer: PDMP reviewed today. Last fill date: 10/16/24 (Suboxone 4-1mg tid) count was (71), anticipated (71) to be remaining. .UTOX completed. Positive for (BUP), Negative for AMP, BAR, BZO, JUAN, FTY, MDMA, MET, MOP, MTD, OXY, PCP, TCA, THC. UTOX as expected. SENIOR SOUS CHEF Agreement renewed today. .BPI updated today. Pain [...] current use of opiate analgesic Timeline: -03/19/24: SENIOR SOUS CHEF visit WNL -10/20/24: Group, utox/count wnl. Renewal [...] Description 11/25/2024 10:15 AM EDT Office Visit [facility] MED[facility]INE [address] [place] [address] Zahra Dotson FNP [address] [place] [address] 01/20/2025 10:00 AM EDT Office Visit [facility] [address] [place] [address] Zahra Dotson FNP [address] [place] [address] documented as of this encounter Goals Goal [...] documented as of this encounter Care Teams Welder Fitter Gas Relationship Specialty Start Date End Date Zahra Dotson FNP [address] [place] [address] PCP - General Family Medicine 05/09/22 documented as of this encounter
--- OUTSIDE RECORDS SUMMARY | 2024-11-17 13:03 | XMS_ITS | Encounter Summary ---
Author Organization [employer] Address [address] [facility] 7t [place] [address] Care Team Providers Care Assembler 1St Shift Name Role Phone Zahra Dotson Primary Care Provider [phone] Encounter Details Date Type Department Care Team ([facility] st Contact Info) Description 10/27/2024 Orders Only [facility] [address] [place], [place] [phone] Zahra Dotson FNP [address] [place] [address] Prediabetes (Primary Dx); Vitamin D insufficiency Social History Tobacco Use Types Packs/Day Years [...] Description 11/25/2024 10:15 AM EDT Office Visit [facility] [address] [place] [address] Zahra Dotson BIOLOGIST [address] [place] [address] 01/20/2025 10:00 AM EDT Office Visit [facility] [address] [place] [address] Zahra Dotson BIOLOGIST [address] [place] [address] documented as of this encounter Goals Goal [...] Procedure Name Priority Date/Time Associated Diagnosis Comments HEMOGLOBIN A1C Routine 11/17/2024 10:50 AM EDT Prediabetes documented in this encounter Results * (ABNORMAL) Hemoglobin A1c (11/17/2024 10:50 AM EDT) Hemoglobin A1c 6.4(H) <6.0 % [facility] Comment:Hemoglobin A1C Refer ence Range Adults: 4.8 - 6.0 % Non diabetic: < 6.0 % Goal: < 7.0 %Additional Action Suggested: > 8.0 %Note: Hemoglobin A1c results are invalid for patients with abnormal amounts of HbF. Blood transfusions may impact the HbA1c concentration in the patient sample. Estimated Average Glucose 137 mg/dL [facility] Comment:eAG = Estimated ave rage glucose which is %A1C expressed asaverage glucose, using the formula of the W0Z-MbdtqimFlnomsu Glucose study (ADAG), Diabetes Care, Vol.31,#8,2007 Blood Venous blood specimen / Unknown 11/17/2024 10:50 AM EDT 11/17/2024 11:29 AM EDT us Zahra WYNN LAB BLOOD ORDERABLES Final Res ult [facility] [address] [place] [phone] documented in this encounter Visit Diagnoses Diagnosis Prediabetes- Primary Other abnormal glucose Vitamin D insufficiency documented in this encounter Additional Health Concerns Assessment Noted Time PHQ-9 Depression Total Score: 14 08/26/ 024 11:59 AM EST documented as of this encounter Care Teams Assembler 1St Shift Relationship Specialty Start Date End Date Zahra oDtson FNP [address] [place] [address] PCP - General Family Medicine 05/09/22 documented as of this encounter
--- OUTSIDE RECORDS SUMMARY | 2024-11-17 13:03 | XMS_ITS | Encounter Summary ---
Author Organization [employer] Address [address] [facility] 7t [place] [address] Care Team Providers Care Management Information Systems Director Name Role Phone Zahra Dotson Primary Care Provider [phone] Reason for Visit * Reason Onset Date Comments Results 10/27/2024 Encounter Details Date Type Department Care Team ([facility] st Contact Info) Description 10/27/2024 Telephone [facility] [address] [place] [address] Zahra Dotson FNP [address] [place] [address] Results Social History Tobacco Use Types Packs/Day [...] Telephone Encounter - Majo Beckman RN - 10/29/2024 10:07 AM EST TC to patient with [employer] ship manager. Information and recommendations discussed with patient including recommendation for repeat labs in 2 weeks. Patient verbalized understanding of message and verbally agreed to plan. * Telephone Encounter - Bacilio Neely - 10/29/2024 8:42 AM EST TC from pt returning call regarding prior message. Contact pt at [phone] * Telephone Encounter - Daniella Lewis RN - 10/27/2024 3:13 PM EST Call placed to patient regarding message below. Voicemail left with [facility] contact information. Will re-task for [place] [id number] ----- Message from Zahra Dotson sent at 10/27/2024 2:26 PM EST ----- Please call Ms. Harrington to review labs: 1. Potassium level has improved to normal range, which is great news. 2. Vitamin D level has improved from 7.6 to 22.1. Goal is 30-100. I would recommend a daily vitaminD supplement (1000 units daily). I sent a new rx to the pharmacy in case she does not still have athome. 3. Appears as though she may be crossing from the prediabetes to diabetes range for her blood sugar. Please strongly recommend lifestyle interventions and ask her to repeat lab work in 2 weeks. Thanks! documented in this encounter Plan of Treatment Upcoming Encounters Date Type Department Care Team (Late st Contact Info) Description 11/25/2024 10:15 AM EDT Office Visit [address] [address] Zahra Dotson FNP [address] [place] [address] 01/20/2025 10:00 AM EDT Office Visit [address] [address] Zahra Dotson FNP [address] [place] [address] documented as of this encounter Goals Goal [...] documented as of this encounter Care Teams Management Information Systems Director Relationship Specialty Start Date End Date Zahra Dotson FNP [address] [place] [address] PCP - General Family Medicine 05/09/22 documented as of this encounter
--- OUTSIDE RECORDS SUMMARY | 2024-11-17 13:03 | XMS_ITS | Encounter Summary ---
Author Organization [employer] Address [address] [facility] 7t [place] [address] Care Team Providers Care Pattern Maker Programer Name Role Phone Zahra Dotson Primary Care Provider [phone] Encounter Details Date Type Department Care Team (Latest Contact Info) Description 11/17/2024 9:45 AM EDT Office Visit [facility] [address] [place] [address] Zahra Dotson FNP [address] [place] [address] Spondyloarthropathy of lumbar spine (Primary Dx); Long-term current use of opiate analgesic Social [...] Description 11/25/2024 10:15 AM EDT Office Visit [facility] [address] [place] [address] Zahra Dotson, HEATING TECHNICIAN [address] [place] [address] 01/20/2025 10:00 AM EDT Office Visit [facility] [address] [place] [address] Zahra Dotson HEATING TECHNICIAN [address] [place] [address] Scheduled Orders Name Type Priority Associated Diagnoses Orde r Schedule Drug Toxicology Monitoring Buprenorphine, with Confirmation, Urine Lab Routine Spondyloarthropathy of lumbar spine Ordered: 11/17/2024 documented as of this encounter Goals Goal [...] EDT Long-term current use of opiate analgesic documented in this encounter Results * POCT IGOR-14 Urine Drug Screen (11/17/2024 11:52 AM EDT) Benzodiazepines Screen, Urine Positive Buprenophine Screen, Urine Positive Oxycodone Screen, Urine Positive Urine Urine specimen obtained by clean catch procedure / Unknown 11/17/2024 11:52 AM EDT Zahra WYNN POINT OF CARE TEST ENTER/EDIT ORDERABLES Final Result documented in this encounter Visit Diagnoses Diagnosis Spondyloarthropathy of lumbar spine- Primary Long-term current use of opiate analgesic Encounter for long-term (current) use of other medications documented in this encounter Additional Health Concerns Assessment Noted Time PHQ-9 Depression Total Score: 14 08/26/ 024 11:59 AM EST documented as of this encounter Care Teams Pattern Maker Programer Relationship Specialty Start Date End Date Zahra Dotson FNP [address] [place] [address] PCP - General Family Medicine 05/09/22 documented as of this encounter
--- OUTSIDE RECORDS SUMMARY | 2024-11-17 13:03 | XMS_ITS | Encounter Summary ---
Author Organization [employer] Address [address] [facility] 7t [place] [address] Care Team Providers Care Automatic Dry Starch Operator Name Role Phone Zahra Dotson Primary Care Provider [phone] Reason for Visit * Reason Comments Med Refill Encounter Details Date Type Department Care Team (Late st Contact Info) Description 11/08/2024 Refill [facility] [address] [place] [address] Zahra Dotson FNP [address] [place] [address] Social History Tobacco Use Types Packs/Day Years [...] Description 11/25/2024 10:15 AM EDT Office Visit [facility] [address] [place] [address] Zahra Dotson FNP [address] [place] [address] 01/20/2025 10:00 AM EDT Office Visit [facility] [address] [place] [address] Zahra Dotson FNP [address] [place] [address] documented as of this encounter Goals Goal [...] documented as of this encounter Care Teams Automatic Dry Starch Operator Relationship Specialty Start Date End Date Zahra Dotson FNP [address] [place] [address] PCP - General Family Medicine 05/09/22 documented as of this encounter
--- OUTSIDE RECORDS SUMMARY | 2024-11-17 13:03 | XMS_ITS | Encounter Summary ---
Author Organization [employer] Address 75 [facility] 7t [place] [address] Care Team Providers Care Galvanizer Zinc Name Role Phone AlfonsoZahra webb TIANNA Primary Care Provider [phone] Reason for Visit * Reason Onset Date Comments Med Refill 11/16/2024 Encounter Details Date Type Department Care Team ([facility] st Contact Info) Description 11/16/2024 Refill [facility] [address] [place] [address] Cristela Finch, MARTIN [address] [place] [address] Spondyloarthropathy of lumbar spine; Polyarthralgia; Long-term current [...] Description 11/25/2024 10:15 AM EDT Office Visit [facility] [address] [place] [address] Zahra Dotson, PATTERNMAKER WOOD [address] [place] [address] 01/20/2025 10:00 AM EDT Office Visit [address] [address] Zahra Dotson PATTERNMAKER WOOD [address] [place] [address] documented as of this encounter Goals Goal [...] Visit Diagnoses Diagnosis Spondyloarthropathy of lumbar spine Polyarthralgia Pain in joint, multiple sites Long-term current use of opiate analgesic Encounter for long-term (current) use of other medications documented in this encounter Additional Health Concerns Assessment Noted Time PHQ-9 Depression Total Score: 14 024 11:59 AM EST documented as of this encounter Care Teams Galvanizer Zinc Relationship Specialty Start Date End Date Zahra Dotson FNP [address] [place] [address] PCP - General Family Medicine 05/09/22 documented as of this encounter
--- OUTSIDE RECORDS SUMMARY | 2024-11-17 13:03 | XMS_ITS | Encounter Summary ---
Author Organization [employer] Address 75 [facility] 7t [place] [address] Care Team Providers Care Lard Mixer Name Role Phone Zahra Dotson Primary Care Provider [phone] Encounter Details Date Type Department Care Team ([facility] st Contact Info) Description 11/17/2024 Orders Only [facility] [address] [place], [place] [phone] Zahra Dotson FNP [address] [place] [address] Primary hypertension (Primary Dx) Social History Tobacco Use Types [...] Description 11/25/2024 10:15 AM EDT Office Visit [facility] [address] [place] [address] Zahra Dotson HOME CARE PHYSICAL THERAPIST [address] [place] [address] 01/20/2025 10:00 AM EDT Office Visit [facility] [address] [place] [address] Zahra Dotson HOME CARE PHYSICAL THERAPIST [address] [place] [address] documented as of this encounter Goals Goal [...] Associated Diagnosis Comments BASIC METABOLIC PANEL Routine 11/17/2024 10:50 AM EDT Primary hypertension documented in this encounter Results * (ABNORMAL) Basic Metabolic Panel (11/17/2024 10:50 AM EDT) Sodium 138 135 - 145 mmol/L [facility] Potassium 3.8 3.3 - 5.1 mmol/L [facility] Chloride 107 96 - 108 mmol/L [facility] Carbon Dioxide 26 22 - 29 mmol/L [facility] Anion Gap 9(L) 12 - 20 [facility] Urea Nitrogen (BUN) 6(L) 9 - 16 mg/dL [facility] Creatinine, Serum 0.73 0.5 - 1.4 mg/dL [facility] Estimated Glomerular Filt Rate >60 [facility] Comment:Chronic Kidney Disea se: Estimated GFR < 60 mL/min/1.49n2Jsgsvy Kidney Disease: Estimated GFR < 15 mL/min/1.73m2 Glucose 114 60 - 115 mg/dL [facility] Calcium 8.9 8.4 - 10.2 mg/dL [facility] Blood Venous blood specimen / Unknown 11/17/2024 10:50 AM EDT 11/17/2024 11:29 AM EDT us Zahra [facility] BLOOD ORDERABLES Final Res ult [facility] [address] [place] [phone] documented in this encounter Visit Diagnoses Diagnosis Primary hypertension- Primary Unspecified essential hypertension documented in this encounter Additional Health Concerns Assessment Noted Time PHQ-9 Depression Total Score: 14 024 11:59 AM EST documented as of this encounter Care Teams Lard Mixer Relationship Specialty Start Date End Date Zahra Dotson FNP [address] [place] [address] PCP - General Family Medicine 05/09/22 documented as of this encounter
--- OUTSIDE RECORDS SUMMARY | 2024-11-17 13:03 | XMS_ITS | Encounter Summary ---
Author Organization [employer] Address 75 [facility] 7t [place] [address] Care Team Providers Care Associate Dean Of Women Name Role Phone AlfonsoZahra webb TIANNA Primary Care Provider [phone] Reason for Visit * Reason Onset Date Comments NUTRITION APPT REQUEST 11/17/2024 Encounter Details Date Type Department Care Team ([facility] Contact Info) Description 11/17/2024 Telephone [facility] [address] [place] [address] Allison Gill, NAGA [address] [place] [address] NUTRITION APPT REQUEST Social History Tobacco Use Types Packs/Day Years [...] encounter Miscellaneous Notes * Telephone Encounter - Gardenia Connelly - 11/17/2024 10:12 AM EDT Called PT to let them know that the appt for 11/20/24 with the content coordinator is cancelled due to content coordinator being out. NA\LVM documented in this encounter Plan of Treatment Upcoming Encounters Date Type Department Care Team (Late st Contact Info) Description 11/25/2024 10:15 AM EDT Office Visit [facility] [address] [place] [address] Zahra Dotson FNP [address] [place] [address] 01/20/2025 10:00 AM EDT Office Visit [facility] [address] [place] [address] Zahra Dotson FNP [address] [place] [address] documented as of this encounter Goals Goal Patient Goal Type Associated Problems Recent Progress Patient-Stated? Author Record your blood pressure once per day Blood Pressure Chandler Rubin, PharmD Reduce the number of cigarettes by [...] documented as of this encounter Care Teams Associate Dean Of Women Relationship Specialty Start Date End Date Zahra Dotson FNP [address] [place] [address] PCP - General Family Medicine 05/09/22 documented as of this encounter
--- OUTSIDE RECORDS SUMMARY | 2024-11-17 13:03 | XMS_ITS | Encounter Summary ---
Author Organization [employer] Address 75 [facility] 7t [place] [address] Care Team Providers Care Consolidator Name Role Phone Zahra Dotson TIANNA Primary Care Provider [phone] Encounter Details Date Type Department Care Team (Latest Contact Info) Description 11/03/2024 Travel Social History Tobacco Use Types Packs/Day [...] the past 12 months, has t he [employer], gas, oil or water [employer] threatened to shut off services in your [...] Description 11/25/2024 10:15 AM EDT Office Visit [address] [address] Zahra Dotson FNP 505 [place] [address] 01/20/2025 10:00 AM EDT Office Visit [address] [address] Zahra Dotson FNP 505 [place] [address] documented as of this encounter Goals Goal [...] documented as of this encounter Care Teams Consolidator Relationship Specialty Start Date End Date Zahra Dotson FNP [address] [place] [address] PCP - General Family Medicine 05/09/22 documented as of this encounter
--- OUTSIDE RECORDS SUMMARY | 2024-11-17 13:03 | XMS_ITS | Encounter Summary ---
Author Organization [employer] Address 75 [facility] 7t [place] [address] Care Team Providers Care Supervisor Poultry Farm Name Role Phone Zahra Dotson Primary Care Provider [phone] Reason for Visit * Reason Onset Date Comments Appointment Request 12/12/2023 Encounter Details Date Type Department Care Team ([facility] st Contact Info) Description 12/12/2023 Telephone [facility] [address] [place] [address] Zahra Dotson FNP [address] [place] [address] Appointment Request Social History Tobacco Use Types [...] Description 11/25/2024 10:15 AM EDT Office Visit [facility] [address] [place] [address] Zahra Dotson FNP 505 [place] [address] 01/20/2025 10:00 AM EDT Office Visit [facility] [address] [place] [address] Zahra Dotson FNP 505 [place] [address] documented as of this encounter Goals Goal [...] documented as of this encounter Care Teams Supervisor Poultry Farm Relationship Specialty Start Date End Date Zahra Dotson FNP [address] [place] [address] PCP - General Family Medicine 05/09/22 documented as of this encounter
--- OUTSIDE RECORDS SUMMARY | 2024-11-17 13:03 | XMS_ITS | Encounter Summary ---
Author Organization [employer] Address 75 [facility] 7t [place] [address] Care Team Providers Care Inspector Multifocal Lens Name Role Phone Zahra Dotson Primary Care Provider [phone] Reason for Visit * Reason Onset Date Comments Med Refill 09/05/2023 Encounter Details Date Type Department Care Team ([facility] st Contact Info) Description 09/05/2023 Telephone [facility] [address] [place] [address] Zahra Dotson FNP [address] [place] [address] Med Refill Social History Tobacco Use Types [...] per sublingual film To be sent to: [facility] - [place], [place] - [address] [place] [address] documented in this encounter Plan of Treatment Upcoming Encounters Date Type Department Care Team (Late st Contact Info) Description 11/25/2024 10:15 AM EDT Office Visit [facility] [address] [place] [address] Zahra Dotson FNP [address] [place] [address] 01/20/2025 10:00 AM EDT Office Visit [facility] [address] [place] [address] Zahra Dotson FNP [address] [place] [address] documented as of this encounter Goals Goal [...] Chandler, PharmD documented as of this encounter Visit Diagnoses Not on filedocumented in this encounter Additional Health Concerns Assessment Noted Time PHQ-9 Depression Total Score: 3 12/12/19 23 4:02 PM EDT documented as of this encounter Care Teams Inspector Multifocal Lens Relationship Specialty Start Date End Date Zahra Dotson FNP [address] [place] [address] PCP - General Family Medicine 05/09/22 documented as of this encounter
--- OUTSIDE RECORDS SUMMARY | 2024-11-17 13:03 | XMS_ITS | Encounter Summary ---
Author Organization [employer] Address 75 [facility] 7t [place] [address] Care Team Providers Care Escrow Clerk Name Role Phone Zahra Dotson TIANNA Primary Care Provider [phone] Encounter Details Date Type Department Care Team (Latest Contact Info) Description 11/17/2024 Travel Social History Tobacco Use Types Packs/Day [...] the past 12 months, has t he [employer], gas, oil or water [employer] threatened to shut off services in your [...] Description 11/25/2024 10:15 AM EDT Office Visit [address] [address] Zahra Dotson FNP [address] [place] [address] 01/20/2025 10:00 AM EDT Office Visit [address] [address] Zahra Dotson FNP [address] [place] [address] documented as of this encounter Goals Goal [...] documented as of this encounter Care Teams Escrow Clerk Relationship Specialty Start Date End Date Zahra Dotson FNP [address] [place] [address] PCP - General Family Medicine 05/09/22 documented as of this encounter
--- OUTSIDE RECORDS SUMMARY | 2024-11-17 13:03 | XMS_ITS | Encounter Summary ---
Author Organization [employer] Address 75 [facility] 7t [place] [address] Care Team Providers Care Medical Liaison Name Role Phone Zahra Dotson TIANNA Primary Care Provider [phone] Reason for Visit * Reason Onset Date Comments Chart Prep 10/20/2024 Encounter Details Date Type Department Care Team ([facility] st Contact Info) Description 10/20/2024 Telephone [facility] [address] [place], [place] [phone] Maral Ravi MA Chart Prep Social History [...] Miscellaneous Notes * Telephone Encounter - Maral aMrie MA - 10/20/2024 4:21 PM EST Chart Prep Labs: done Images: not done Vaccines due: yes Referrals: complete Screenings: colonoscopy Overdue care gaps: A1C, Sbirt, SDOH, PHQ-9, PISQ documented in this encounter Plan of Treatment Upcoming Encounters Date Type Department Care Team (Late st Contact Info) Description 11/25/2024 10:15 AM EDT Office Visit [facility] [address] [place] [address] Zahra Dotson FNP 505 [place] [address] 01/20/2025 10:00 AM EDT Office Visit [facility] [address] [place] [address] Zahra Dotson FNP [address] [place] [address] documented as of this encounter Goals Goal [...] documented as of this encounter Care Teams Medical Liaison Relationship Specialty Start Date End Date Zahra Dotson FNP [address] [place] [address] PCP - General Family Medicine 05/09/22 documented as of this encounter
--- OUTSIDE RECORDS SUMMARY | 2024-11-17 13:03 | XMS_ITS | Encounter Summary ---
Author Organization [employer] Address 75 [facility] 7t [place] [address] Care Team Providers Care Spring Floor Service Worker Name Role Phone Zahra Dotson Primary Care Provider [phone] Reason for Visit * Reason Onset Date Comments Med Refill 11/16/2024 Encounter Details Date Type Department Care Team ([facility] st Contact Info) Description 11/16/2024 Telephone [facility] [address] [place] [address] Zahra Dotson FNP [address] [place] [address] Med Refill Social History Tobacco Use Types [...] * Telephone Encounter - Bacilio Neely - 11/16/2024 9:05 AM EDT TC from pt requesting medication refill. Medications needing refill : oxyCODONE (Roxicodone) 5 MG immediate release tablet To be sent to: [facility] - [place], [place] - [address] [place] [address] documented in this encounter Plan of Treatment Upcoming Encounters Date Type Department Care Team (Late st Contact Info) Description 11/25/2024 10:15 AM EDT Office Visit [facility] [address] [place] [address] Zahra Dotson FNP [address] [place] [address] 01/20/2025 10:00 AM EDT Office Visit [facility] [address] [place] [address] Zahra Dotson FNP 505 [place] [address] documented as of this encounter Goals Goal [...] documented as of this encounter Care Teams Spring Floor Service Worker Relationship Specialty Start Date End Date Zahra Dotson FNP [address] [place] [address] PCP - General Family Medicine 05/09/22 documented as of this encounter
--- OUTSIDE RECORDS SUMMARY | 2024-11-17 13:03 | XMS_ITS | Encounter Summary ---
Author Organization [employer] Address 75 [facility] 7t [place] [address] Care Team Providers Care Air Traffic Control Operator Name Role Phone Zahra Dotson Primary Care Provider [phone] Reason for Visit * Reason Comments Med Refill Encounter Details Date Type Department Care Team ([facility] st Contact Info) Description 12/19/2023 Refill [facility]EDS [address] [place], [place] [phone] Zahra Dotson FNP [address] [place] [address] Spondyloarthropathy of lumbar spine Social History Tobacco [...] 10:15 AM EDT Office Visit [facility] [address] [place] [address] Zahra Dotson FNP [address] [place] [address] 01/20/2025 10:00 AM EDT Office Visit [facility] [address] [place] [address] Zahra Dotson FNP [address] [place] [address] documented as of this encounter Goals Goal [...] documented as of this encounter Care Teams Air Traffic Control Operator Relationship Specialty Start Date End Date Zahra Dotson FNP [address] [place] [address] PCP - General Family Medicine 05/09/22 documented as of this encounter
--- OUTSIDE RECORDS SUMMARY | 2024-11-17 13:03 | XMS_ITS | Encounter Summary ---
Author Organization [employer] Address 75 [facility] 7t [place] [address] Care Team Providers Care Load Tester Name Role Phone Zahra Dotson Primary Care Provider [phone] Reason for Visit * Reason Onset Date Comments Durable Medical Equipment 11/06/2024 Encounter Details Date Type Department Care Team ([facility] st Contact Info) Description 11/06/2024 Telephone [facility] MEDICINE [address] [place] [address] Zahra Dotson FNP [address] [place] [address] Durable Medical Equipment Social History Tobacco Use Types Packs/Day Years [...] encounter Miscellaneous Notes * Telephone Encounter - Valarie Rhoades RN - 11/06/2024 9:22 AM EST Called pt using [employer] spanish interpreter/translator Whit #[id number]. Explained to pt that home BP kit sent to [facility] pharmacy, to take home reading 2x weekly and to call if consistently >150/90. Pt verbalized understanding. Pt asked about potassium levels and if the plan was to recheck them, explained per 10/27/24note from PCP that last potassium level was normal at 3.8 and if there is any other update regarding this, we will let her know. Pt in agreement, no further questions. Per chart, [facility] nurses also spoke to pt regarding this on 10/29/24. -- Zahra Dotson NP Thank you! Plan to continue with current med therapy. I sent BP kit to [facility] pharmacy so that she canmeasure home BP readings approximately 2 times per week and if any symptoms arise. documented in this encounter Plan of Treatment Upcoming Encounters Date Type Department Care Team (Late st Contact Info) Description 11/25/2024 10:15 AM EDT Office Visit [facility] MEDICINE [address] [place] [address] Zahra Dotson FNP [address] [place] [address] 01/20/2025 10:00 AM EDT Office Visit [facility]INE [address] [place] [address] Zahra Dotson FNP [address] [place] [address] documented as of this encounter Goals Goal [...] documented as of this encounter Care Teams Load Tester Relationship Specialty Start Date End Date Zahra Dotson FNP [address] [place] [address] PCP - General Family Medicine 05/09/22 documented as of this encounter
--- OUTSIDE RECORDS SUMMARY | 2024-11-17 13:03 | XMS_ITS | Encounter Summary ---
Author Organization [employer] Address 75 [facility] 7t [place] [address] Care Team Providers Care Manager Immunology Name Role Phone Iftikhar Garcia TIANNA Primary Care Provider [phone] Reason for Visit * Reason Comments nurse visit BP check Encounter Details Date Type Department Care Team (Latest Contact Info) Description 11/03/2024 10:30 AM EST Clinical Support [facility] MEDICINE [address] [place] [address] Valarie Rhoades RN Primary hypertension Social History Tobacco Use Types Packs/Day Years [...] Pulse 90 11/03/2024 10:40 AM EST Temperature - - Respiratory Rate - - Oxygen Saturation 99% 11/03/2024 10:40 AM EST Inhaled Oxygen Concentration - - Weight - - Height - - Body Mass Index - - documented in this encounter Progress Notes * Valarie Rhoades RN - 11/03/2024 10:30 AM EST SUBJECTIVE: Marge Harrington is a 49 y.o. year old female who presents for nurse visit BP check Preferred language for medical information: Cell Biologist needed: Yes. [facility] women's basketball coach #[id number] Recommendations at last visit were low salt diet, adherence to new olmesartan medication, discontinue chlorthalidone. Today, Marge Harrington denies blurred vision, shortness of breath, chest pain, dizziness, or headaches. Marge Harrington does confirm adherence to medications for hypertension: reports taking olmesartan & confirms took it today confirms no longer taking chlorthalidone. Pt reports swelling improved in her legs. Reports feeling good, I have good energy level after having had low potassium recently. Asked about current potassium level, advised her on 10/27/24 it was 3.8 (WNL). Pt reports very little salt in diet. No home readings provided, states was never told to take BP at home. BP Readings from Last 4 Encounters: 11/03/24 132/74 10/21/24 132/78 08/26/24 124/75 05/06/24 (!) 148/72 Pulse Readings from Last 4 Encounters: 11/03/24 90 10/21/24 83 08/26/24 79 05/06/24 69 OBJECTIVE: Vitals: 11/03/24 1040 BP: 132/74 BP Location: Left arm Patient Position: Sitting BP Cuff Size: Large adult Pulse: 90 SpO2: 99% ASSESSMENT: Achieve goal blood pressure of <140/90 or <130/80 PLAN: Today's findings will be sent to PCP Iftikhar Garcia NP for review. Advised pt that any changes to medications or plan of care will be communicated back to the pt. Reviewed importance of calling [facility] if any symptoms of hypertension develop (reviewed sxs) or if swelling in legs returns. Advised pt to continue taking medications as directed and reinforcement of lifestyle modifications including low sodium diet and exercise were reviewed. Pt verbalized understanding, no further questions. Future Appointments Date Time Provider Department Center 11/17/2024 9:45 AM [facility] MEDICINE [facility] 11/20/2024 9:[address] DIAB NUTR [facility] 01/20/2025 10:00 AM TIANNA Mello MEDICINE [facility] Valarie Rhoades RN * TIANNA Mello - 11/03/2024 10:30 AM EST Thank you! Plan to continue with current med therapy. I sent BP kit to [facility] pharmacy so that she canmeasure home BP readings approximately 2 times per week and if any symptoms arise. documented in this encounter Miscellaneous Notes * Addendum Note - TIANNA Mello - 11/03/2024 10:30 AM ESTAddended by: IFTIKHAR GARCIA on: 11/05/2024 07:25 PM Modules accepted: Orders documented in this encounter Plan of Treatment Upcoming Encounters Date Type Department Care Team (Late st Contact Info) Description 11/25/2024 10:15 AM EDT Office Visit [facility] [address] [place] [address] Iftikhar Garcia FNP [address] [place] [address] 01/20/2025 10:00 AM EDT Office Visit [facility] [address] [place] [address] Iftikhar Garcia FNP [address] [place] [address] documented as of this encounter Goals Goal [...] of this encounter Visit Diagnoses Diagnosis Primary hypertension Unspecified essential hypertension documented in this encounter Additional Health Concerns Assessment Noted Time PHQ-9 Depression Total Score: 14 024 11:59 AM EST documented as of this encounter Care Teams Manager Immunology Relationship Specialty Start Date End Date Iftikhar Garcia FNP [address] [place] [address] PCP - General Family Medicine 05/09/22 documented as of this encounter
--- OUTSIDE RECORDS SUMMARY | 2024-11-17 13:04 | XMS_ITS | Encounter Summary ---
Author Organization [employer] Address 75 [facility] 7t [place] [address] Care Team Providers Care Construction Area Manager Name Role Phone Zahra Dotson Primary Care Provider [phone] Reason for Visit * Reason Comments Med Refill Encounter Details Date Type Department Care Team (Late st Contact Info) Description 06/15/2024 Refill [facility] MEDICINE [address] [place] [address] Zahra Dotson FNP [address] [place] [address] Spondyloarthropathy of lumbar spine Social History Tobacco [...] Description 11/25/2024 10:15 AM EDT Office Visit [facility] MEDICINE [address] [place] [address] Zahra Dotson FNP [address] [place] [address] 01/20/2025 10:00 AM EDT Office Visit [address] [address] Zahra Dotson FNP [address] [place] [address] documented as of this encounter Goals Goal [...] documented as of this encounter Care Teams Construction Area Manager Relationship Specialty Start Date End Date Zahra Dotson FNP [address] [place] [address] PCP - General Family Medicine 05/09/22 documented as of this encounter
--- OUTSIDE RECORDS SUMMARY | 2024-11-17 13:04 | XMS_ITS | Encounter Summary ---
Author Organization [employer] Address 75 [facility] 7t [place] [address] Care Team Providers Care Shelter Supervisor Name Role Phone Zahra Dotson Primary Care Provider [phone] Reason for Visit * Reason Comments Med Refill Encounter Details Date Type Department Care Team (Late st Contact Info) Description 02/14/2024 Refill [facility] MEDICINE [address] [place] [address] Zahra Dotson FNP [address] [place] [address] Spondyloarthropathy of lumbar spine Social History Tobacco [...] Description 11/25/2024 10:15 AM EDT Office Visit [facility] MEDICINE [address] [place] [address] Zahra Dotson FNP [address] [place] [address] 01/20/2025 10:00 AM EDT Office Visit [address] [address] Zahra Dotson FNP [address] [place] [address] documented as of this encounter Goals Goal [...] documented as of this encounter Care Teams Shelter Supervisor Relationship Specialty Start Date End Date Zahra Dotson FNP [address] [place] [address] PCP - General Family Medicine 05/09/22 documented as of this encounter
--- OUTSIDE RECORDS SUMMARY | 2024-11-17 13:04 | XMS_ITS | Encounter Summary ---
Author Organization [employer] Address 75 [facility] 7t [place] [address] Care Team Providers Care Green Hide Inspector Name Role Phone Zahra Dotson Primary Care Provider [phone] Reason for Visit * Reason Onset Date Comments Med Refill 06/18/2024 Encounter Details Date Type Department Care Team ([facility] st Contact Info) Description 06/18/2024 Telephone [facility] MEDICINE [address] [place] [address] Zahra Dotson FNP [address] [place] [address] Med Refill Social History Tobacco Use Types [...] per sublingual film To be sent to: [facility] documented in this encounter Plan of Treatment Upcoming Encounters Date Type Department Care Team (Late st Contact Info) Description 11/25/2024 10:15 AM EDT Office Visit [facility] MEDICINE [address] [place] [address] Zahra Dotson FNP [address] [place] [address] 01/20/2025 10:00 AM EDT Office Visit [facility] MEDICINE [address] [place] [address] Zahra Dotson FNP [address] [place] [address] documented as of this encounter Goals Goal [...] documented as of this encounter Care Teams Green Hide Inspector Relationship Specialty Start Date End Date Zahra Dotson FNP [address] [place] [address] PCP - General Family Medicine 05/09/22 documented as of this encounter
[2024-11-24 11:24] LABS: Naloxone NEGATIVE
[2024-11-24 11:25] LABS: Buprenorphine 8; Norbuprenorphine 12
== END 2024-11-17 10:48 | disposition home or self-care (01) ==
LOC: HO.HHCL 10:47
PROVIDERS: Visit Provider Registered Nurse
DX: I10 Essential (primary) hypertension (principal); R73.03 Prediabetes; M47.816 Spondylosis without myelopathy or radiculopathy, lumbar region
CPT/HCPCS: 36415; 80048; 80348; 80362; 83036

== ENCOUNTER 2025-01-15 12:59 | Outpatient (REF) | payer OTHER, SELFPAY ==
--- OUTSIDE RECORDS SUMMARY | 2025-01-15 13:03 | XMS_ITS | Encounter Summary ---
Author Organization [employer] Address 75 [facility] 7t [place] [address] Care Team Providers Care Construction Site Manager Name Role Phone Zahra Dotson Primary Care Provider [phone] Encounter Details Date Type Department Care Team ([facility] Contact Info) Description 10/11/2022 Telephone [facility] MEDICINE [address] [place] [address] Zahra Dotson FNP [address] [place], [place] [phone] Social History Tobacco Use Types Packs/Day Years [...] Upcoming Encounters Date Type Department Care Team ([facility] Contact Info) Description 01/19/2025 9:45 AM EDT Office Visit [address] [phone] 01/20/2025 10:00 AM EDT Office Visit [facility] MEDICINE [address] [place] [address] Zahra Dotson FNP 505 [place] [address] documented as of this encounter Visit Diagnoses Not on filedocumented in this encounter Care Teams Construction Site Manager Relationship Specialty Start Date End Date Zahra Dotson FNP [address] [place] [address] PCP - General Family Medicine 05/09/22 documented as of this encounter
--- OUTSIDE RECORDS SUMMARY | 2025-01-15 13:03 | XMS_ITS | Encounter Summary ---
Author Organization [employer] Address [address] [place] [address] 7 [place] [address] Care Team Providers Care Director Of Golf Name Role Phone Zahra Dotson Primary Care Provider [phone] Encounter Details Date Type Department Care Team (Late st Contact Info) Description 09/11/2022 Orders Only [facility] MED & PEDS [address] [place], [place] [phone] Mary Ann Cruz LPN Social History Tobacco [...] Care Team (Late st Contact Info) Description 01/19/2025 9:45 AM EDT Office Visit [facility] MEDICINE [address] [place] [address] 01/20/2025 10:00 AM EDT Office Visit [facility] MEDICINE [address] [place] [address] Zahra Dotson FNP [address] [place] [address] documented as of this encounter Visit Diagnoses Not on filedocumented in this encounter Care Teams Director Of Golf Relationship Specialty Start Date End Date Zahra Dotson FNP 230 [place] [address] PCP - General Family Medicine 05/09/22 documented as of this encounter
--- OUTSIDE RECORDS SUMMARY | 2025-01-15 13:04 | XMS_ITS | Encounter Summary ---
Author Organization [employer] Address 75 [facility] 7t [place] [address] Care Team Providers Care Insurance Account Assistant Name Role Phone Zahra Dotson Primary Care Provider [phone] Reason for Visit * Reason Onset Date Comments Med Refill 01/12/2025 Encounter Details Date Type Department Care Team ([facility] st Contact Info) Description 01/12/2025 Refill [facility] [address] [place] [address] Zahra Dotson FNP [address] [place] [address] Primary hypertension Social History Tobacco Use Types [...] encounter Miscellaneous Notes * Telephone Encounter - Ariane Guillen LPN - 01/12/2025 11:18 AM EDT Last seen 4.2.25 documented in this encounter Plan of Treatment Upcoming Encounters Date Type Department Care Team (Late st Contact Info) Description 01/19/2025 9:45 AM EDT Office Visit [facility] MEDICINE [address] [place] [address] 01/20/2025 10:00 AM EDT Office Visit [facility] MEDICINE [address] [place] [address] Zahra Dotson FNP [address] [place] [address] documented as of this encounter Goals Goal [...] documented as of this encounter Care Teams Insurance Account Assistant Relationship Specialty Start Date End Date Zahra Dotson FNP 230 [place] [address] PCP - General Family Medicine 05/09/22 documented as of this encounter
--- OUTSIDE RECORDS SUMMARY | 2025-01-15 13:04 | XMS_ITS | Encounter Summary ---
Author Organization [employer] Address 75 [facility] 7t [place] [address] Care Team Providers Care Rheumatologist Name Role Phone Zahra Dotson Primary Care Provider [phone] Reason for Visit * Reason Comments Med Refill Encounter Details Date Type Department Care Team (Late st Contact Info) Description 02/14/2024 Refill [facility] MEDICINE 230 [place] [address] Zahra Dotson FNP [address] [place] [address] Spondyloarthropathy of lumbar spine Social History Tobacco [...] Description 01/19/2025 9:45 AM EDT Office Visit [facility] MEDICINE [address] [place] [address] 01/20/2025 10:00 AM EDT Office Visit [facility] MEDICINE [address] [place] [address] Zahra Dotson FNP [address] [place] [address] documented as of this encounter Goals Goal [...] documented as of this encounter Care Teams Rheumatologist Relationship Specialty Start Date End Date Zahra Dotson FNP [address] [place] [address] PCP - General Family Medicine 05/09/22 documented as of this encounter
--- OUTSIDE RECORDS SUMMARY | 2025-01-15 13:04 | XMS_ITS | Encounter Summary ---
Author Organization [employer] Address 75 [facility] 7t [place] [address] Care Team Providers Care Software Application Tester Name Role Phone Zahra Dotson Primary Care Provider [phone] Reason for Visit * Reason Onset Date Comments Referral 04/04/2023 Rheumatology fro 12/29/22 Encounter Details Date Type Department Care Team ([facility] st Contact Info) Description 04/04/2023 Telephone [facility] MEDICINE [address] [place] [address] Zahra Dotson FNP [address] [place] [address] Referral (Rheumatology from 12/29/22) Social History Tobacco [...] Referral is being re-faxed to [facility] for [facility]. Sharyn stated she is going to try to get pt in sooner and will call her directly after reviewing notes. Electrical Line Splicer called and spoke with pt. She was [...] Information Date: 04/05/2023 Time: 1:00 PM Location: [address] [place] [address] FAX [phone] Patient states she confirmed appt twice with [...] now appt is not in the system. Electrical Line Splicer let patient now message will be sent to software support specialist and they will follow up with her in regards to next appt detail or next steps. Please call [phone]. documented in this encounter Plan of Treatment Upcoming Encounters Date Type Department Care Team ([facility] st Contact Info) Description 01/19/2025 9:45 AM EDT Office Visit [facility] MEDICINE [address] [place] [address] 01/20/2025 10:00 AM EDT Office Visit [facility] MEDICINE [address] [place] [address] Zahra Dotson FNP [address] [place] [address] documented as of this encounter Goals Goal [...] documented as of this encounter Care Teams Software Application Tester Relationship Specialty Start Date End Date Zahra Dotsno FNP [address] [place] [address] PCP - General Family Medicine 05/09/22 documented as of this encounter
--- OUTSIDE RECORDS SUMMARY | 2025-01-15 13:04 | XMS_ITS | Encounter Summary ---
Author Organization [employer] Address 75 [facility] 7t [place] [address] Care Team Providers Care Laboratory Tech Name Role Phone Zahra Dotson Primary Care Provider [phone] Reason for Visit * Reason Onset Date Comments Med Refill 01/11/2025 Encounter Details Date Type Department Care Team ([facility] st Contact Info) Description 01/11/2025 Telephone [facility] MEDICINE [address] [place] [address] Zahra Dotson FNP [address] [place] [address] Med Refill Social History Tobacco Use Types [...] * Telephone Encounter - Sedrick Hatch - 01/11/2025 9:03 AM EDT TC from pt requesting medication refill. Medications needing refill : oxyCODONE-acetaminophen (Percocet) 7.5-325 MG tablet To be sent to: [facility] pharmacy documented in this encounter Plan of Treatment Upcoming Encounters Date Type Department Care Team (Late st Contact Info) Description 01/19/2025 9:45 AM EDT Office Visit [facility] MEDICINE [address] [place] [address] 01/20/2025 10:00 AM EDT Office Visit [facility] MEDICINE [address] [place] [address] Zahra Dotson FNP 505 [place] [address] documented as of this encounter Goals Goal [...] documented as of this encounter Care Teams Laboratory Tech Relationship Specialty Start Date End Date Zahra Dotson FNP [address] [place] [address] PCP - General Family Medicine 05/09/22 documented as of this encounter
--- OUTSIDE RECORDS SUMMARY | 2025-01-15 13:04 | XMS_ITS | Encounter Summary ---
Author Organization [employer] Address 75 [facility] 7t [place] [address] Care Team Providers Care Senior Customer Service Representative Name Role Phone Zahra Dotson Primary Care Provider [phone] Reason for Visit * Reason Comments Med Refill Encounter Details Date Type Department Care Team (Late Contact Info) Description 10/11/2022 Refill [facility] MEDICINE [address] [place] [address] Zahra Dotson FNP [address] [place] [address] Social History Tobacco Use Types Packs/Day Years [...] Encounters Date Type Department Care Team (Late Contact Info) Description 01/19/2025 9:45 AM EDT Office Visit [facility] MEDICINE [address] [place] [address] 01/20/2025 10:00 AM EDT Office Visit [facility] MEDICINE [address] [place] [address] Zahra Dotson FNP [address] [place] [address] documented as of this encounter Visit Diagnoses Not on filedocumented in this encounter Care Teams Senior Customer Service Representative Relationship Specialty Start Date End Date Zahra Dotson FNP [address] [place] [address] PCP - General Family Medicine 05/09/22 documented as of this encounter
--- OUTSIDE RECORDS SUMMARY | 2025-01-15 13:04 | XMS_ITS | Encounter Summary ---
Author Organization [employer] Address 75 [facility] 7t [place] [address] Care Team Providers Care Academic Advisor Name Role Phone Zahra Dotsno Primary Care Provider [phone] Reason for Visit * Reason Comments Med Refill Encounter Details Date Type Department Care Team ([facility] st Contact Info) Description 12/19/2023 Refill [facility] CHC MED & PEDS [address] [place], [place] [phone] Zahra Dotson FNP [address] [place] [address] Spondyloarthropathy of lumbar spine Social History Tobacco [...] Description 01/19/2025 9:45 AM EDT Office Visit [facility] MEDICINE [address] [place] [address] 01/20/2025 10:00 AM EDT Office Visit [address] [address] Zahra Dotson FNP [address] [place] [address] documented as of this encounter Goals Goal [...] documented as of this encounter Care Teams Academic Advisor Relationship Specialty Start Date End Date Zahra Dotson FNP [address] [place] [address] PCP - General Family Medicine 05/09/22 documented as of this encounter
--- OUTSIDE RECORDS SUMMARY | 2025-01-15 13:04 | XMS_ITS | Encounter Summary ---
Author Organization [employer] Address 75 [facility] 7t [place] [address] Care Team Providers Care Scraper Hand Name Role Phone Zahra Dotson TIANNA Primary Care Provider [phone] Reason for Visit * Reason Onset Date Comments Med Refill 01/11/2025 Encounter Details Date Type Department Care Team ([facility] st Contact Info) Description 01/11/2025 Refill [facility] MED & PEDS 505 [place] [address] Cristela Finch, RN [address] [place] [address] Spondyloarthropathy of lumbar spine Social History Tobacco [...] Description 01/19/2025 9:45 AM EDT Office Visit [facility] MEDICINE [address] [place] [address] 01/20/2025 10:00 AM EDT Office Visit [facility] MEDICINE [address] [place] [address] Zahra Dotson FNP 505 [place] [address] documented as of this encounter Goals Goal [...] documented as of this encounter Care Teams Scraper Hand Relationship Specialty Start Date End Date Zahra Dotson FNP [address] [place] [address] PCP - General Family Medicine 05/09/22 documented as of this encounter
--- OUTSIDE RECORDS SUMMARY | 2025-01-15 13:04 | XMS_ITS | Encounter Summary ---
Author Organization [employer] Address 75 [facility] 7t [place] [address] Care Team Providers Care Digital Advisor Name Role Phone Zahra Dotson Primary Care Provider [phone] Reason for Visit * Reason Comments Med Refill Encounter Details Date Type Department Care Team (Late st Contact Info) Description 06/15/2024 Refill [facility] MEDICINE [address] [place] [address] Zahra Dotson FNP [address] [place] [address] Spondyloarthropathy of lumbar spine Social History Tobacco [...] Description 01/19/2025 9:45 AM EDT Office Visit [facility] MEDICINE [address] [place] [address] 01/20/2025 10:00 AM EDT Office Visit [facility] MEDICINE [address] [place] [address] Zahra Dotson FNP [address] [place] [address] documented as of this encounter Goals Goal [...] as of this encounter Care Teams Digital Advisor Relationship Specialty Start Date End Date Zahra Dotson FNP [address] [place] [address] PCP - General Family Medicine 05/09/22 documented as of this encounter
--- OUTSIDE RECORDS SUMMARY | 2025-01-15 13:04 | XMS_ITS | Encounter Summary ---
Author Organization [employer] Address 75 [facility] 7t [place] [address] Care Team Providers Care Fiscal Accounting Clerk Name Role Phone Zahra Dotson Primary Care Provider [phone] Reason for Visit * Reason Onset Date Comments Med Refill 11/16/2024 Encounter Details Date Type Department Care Team ([facility] st Contact Info) Description 11/16/2024 Telephone [facility] MEDICINE [address] [place] [address] Zahra Dotson FNP [address] [place] [address] Med Refill Social History Tobacco Use Types [...] immediate release tablet To be sent to: [facility] [place], [place] - [address] [place] [address] documented in this encounter Plan of Treatment Upcoming Encounters Date Type Department Care Team ([facility] st Contact Info) Description 01/19/2025 9:45 AM EDT Office Visit [facility] MEDICINE [address] [place] [address] 01/20/2025 10:00 AM EDT Office Visit [facility] MEDICINE [address] [place] [address] Zahra Dotson FNP [address] [place] [address] documented as of this encounter Goals Goal [...] documented as of this encounter Care Teams Fiscal Accounting Clerk Relationship Specialty Start Date End Date Zahra Dotson FNP [address] [place] [address] PCP - General Family Medicine 05/09/22 documented as of this encounter
--- OUTSIDE RECORDS SUMMARY | 2025-01-15 13:04 | XMS_ITS | Encounter Summary ---
Author Organization [employer] Address 75 [facility] 7t [place] [address] Care Team Providers Care Health Information Coder Name Role Phone Zahra Dotson Primary Care Provider [phone] Reason for Visit * Reason Onset Date Comments Nurse Triage 01/13/2025 Encounter Details Date Type Department Care Team ([facility] st Contact Info) Description 01/13/2025 Telephone [facility] MEDICINE [address] [place] [address] Zahra Dotson FNP [address] [place] [address] Nurse Triage Social History Tobacco Use Types [...] encounter Miscellaneous Notes * Telephone Encounter - Kimberly Middleton RN - 01/14/2025 9:39 AM EDT TC to pt. No worsening condition. Denies chest pain, muscle spasms, trouble breathing. Advised thatlabs are ordered and reminded of 01/20 appt. Pt verbalized understanding and agreement with plan. * Telephone Encounter - Cassia Liu RN - 01/13/2025 11:20 AM EDT called pt to triage, spoke to pt. through [employer] Supplier Engineer. pt states feels as if her Potassium is low again and requesting labs to be done. pt reports fatigue and weakness and denies other specific symptoms at this time. pt has follow up appt already scheduled on 01/20 and is advised to keep thatappt as scheduled. pt wants a supplement ordered and is also advised needs to speak to PCP. will task to team nurse to follow up per PCP and see if PCP wants to order labs prior to her appt. pt states knows her body and knows her K+ is low again. advised home care: rest, fluids, citrus fruits, green leafy vegetables, tomatoes, and call back as needed. pt understands and agrees with plan. insurance verified. Protocol Used: No Protocol Available (Adult) Protocol-Based Disposition: See in Office or Video Visit within 2 Weeks Video visit offer not recorded Positive Triage Question: * Nursing judgment * All higher-acuity triage questions were negative Care Advice Discussed: * Reasons To Call Back - New symptoms develop - You become worse * Telephone Encounter - Gricel Grimaldo - 01/13/2025 9:20 AM EDT Symptom: Lethargic (Tired) Outcome: Schedule an urgent appointment (within 4 hours) or talk to a nurse or provider soon Reason: Getting worse The caller accepted this outcome. Contact pt at [phone] (yoruba) documented in this encounter Plan of Treatment Upcoming Encounters Date Type Department Care Team ([facility] st Contact Info) Description 01/19/2025 9:45 AM EDT Office Visit [facility] MEDICINE [address] [place] [address] 01/20/2025 10:00 AM EDT Office Visit [address] [address] Zahra Dotson FNP [address] [place] [address] Scheduled Orders Name Type Priority Associated Diagnoses Orde r Schedule Basic Metabolic Panel Lab Routine Healthcare maintenance Expected: 01/14/2025 (Approximate), Expires: 01/14/2026 documented as of this encounter Goals Goal [...] as of this encounter Visit Diagnoses Diagnosis Healthcare maintenance documented in this encounter Additional Health Concerns Assessment Noted Time PHQ-9 Depression Total Score: 14 08/26/2 024 11:59 AM EST documented as of this encounter Care Teams Health Information Coder Relationship Specialty Start Date End Date Zahra Dotson FNP [address] [place] [address] PCP - General Family Medicine 05/09/22 documented as of this encounter
--- OUTSIDE RECORDS SUMMARY | 2025-01-15 13:04 | XMS_ITS | Clinical Summary ---
Author Organization [employer] Address [address] [facility] [address] [place] [address] Care Team Providers Care Territory Supervisor Name Role Phone Zahra Dotson TIANNA Primary Care Provider [phone] Allergies Active Allergy Reactions Criticality Noted Date [...] mouth if needed at bedtime. 022 Active Diclofenac Sodium 1 % gelIndications:P ain APPLY 2 GRAMS TO AFFECTED AREA(S) UP TO FOUR TIMES DAILY NEEDED FOR PAIN 100 g 1 023 Active Acetaminophen Extra Strength 500 MG tabletIndication s:Pain TAKE 1 TO 2 TABLETS BY MOUTH EVERY 8 HOURS NEEDED FOR PAIN 60 tablet 2 023 Active hydrocortisone 1 % creamIndications :Rash and nonspecific skin eruption Apply topically if needed in the morning and at bedtime for rash or irritation. 15 g 1 023 Active gabapentin (Neurontin) 300 MG capsuleIndicatio ns:Chronic [...] OF BREATH 18 g 3 024 Active loratadine (Claritin) 10 MG tablet TAKE 1 TABLET BY MOUTH EVERY DAY NEEDED FOR ALLERGIES 90 tablet 3 025 Active albuterol (2.5 MG/3ML) 0.083% nebulizer solutionIndicati ons:Mild intermittent asthma without complication INHALE 1 AMPULE USING A NEBULIZER EVERY 4 TO 6 HOURS NEEDED FOR WHEEZING OR SHORTNESS OF BREATH 90 mL 3 025 Active nicotine polacrilex (Nicorette) 2 MG gumIndications:T obacco dependence syndrome CHEW 1 PIECE OF GUM EVERY 1-2 HOURS NEEDED DURING WEEKS 1-6, THEN CHEW 1 PIECE OF GUM EVERY 2-4 HOURS DURING WEEKS 7-9, THEN CHEW 1 PIECE OF GUM EVERY 4-8 HOURS DURING WEEKS 10-12 DIRECTED. DO NOT EXCEED 24 PER DAY 220 each 3 025 Active D3-1000 25 MCG (1000 UT) capsuleIndicatio ns:Vitamin D deficiency TAKE 1 CAPSULE BY MOUTH EVERY DAY 90 capsule 3 025 Active Cholecalciferol (Vitamin D3) 25 MCG (1000 UT) chewable tabletIndication s:Vitamin D insufficiency Chew 1 tablet Once per day. 90 tablet 3 025 Active Blood Pressure kit Use to check blood pressure as directed by provider, and if symptomatic. 1 kit 025 Active lidocaine (Lidoderm) 5 % patch APPLY 1 PATCH TOPICALLY TO SKIN, LEAVE ON FOR 12 HOURS AND OFF FOR 12 HOURS DIRECTED 30 patch 5 025 Active naloxone (Narcan) 4 mg/0.1 mL nasal sprayIndications :Long-term current use of opiate analgesic Administer 1 spray (4 mg) into affected nostril(s) if needed for opioid reversal. May repeat every 2-3 minutes if needed, alternating nostrils, until medical assistance becomes available. 2 each 3 025 2025 Active ibuprofen 600 MG tabletIndication s:Pain TAKE 1 TABLET BY MOUTH THREE TIMES DAILY WITH FOOD NEEDED FOR PAIN OR FEVER 100 tablet 3 025 Active oxyCODONE-acetam inophen (Percocet) 7.5-325 MG tabletIndication s:Spondyloarthro ale of lumbar spine Take 1 tablet by mouth every 8 (eight) hours if needed for severe pain for up to 14 days. Do not start before January 13, 2025. 42 tablet 025 2024 Active olmesartan (Benicar) 5 MG tabletIndication s:Primary hypertension Take 1 tablet (5 mg) by mouth Once per day. 90 tablet 1 025 2025 Active ibuprofen 600 MG tabletIndication s:Pain TAKE 1 TABLET BY MOUTH THREE TIMES DAILY WITH FOOD NEEDED FOR PAIN OR FEVER 100 tablet 3 024 2024 Discontinued chlorthalidone (Hygroton) 25 MG tabletIndication s:Primary hypertension TAKE 1 TABLET BY MOUTH EVERY DAY IN THE MORNING 90 tablet 1 024 2024 Discontinued(S candy effects) olmesartan (Benicar) 5 MG tabletIndication s:Primary hypertension Take 1 tablet (5 mg) by mouth Once per day. 90 tablet 025 2024 Discontinued(R eorder (will not trigger notification to Pharmacy)) oxyCODONE (Roxicodone) 5 MG immediate release tabletIndication s:Spondyloarthro ale of lumbar spine,Polyarthra lgia,Long-term current use of opiate analgesic Take 1 tablet (5 mg) by mouth if needed in the morning and at bedtime for severe pain for up to 28 days. Do not start before November 18, 2024. 56 tablet 025 2024 oxyCODONE-acetam inophen (Percocet) 7.5-325 MG tabletIndication s:Spondyloarthro ale of lumbar spine Take 1 tablet by mouth every 8 (eight) hours if needed for severe pain for up to 7 days. 21 tablet 025 2024 Discontinued(R eorder (will not trigger notification to Pharmacy)) oxyCODONE-acetam inophen (Percocet) 7.5-325 MG tabletIndication s:Spondyloarthro ale of lumbar spine Take 1 tablet by mouth every 8 (eight) hours if needed for severe pain for up to 2 days. Do not start before December 16, 2024. 6 tablet 025 2024 Discontinued(D uplicate order (will not trigger notification to Pharmacy)) oxyCODONE-acetam inophen (Percocet) 7.5-325 MG tabletIndication s:Spondyloarthro ale of lumbar spine Take 1 tablet by mouth every 8 (eight) hours if needed for severe pain for up to 14 days. 42 tablet 025 2024 Discontinued(R eorder (will not trigger notification to Pharmacy)) oxyCODONE-acetam inophen (Percocet) 7.5-325 MG tabletIndication s:Spondyloarthro ale of lumbar spine Take 1 tablet by mouth every 8 (eight) hours if needed for severe pain for up to 14 days. Do not start before December 31, 2024. 42 tablet 025 2024 Discontinued(R eorder (will not trigger notification to Pharmacy)) Active Problems Problem Noted Date Diagnosed Date LFT elevation 09/07/2024 Loud snoring 08/27/2024 Assessment & Plan (08/27/2024 10:27 AM EST): Referral for sleep study placed 08/27/24 Polyarthralgia 05/07/2024 Overview (05/07/2024): Lab Results Component Value Date RHEUMATOIDFA 14 (H) 12/10/2022 ANASCRIFA NEGATIVE 12/10/2022 CREACPROTEIN 8.9 (H) 12/10/2022 SEDRATE 14 12/10/2022 TSH 2.82 09/11/2023: Eval at [facility] Rheum - Dr. Santana. Encouraged physical therapy and weight loss. Cont gabapentin. Follow up PRN with Rheum. Assessment & Plan (05/07/2024 7:12 PM EDT): -Following with Ortho for chronic right knee pain - MRI of knee ordered by Ortho for further eval. Pt encouraged to call to reschedule appt. Varicose veins of both lower extremities 024 Overview (08/27/2024): Evaluated by [facility] Vascular - Dr. Prince in February 2024 Venous insufficiency testing demonstrated varicose veins with inflammation. Attempted right small saphenous vein radiofrequency ablation on 04/17/24, unsuccessful. Encouraged to cont compression socks, elevation, symptomatic management. Referral to re-establish d/t worsening of symptoms 08/26/24 Long-term current use of opiate analgesic 2023 Overview (12/10/2024): Medication: Percocet 7.5/325mg TID PRN. (Switched from Suboxone 4-1mg TID Oct 2024) Indication: spondyloarthropathy of lumbar spine Last HOME HEALTH NURSE Agreement: 10/20/24 Tier II (HOME HEALTH NURSE visits every 3 months) Assessment & Plan (11/19/2024 12:37 PM EDT): Timeline: -03/19/24: HOME HEALTH NURSE visit WN -10/20/24: Group, utox/count wnl. Renewal signed. -10/21/24: OV - changed from Suboxone to Oxycodone -11/17/24: Group - pill count wnl, urine (+) bup. Confirmatory testing sent Assessment & Plan (10/21/2024 4:43 PM EST): Timeline: -03/19/24: HOME HEALTH NURSE visit WN -10/20/24: Group, utox/count wnl. Renewal signed. -10/21/24: OV - changed from Suboxone to Oxycodone Assessment & Plan (10/20/2024 4:54 PM EST): Timeline: -03/19/24: HOME HEALTH NURSE visit WN -10/20/24: Group, utox/count wnl. Renewal signed. Assessment & Plan (06/19/2024 1:23 PM EDT): Timeline: -03/19/24: HOME HEALTH NURSE visit WNL Healthcare maintenance 04/30/2023 Overview (10/06/2023): Routine Health Maintenance -C-scope: no prior, referred to GI 11/09/22 as well as 06/04/23. Pending. -Mammo: 12/01/2021 BIRADS-1. Pending. -PAP: 10/13/2013 NIL/-HPV on record. She is s/p THH 8 years ago d/t malignancy. Following with [employer] TR[employer]. -Last PE: 06/04/23 -Lab titers: Sep 2023: [...] 150mins of physical activity weekly -Referral to [facility] for routine vision eval Follow up in 3 weeks via televisit to review BP readings at home (& further discuss family history). Sooner as needed. Mature cystic teratoma 09/16/2022 Overview (09/16/2022): 2011 - no change on serial ultrasound Spondyloarthropathy of lumbar spine 09/16/2022 Overview (12/10/2024): MRI Lumbar spine 07/20/22: Moderate multilevel degenerative spondyloarthropathy of the lumbar spine as described in detail above. Most notably, there are moderate neural foraminal stenoses at L3-L4 and L4-L5. Narrowings of the subarticular zones at L3-L4. No overt spinal canal stenosis centrally. 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 [facility] Rheum eval May 2023. Follow up PRN Previous tx options for pain have included: Pharm: APAP, NSAIDs, gabapentin, percocet and tramadol. Suboxone (November 2022 - Oct 2024, dc d/t concerns with dentition) Non-pharm: PT, physiatry, acupuncture -Continues gabapentin 300mg TID -Established in HOME HEALTH NURSE program -Referral to PS&S Apr 2024 - no longer following -Cont with [facility] Pain Management & physical therapy referral Assessment & Plan (12/10/2024 5:50 PM EDT): - Extensive discussion and conversation today regarding med risks, holistic approach to care, and intermediate project manager goals - Ms. Harrington has been very open and transparent about her medication use and pain goals - Cont Percocet 7.5-325mg TID x 9 days. Re-check in 1 week for nurse visit. - Current MME: 33.8. Discussed that current rx is short term with goal to decrease to MME: 30, and then ideally 22.5 - Close follow up with team nurses in 1 week for HOME HEALTH NURSE visit (utox/pill count) and to review pain control. Goal at that visit to decrease to Percocet 5/325mg [id number] PRN. Assessment & Plan (11/26/2024 6:30 AM EDT): - Extensive discussion and conversation today regarding med risks, holistic approach to care, and senior living goals - Ms. Harrington has been very open and transparent about her use of the oxycodone and contacted clinic appropriately to discuss pain control with switch from suboxone to oxycodone. - After extended conversation, shared decision making for the following plan: - START Percocet 7.5-325mg TID x 14 days. Re-check in 2 weeks. She will bring remaining pills of oxycodone and remaining films of suboxone to be disposed of at [facility] pharmacy - Current MME: 33.8. Discussed that current rx is short term with goal to decrease to MME: 30, and then ideally 22.5 - Close follow up in 2 weeks to review pain control. Assessment & Plan (11/19/2024 12:37 PM EDT): -Good engagement and participation with Group Medical Visit model -Encouraged multifactorial approach to pain control including pharm and non- pharm modalities -Pill count as expected, utox showing positive for bup. Confirmatory testing sent out. Scheduled for PCP visit 1 week to review pain management plan and utox confirmatory results. Assessment & Plan (10/21/2024 4:50 PM EST): - Discontinue Suboxone -Start oxycodone 5 mg twice daily as needed. Reviewed the significant limitations and potential side effects of chronic opioid therapy. Given that she has exhausted the combination of pharmacologic and nonpharmacologic treatment options listed above, shared decision making to proceed with oxycodone. Message sent to HOME HEALTH NURSE RN. -Marge will plan to follow-up in [...] safety and SE -Need to establish in HOME HEALTH NURSE program w/ blanket weaver & Plan (07/14/2023 11:51 AM EST): Previous [...] med safety and SE -Message sent to HOME HEALTH NURSE RN to establish in HOME HEALTH NURSE program -Follow up in 4 weeks to [...] as pharmacomtherapy, [facility] smoking cessation group, and [facility] pharmacy smoking cessation clinic -Agrees to try NRT gum as monotherapy Assessment & Plan (07/14/2023 11:56 AM EST): -Smoking approx 8-10 cigg/day -Encouraged smoking cessation resources such as pharmacomtherapy, [facility] smoking cessation group, and [facility] pharmacy smoking cessation clinic Assessment & Plan [...] smear due to hysterectomy/ malignancy FU with [employer] [employer] Encounter for preventive health examination 06/04/2023 09/12/2023 [...] Encounters Date Type Department Care Team Description 01/13/2025 Telephone [facility] MEDICINE [address] [place] [address] Zahra Dotson FNP Nurse Triage 01/12/2025 Refill [facility] MED & PEDS [address] [place] [address] Zahra Dotson FNP Primary hypertension 01/11/2025 Refill [facility] PEDS [address] [place] [address] Cristela Finch RN Spondyloarthropathy of lumbar spine 01/11/2025 Telephone [facility] MEDICINE [address] [place] [address] Zahra Dotson FNP Med Refill 01/08/2025 Telephone [facility]EDS [address] [place] [address] Zahra Dotson FNP reschedule appt 01/07/2025 Refill [facility] MEDICINE [address] [place] [address] Zahra Dotson FNP Primary hypertension 12/29/2024 Refill [facility] PEDS [address] [place] [address] Cristela Finch RN Spondyloarthropathy of lumbar spine 12/29/2024 Telephone [facility] MED [facility] PEDS [address] [place] [address] Zahra Dotson, SKI PATROL OFFICER 12/29/2024 Travel 12/23/2024 Refill [facility] MED & PEDS [address] [place] [address] Zahra Dotson, SKI PATROL OFFICER Pain 12/18/2024 10:30 AM EDT Clinical Support [address] [address] Radha Pittman RN Long-term current use of opiate analgesic; Spondyloarthropathy of lumbar spine 12/18/2024 Travel 12/09/2024 10:15 AM EDT Office Visit [address] [address] Zahra Dotson, SKI PATROL OFFICER Spondyloarthropathy of lumbar spine (Primary Dx); Long-term current use of opiate analgesic; Bronchitis; Hyperpigmentation 12/09/[address] [address] Zahra Dotson, SKI PATROL OFFICER Medication Question 12/09/2024 Travel 12/08/2024 Telephone [facility] MED & PEDS [address] [place] [address] Zahra Dotson, SKI PATROL OFFICER Chart Prep 12/07/[address] [address] Sammy Dotsonle, SKI PATROL OFFICER Spondyloarthropathy of lumbar spine 11/26/2024 Telephone [facility] MED & PEDS [address] [place] [address] Zahra Dotson, SKI PATROL OFFICER Appointment 11/26/2024 Travel 11/25/2024 10:15 AM EDT Office Visit [address] [address] Mauri Zahra, SKI PATROL OFFICER Spondyloarthropathy of lumbar spine (Primary Dx) 11/25/2024 Travel 11/20/[address] [address] Zahra Dotson, SKI PATROL OFFICER FYI 11/17/2024 9:45 AM EDT Office Visit [address] [address] Zahra Dotson, SKI PATROL OFFICER Spondyloarthropathy of lumbar spine (Primary Dx); Long-term current use of opiate analgesic 11/17/2024 Telephone [facility] MEDICINE [address] [place] [phone] Allison Gill, NAG[place] NUTRITION APPT REQUEST 11/17/2024 Orders Only [facility] MED [facility] PEDS [address] [place] [address] Zahra Dotson, SKI PATROL OFFICER Primary hypertension (Primary Dx) 11/17/2024 Travel 11/16/2024 Refill [facility] MED & PEDS [address] [place] [address] Cristlea Finch, MARTIN Spondyloarthropathy of lumbar spine; Polyarthralgia; Long-term current use of opiate analgesic 11/16/[address] [address] Zahra Dotson, SKI PATROL OFFICER Med Refill 11/08/[address] [address] Zahra Dotson, SKI PATROL OFFICER 11/06/[address] [address] Mauri Azhra, SKI PATROL OFFICER Durable Medical Equipment 11/03/2024 10:30 AM EST Clinical Support [address] [address] Valarie Abreu RN Primary hypertension 11/03/2024 Travel 10/27/2024 Telephone [facility] WALK-IN CENTER [address] [place] [address] Mauri Zahra, SKI PATROL OFFICER Results 10/27/2024 Orders Only [facility] PEDS [address] [place] [address] Zahra Dotson, SKI PATROL OFFICER Prediabetes (Primary Dx); Vitamin D insufficiency 10/21/2024 9:45 AM EST Office Visit [address] [address] Sammy Dotsonle, SKI PATROL OFFICER Primary hypertension (Primary Dx); Class 3 severe obesity with body mass index (BMI) of 45.0 to 49.9 in adult, unspecified obesity type, unspecified whether serious comorbidity present (CMS/[facility]); Vitamin D deficiency; Spondyloarthropathy of lumbar spine; Polyarthralgia; Long-term current use of opiate analgesic; Prediabetes; Hypokalemia 10/21/2024 Travel 10/20/2024 9:45 AM EST Office Visit [facility] MEDICINE [address] [place] [address] Zahra Dotson FNP Spondyloarthropathy of lumbar spine (Primary Dx); Polyarthralgia; Long-term current use of opiate analgesic 10/20/2024 Telephone [facility] MED & PEDS [address] [place] [address] Maral Ravi MA Chart Prep 10/20/2024 Travel 10/19/2024 Telephone [facility] MEDICINE [address] [place] [address] Demetrice Posadas RN Results from Last 3 Months Immunizations Name Administration [...] Sign Reading Time Taken Comments Blood Pressure 158/85 12/09/2024 10:30 AM EDT Pulse 99 12/09/2024 10:30 AM EDT Temperature 36.3 ??C (97.3 ??F) 12/09/2024 10:30 AM E DT Respiratory Rate 22 12/09/2024 10:30 AM EDT Oxygen Saturation 98% 12/09/2024 10:30 AM EDT Inhaled Oxygen Concentration - - Weight 122 kg (270 lb) 12/09/2024 10:30 AM EDT Height 162.6 cm (5' 4 ) 12/09/2024 10:30 AM EDT Body Mass Index 46.35 12/09/2024 10:30 AM EDT Plan of Treatment Upcoming Encounters Date Type Department Care Team (Late st Contact Info) Description 01/19/2025 9:45 AM EDT Office Visit [facility] MEDICINE [address] [place] [address] 01/20/2025 10:00 AM EDT Office Visit [facility] MEDICINE [address] [place] [address] Zahra Dotson, SKI PATROL OFFICER [address] [place] [address] Health Maintenance Due Date Last Done Comments CT Colonography 1973 Colonoscopy 1973 Colorectal Cancer Screening 1973 FIT DNA/Cologuard 1973 FIT 1973 FOBT 1973 Sigmoidoscopy 1973 Family Planning (PISQ) 1988 Hepatitis B Vaccines (2 of 3 - 19+ 3-dose series) 10/09/2012 09/11/2012, 06/27/2011, 04/24/2011 Zoster Vaccines (1 of 2) 2023 Mammogram 12/01/2023 11/30/2021 SDOH Screening 01/07/2025 01/08/2024 Depression Screening 08/26/2025 08/26/2024, 08/26/20 24 COVID-19 Vaccine ( season) 2025 09/20/2021, 02/01/2021, 01/04/2021 Postponed from 05/10/2024 (Patient Refused) Diabetes: Hemoglobin A1C 11/17/2025 03 025, 10/27/2024, 09/11/2023, Additional history exists Alcohol/Substance Use Screening 11/25/2025 11/25/2024 Tobacco Screening 12/09/2025 12/09/2024 Lipid Panel 09/11/2028 09/11/2023, 04/0 01/2022, 11/24/2020 [...] Comments POCT IGOR-14 URINE DRUG SCREEN Routine 12/18/2024 11:24 AM EDT Long-term current use of opiate analgesic POCT IGOR-14 URINE DRUG SCREEN Routine 12/09/2024 11:31 AM EDT Long-term current use of opiate analgesic POCT IGOR-14 URINE DRUG SCREEN Routine 11/25/2024 10:46 AM EDT Spondyloarthropathy of lumbar spine POCT IGOR-14 URINE DRUG SCREEN Routine 11/17/2024 11:52 AM EDT Long-term current use of opiate analgesic BASIC METABOLIC PANEL Routine 11/17/2024 10:50 AM EDT Primary hypertension HEMOGLOBIN A1C Routine 11/17/2024 10:50 AM EDT Prediabetes DRUG TOX MONITORING BUPRENORPHINE, W/CONF,U Routine 11/17/2024 10:00 AM EDT Spondyloarthropathy of lumbar spine VITAMIN D,25-OH,TOTAL,IA Routine 10/27/2024 8:02 AM EST Vitamin D deficiency HEMOGLOBIN A1C Routine 10/27/2024 8:02 AM EST Prediabetes BASIC METABOLIC PANEL Routine 10/27/2024 8:02 AM EST Primary hypertension POCT IGOR-14 URINE DRUG SCREEN Routine 10/20/2024 1:37 PM EST Long-term current use of opiate analgesic HEPATITIS C AB W/REFL TO HCV RNA, QN, PCR Routine 09/25/2024 8:08 AM EST Elevated LFTs HIV 1/2 ANTIGEN/ANTIBODY, FOURTH GENERATION W/RFL Routine 09/11/2023 10:27 AM EST Encounter for preventive health examination LIPID PANEL WITH REFLEX TO DIRECT LDL Routine 09/11/2023 10:27 AM EST Primary hypertension Acquired hypothyroidism MAMMOGRAM GENERIC Routine 11/30/2021 2:1 5 PM EDT from Last 3 Months or Most Recently Relevant to Health Maintenance Results * POCT IGOR-14 Urine Drug Screen (12/18/2024 11:24 AM EDT) Only the most recent of5 resultswithin the time period is included. THC Negative Cocaine Screen, Urine Negative Opiate Screen, Urine Negative Methamphetamine Screen Urine Negative Amphetamine Screen, Urine Negative Benzodiazepines Screen, Urine Negative Barbiturate Screen, Urine Negative Methadone Screen, Urine Negative Buprenophine Screen, Urine Negative TCA, Urine Negative MDMA Urine Negative ng/mL Oxycodone Screen, Urine Positive Phencyclidine (PCP), Urine Negative Propoxyphene, Urine Negative QC Media Lot # [id number] Lot# Expiration Date Urine Urine specimen obtained by clean catch procedure / Unknown 12/18/2024 11:24 AM EDT Zahra LOSC Managementjon [facility] POINT OF CARE TEST ENTER/EDIT ORDERABLES Final Result * (ABNORMAL) Hemoglobin A1c (11/17/2024 10:50 AM EDT) Only the most recent of2 resultswithin the time period is included. Hemoglobin A1c 6.4(H) <6.0 % [facility] Comment:Hemoglobin A1C Refer ence Range Adults: 4.8 - 6.0 % Non diabetic: < 6.0 % Goal: < 7.0 %Additional Action Suggested: > 8.0 %Note: Hemoglobin A1c results are invalid for patients with abnormal amounts of HbF. Blood transfusions may impact the HbA1c concentration in the patient sample. Estimated Average Glucose 137 mg/dL [facility] Comment:eAG = Estimated ave rage glucose which is %A1C expressed asaverage glucose, using the formula of the P4V-MqsccvmIrhjlte Glucose study (ADAG), Diabetes Care, Vol.31,#8,Apr. 2007 Blood Venous blood specimen / Unknown 11/17/2024 10:50 AM EDT 11/17/2024 11:29 AM EDT Zahra LOSC Managementjon [facility] LAB BLOOD ORDERABLES Final Res ult [facility] [address] [place] [phone] * (ABNORMAL) Basic Metabolic Panel (11/17/2024 10:50 AM EDT) Only the most recent of2 resultswithin the time period is included. Sodium 138 135 - 145 mmol/L [facility] Potassium 3.8 3.3 - 5.1 mmol/L [facility] Chloride 107 96 - 108 mmol/L [facility] Carbon Dioxide 26 22 - 29 mmol/L [facility] Anion Gap 9(L) 12 - 20 [facility] Urea Nitrogen (BUN) 6(L) 9 - 16 mg/dL [facility] Creatinine, Serum 0.73 0.5 - 1.4 mg/dL [facility] Estimated Glomerular Filt Rate >60 [facility] Comment:Chronic Kidney Disea se: Estimated GFR < 60 mL/min/[id number] Kidney Disease: Estimated GFR < 15 mL/min/1.73m2 Glucose 114 60 - 115 mg/dL [facility] Calcium 8.9 8.4 - 10.2 mg/dL [facility] Blood Venous blood specimen / Unknown 11/17/2024 10:50 AM EDT 11/17/2024 11:29 AM EDT Zahra Dotson SKI PATROL OFFICER LAB BLOOD ORDERABLES Final Res ult [facility] [address] [place] [phone] * Drug Toxicology Monitoring Buprenorphine, with Confirmation, Urine (11/17/2024 10:00 AM EDT) Buprenorphine 8 [facility] Comment:REFERENCE RANGE: <2 ng/mLTHIS TEST PERFORMED AT:[facility] [place] [phone] DIRECTOR: KAYLEEN CORTES MD Norbuprenorphine 12 [facility] Comment:REFERENCE RANGE: <2 ng/mLTHIS TEST PERFORMED AT:[facility] [place] [phone] DIRECTOR: KAYLEEN CORTES MD Naloxone, Urine NEGATIVE [facility] Comment:REFERENCE RANGE: <2 ng/mLTHIS TEST PERFORMED AT:[employer] [id number] [place] [phone] DIRECTOR: KAYLEEN CORTES MD Buprenorphine Comments SEE NOTE [facility] Comment: This drug testing is for medical treatment only. Analysiswas performed as non-forensic testing and these resultsshould be used only by healthcare providers to renderdiagnosis or treatment, or to monitor progress of medicalconditions.Buprenorphine Notes:Buprenorphine, Norbuprenorphine detected is consistent withthe use of the drug(s) Buprenorphine or Buprenorphine withNaloxone. Naloxone may be negative due to poor oralbioavailability and/or short half- life.LDT Notes:Confirmation tests were developed and their analyticalperformance characteristics have been determined by [employer]. It has not been cleared or approved by the FDA.This assay has been validated pursuant to the CLIAregulations and is used for clinical purposes.Healthcare Providers needing Interpretation assistance,please contact us at [phone] ( ) M-F,8am to 10pm EST.THIS TEST PERFORMED AT:[facility] [address] [phone] DIRECTOR: KAYLEEN CORTES MD Urine (Urine, Random) 11/17/2024 10:00 AM EDT 11/17/2024 2:06 PM EDT us Zahra Dotson [facility] URINE ORDERABLES Final Res ult [facility] [address] [place] [phone] * (ABNORMAL) Vitamin D, 25-Hydroxy, Total, Immunoassay (10/27/2024 8:02 AM EST) Vitamin D 25-OH Total 22.1(L) >30 ng/mL [facility] Comment:Health Based Referen ce Values*< 20 ng/mL Hbfanzqea21-20 ng/mL Insufficient> 30 ng/mL Sufficient*Kayy ROSALES. N [...] 8:02 AM EST 10/27/2024 11:01 AM EST Zahra Dotson [facility] BLOOD ORDERABLES Final Res ult Performing Organization Address [facility] Co de Phone Number [facility] [address] [place] [phone] * Hepatitis C Antibody with Reflex to HCV, RNA, Quantitative, Real-Time PCR (09/25/2024 8:08 AM EST) Hepatitis C Antibody Nonreactive Nonreactive [facility] Comment:Antibodies to HCV no t detected; does not exclude early acuteHCV infection. Blood Venous blood specimen / Unknown 09/25/2024 8:08 AM EST 09/25/2024 11:20 AM EST Zahra Dotson [facility] BLOOD ORDERABLES Final Res ult Performing Organization Address [facility] Co de Phone Number [facility] [address] [place] [phone] * (ABNORMAL) Lipid Panel with Reflex to Direct LDL (09/11/2023 10:27 AM EST) Triglycerides 68 <150 mg/dL [facility] Comment:Desirable Triglyceri de: less than 150 mg/dLBorderline High Triglyceride 150-199 mg/dLHigh Triglyceride: 200-499 mg/dLVery High Triglyceride: greater than or equal to 5OO mg/dL Cholesterol 133 <200 mg/dL [facility] Comment:Desirable Cholestero l: less than 200 mg/dLBorderline High Cholesterol: 200-239 mg/dLHigh Cholesterol: greater than 239 mg/dL LDL Cholesterol Calculated 86 <100 mg/dL [facility] Comment:Desirable LDL: less than 100 mg/dLNear Optimal/Above Optimal LDL: 110- 129 mg/dLBorderline High LDL: 130-159 mg/dLHigh LDL: 160-189 mg/dLVery High LDL: greater than or equal to 190 mg/dL HDL Cholesterol 34(L) >40 mg/dL [facility] Comment:Desirable HDL: great er than 40 mg/dL Note: This HDL assay may give artificially low results in patients with liver disease. Blood 09/11/2023 10:2 7 AM EST 09/11/2023 11:50 AM EST us Linda Martinez MD LAB BLOOD ORDERABLES Fin al Result [facility] [address] [place] [phone] * HIV-1/2 Antigen and Antibodies, Fourth Generation, with Reflexes (09/11/2023 10:27 AM EST) HIV AB/AG Nonreactive Nonreactive [facility] Comment:HIV-1 p24 Ag and/or HIV-1/HIV-2 Ab not detected.A test result that is nonreactive does not exclude thepossibility of exposure to or infection with HIV-1 and/orHIV-2. Nonreactive results in this assay for individualswith prior exposure to HIV-1 and/or HIV-2 may be due toantigen and antibody levels that are below the limit ofdetection of this assay.The 64 Pixels HIV Ag/Ab Combo assay result andsupplemental assay results should be interpreted inconjunction with the patient's clinical presentation,history and other laboratory results. If the results areinconsistent with clinical evidence, additional testing issuggested to confirm the result. Blood Venous blood specimen / Unknown 09/11/2023 10:27 AM EST 09/11/2023 11:50 AM EST us Linda Martinez MD LAB BLOOD ORDERABLES Fin al Result [facility] [address] [place] [phone] [phone] * Mammography Report 1 (11/30/2021 2:15 PM EDT) Anatomical Region Laterality Modality Breast Bilateral Mammography 11/30/2021 2:15 PM EDT Narrative 12/01/2021 5:57 PM EDT Refer to the Notes tab for result details [facility] Procedure: Mammography Report 1 Procedure Note Provider, MD Gaudencio - 12/02/2022 Refer to the Notes tab for result details [facility] Procedure: Mammography Report 1 us Shellie Ahmadi CYBER SECURITY ENGINEER IMG BI PROCEDURES Final Result from Last 3 Months or Most Recently Relevant to Health Maintenance Insurance [facility] Care Teams Territory Supervisor Relationship Specialty Start Date End Date Zahra Dotson FNP [address] [place] [address] PCP - General Family Medicine 05/09/22
--- OUTSIDE RECORDS SUMMARY | 2025-01-15 13:04 | XMS_ITS | Encounter Summary ---
Author Organization [employer] Address 75 [facility] 7t [place] [address] Care Team Providers Care Food Broker Name Role Phone Zahra Dotson Primary Care Provider [phone] Reason for Visit * Reason Onset Date Comments Med Refill 09/05/2023 Encounter Details Date Type Department Care Team ([facility] st Contact Info) Description 09/05/2023 Telephone [facility] [address] [place] [address] Zahra Dotson FNP [address] [place] [address] Med Refill Social History Tobacco Use Types [...] per sublingual film To be sent to: [facility] - [place], [place] - [address] [place] [address] documented in this encounter Plan of Treatment Upcoming Encounters Date Type Department Care Team (Late st Contact Info) Description 01/19/2025 9:45 AM EDT Office Visit [facility] [address] [place] [address] 01/20/2025 10:00 AM EDT Office Visit [facility] [address] [place] [address] Zahra Dotson FNP [address] [place] [address] documented as of this encounter Goals Goal [...] documented as of this encounter Care Teams Food Broker Relationship Specialty Start Date End Date Zahra Dotson FNP [address] [place] [address] PCP - General Family Medicine 05/09/22 documented as of this encounter
--- OUTSIDE RECORDS SUMMARY | 2025-01-15 13:04 | XMS_ITS | Encounter Summary ---
Author Organization [employer] Address 75 [facility] 7t [place] [address] Care Team Providers Care Skin Carver Name Role Phone Zahra Dotson Primary Care Provider [phone] Reason for Visit * Reason Onset Date Comments Appointment Request 09/24/2024 Encounter Details Date Type Department Care Team ([facility] st Contact Info) Description 09/24/2024 Telephone [facility]INE [address] [place] [address] Zahra Dotson FNP [address] [place] [address] Appointment Request Social History Tobacco Use Types [...] new appointment as she canceled today's visit. [phone] documented in this encounter Plan of Treatment Upcoming Encounters Date Type Department Care Team (Late st Contact Info) Description 01/19/2025 9:45 AM EDT Office Visit [facility] [address] [place] [address] 01/20/2025 10:00 AM EDT Office Visit [facility] [address] [place] [address] Zahra Dotson, TIANNA [address] [place] [address] documented as of this encounter Goals Goal [...] documented as of this encounter Care Teams Skin Carver Relationship Specialty Start Date End Date Zahra Dotson FNP [address] [place] [address] PCP - General Family Medicine 05/09/22 documented as of this encounter
--- OUTSIDE RECORDS SUMMARY | 2025-01-15 13:04 | XMS_ITS | Encounter Summary ---
Author Organization [employer] Address 75 [facility] 7t [place] [address] Care Team Providers Care Automotive Salesperson Name Role Phone Zahra Dotson Primary Care Provider [phone] Reason for Visit * Reason Onset Date Comments Medication Question 12/09/2024 Encounter Details Date Type Department Care Team ([facility] st Contact Info) Description 12/09/2024 Telephone [facility] [address] [place] [address] Zahra Dotson FNP [address] [place] [address] Medication Question Social History Tobacco Use Types Packs/Day Years [...] encounter Miscellaneous Notes * Telephone Encounter - Awa Robert RN - 12/10/2024 9:52 AM EDT TC x 2 placed to pt via [employer] labor specialist ([email or web address] ID#[id number]) to inform and advise of below PCP message.Pt verbalized understanding that the 6 tablets sent for her to milk pickup truck driver on 12/16/24 to provide her with continued dosing on 12/17/24 and 12/18/24. Pt denies questions at this time. TIANNA Mello: 6 tablets sent for her to milk pickup truck driver next week on 12/16/24. That will provide her with continued dosing on 12/17/24 and 12/18/24 so she should be sufficient until appt with Nick vasquez RN. * Telephone Encounter - TIANNA Mello - 12/09/2024 5:45 PM EDT 6 tablets sent for her to milk pickup truck driver next week on 12/16/24. That will provide her with continued dosing on 12/17/24 and 12/18/24 so she should be sufficient until appt with Nick vasquez RN. * Telephone Encounter - Fatou [place] - 12/09/2024 1:24 PM EDT Tc from pt stating she was prescribed oxycodone for a week but the f/u appointment with the nurses was scheduled for December 18. Pt is worried and states that she will be without medication for two days until the day of the appointment. documented in this encounter Plan of Treatment Upcoming Encounters Date Type Department Care Team (Late st Contact Info) Description 01/19/2025 9:45 AM EDT Office Visit [address] [address] 01/20/2025 10:00 AM EDT Office Visit [facility] [address] [place] [address] Zahra Dotson FNP [address] [place] [address] documented as of this encounter Goals Goal [...] Diagnoses Diagnosis Spondyloarthropathy of lumbar spine- Primary documented in this encounter Additional Health Concerns Assessment Noted Time PHQ-9 Depression Total Score: 14 024 11:59 AM EST documented as of this encounter Care Teams Automotive Salesperson Relationship Specialty Start Date End Date Zahra Dotson FNP [address] [place] [address] PCP - General Family Medicine 05/09/22 documented as of this encounter
--- OUTSIDE RECORDS SUMMARY | 2025-01-15 13:04 | XMS_ITS | Encounter Summary ---
Author Organization [employer] Address 75 [facility] 7t [place] [address] Care Team Providers Care Pad Tufter Name Role Phone Zahra Dotson Primary Care Provider [phone] Encounter Details Date Type Department Care Team ([facility] Contact Info) Description 11/17/2024 Orders Only [facility] MED & PEDS [address] [place], [place] [phone] Zahra Dotson FNP [address] [place], [place] [phone] Primary hypertension (Primary Dx) Social History Tobacco [...] Description 01/19/2025 9:45 AM EDT Office Visit [facility] [address] [place] [address] 01/20/2025 10:00 AM EDT Office Visit [facility] [address] [place] [address] Zahra Dotson, CALL WORKER [address] [place] [address] documented as of this encounter Goals Goal [...] EDT) Sodium 138 135 - 145 mmol/L [facility] Potassium 3.8 3.3 - 5.1 mmol/L [facility] Chloride 107 96 - 108 mmol/L [facility] Carbon Dioxide 26 22 - 29 mmol/L [facility] Anion Gap 9(L) 12 - 20 [facility] Urea Nitrogen (BUN) 6(L) 9 - 16 mg/dL [facility] Creatinine, Serum 0.73 0.5 - 1.4 mg/dL [facility] Estimated Glomerular Filt Rate >60 [facility] Comment:Chronic Kidney Disea se: Estimated GFR < 60 mL/min/1.91q0Xyipna Kidney Disease: Estimated GFR < 15 mL/min/1.73m2 Glucose 114 60 - 115 mg/dL [facility] Calcium 8.9 8.4 - 10.2 mg/dL [facility] Blood Venous blood specimen / Unknown 11/17/2024 10:50 AM EDT 11/17/2024 11:29 AM EDT us Zahra [facility] LAB BLOOD ORDERABLES Final Res ult [facility] [address] [place] [phone] [phone] documented in this encounter Visit Diagnoses Diagnosis Primary hypertension- Primary Unspecified essential hypertension documented in this encounter Additional Health Concerns Assessment Noted Time PHQ-9 Depression Total Score: 14 08/26/ 024 11:59 AM EST documented as of this encounter Care Teams Pad Tufter Relationship Specialty Start Date End Date Zahra Dotson FNP [address] [place] [address] PCP - General Family Medicine 05/09/22 documented as of this encounter
--- OUTSIDE RECORDS SUMMARY | 2025-01-15 13:04 | XMS_ITS | Encounter Summary ---
Author Organization [employer] Address 75 [facility] 7t [place] [address] Care Team Providers Care Systems Integration Analyst Name Role Phone Zahra Dotson Primary Care Provider [phone] Reason for Visit * Reason Onset Date Comments Appointment Request 12/12/2023 Encounter Details Date Type Department Care Team ([facility] st Contact Info) Description 12/12/2023 Telephone [facility] [address] [place] [address] Zahra Dotson FNP [address] [place] [address] Appointment Request Social History Tobacco Use Types [...] Description 01/19/2025 9:45 AM EDT Office Visit [facility] [address] [place] [address] 01/20/2025 10:00 AM EDT Office Visit [facility] [address] [place] [address] Zahra Dotson FNP [address] [place] [address] documented as of this encounter Goals Goal Patient Goal Type Associated Problems Recent Progress Patient-Stated? Author Record your blood pressure once per day Blood Pressure No Chandler Leong PharmD Reduce the number of cigarettes by 1 in the next two weeks with a goal of 6-8 cigarettes smoked per day General No Chandler Leong PharmD Take your medication every day Lifestyle No Chandelr Leong PharmD documented as of this encounter Visit Diagnoses Not on filedocumented in this encounter Additional Health Concerns Assessment Noted Time PHQ-9 Depression Total Score: 3 12/12/19 23 4:02 PM EDT documented as of this encounter Care Teams Systems Integration Analyst Relationship Specialty Start Date End Date Zahra Dotson FNP [address] [place] [address] PCP - General Family Medicine 05/09/22 documented as of this encounter
[2025-01-15 16:29] LABS: Anion Gap 14 (12-20); Blood Urea Nitrogen 10 mg/dL (9-16); Calcium 8.9 mg/dL (8.4-10.2); Carbon Dioxide 26 mmol/L (22-29); Chloride 104 mmol/L (96-108); Estimated Glomerular Filt Rate > 60; Glucose Random 129 mg/dL (60-115); Potassium 3.5 mmol/L (3.3-5.1); Sodium 140 mmol/L (135-145)
== END 2025-01-15 13:00 | disposition home or self-care (01) ==
LOC: HO.HHCL 12:59
PROVIDERS: Visit Provider Registered Nurse
DX: Z00.00 Encounter for general adult medical examination without abnormal findings (principal)
CPT/HCPCS: 36415; 80048

== ENCOUNTER 2025-02-15 16:00 | Outpatient (REF) | payer OTHER, SELFPAY ==
--- OUTSIDE RECORDS SUMMARY | 2025-02-15 17:34 | XMS_ITS | Encounter Summary ---
Author Organization [employer] Address 75 [facility] 7t [place] [address] Care Team Providers Care Dietitian Teacher Name Role Phone Zahra Dotson Primary Care Provider [phone] Encounter Details Date Type Department Care Team (Late st Contact Info) Description 09/11/2022 Orders Only [facility] [address] [place] [address] Mary Ann Cruz LPN Social History Tobacco [...] Care Team (Late st Contact Info) Description 02/16/2025 9:45 AM EDT Office Visit [facility] MED[facility]INE [address] [place] [address] 02/19/2025 10:00 AM EDT Telemedicine [facility] [address] [place] [address] Юлия Farrell, LindaD [address] [place] [address] 04/26/2025 3:45 PM EDT Office Visit [facility] MED [facility] PEDS [address] [place], [place] [phone] Zahra Dotson FNP [address] [place], [place] [phone] documented as of this encounter Visit Diagnoses Not on filedocumented in this encounter Care Teams Dietitian Teacher Relationship Specialty Start Date End Date Zahra Dotson FNP [address] [place] [address] PCP - General Family Medicine 05/09/22 documented as of this encounter
[2025-02-19 10:29] LABS: Norfentanyl, Ur 73.9
== END 2025-02-15 16:01 | disposition home or self-care (01) ==
LOC: HO.HHCLNP 16:00
PROVIDERS: Visit Provider Family Medicine
DX: G89.29 Other chronic pain (principal); M54.50 Low back pain, unspecified
CPT/HCPCS: 80354

== ENCOUNTER 2025-02-16 16:14 | Outpatient (REF) | payer OTHER, SELFPAY ==
--- OUTSIDE RECORDS SUMMARY | 2025-02-16 18:57 | XMS_ITS | Encounter Summary ---
Author Organization [employer] Address 75 [facility] 7t [place] [address] Care Team Providers Care Photo Lab Specialist Name Role Phone Zahra Dotson Primary Care Provider [phone] Encounter Details Date Type Department Care Team (Late st Contact Info) Description 09/11/2022 Orders Only [facility] MED & PEDS [address] [place] [address] Mary Ann Cruz LPN Social History Tobacco [...] Care Team (Late st Contact Info) Description 02/19/2025 10:00 AM EDT Telemedicine [facility] MEDICINE [address] [place] [address] Юлия Farrell, PharmD [address] [place] [address] 03/16/2025 9:45 AM EDT Office Visit [facility] MEDICINE [address] [place] [address] 04/26/2025 3:45 PM EDT Office Visit [facility] MED & PEDS [address] [place], [place] [phone] Zahra Dotson FNP [address] [place], [place] [phone] documented as of this encounter Visit Diagnoses Not on filedocumented in this encounter Care Teams Photo Lab Specialist Relationship Specialty Start Date End Date Zahra Dotson FNP [address] [place] [address] PCP - General Family Medicine 05/09/22 documented as of this encounter
[2025-02-22 09:20] LABS: Fentanyl, Ur 2.3; Norfentanyl, Ur 15.1
== END 2025-02-16 16:15 | disposition home or self-care (01) ==
LOC: HO.HHCLNP 16:14
PROVIDERS: Visit Provider Registered Nurse
DX: Z79.891 Long term (current) use of opiate analgesic (principal)
CPT/HCPCS: 80354

== ENCOUNTER 2025-03-17 13:04 | Outpatient (REF) | payer OTHER, SELFPAY ==
--- OUTSIDE RECORDS SUMMARY | 2025-03-17 13:54 | XMS_ITS | Encounter Summary ---
Author Organization [employer] [facility] Address [address] [facility] 7t [place] [address] Care Team Providers Care Photographer Model Name Role Phone Zahra Dotson Primary Care Provider [phone] Encounter Details Date Type Department Care Team (Late st Contact Info) Description 09/11/2022 Orders Only [facility] MED & PEDS [address] [place] [address] Mary Ann Cruz LPN Social History Tobacco [...] Care Team (Late st Contact Info) Description 04/26/2025 3:45 PM EDT Office Visit [facility] MED & PEDS [address] [place] [address] Zahra Dotson FNP [address] [place] [address] documented as of this encounter Visit Diagnoses Not on filedocumented in this encounter Care Teams Photographer Model Relationship Specialty Start Date End Date Zahra Dotson FNP [address] [place] [address] PCP - General Family Medicine 05/09/22 documented as of this encounter
[2025-03-17 16:47] LABS: Anion Gap 10 (12-20); Blood Urea Nitrogen 10 mg/dL (9-16); Calcium 9.1 mg/dL (8.4-10.2); Carbon Dioxide 27 mmol/L (22-29); Chloride 107 mmol/L (96-108); Estimated Glomerular Filt Rate > 60; Potassium 3.8 mmol/L (3.3-5.1); Sodium 140 mmol/L (135-145)
== END 2025-03-17 13:05 | disposition home or self-care (01) ==
LOC: HO.HHCL 13:04
PROVIDERS: PCP Registered Nurse; Visit Provider Registered Nurse
DX: E87.6 Hypokalemia (principal)
CPT/HCPCS: 36415; 80048

== ENCOUNTER 2025-07-13 08:54 | Outpatient (REF) | payer OTHER, SELFPAY ==
--- NOTE | ~2025-07-13 | XR_ITS ---
EXAMINATION: XR HAND, RIGHT CLINICAL INFORMATION: Arthralgia of bilateral hands with intermittent swelling. COMPARISON: None available. TECHNIQUE: PA, lateral, and oblique views of the right hand. FINDINGS: There is normal bony mineralization. There is no fracture, dislocation, or suspicious bone lesion. There is normal alignment. There is no periarticular osteopenia or erosion. Joint spaces are preserved throughout. There is no soft tissue abnormality. XR/XR hand RT min 3V IMPRESSION: Normal right hand. No evidence of inflammatory arthropathy. Electronically signed by: Julio C Osborne MD 07/13/2025 09:36 AM EST
--- NOTE | ~2025-07-13 | XR_ITS ---
EXAMINATION: XR FOOT, RIGHT CLINICAL INFORMATION: 49 y/o f with pain dorsal surface right foot with ?bony structure COMPARISON: None available. TECHNIQUE: AP, lateral, and oblique views of the right foot. FINDINGS: No visible acute fracture, dislocation or suspicious bony lesion. Alignment is anatomic. Minimal dorsal spurring of the navicular on the lateral view. No erosions. No abnormal soft tissue calcification. Moderate plantar calcaneal spur. Mild dorsal foot soft tissue swelling. No radiopaque foreign body seen. XR/XR foot RT min 3V IMPRESSION: 1. No radiographic evidence of acute osseous abnormality. 2. Moderate plantar calcaneal spur. 3. Mild dorsal foot soft tissue swelling. Electronically signed by: Jonnathan Cox MD 07/13/2025 09:40 AM [facility]
--- NOTE | ~2025-07-13 | XR_ITS ---
EXAMINATION: XR HAND, LEFT CLINICAL INFORMATION: PAIN COMPARISON: Arthralgia of bilateral hands with intermittent swelling. TECHNIQUE: PA, lateral, and oblique views of the left hand. FINDINGS: There is normal bony mineralization. There is no fracture, dislocation, or suspicious bone lesion. There is normal alignment. There is no periarticular osteopenia or erosion. Joint spaces are preserved throughout. There is no soft tissue abnormality. XR/XR hand LT min 3V IMPRESSION: Normal left hand. No evidence of inflammatory arthropathy. Electronically signed by: Julio C Osborne MD 07/13/2025 09:37 AM [facility]
--- OUTSIDE RECORDS SUMMARY | 2025-07-13 09:40 | XMS_ITS | Encounter Summary ---
Author Organization [employer] Address [address] [place] [address] 7 [place] [address] Care Team Providers Care Yolk Spray Drier Name Role Phone Zahra Dotson Primary Care Provider [phone] Encounter Details Date Type Department Care Team (Late st Contact Info) Description 09/11/2022 Orders Only [facility] MED [facility] PEDS [address] [place] [address] Mary Ann Cruz LPN Social History Tobacco [...] Care Team (Late st Contact Info) Description 07/20/2025 9:45 AM EST Office Visit [facility] MEDICINE [address] [place] [address] 07/28/2025 11:15 AM EST Office Visit [facility] [address] [place] [address] Zahra Dotson FNP [address] [place] [address] documented as of this encounter Visit Diagnoses Not on filedocumented in this encounter Care Teams Yolk Spray Drier Relationship Specialty Start Date End Date Zahra Dotson FNP [address] [place] [address] PCP - General Family Medicine 05/09/22 documented as of this encounter
--- OUTSIDE RECORDS SUMMARY | 2025-07-13 09:40 | XMS_ITS | Encounter Summary ---
Author Organization [employer] Address 75 [facility] 7t [place] [address] Care Team Providers Care Piggery Worker Name Role Phone Zahra Dotson Primary Care Provider [phone] Encounter Details Date Type Department Care Team ([facility] Contact Info) Description 10/11/2022 Telephone [facility] MEDICINE [address] [place] [address] [phone] Zahra Dotson FNP [address] [place], [place] [phone] Social History Tobacco Use Types Packs/Day Years [...] Upcoming Encounters Date Type Department Care Team ([facility] Contact Info) Description 07/20/2025 9:45 AM EST Office Visit [facility] MEDICINE [address] [place] [address] [phone] 07/28/2025 11:15 AM EST Office Visit [address] [address] Zahra Dotson FNP [address] [place] [address] documented as of this encounter Visit Diagnoses Not on filedocumented in this encounter Care Teams Piggery Worker Relationship Specialty Start Date End Date Zahra Dotson FNP [address] [place] [address] PCP - General Family Medicine 05/09/22 documented as of this encounter
--- OUTSIDE RECORDS SUMMARY | 2025-07-13 09:41 | XMS_ITS | Encounter Summary ---
Author Organization [employer] Address 75 [facility] 7t [place] [address] Care Team Providers Care Flyer Maker Name Role Phone Zahra Dotson Primary Care Provider [phone] Reason for Visit * Reason Onset Date Comments Referral 04/04/2023 Rheumatology fro m 12/29/22 Encounter Details Date Type Department Care Team ([facility] st Contact Info) Description 04/04/2023 Telephone [facility] MEDICINE [address] [place] [address] Zahra Dotson FNP [address] [place] [address] Referral (Rheumatology from 12/29/22) Social History Tobacco [...] Referral is being re-faxed to [facility]. Sharyn stated she is going to try to get pt in sooner and will call her directly after reviewing notes. Facilities Manager called and spoke with pt. She was [...] Information Date: 04/05/2023 Time: 1:00 PM Location: [address] [place] [address] FAX [phone] Patient states she confirmed appt twice with [...] now appt is not in the system. Facilities Manager let patient now message will be sent to retail product demo specialist and they will follow up with her in regards to next appt detail or next steps. Please call [phone]. documented in this encounter Plan of Treatment Upcoming Encounters Date Type Department Care Team (Late st Contact Info) Description 07/20/2025 9:45 AM EST Office Visit [facility] MEDICINE [address] [place] [address] 07/28/2025 11:15 AM EST Office Visit [facility] MEDICINE [address] [place] [address] Zahra Dotson FNP [address] [place] [address] documented as of this encounter Goals Goal [...] documented as of this encounter Care Teams Flyer Maker Relationship Specialty Start Date End Date Zahra Dotson FNP [address] [place] [address] PCP - General Family Medicine 05/09/22 documented as of this encounter
--- OUTSIDE RECORDS SUMMARY | 2025-07-13 09:41 | XMS_ITS | Encounter Summary ---
Author Organization [employer] Address [address] [place] [address] Care Team Providers Care Sales Consultant Residential Manager Name Role Phone Zahra Dotson Primary Care Provider [phone] Encounter Details Date Type Department Care Team ([facility] st Contact Info) Description 11/17/2024 Orders Only [facility] [address] [place], [place] [phone] Zahra Dotson FNP [address] [place], [place] [phone] Primary hypertension (Primary Dx) Social History Tobacco [...] Description 07/20/2025 9:45 AM EST Office Visit [address] [address] 07/28/2025 11:15 AM EST Office Visit [address] [address] Zahra Dotson, [employer] [address] [place] [address] documented as of this encounter Goals Goal [...] EDT) Sodium 138 135 - 145 mmol/L [facility] Potassium 3.8 3.3 - 5.1 mmol/L [facility] Chloride 107 96 - 108 mmol/L [facility] Carbon Dioxide 26 22 - 29 mmol/L [facility] Anion Gap 9(L) 12 - 20 [facility] Urea Nitrogen (BUN) 6(L) 9 - 16 mg/dL [facility] Creatinine, Serum 0.73 0.5 - 1.4 mg/dL [facility] Estimated Glomerular Filt Rate >60 [facility] Comment:Chronic Kidney Disea se: Estimated GFR < 60 mL/min/1.57x3Smprml Kidney Disease: Estimated GFR < 15 mL/min/1.73m2 Glucose 114 60 - 115 mg/dL [facility] Calcium 8.9 8.4 - 10.2 mg/dL [facility] Blood Venous blood specimen / Unknown 11/17/2024 10:50 AM EDT 11/17/2024 11:29 AM EDT us Zahra [facility] BLOOD ORDERABLES Final Res ult [facility] [address] [place] [address] [phone] documented in this encounter Visit Diagnoses Diagnosis Primary hypertension- Primary Unspecified essential hypertension documented in this encounter Additional Health Concerns Assessment Noted Time PHQ-9 Depression Total Score: 14 024 11:59 AM EST documented as of this encounter Care Teams Sales Consultant Residential Manager Relationship Specialty Start Date End Date Zahra Dotson FNP [address] [place] [address] PCP - General Family Medicine 05/09/22 documented as of this encounter
--- OUTSIDE RECORDS SUMMARY | 2025-07-13 09:41 | XMS_ITS | Encounter Summary ---
Author Organization [employer] Address [address] [place] [address] Care Team Providers Care Pipeline Executive Name Role Phone Zahra Dotson Primary Care Provider [phone] Reason for Visit * Reason Onset Date Comments Med Refill 09/05/2023 Encounter Details Date Type Department Care Team ([facility] st Contact Info) Description 09/05/2023 Telephone [facility] [address] [place] [address] Zahra Dotson FNP [address] [place], [place] [phone] Med Refill Social History Tobacco Use Types [...] per sublingual film To be sent to: [facility] - [place], [place] - [address] [place] [address] documented in this encounter Plan of Treatment Upcoming Encounters Date Type Department Care Team (Late st Contact Info) Description 07/20/2025 9:45 AM EST Office Visit [facility] [address] [place] [phone] 07/28/2025 11:15 AM EST Office Visit [facility] [address] [place] [phone] Zahra Dotson FNP [address] [place] [address] documented as of this encounter Goals Goal [...] documented as of this encounter Care Teams Pipeline Executive Relationship Specialty Start Date End Date Zahra Dotson FNP [address] [place] [phone] PCP - General Family Medicine 05/09/22 documented as of this encounter
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
--- OUTSIDE RECORDS SUMMARY | 2025-07-13 09:41 | XMS_ITS | Encounter Summary ---
Author Organization [employer] Address [address] 7t [place] [address] Care Team Providers Care Master Rigger Name Role Phone Zahra Dotson Primary Care Provider [phone] Reason for Visit * Reason Comments Med Refill Encounter Details Date Type Department Care Team ([facility] st Contact Info) Description 02/05/2025 Refill [facility] [address] [place] [address] Zahra Dotson FNP [address] [place], [place] [phone] Spondyloarthropathy of lumbar spine Social History Tobacco [...] Description 07/20/2025 9:45 AM EST Office Visit [address] [address] 07/28/2025 11:15 AM EST Office Visit [address] [address] Zahra Dotson FNP [address] [place] [address] documented as of this encounter Goals Goal [...] as of this encounter Care Teams Master Rigger Relationship Specialty Start Date End Date Zahra Dotson FNP [address] [place] [address] PCP - General Family Medicine 05/09/22 documented as of this encounter
--- OUTSIDE RECORDS SUMMARY | 2025-07-13 09:41 | XMS_ITS | Encounter Summary ---
Author Organization [employer] Address [address] [facility] 7t [place] [address] Care Team Providers Care Membership Sales Representative Name Role Phone AlfonsoZahra webb TIANNA Primary Care Provider [phone] Reason for Referral * Consultation (Routine) - Closed Specialty Diagnoses / Procedures Referred By Contac t Referred To Contact Pharmacy Diagnoses Tobacco dependence syndrome Janki Walton MD [address] [place] [address] Phone: tel: fax: Referral ID Status Reason Start Date Expiration Date V isits Requested Visits Authorized [id number] Closed Consult and Treat 01/25/2025 01/25/2026 6 6 Encounter Details Date Type Department Care Team (Late st Contact Info) Description 01/25/2025 Orders Only [facility] [address] [place], [place] [phone] Janki Walton MD [address] [place], [place] [phone] Tobacco dependence syndrome (Primary Dx) Social History Tobacco Use Types [...] Description 07/20/2025 9:45 AM EST Office Visit [facility] [address] [place] [address] 07/28/2025 11:15 AM EST Office Visit [facility] [address] [place] [address] Zahra Dotson, TIANNA [address] [place] [address] Scheduled Referrals Name Type Priority Associated Diagnoses Orde r Schedule Referral to Pharmacy CDTM Outpatient Referral Routine Tobacco dependence syndrome Ordered: 01/25/2025 documented as of this encounter Goals Goal [...] this encounter Visit Diagnoses Diagnosis Tobacco dependence syndrome- Primary Tobacco use disorder documented in this encounter Additional Health Concerns Assessment Noted Time PHQ-9 Depression Total Score: 14 024 11:59 AM EST documented as of this encounter Care Teams Membership Sales Representative Relationship Specialty Start Date End Date Zahra Dotson FNP [address] [place] [address] PCP - General Family Medicine 05/09/22 documented as of this encounter
--- OUTSIDE RECORDS SUMMARY | 2025-07-13 09:41 | XMS_ITS | Encounter Summary ---
Author Organization [employer] Address [address] [facility] 7t [place] [address] Care Team Providers Care Access Assoc Name Role Phone Zahra Dotson Primary Care Provider [phone] Reason for Visit * Reason Comments Med Refill Encounter Details Date Type Department Care Team ([facility] Contact Info) Description 06/18/2025 Refill [facility] MED & PEDS [address] [place], [place] [phone] Zahra Dotson FNP [address] [place] [address] Spondyloarthropathy of lumbar spine Social History Tobacco [...] Description 07/20/2025 9:45 AM EST Office Visit [facility] [address] [place] [address] 07/28/2025 11:15 AM EST Office Visit [facility] [address] [place] [address] Zahra Dotson FNP 505 [place] [address] documented as of this encounter Goals Goal [...] Assessment Noted Time PHQ-9 Depression Total Score: 11 025 10:24 AM EDT documented as of this encounter Care Teams Access Assoc Relationship Specialty Start Date End Date Zahra Dotson FNP [address] [place] [address] PCP - General Family Medicine 05/09/22 documented as of this encounter
--- OUTSIDE RECORDS SUMMARY | 2025-07-13 09:41 | XMS_ITS | Encounter Summary ---
Author Organization [employer] Address [address] [facility] [address] 7t [place] [address] Care Team Providers Care Team Truck Driver Name Role Phone Zahra Dotson Primary Care Provider [phone] Reason for Visit * Reason Onset Date Comments Medication Question 12/09/2024 Encounter Details Date Type Department Care Team ([facility] Contact Info) Description 12/09/2024 Telephone [facility] [address] [place] [address] Zahra Dotson FNP [address] [place] [address] Medication Question Social History Tobacco Use Types [...] TC x 2 placed to pt via MedTel24S per diem interpreter (LogoGrab ID#[id number]) to inform and advise of below PCP message.Pt verbalized understanding that the 6 tablets sent for her to cigar packer and picker on 12/16/24 to provide her with continued dosing on 12/17/24 and 12/18/24. Pt denies questions at this time. TIANNA Mello: 6 tablets sent for her to cigar packer and picker next week on 12/16/24. That will provide her with continued dosing on 12/17/24 and 12/18/24 so she should be sufficient until appt with Nick vasquez RN. * Telephone Encounter - TIANNA Mello - 12/09/2024 5:45 PM EDT 6 tablets sent for her to cigar packer and picker next week on 12/16/24. That will provide [...] Description 07/20/2025 9:45 AM EST Office Visit [address] [address] 07/28/2025 11:15 AM EST Office Visit [facility] [address] [place] [address] Zahra Dotson FNP [address] [place] [address] documented as of this encounter Goals Goal [...] documented as of this encounter Care Teams Team Truck Driver Relationship Specialty Start Date End Date Zahra Dotson FNP [address] [place] [address] PCP - General Family Medicine 05/09/22 documented as of this encounter
--- OUTSIDE RECORDS SUMMARY | 2025-07-13 09:41 | XMS_ITS | Encounter Summary ---
Author Organization [employer] Address [address] [facility] 7t [place] [address] Care Team Providers Care Tent Assembler Name Role Phone Zahra Dotson Primary Care Provider [phone] Reason for Visit * Reason Comments Med Refill Encounter Details Date Type Department Care Team ([facility] st Contact Info) Description 12/19/2023 Refill [facility] MED & PEDS 505 [place], [place] [phone] Zahra Dotson FNP 505 [place] [address] Spondyloarthropathy of lumbar spine Social History Tobacco [...] Description 07/20/2025 9:45 AM EST Office Visit [address] [address] 07/28/2025 11:15 AM EST Office Visit [address] [address] Zahra Dotson FNP [address] [place] [address] documented as of this encounter Goals Goal [...] documented as of this encounter Care Teams Tent Assembler Relationship Specialty Start Date End Date Zahra Dotson FNP [address] [place] [address] PCP - General Family Medicine 05/09/22 documented as of this encounter
--- OUTSIDE RECORDS SUMMARY | 2025-07-13 09:41 | XMS_ITS | Encounter Summary ---
Author Organization [employer] Address [address] [facility] [address] 7t [place] [address] Care Team Providers Care Test Equipment Mechanic Name Role Phone Zahra Dotson Primary Care Provider [phone] Reason for Visit * Reason Onset Date Comments Appointment Request 12/12/2023 Encounter Details Date Type Department Care Team ([facility] Contact Info) Description 12/12/2023 Telephone [facility] 230 [place] [address] Zahra Dotson FNP [address] [place], [place] [phone] Appointment Request Social History Tobacco Use Types [...] Description 07/20/2025 9:45 AM EST Office Visit [facility] [address] [place] [address] 07/28/2025 11:15 AM EST Office Visit [facility] [address] [place] [address] Zahra Dotson FNP [address] [place] [address] documented as of this encounter Goals Goal [...] documented as of this encounter Care Teams Test Equipment Mechanic Relationship Specialty Start Date End Date Zahra Dotson FNP [address] [place] [address] PCP - General Family Medicine 05/09/22 documented as of this encounter
--- OUTSIDE RECORDS SUMMARY | 2025-07-13 09:41 | XMS_ITS | Encounter Summary ---
Author Organization [employer] Address [address] [facility] 7t [place] [address] Care Team Providers Care Student Success Advisor Name Role Phone Zahra Dotson Primary Care Provider [phone] Reason for Visit * Reason Onset Date Comments Med Refill 06/21/2025 Encounter Details Date Type Department Care Team ([facility] Contact Info) Description 06/21/2025 Telephone [facility] MED & PEDS [address] [place] [address] Zahra Dotson FNP [address] [place] [address] Med Refill Social History Tobacco Use Types [...] encounter Miscellaneous Notes * Telephone Encounter - Jaren Lopez - 06/21/2025 9:53 AM EDT TC from pt requesting medication refill. Medications needing refill : oxyCODONE-acetaminophen (Percocet) 7.5-325 MG tablet To be sent to: [facility] - [place], [place] - [address] [place] [address] documented in this encounter Plan of Treatment Upcoming Encounters Date Type Department Care Team ([facility] st Contact Info) Description 07/20/2025 9:45 AM EST Office Visit [facility] [address] [place] [address] 07/28/2025 11:15 AM EST Office Visit [facility] [address] [place] [address] Zahra Dotson FNP [address] [place] [address] documented as of this encounter Goals Goal [...] documented as of this encounter Care Teams Student Success Advisor Relationship Specialty Start Date End Date Zahra Dotson FNP [address] [place] [address] PCP - General Family Medicine 05/09/22 documented as of this encounter
--- OUTSIDE RECORDS SUMMARY | 2025-07-13 09:41 | XMS_ITS | Encounter Summary ---
Author Organization [employer] [facility] Address [address] [facility] 7t [place] [address] Care Team Providers Care Coupon Collection Clerk Name Role Phone Zahra Dotson Primary Care Provider [phone] Reason for Visit * Reason Comments Med Refill Encounter Details Date Type Department Care Team ([facility] Contact Info) Description 10/11/2022 Refill [facility] [address] [place] [address] Zahra Dotson FNP [address] [place] [address] Social History Tobacco Use Types Packs/Day Years [...] Upcoming Encounters Date Type Department Care Team ([facility] Contact Info) Description 07/20/2025 9:45 AM EST Office Visit [address] [phone] 07/28/2025 11:15 AM EST Office Visit [facility] [address] [place] [address] Zahra Dotson FNP 505 [place] [address] documented as of this encounter Visit Diagnoses Not on filedocumented in this encounter Care Teams Coupon Collection Clerk Relationship Specialty Start Date End Date Zahra Dotson FNP [address] [place] [address] PCP - General Family Medicine 05/09/22 documented as of this encounter
--- OUTSIDE RECORDS SUMMARY | 2025-07-13 09:41 | XMS_ITS | Encounter Summary ---
Author Organization [employer] Address [address] [facility] [address] 7t [place] [address] Care Team Providers Care Production Graphic Designer Name Role Phone Zahra Dotson Primary Care Provider [phone] Reason for Visit * Reason Onset Date Comments Med Refill 11/16/2024 Encounter Details Date Type Department Care Team ([facility] st Contact Info) Description 11/16/2024 Telephone [facility] MED[facility]INE [address] [place] [address] Zahra Dotson FNP [address] [place] [address] Med Refill Social History Tobacco Use Types [...] immediate release tablet To be sent to: [facility] - [place], [place] - [address] [place] [address] documented in this encounter Plan of Treatment Upcoming Encounters Date Type Department Care Team ([facility] st Contact Info) Description 07/20/2025 9:45 AM EST Office Visit [address] [address] 07/28/2025 11:15 AM EST Office Visit [facility] MED[facility] [address] [place] [address] Zahra Dotson FNP [address] [place] [address] documented as of this encounter Goals Goal [...] as of this encounter Care Teams Production Graphic Designer Relationship Specialty Start Date End Date Zahra Dotson FNP [address] [place] [address] PCP - General Family Medicine 05/09/22 documented as of this encounter
--- OUTSIDE RECORDS SUMMARY | 2025-07-13 09:41 | XMS_ITS | Encounter Summary ---
Author Organization [employer] Address [address] [facility] [address] 7t [place] [address] Care Team Providers Care Crime Victim Specialist Name Role Phone Zahra Dotson Primary Care Provider [phone] Reason for Visit * Reason Comments Med Refill Encounter Details Date Type Department Care Team ([facility] st Contact Info) Description 02/14/2024 Refill [facility] 230 [place] [address] Zahra Dotson FNP [address] [place] [address] Spondyloarthropathy of lumbar spine Social History Tobacco [...] Description 07/20/2025 9:45 AM EST Office Visit [address] [address] 07/28/2025 11:15 AM EST Office Visit [address] [address] Zahra Dotson FNP 505 [place] [address] documented as of this encounter Goals Goal [...] documented as of this encounter Care Teams Crime Victim Specialist Relationship Specialty Start Date End Date Zahra Dotson FNP [address] [place] [address] PCP - General Family Medicine 05/09/22 documented as of this encounter
--- OUTSIDE RECORDS SUMMARY | 2025-07-13 09:41 | XMS_ITS | Encounter Summary ---
Author Organization [employer] Address [address] [facility] [address] 7t [place] [address] Care Team Providers Care Weatherization Administrator Name Role Phone Zahra Dotson Primary Care Provider [phone] Reason for Visit * Reason Comments Med Refill Encounter Details Date Type Department Care Team ([facility] st Contact Info) Description 06/15/2024 Refill [facility] [address] [place] [address] Zahra Dotson FNP [address] [place] [address] Spondyloarthropathy of lumbar spine Social History Tobacco [...] Description 07/20/2025 9:45 AM EST Office Visit [address] [address] 07/28/2025 11:15 AM EST Office Visit [address] [address] Zahra Dotson FNP [address] [place] [address] documented as of this encounter Goals Goal [...] documented as of this encounter Care Teams Weatherization Administrator Relationship Specialty Start Date End Date Zahra Dotson FNP [address] [place] [address] PCP - General Family Medicine 05/09/22 documented as of this encounter
--- OUTSIDE RECORDS SUMMARY | 2025-07-13 09:41 | XMS_ITS | Encounter Summary ---
Author Organization [employer] Address [address] [facility] [address] 7[address] [place] [address] Care Team Providers Care Corporate Meeting Planner Name Role Phone Zahra Dotson Primary Care Provider [phone] Reason for Visit * Reason Onset Date Comments Appointment Request 09/24/2024 Encounter Details Date Type Department Care Team ([facility] Contact Info) Description 09/24/2024 Telephone [facility] [address] [place] [address] Zahra Dotson FNP [address] [place] [address] Appointment Request Social History Tobacco Use Types [...] Miscellaneous Notes * Telephone Encounter - Sedrick Hacth - 09/24/2024 8:46 AM EST Tc from pt requesting new appointment as she canceled today's visit. [phone] documented in this encounter Plan of Treatment Upcoming Encounters Date Type Department Care Team (Late st Contact Info) Description 07/20/2025 9:45 AM EST Office Visit [facility] [address] [place] [address] 07/28/2025 11:15 AM EST Office Visit [facility] [address] [place] [address] Zahra Dotson FNP [address] [place] [address] documented as of this encounter Goals Goal [...] documented as of this encounter Care Teams Corporate Meeting Planner Relationship Specialty Start Date End Date Zahra Dotson FNP [address] [place] [address] PCP - General Family Medicine 05/09/22 documented as of this encounter
== END 2025-07-13 08:55 | disposition home or self-care (01) ==
LOC: HO.HHCX 08:54
PROVIDERS: Visit Provider Registered Nurse
DX: M79.671 Pain in right foot (principal); M79.641 Pain in right hand; M79.642 Pain in left hand
CPT/HCPCS: 73130; 73630

== ENCOUNTER 2025-07-23 08:14 | Outpatient (REF) | payer OTHER, SELFPAY ==
[2025-07-23 12:56] LABS: Anion Gap 10 (12-20); Blood Urea Nitrogen 11 mg/dL (9-16); Calcium 8.7 mg/dL (8.4-10.2); Carbon Dioxide 26 mmol/L (22-29); Chloride 109 mmol/L (96-108); Estimated Glomerular Filt Rate > 60; Potassium 4.0 mmol/L (3.3-5.1); Sodium 141 mmol/L (135-145)
== END 2025-07-23 08:15 | disposition home or self-care (01) ==
LOC: HO.HHCL 08:14
PROVIDERS: PCP Registered Nurse; Visit Provider Registered Nurse
DX: E87.5 Hyperkalemia (principal); R73.03 Prediabetes
CPT/HCPCS: 36415; 80048; 83036